=== PATIENT | male | born 1980 | race Caucasian/White ===

== ENCOUNTER 2016-08-08 19:53 | Inpatient (IN) | payer OTHER ==
[2016-08-08] VITALS (7 sets, daily range): BP systolic 113–144; BP diastolic 67–87; PULSE 68–100; RESP 16–18; TEMP 98–98.3; O2SAT 96–99
[~2016-08-08] VITALS: Ht 182.9 cm; Wt 111.1 kg
[~2016-08-08 19:53] MED LIST: ADDE30TA PO; XANA1TAB6 PO
[2016-08-08] MEDS ORDERED: SODIUM CHLOR 0.9% 1000 ML INJ 1,000 ML IV ONE (20:14)
[2016-08-08] MEDS ORDERED: SODIUM CHLORIDE 0.9% FLUSH 10 ML FLUSH IVF PRN (20:15)
[2016-08-08] MEDS ORDERED: LORazepam 2 MG/ML VIAL IVS ONE (20:15)
--- NOTE | 2016-08-08 20:28 | PD ---
HPI Chief Complaint: Seizure Time Seen by Provider: 20:06 Travel History International Travel<30 days: No Contact w/Intl Traveler<30days: No Traveled to known affect area: No History of Present Illness HPI The patient is a 36-year-old male with a history of ADHD and anxiety who apparently had a seizure at approximately 1915 today. This was witnessed by the neighbors. The patient bit his tongue complains of low back pain. He wants something for the pain. He denies any radiation of the pain. He has a history of alcohol abuse but states he does not drink very much alcohol now. His last drink was yesterday. He states he ran out of his Xanax 3 days ago. His Xanax is filled by his primary care physician in [place]. The patient is on Adderall and takes 30 mg once a day. Xanax is 2 mg at bedtime. She denies any head trauma or C-spine or T-spine pain. 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 The patient states he had a seizure 2 years ago. He was never worked up for seizures. He claims a 10 over 10 in pain, sharp pain, in his back. [facility] Past Medical History ADD: Yes Anxiety: Yes (ADD) Past Surgical History Other Surgery: Yes (ORAL SURGERY ANF FINGER SURGERY) Social History Alcohol Use: Yes (2 BEERS 2X/WEEK) Tobacco Use: Yes (1/2 PPD) Substance Use: No Allergies-Medications (Allergen,Severity, Reaction): Coded Allergies: No Known Allergies (Unverified , 11/04/14) Reported Meds & Prescriptions Reported Meds & Active Scripts Active Reported Xanax (Alprazolam) 2 Mg Tab 2 Mg PO HS Adderall (Amphetamine-Dextroamphetamine) 30 Mg Tab 30 Mg PO DAILY Avoid late evening doses. Space doses at least 4 to 6 hours if more than once/day dosing. Review of Systems Except as stated in HPI: all other systems reviewed are Neg Physical Exam Narrative GENERAL: The patient is alert, oriented 3 in moderate apparent distress with his low back pain. The vital signs are normal except for a tachycardia of 110. He has not appeared intoxicated and does not smell of alcohol. SKIN: Focused skin assessment warm/dry. No needle tracks nor wrist slash chavira are present. HEAD: Atraumatic. Normocephalic. Neither raccoon eyes nor matthew sign is present. EYES: Pupils equal and round. No scleral icterus. No injection or drainage. ENT: No nasal bleeding or discharge. Mucous membranes pink and moist. There is no hemotympanum present. The left tongue has recent bite navdeep present. NECK: Trachea midline. No JVD. No cervical spine tenderness or deformity is present. CARDIOVASCULAR: Regular rate and rhythm. No murmur appreciated. RESPIRATORY: No accessory muscle use. Clear to auscultation. Breath sounds equal bilaterally. GASTROINTESTINAL: Abdomen soft, non-tender, nondistended. Hepatic and splenic margins not palpable. No guarding or rebound is present. MUSCULOSKELETAL: No obvious deformities. No clubbing. No cyanosis. No edema. There is tenderness over the low back area NEUROLOGICAL: Awake and alert. No obvious cranial nerve deficits. Motor grossly within normal limits. Normal speech. PSYCHIATRIC: Appropriate mood and affect; insight and judgment normal. Data Data Last Documented VS Vital Signs Date Time Temp Pulse Resp B/P Pulse Ox O2 Delivery O2 Flow Rate FiO2 08/08/16 21:30 16 08/08/16 21:10 85 96 08/08/16 20:50 128/80 Room Air 08/08/16 20:[address] Brain W/O Iv Contrast(Rout) (08/08/16 20:14) Ct Lumb Spine W/O Contrast (08/08/16 20:14) Complete Blood Count With Diff (08/08/16 20:14) Alcohol (Ethanol) (08/08/16 20:14) Drug Screen, Random Urine (08/08/16 20:14) Electrocardiogram (08/08/16 ) Ecg Monitoring (08/08/16 20:14) Iv Access Insert/Monitor (08/08/16 20:14) Oximetry (08/08/16 20:14) Comprehensive Metabolic Panel (08/08/16 20:14) Sodium Chlor 0.9% 1000 Ml Inj (Ns 1000 M (08/08/16 20:14) Sodium Chloride 0.9% Flush (Ns Flush) (08/08/16 20:15) Lorazepam Inj (Ativan Inj) (08/08/16 20:15) Urinalysis - C+S If Indicated (08/08/16 20:14) Morphine Inj (Morphine Inj) (08/08/16 20:30) Ondansetron Inj (Zofran Inj) (08/08/16 20:30) Admit Order (Ed Use Only) (08/08/16 21:43) Creatine Kinase (Cpk) (08/08/16 20:45) Labs Laboratory Tests Test 08/08/16 08/08/16 20:40 20:45 Urine Color YELLOW Urine Turbidity CLEAR Urine pH 6.0 Urine Specific [place] 1.018 Urine Protein 30 mg/dL Urine Glucose (UA) NEG mg/dL Urine Ketones NEG mg/dL Urine Occult Blood MOD Urine Nitrite NEG Urine Bilirubin NEG Urine Leukocyte Esterase NEG Urine RBC 0-3 /hpf Urine WBC 3-5 /hpf Urine Squamous Epithelial > 8 /hpf Cells Urine Bacteria FEW /hpf Microscopic Urinalysis Comment CULT NOT INDICATED Urine Opiates Screen NEG Urine Barbiturates Screen NEG Urine Amphetamines Screen NEG Urine Benzodiazepines Screen NEG Urine Cocaine Screen NEG Urine Cannabinoids Screen NEG White Blood Count 20.1 TH/MM3 Red Blood Count 5.48 MIL/MM3 Hemoglobin 17.2 GM/DL Hematocrit 50.3 % Mean Corpuscular Volume 91.8 FL Mean Corpuscular Hemoglobin 31.4 PG Mean Corpuscular Hemoglobin 34.1 % Concent Red Cell Distribution Width 12.6 % Platelet Count 307 TH/MM3 Mean Platelet Volume 8.0 FL Neutrophils (%) (Auto) 86.3 % Lymphocytes (%) (Auto) 9.4 % Monocytes (%) (Auto) 4.0 % Eosinophils (%) (Auto) 0.2 % Basophils (%) (Auto) 0.1 % Neutrophils # (Auto) 17.4 TH/MM3 Lymphocytes # (Auto) 1.9 TH/MM3 Monocytes # (Auto) 0.8 TH/MM3 Eosinophils # (Auto) 0.0 TH/MM3 Basophils # (Auto) 0.0 TH/MM3 CBC Comment DIFF FINAL Differential Comment Sodium Level 138 MEQ/L Potassium Level 4.0 MEQ/L Chloride Level 106 MEQ/L Carbon Dioxide Level 23.9 MEQ/L Anion Gap 8 MEQ/L Blood Urea Nitrogen 12 MG/DL Creatinine 1.10 MG/DL Estimat Glomerular Filtration 77 ML/MIN Rate Random Glucose 103 MG/DL Calcium Level 8.5 MG/DL Total Bilirubin 0.5 MG/DL Aspartate Amino Transf 21 U/L (AST/SGOT) Alanine Aminotransferase 28 U/L (ALT/SGPT) Alkaline Phosphatase 55 U/L Total Creatine Kinase 161 U/L Total Protein 7.4 GM/DL Albumin 3.6 GM/DL Ethyl Alcohol Level LESS THAN 3 MG/DL MDM Medical Decision Making Medical Screen Exam Complete: Yes Emergency Medical Condition: Yes Medical Record Reviewed: Yes Interpretation(s) There is a compression fracture of T-12. The CT of the brain shows no acute disease. Differential Diagnosis Seizure disordernew onset, alcohol withdrawal, benzodiazepine withdrawal, head trauma, fractured back, acute lumbar strain Narrative Course The patient has a compression fracture T-12. He will be admitted to Dr. Winston at [facility] because he will need a neurosurgery consult. The patient has intractable pain. Diagnosis Primary Impression: Compression fracture of T12 vertebra Additional Impression: Intractable back pain Admitting Information Admitting Physician Requests: Admit Hugh Hudson MD Aug 08, 2016 20:28
[2016-08-08] MEDS ORDERED: ONDANSETRON HCL 4 MG/2 ML VIAL IV ONE (20:30)
[2016-08-08] MEDS ORDERED: MORPHINE SULFATE 4 MG/ML INJ IV PUSH ONE ×2 (20:30→22:00)
[2016-08-08 21:18] LABS: AUTOMATED NEUTROPHIL # 17.4 TH/MM3 (1.8-7.7); BASOPHIL % 0.1 % (0.0-2.0); EOSINOPHIL % 0.2 % (0.0-4.0); HEMATOCRIT 50.3 % (39.0-51.0); LYMPH % 9.4 % (9.0-44.0); LYMPHOCYTE # 1.9 TH/MM3 (1.0-4.8); MEAN CELL VOLUME 91.8 FL (80.0-100.0); MEAN CORPUSCULAR HEMOGLOBIN 31.4 PG (27.0-34.0); MEAN CORPUSCULAR HGB CONC 34.1 % (32.0-36.0); NEUT % 86.3 % (16.0-70.0); PLATELET COUNT 307 TH/MM3 (150-450); RED BLOOD COUNT 5.48 MIL/MM3 (4.50-5.90); RED CELL DISTRIBUTION WIDTH 12.6 % (11.6-17.2); WHITE BLOOD COUNT 20.1 TH/MM3 (4.0-11.0)
[2016-08-08 21:19] LABS: GLUCOSE,URINE NEG (NEG); KETONE, URINE NEG (NEG); NITRITE,URINE NEG (NEG)
[2016-08-08 21:21] LABS: BLOOD, URINE MOD (NEG); URINE COLOR YELLOW (YELLW/STRAW)
[2016-08-08 21:23] LABS: BACTERIA, URINE FEW /hpf; RBC, URINE 0-3 /hpf (0-3); SQUAMOUS EPITHELIAL CELL URINE > 8 /hpf (0-5)
[2016-08-08 21:24] LABS: COMMENT (UR) CULT NOT INDICATED; CULTURE IF INDICATED CULT NOT INDICATED
[2016-08-08] MEDS ORDERED: ADDE30TA PO (21:24)
[2016-08-08] MEDS ORDERED: XANA2TAB2 PO (21:24)
--- NOTE | 2016-08-08 21:24 | RADHPO ---
EXAM DATE/TIME: 08/08/2016 20:56 [facility] COMPARISON: No previous studies available for comparison. INDICATIONS : Seizure with fall. RADIATION DOSE: 63.21 CTDIvol (mGy) MEDICAL HISTORY : None SURGICAL HISTORY : None. ENCOUNTER: Initial ACUITY: 1 day PAIN SCALE: 5/10 LOCATION: cranial TECHNIQUE: Multiple contiguous axial images were obtained of the head. Using automated exposure control and adj ustment of the mA and/or kV according to patient size, radiation dose was kept as low as reasonably a chievable to obtain optimal diagnostic quality images. FINDINGS: CEREBRUM: The ventricles are normal for age. No evidence of midline shift, mass lesion, hemorrhage or acute in farction. No extra-axial fluid collections are seen. POSTERIOR FOSSA: The cerebellum and brainstem are intact. The 4th ventricle is midline. The cerebellopontine angle i s unremarkable. EXTRACRANIAL: The visualized portion of the orbits is intact. SKULL: The calvaria is intact. No evidence of skull fracture. CONCLUSION: No acute disease. Deangelo Workman MD on August 08, 2016 at 21:22 Board Certified Radiologist. This report was verified electronically.
[2016-08-08 21:26] LABS: CHLORIDE 106 MEQ/L (98-107); SODIUM (NA) 138 MEQ/L (136-145)
[2016-08-08 21:28] LABS: AMPHETAMINE, URINE NEG (NEG); BARBITURATES, URINE NEG (NEG)
[2016-08-08 21:29] LABS: ANION GAP 8 MEQ/L (5-15); BICARBONATE 23.9 MEQ/L (21.0-32.0); BLOOD UREA NITROGEN 12 MG/DL (7-18)
[2016-08-08 21:29] LABS: COCAINE, URINE NEG (NEG)
[2016-08-08 21:32] LABS: ALT (GPT) 28 U/L (12-78); AST (GOT) 21 U/L (15-37); GLOMERULAR FILTRATION RATE 77 ML/MIN (>89)
[2016-08-08 21:34] LABS: TOTAL BILIRUBIN ADULT 0.5 MG/DL (0.2-1.0)
[2016-08-08 21:35] LABS: ALKALINE PHOSPHATASE 55 U/L (45-117)
--- NOTE | 2016-08-08 21:36 | RADHPO ---
EXAM DATE/TIME: 08/08/2016 20:59 [facility] COMPARISON: No previous studies available for comparison. INDICATIONS : Trauma, fall. RADIATION DOSE: 33.64 CTDIvol (mGy) MEDICAL HISTORY : None SURGICAL HISTORY : None. ENCOUNTER: Initial ACUITY: 1 day PAIN SCALE: 5/10 LOCATION: Paraspinal TECHNIQUE: Volumetric scanning of the lumbar spine was performed. Multiplanar reconstructions in the sagittal, coronal and oblique axial planes were performed. Using automated exposure control and adjustment of the mA and/or kV according to patient size, radiation dose was kept as low as reasonably achievable t o obtain optimal diagnostic quality images. FINDINGS: There is evidence of a moderate to severe compression fracture involving the superior aspect of the T 12 vertebral body with retropulsion of the posterior-superior aspect of the vertebral body resulting in effacement of the anterior thecal sac. The retropulsed fragment extends approximately 7 mm records supervisor iorly and results in moderate spinal stenosis at this level. There is no acute fracture or spondylol isthesis of the lumbar spine. No spondylolysis is noted. Mild scoliosis of the lumbar spine is note d. CONCLUSION: 1. Moderate to severe compression fracture involving the T12 vertebral body with approximately 7 mm of retropulsion of the posterior-superior aspect of the vertebral body resulting in moderate spinal s tenosis at this level. 2. Mild scoliosis of the lumbar spine. Deangelo Workman MD on August 08, 2016 at 21:27 Board Certified Radiologist. This report was verified electronically.
[2016-08-08 21:41] LABS: HEMO FLAGS DIFF FINAL
[2016-08-08] MEDS ORDERED: NALOXONE HCL 0.4 MG/ML AMP IV PRN (21:45)
[2016-08-08] MEDS ORDERED: SODIUM CHLORIDE 0.9% FLUSH 10 ML FLUSH IV FLUSH PRN (21:45)
[2016-08-08] MEDS ORDERED: BISACODYL 10 MG SUPP RECTAL PRN (21:45)
[2016-08-08] MEDS ORDERED: MAGNESIUM HYDROXIDE SUSP 30 ML CUP PO PRN (21:45)
[2016-08-08] MEDS ORDERED: levETIRAcetam 1000 MG INJ 100 ML IV ONE (22:00)
[2016-08-08] MEDS ORDERED: ACETAMINOPHEN 325 MG TAB PO PRN (22:00)
[2016-08-08] MEDS ORDERED: ACETAMINOPHEN/HYDROcodone 325 MG/5 MG TAB PO PRN (22:00)
[2016-08-08] MEDS ORDERED: ACETAMINOPHEN/HYDROcodone 325 MG/10 MG TAB PO PRN (22:00)
[2016-08-08 22:22] LABS: CREATINE KINASE 161 U/L (39-308)
[2016-08-08] MEDS: DOCUSATE SODIUM 100 MG CAP PO SCH (22:37)
[2016-08-08] MEDS: SODIUM CHLOR 0.9% 1000 ML INJ 1,000 ML IV SCH (22:38)
[2016-08-09] VITALS (7 sets, daily range): BP systolic 115–147; BP diastolic 64–87; PULSE 68–100; RESP 16–21; TEMP 96.8–98.4; O2SAT 94–98
[2016-08-09] MEDS ORDERED: ORPHENADRINE INJ 60 MG/2 ML AMP IM ONE
[2016-08-09] MEDS: DEXAMETHASONE SOD PHOS 4 MG/ML VIAL IV PUSH SCH ×3 (01:52→20:22)
[2016-08-09] MEDS: MORPHINE SULFATE 4 MG/ML INJ IV PRN ×2 (02:43→08:16)
--- NOTE | 2016-08-09 03:21 | HHI.HP ---
[facility] Service [facility] Primary Care Physician Hafsa Kraft Admission Diagnosis compression fracture L1 Diagnoses: Chief Complaint: syncopal episode Travel History International Travel<30 Days: No Contact w/Intl Traveler <30 Da: No Traveled to Known Affected Are: No History of Present Illness 36 y/o male with a medical history of ADHD and anxiety was brought in by EMS after suffering a syncopal episode, questionable seizure. Patient states he went to the store for groceries and on the way back he was smoking a cigarette and became lightheaded. He went to the door, had double vision and passed out. According to the neighbors he had a seizure, and when he woke up he had bite chavira on his tough. He states he has been out of his medications for 3 days, and today he took a Benadryl to get some anxiety relief. He also states he has not been eating for 2 days, and has only consumed a slim fast in 2 days. He complains of pain from the fall and describes it as a constant stabbing pain in his mid lower back, 8/10, and increases with movement. He denies any numbness or tingling in lower extremities, chest pain, sob, fever or chills. He did state he has had a syncopal episode 2 years ago but does not believe it was a seizure. He does not have a diagnosed history of a seizure. He has had a total of 4 passing out episodes in his lifetime, and states it has been due to not eating. Review of Systems Constitutional: DENIES: Fever, Chills Respiratory: DENIES: Cough, Sputum production, Shortness of breath Cardiovascular: DENIES: Chest pain, Lower Extremity Edema Gastrointestinal: DENIES: Constipation, Diarrhea, Nausea, Vomiting Genitourinary: DENIES: Hematuria, Dysuria Musculoskeletal: COMPLAINS OF: Back pain, DENIES: Neck pain Integumentary: DENIES: Rash Hematologic/lymphatic: DENIES: Lymphadenopathy Immunologic/allergic: DENIES: Urticaria Neurologic: COMPLAINS OF: Headache Past Family Social History Past Medical History ADHD Anxiety Past Surgical History oral surgery finger surgery Reported Medications Reported Meds & Active Scripts Active Reported Xanax (Alprazolam) 2 Mg Tab 2 Mg PO HS Adderall (Amphetamine-Dextroamphetamine) 30 Mg Tab 30 Mg PO DAILY Avoid late evening doses. Space doses at least 4 to 6 hours if more than once/day dosing. Allergies: Coded Allergies: No Known Allergies (Unverified , 11/04/14) Active Ordered Medications Current Medications Medications (Trade) Dose Ordered Sig/Bruna Route Start Time Stop Time Status Last Admin Sodium Chloride 2 ml 2 ml UNSCH PRN IVF 08/08/16 20:15 08/08/16 21:21 (NS 1000 ml Inj) 1,000 ml @ 100 mls/hr Q10H IV 08/08/16 21:45 08/08/16 22:38 (NS Flush) 2 ml UNSCH PRN IV FLUSH 08/08/16 21:45 (NS Flush) 2 ml BID IV FLUSH 08/09/16 09:00 (Zofran Inj) 4 mg Q6H PRN IVP 08/08/16 21:45 (Dulcolax Supp) 10 mg DAILY PRN RECTAL 08/08/16 21:45 (Colace) 100 mg Q12H PO 08/08/16 21:45 08/08/16 22:37 (Milk Of Magnesia Liq) 30 ml Q12H PRN PO 08/08/16 21:45 (Senokot) 17.2 mg Q12H PRN PO 08/08/16 21:45 (Narcan Inj) 0.4 mg UNSCH PRN IV 08/08/16 21:45 (Xanax) 2 mg HS PO 08/09/16 21:00 (Keppra) 500 mg Q12HR PO 08/09/16 09:00 (Tylenol) 650 mg Q6H PRN PO 08/08/16 22:00 ([place] 5-325 Mg) 1 tab Q4H PRN PO 08/08/16 22:00 ([place] 10-325 Mg) 1 tab Q4H PRN PO 08/08/16 22:00 (Morphine Inj) 4 mg Q3H PRN IV 08/08/16 22:00 08/09/16 02:43 (Decadron Inj) 4 mg Q6HR IV PUSH 08/09/16 01:45 08/09/16 01:52 Family History Dad: heart disease Mom: li Social History Tobacco use: 1 1-1/2 PPD since age 20 Alcohol use: 1-2 beers a day during the week, weekends are more Illicit drug use: Denies Physical Exam Vital Signs Vital Signs Date Time Temp Pulse Resp B/P Pulse Ox O2 Delivery O2 Flow Rate FiO2 08/09/16 01:20 88 16 116/64 96 Room Air 08/09/16 01:00 84 16 97 08/09/16 00:50 84 16 115/68 95 Room Air 08/08/16 23:50 90 16 113/67 96 Room Air 08/08/16 23:00 16 08/08/16 22:50 98.3 80 16 132/68 98 Room Air 08/08/16 21:50 84 16 125/72 96 Room Air 08/08/16 21:30 16 08/08/16 21:10 85 16 96 08/08/16 20:50 86 16 128/80 99 Room Air 08/08/16 20:29 98.0 90 16 118/87 97 08/08/16 19:55 16 96 Room Air 08/08/16 19:55 100 18 118/87 98 Room Air Physical Exam GENERAL: This is a well-nourished, well-developed patient, in no apparent distress. SKIN: Mid back laceration. HEAD: Atraumatic. Normocephalic. No temporal or scalp tenderness. EYES: Pupils equal round and reactive. Extraocular motions intact. No scleral icterus. No injection or drainage. ENT: Nose without bleeding, purulent drainage or septal hematoma. Throat without erythema, tonsillar hypertrophy or exudate. Airway patent. NECK: Trachea midline. No JVD or lymphadenopathy. Supple, nontender, no meningeal signs. CARDIOVASCULAR: Regular rate and rhythm without murmurs, gallops, or rubs. RESPIRATORY: Clear to auscultation. Breath sounds equal bilaterally. No wheezes , rales, or rhonchi. GASTROINTESTINAL: Abdomen soft, non-tender, nondistended. No hepato-splenomegaly , or palpable masses. No guarding. MUSCULOSKELETAL: Extremities without clubbing, cyanosis, or edema. No joint tenderness, effusion, or edema noted. No calf tenderness. NEUROLOGICAL: Awake and alert. Motor and sensory grossly within normal limits. Five out of 5 muscle strength in all muscle groups. Normal speech. Laboratory Laboratory Tests Test 08/08/16 08/08/16 20:40 20:45 Urine Color YELLOW Urine Turbidity CLEAR Urine pH 6.0 Urine Specific [place] 1.018 Urine Protein 30 Urine Glucose (UA) NEG Urine Ketones NEG Urine Occult Blood MOD Urine Nitrite NEG Urine Bilirubin NEG Urine Leukocyte Esterase NEG Urine RBC 0-3 Urine WBC 3-5 Urine Squamous Epithelial > 8 Cells Urine Bacteria FEW Microscopic Urinalysis Comment CULT NOT INDICATED Urine Opiates Screen NEG Urine Barbiturates Screen NEG Urine Amphetamines Screen NEG Urine Benzodiazepines Screen NEG Urine Cocaine Screen NEG Urine Cannabinoids Screen NEG White Blood Count 20.1 Red Blood Count 5.48 Hemoglobin 17.2 Hematocrit 50.3 Mean Corpuscular Volume 91.8 Mean Corpuscular Hemoglobin 31.4 Mean Corpuscular Hemoglobin 34.1 Concent Red Cell Distribution Width 12.6 Platelet Count 307 Mean Platelet Volume 8.0 Neutrophils (%) (Auto) 86.3 Lymphocytes (%) (Auto) 9.4 Monocytes (%) (Auto) 4.0 Eosinophils (%) (Auto) 0.2 Basophils (%) (Auto) 0.1 Neutrophils # (Auto) 17.4 Lymphocytes # (Auto) 1.9 Monocytes # (Auto) 0.8 Eosinophils # (Auto) 0.0 Basophils # (Auto) 0.0 CBC Comment DIFF FINAL Differential Comment Sodium Level 138 Potassium Level 4.0 Chloride Level 106 Carbon Dioxide Level 23.9 Anion Gap 8 Blood Urea Nitrogen 12 Creatinine 1.10 Estimat Glomerular Filtration 77 Rate Random Glucose 103 Calcium Level 8.5 Total Bilirubin 0.5 Aspartate Amino Transf 21 (AST/SGOT) Alanine Aminotransferase 28 (ALT/SGPT) Alkaline Phosphatase 55 Total Creatine Kinase 161 Total Protein 7.4 Albumin 3.6 Ethyl Alcohol Level LESS THAN 3 Result Diagram: 08/08/16204408/08/162044 Imaging Last Impressions Lumbar Spine CT 08/08/162013 Signed Impressions: Service Date/Time: Monday, August 08, 2016 20:59 - CONCLUSION: 1. Moderate to severe compression fracture involving the T12 vertebral body with approximately 7 mm of retropulsion of the posterior-superior aspect of the vertebral body resulting in moderate spinal stenosis at this level. 2. Mild scoliosis of the lumbar spine. Deangelo Workman MD Head CT 08/08/162013 Signed Impressions: Service Date/Time: Monday, August 08, 2016 20:56 - CONCLUSION: No acute disease. Deangelo Workman MD Assessment and Plan Problem List: (1) Compression fracture of L1 lumbar vertebra ICD Code: S32.010A Status: Acute (2) Compression fracture of T12 vertebra ICD Code: M48.54XA Status: Acute (3) Tobacco abuse ICD Code: Z72.0 Status: Acute Assessment and Plan 36 y/o male with a medical history of ADHD and anxiety was brought in by EMS after suffering a syncopal episode, questionable seizure. Syncopal/ Questionable Seizure Images reviewed: Head CT unremarkable -Consult neurology for recommendations -EEG ordered -seizure precautions -Keppra PO -Neuro checks -Monitory TELE Compression fracture T12 and L1 Images reviewed: Lumbar Spine CT shows Moderate to severe compression fracture involving the T12 vertebral body with approximately 7 mm of retropulsion of the posterior-superior aspect of the vertebral body resulting in moderate spinal stenosis at this level. Mild scoliosis of the lumbar spine. -Consult neurosurgery for recommendations -Bed rest -Pain management with IV morphine and norco -Dexamethasone IV Leukocytosis, likely stress related WBS 20.1, neutrophils 86%, UA negative -Trend CBC Tobacco abuse -Counselled DVT prophylaxis: SCDs Written by GERMÁN Duque acting as scribe for Dr. Winston on 08/09/16 at 0328 All or portions of this note were transcribed by scribe [GERMÁN Duque,]. I, Dr. John Winston personally performed the history, physical exam, and medical decision making; and confirmed the accuracy of the information in the transcribed note. Authenticated by Dr. John Winston on 08/10/16 at 12:38. Discussed Condition With Patient, RN and ED physician Physician Certification 2 Midnight Certification Type: Admission for Inpatient Services Order for Inpatient Services The services are ordered in accordance with Medicare regulations or non- Medicare payer requirements, as applicable. In the case of services not specified as inpatient-only, they are appropriately provided as inpatient services in accordance with the 2-midnight benchmark. Estimated LOS (days): 2 days is the estimated time the patient will need to remain in the hospital, assuming treatment plan goals are met and no additional complications. Post-Hospital Plan: [place] Cande Harding Aug 09, 2016 03:20 John Winston MD Aug 10, 2016 12:38
[2016-08-09 04:19] LABS: AUTOMATED NEUTROPHIL # 12.5 TH/MM3 (1.8-7.7); BASOPHIL % 0.1 % (0.0-2.0); EOSINOPHIL % 0.1 % (0.0-4.0); HEMATOCRIT 42.7 % (39.0-51.0); HEMO FLAGS DIFF FINAL; LYMPH % 6.3 % (9.0-44.0); LYMPHOCYTE # 0.9 TH/MM3 (1.0-4.8); MEAN CELL VOLUME 91.6 FL (80.0-100.0); MEAN CORPUSCULAR HEMOGLOBIN 31.8 PG (27.0-34.0); MEAN CORPUSCULAR HGB CONC 34.8 % (32.0-36.0); MONO % 2.8 % (0.0-8.0); NEUT % 90.7 % (16.0-70.0); PLATELET COUNT 246 TH/MM3 (150-450); RED BLOOD COUNT 4.66 MIL/MM3 (4.50-5.90); RED CELL DISTRIBUTION WIDTH 13.6 % (11.6-17.2); WHITE BLOOD COUNT 13.8 TH/MM3 (4.0-11.0)
[2016-08-09 04:41] LABS: BICARBONATE 25.3 MEQ/L (21.0-32.0)
[2016-08-09] MEDS: ONDANSETRON HCL 4 MG/2 ML VIAL IVP PRN (04:46)
[2016-08-09] MEDS: SODIUM CHLOR 0.9% 1000 ML INJ 1,000 ML IV SCH ×3 (07:45→20:54)
[2016-08-09] MEDS: DOCUSATE SODIUM 100 MG CAP PO SCH ×2 (08:33→20:23)
[2016-08-09] MEDS ORDERED: levETIRAcetam 500 MG TAB PO SCH (09:00)
[2016-08-09] MEDS: SODIUM CHLORIDE 0.9% FLUSH 10 ML FLUSH IV FLUSH SCH ×2 (09:00→20:22)
--- NOTE | 2016-08-09 10:10 | RADRPT ---
EXAM DATE/TIME: 08/09/2016 09:24 This report includes an Addendum and supersedes previous reports for this exam. [facility] COMPARISON: CT LUMBAR SPINE W/O CONTRAST, August 08, 2016, 20:59. INDICATIONS : Fracture. Patient fell 08/08/2016. MEDICAL HISTORY : None. SURGICAL HISTORY : Finger surgery. ENCOUNTER: Initial ACUITY: 1 day PAIN SCORE: 7/10 LOCATION: Back. TECHNIQUE: Multiplanar multisequence MRI of the thoracic spine was performed. FINDINGS: VERTEBRA: There is an acute compression deformity involving the superior endplate of T12. There is 60% loss of height. 7 mm of retropulsion of the posterior cortical margin which abuts the ventral aspect of the c onus. The remaining vertebral body heights are maintained. No hematoma appreciated. No splaying of th e spinous processes. ALIGNMENT: Focal kyphosis centered at T12. CORD: Normal position and configuration. T1-T2: Normal. T2-T3: The thecal sac has a normal diameter. No evidence of disc bulge or protrusion. T3-T4: The thecal sac has a normal diameter. No evidence of disc bulge or protrusion. T4-T5: The thecal sac has a normal diameter. No evidence of disc bulge or protrusion. T5-T6: The thecal sac has a normal diameter. No evidence of disc bulge or protrusion. T6-T7: The thecal sac has a normal diameter. No evidence of disc bulge or protrusion. T7-T8: The thecal sac has a normal diameter. No evidence of disc bulge or protrusion. T8-T9: The thecal sac has a normal diameter. No evidence of disc bulge or protrusion. T9-T10: The thecal sac has a normal diameter. No evidence of disc bulge or protrusion. T10-T11: The thecal sac has a normal diameter. No evidence of disc bulge or protrusion. T11-T12: The thecal sac has a normal diameter. No evidence of disc bulge or protrusion. T12-L1: The thecal sac has a normal diameter. No evidence of disc bulge or protrusion. See above discussion. CONCLUSION: 1. Acute T12 compression fracture with 60% loss of height and 7 mm of retropulsion. There is abutment of the conus but no flattening or signal change within the conus. No hematoma observed. Brannon Corral Jr., MD on August 09, 2016 at 9:59 Board Certified Radiologist. This report was verified electronically. ADDENDUM: Examination was discussed with Dr. Mohamud. The sagittal T2-weighted images indicate mild mass effect o n the anterior margin of the spinal cord. Yash Lares MD on August 09, 2016 at 10:50 Board Certified Radiologist. This report was verified electronically.
[2016-08-09] MEDS ORDERED: VANCOMYCIN INJ 1,000 MG in SODIUM CHLOR 0.9% 250 ML INJ 250 ML IV ONE (11:00)
[2016-08-09] MEDS ORDERED: ceFAZolin 2 GM PREMIX 50 ML IV ONE (11:00)
[2016-08-09] MEDS: LORazepam 0.5 MG TAB PO PRN (11:10)
[2016-08-09] MEDS ORDERED: VANCOMYCIN HCL 1000 MG VIAL ONE (11:13)
[2016-08-09] MEDS ORDERED: BUPIVACAINE/EPINEPHRINE 0.5% PF 30 ML VIAL ONE (11:14)
[2016-08-09] MEDS ORDERED: THROMBIN (TOPICAL) 5,000 UNIT VIAL ONE (11:14)
[2016-08-09] MEDS ORDERED: GELFOAM SIZE 100 ONE (11:14)
[2016-08-09] MEDS ORDERED: GENTAMICIN SULFATE 80 MG/2 ML VIAL ONE (11:14)
[2016-08-09] MEDS ORDERED: HEPARIN SODIUM - SQ 10,000 UNITS/ML VIAL ONE (11:30)
[2016-08-09] MEDS ORDERED: levETIRAcetam 500 MG/5 ML VIAL IV ONE (11:38)
[2016-08-09] MEDS ORDERED: PROPOFOL 200 MG/20 ML AMP IV ONE (12:00)
[2016-08-09] MEDS ORDERED: SODIUM CHLORID 0.9% 500 ML INJ 500 ML IV ONE (12:00)
[2016-08-09] MEDS ORDERED: LACTATED RINGER'S 1000 ML INJ 3,000 ML IV ONE (12:00)
[2016-08-09] MEDS ORDERED: ONDANSETRON HCL 4 MG/2 ML VIAL IV PUSH ONE (12:00)
[2016-08-09 12:26] LABS: APTT (PATIENT) 27.6 SEC (24.3-30.1); PROTHROMBIN TIME - PATIENT 10.7 SEC (9.8-11.6)
[2016-08-09] MEDS ORDERED: ACETAMINOPHEN 1000 MG/100 ML VIAL IV ONE (12:36)
[2016-08-09] MEDS ORDERED: fentaNYL CITRATE 250 MCG/5 ML AMP ONE ×2 (12:36→15:50)
[2016-08-09] MEDS ORDERED: ARTIFICIAL TEARS OPTH OINT 3.5 APPLIC/3.5 GM TUBO ONE (12:36)
[2016-08-09] MEDS ORDERED: HYDROmorphone HCL PF 2 MG/ML VIAL ONE ×2 (12:36→15:50)
[2016-08-09] MEDS ORDERED: MIDAZOLAM HCL 5 MG/5 ML VIAL ONE (12:37)
--- NOTE | 2016-08-09 13:23 | EKG ---
Date Performed: 08/08/2016 Time Performed: 20:26:52 PTAGE: 36 years EKG: Sinus rhythm Normal ECG PREVIOUS TRACING : 02/07/2015 03.29 Compared to prior tracing no significant change DOCTOR: Jason Funez Interpretating Date/Time 08/09/2016 13:21:29
[2016-08-09] MEDS ORDERED: VANCOMYCIN HCL 1000 MG VIAL OTHER ONE (13:49)
[2016-08-09] MEDS ORDERED: ceFAZolin INJ 1,000 MG VIAL IV ONE (17:48)
[2016-08-09] MEDS: NS + KCL 20 MEQ INJ 1,000 ML IV SCH (18:56)
[2016-08-09] MEDS ORDERED: ACETAMINOPHEN 325 MG TAB PO PRN (19:00)
[2016-08-09] MEDS ORDERED: SODIUM CHLORIDE 0.9% FLUSH 5 ML FLUSH IVF PRN (19:00)
[2016-08-09] MEDS ORDERED: NALOXONE HCL 0.4 MG/ML AMP IV PRN (19:00)
[2016-08-09] MEDS ORDERED: diphenhydrAMINE HCL 50 MG/ML VIAL IV PRN (19:00)
[2016-08-09] MEDS ORDERED: DO NOT ADM ANY ANTICOAGULANT DRUGS PRN (19:01)
[2016-08-09] MEDS ORDERED: *MEPERIDINE 25 MG INJ VIAL PERIprocedural Use ONLY ONE (19:02)
--- NOTE | 2016-08-09 19:23 | PD.OP ---
Operative Report Date of Surgery: Aug 09, 2016 Preoperative Diagnosis: Tt12 BURST FRACTURE Postoperative Diagnosis: Tt12 BURST FRACTURE Procedure: Open reduction and internal fixation of T12 fracture, t10 to L2 segmental instrumental fixation using transpedicular screws and rods, T10 to L2 posterolateral fusion using autologous illiac crest bone graft, microsurgical dissection, harvesting of illiac crest bone graft Anesthesia: general Surgeon: Carlos Mohamud Principal Process Engineer(s): Valentina Marquez Operation and Findings: INDICATIONS FOR THE SURGICAL PROCEDURE Mr Yusuf is a 36 year-old male who presented to [place] emergency room after a severe mechanical fall with an unstable burst fracture distraction at T12. A surgical decompression with reduction of the fracture and arthrodhesis were indicated as the most appropriate treatment. The [id number] details of the procedure, indications, alternatives, risks and potential complications were fully discussed with the patient and his . The patient fully understood. All questions were answered. No guarantees were given. The patient voiced requesting the procedure and provided informed consents. The patient had been offered the alternative of delaying the procedure and continuing with nonsurgical management. DETAILS OF THE SURGICAL PROCEDURE Prior to the procedure,the surgical incision was marked in the preoperative surgical holding room, and the procedure, risks, and potential complications revisited with the patient. Placement of electrodes for intraoperative neurophysiological monitoring was completed. The patient was taken to the operative room, and following induction of general anesthesia, endotracheal intubation was performed. A Saini catheter bilateral Soham and sequential compression devices were placed and kept throughout the procedure. The patient was carefully rolled into the prone position over a Mj table with a gell rolls. All pressure points were carefully padded with eggcrate mattress. The eyes were tapped shut after ointment was applied by the anesthesiologist to prevent corneal abrasion. A Peace hugger was placed over the expossed lower body to maintain control of the core body temperature. The electrophysiological team placed the needles and electrodes in their proper location and baseline SSEP's and motor evoked potentials were registered. The thoracic lumbar region was prepped and draped in the usual sterile fashion. A localizing X-ray was performed with the C-arm and the fracture was localized. Two paramedian skin incisions were outlined from T10 to L2 Surgical Approach The skin incisions were made with a #10 blade. Dissection was carried out through the thoracolumbar fascia with a Bovie. The facets of T10 down to L2 were exposed and a subperiosteal dissection was performed decorticating the facets and lateral gutters of the spine. Instrumental fixation At this point in the procedure, placement of bilateral transpedicular screws was necessary for stabilization of the spine. The levels were carefully marked with a TPS and bilateral transpedicular screws were placed using a standard fashion. Initially, the entry point for the screw was selected anatomically at the junction of the facet, with the transverse process, and the pars interarticularis using symultaneous AP and lateral xrays. This was started with a Giamshetti needle followed by the use of a dodson wire. A tap was used to create the threads for the screws. Finally bilateral transpedicular screws were carefully placed bilaterally at T10, T11, T12, L1, and L2. The position of each screw was assessed anatomically with an AP, lateral, oblique Xrays. An intraoperative scan view of the spine was then performed using the iso-centric c -arm. Open reduction of the fracture Once all screws were in position, the operative microscope was draped in the usual sterile fashion and brought to the field. The rest of the surgical procedure was performed using microdissection technique with the exception of the closure. Under the operative microscope, a laminectomy was performed at T12. It was necessary to drill the facet entrance to the pedicle in order to allow access to the anterior surface of the thecal sac without retraction on the spinal cord. Epidural veins were coagulated with the bipolar and incised with the microscissors. The retropulsed bones were assessed with an nerve hook. They were causing significant compression of the dural sac. A shoe impactor was placed on the anterior epidural space and the bone fragments were impacted back into the vertebral body under fluoroscopic guidance. An excellent decompression was achieved using this technique. HARVESTING OF ILLIAC CREST BONE An incision was then made over the patient's right posterior iliac crest. The fascia was carefully opened with a Bovie and the posterior iliac crest was exposed. A small cortical window was created with an osteotome. Cancellous bone was then harvested, to be used during the interbody arthrodesis and the posterolateral fusion. Once an appropriate amount of bone was obtained, the incision was irrigated with antibiotic solution and hemostasis secured by packing the iliac crest with Surgicel. The cortical window was then repositioned and secured using 0 Vicryl sutures. The incision was irrigated and the fascia was closed with interrupted 0 Vicryl sutures. The subcutaneous tissue was approximated with 3-0 Vicryl sutures. Posterolateral fusion Then, the lateral gutters of the spine, facets and transverse processes were carefully decorticated with a TPS drill in preparation for the posterior lateral fusion. The incision was thoroughly irrigated with antibiotic solution. The posterolateral fusion was performed by carefully packing the gutters of the spine at T10 down to L2 with a autologous iliac crest bone graft combined with demineralized bone matrix. Completion of the Procedure The rods were brought to the field. Sequential application of the cap was achieved which allowed for further correction of the kyphosis. Final tightening of all screws was achieved with a torque wrench. The incision was thoroughly irrigated with several liters of antibiotic solution. The decompression was reassessed with an nerve hook and found to be appropriate. Seven mm Mj- Seo drain was left on the epidural space and was then externalized through a separate stab incision. The incision was then closed in layers. 0 Vicryl with interrupted sutures were used to close the thoracolumbar fascia. The superficial fascia was closed with 0 Vicryl sutures. Three-0 Vicryl was used to close the subcutaneous tissue. The skin was closed with negra. At the end of the procedure the sponges, needles, and instrument counts were all correct. Estimated blood loss was 300 cc's. No complications occurred. The patient received prophylactic antibiotics. The patient was then extubated and transferred to the recovery room in stable condition. The entire procedure was performed using electrophysiological monitor of the electromyogram, evoked potential and sphincters. No intraoperative abnormalities were detected. Carlos Mohamud MD Aug 09, 2016 19:23
--- NOTE | 2016-08-09 19:34 | RADRPT ---
EXAM DATE/TIME: 08/09/2016 19:19 [facility] COMPARISON: MRI THORACIC SPINE W/O CONTRAST, August 09, 2016, 9:24. INDICATIONS : Evaluate for central line placement MEDICAL HISTORY : None. SURGICAL HISTORY : None. ENCOUNTER: Initial ACUITY: 1 day PAIN SCORE: Non-responsive. LOCATION: Chest FINDINGS: A right internal jugular central line has its tip at the junction of the superior vena cava and right atrium. There is no pneumothorax. The heart is normal. Right basilar atelectasis is noted. Hardwar e is noted within the thoracolumbar spine. CONCLUSION: 1. No pneumothorax status post placement of right internal jugular central line which has its tip at the junction of the superior vena cava and right atrium. 2. Right basilar atelectasis. Deangelo Workman MD on August 09, 2016 at 19:28 Board Certified Radiologist. This report was verified electronically.
[2016-08-09] MEDS: HYDROmorphone HCL PCA 6 MG/30 ML IV SCH (19:36)
--- NOTE | 2016-08-09 19:51 | RADRPT ---
EXAM DATE/TIME: 08/09/2016 14:37 [facility] COMPARISON: No previous studies available for comparison. INDICATIONS : T10-L2 fusion. MEDICAL HISTORY : Unobtainable. SURGICAL HISTORY : Unobtainable. ENCOUNTER: Initial ACUITY: 2 days PAIN SCORE: Non-responsive. LOCATION: Thoracic/ Lumbar spine. FINDINGS: Fusion hardware is noted extending from T10 through L2 and appears to be adequate in position. Compr ession deformity involving T12 is again noted. CONCLUSION: Status post posterior fusion from T10 through L2 as described above. Deangelo Workman MD on August 09, 2016 at 19:41 Board Certified Radiologist. This report was verified electronically.
[2016-08-09] MEDS ORDERED: LORazepam 2 MG/ML VIAL IV PUSH PRN (20:00)
[2016-08-09] MEDS: ALPRAZolam 1 MG TAB PO SCH (20:22)
[2016-08-09] MEDS ORDERED: SODIUM CHLORIDE 0.9% FLUSH 5 ML FLUSH IVF SCH (21:00)
[2016-08-09] MEDS ORDERED: CHLORHEXIDINE GLUCONATE 4% SOLN 120 ML BTL TOP SCH (21:00)
[2016-08-09] MEDS: PCA - TOTAL MG DILAUDID DELIVERED PER SHIFT SCH (22:00)
[2016-08-09] MEDS: levETIRAcetam INJ 500 MG in SODIUM CHLORIDE 0.9% INJ 100 ML IV SCH (22:32)
--- NOTE | 2016-08-09 22:39 | MB ---
cc: MARGARITA PETIT M.D. DATE OF CONSULTATION 08/09/16 REASON FOR CONSULTATION Possible seizure. HISTORY OF PRESENT ILLNESS Mr. Yusuf is a 36-year-old man who has attention deficit hyperactivity disorder. He takes Xanax and Adderall. He states he ran out of Xanax about four or five days ago. Yesterday, he went to the store and was going back to his apartment, suddenly felt lightheaded and fell. Apparently, he passed out. His neighbors felt that he had a seizure. He did have signs of biting his tongue as well. He has no prior history of seizures. The episode resulted in a T12 compression fracture with cord involvement. He is status post surgery for that. PAST MEDICAL HISTORY 1. Remarkable for attention deficit hyperactivity disorder, 2. anxiety. MEDICATIONS 1. Xanax 2 mg q.h.s. 2. Adderall 30 mg daily. ALLERGIES None known. NEUROLOGIC EXAMINATION Presently he is alert, oriented x3. Speech is normal. Cranial is intact. Motor exam - he has normal strength in both upper and lower extremities. Reflexes are symmetric. Incision and drainage CT scan of the head is normal. LABORATORY DATA White count 13,800, hemoglobin 14.9, hematocrit 42.7% platelet count 246,000. Sodium is 138, potassium four, chloride five, CO2 25, BUN 10, creatinine 1.01, GFR is 85, glucose 99, PT 10.7, INR one, APTT 27.6. IMPRESSION A seizure probably from benzodiazepine withdrawal possibly contributed to by Adderall. RECOMMENDATIONS Because of his recent thoracic spine fracture and surgery, I recommend putting him on seizure prophylaxis with Keppra. We will also obtain an EEG for further evaluation. Also resume his Xanax 2 mg at bedtime, place him under seizure precautions. MD VENKATA Gauthier/ /7:53 PM /10:22 PM
--- NOTE | 2016-08-09 23:03 | MG ---
cc: FLOR MOLINA MD Lab No: [id number] Date: 08/09/16 Age: Sex: M Race: At 8 Hz 60 microvolt symmetric posterior rhythm seen. Hyperventilation not performed. Fracture, seizure, tongue biting, syncope, alcohol, tobacco. Keppra Ativan Decadron Recording overall is synchronous and symmetric. Photic stimulation is performed without significant posterior driving. Some diffuse beta rhythms are seen which could be medication effect. The patient falls asleep and reaches stage II sleep with a vertex sharp wave. Some sleep spindles are noted. IMPRESSION Normal awake and stage II sleep EEG. No evidence for a focal or diffuse abnormality. MD MARSHA Gonzales/ /10:02 PM /10:50 PM
[2016-08-10] VITALS (11 sets, daily range): BP systolic 75–142; BP diastolic 53–95; PULSE 72–174; RESP 18–20; TEMP 96.2–97.4; O2SAT 94–97
[2016-08-10] MEDS: DEXAMETHASONE SOD PHOS 4 MG/ML VIAL IV PUSH SCH ×4 (00:03→17:01)
[2016-08-10] MEDS: ONDANSETRON HCL 4 MG/2 ML VIAL IVP PRN ×2 (00:16→07:43)
[2016-08-10] MEDS: ceFAZolin 2 GM PREMIX 50 ML IV SCH ×3 (02:11→17:01)
[2016-08-10] MEDS: levETIRAcetam INJ 500 MG in SODIUM CHLORIDE 0.9% INJ 100 ML IV SCH ×4 (04:00→15:38)
[2016-08-10] MEDS: NS + KCL 20 MEQ INJ 1,000 ML IV SCH ×2 (04:24→14:56)
[2016-08-10] MEDS: HYDROmorphone HCL PCA 6 MG/30 ML IV SCH ×2 (04:30→21:08)
[2016-08-10] MEDS: LORazepam 0.5 MG TAB PO PRN (04:59)
[2016-08-10 05:16] LABS: BICARBONATE 25.4 MEQ/L (21.0-32.0); POTASSIUM 4.3 MEQ/L (3.5-5.1)
[2016-08-10 05:23] LABS: BASOPHIL # 0.1 TH/MM3 (0-0.2); BASOPHIL % 0.7 % (0.0-2.0); HEMATOCRIT 37.4 % (39.0-51.0); HEMO FLAGS DIFF FINAL; LYMPH % 4.4 % (9.0-44.0); LYMPHOCYTE # 0.7 TH/MM3 (1.0-4.8); MEAN CELL VOLUME 91.7 FL (80.0-100.0); MEAN CORPUSCULAR HEMOGLOBIN 32.1 PG (27.0-34.0); MONO % 5.5 % (0.0-8.0); NEUT % 89.4 % (16.0-70.0); PLATELET COUNT 246 TH/MM3 (150-450); RED BLOOD COUNT 4.08 MIL/MM3 (4.50-5.90); RED CELL DISTRIBUTION WIDTH 13.4 % (11.6-17.2); WHITE BLOOD COUNT 15.6 TH/MM3 (4.0-11.0)
[2016-08-10] MEDS: PCA - TOTAL MG DILAUDID DELIVERED PER SHIFT SCH ×3 (06:00→21:46)
[2016-08-10] MEDS ORDERED: LORazepam 1 MG TAB PO PRN (06:15)
[2016-08-10] MEDS ORDERED: LORazepam 2 MG/ML VIAL IV PUSH PRN ×4 (06:15)
[2016-08-10] MEDS ORDERED: SODIUM CHLORIDE 0.9% FLUSH 10 ML FLUSH IV FLUSH PRN (06:15)
[2016-08-10] MEDS ORDERED: LORazepam 2 MG TAB PO PRN (06:15)
[2016-08-10] MEDS ORDERED: FLUMAZENIL 0.5 MG/5 ML VIAL IV PUSH PRN (06:15)
[2016-08-10] MEDS: SODIUM CHLOR 0.9% 1000 ML INJ 1,000 ML IV SCH ×2 (06:54→16:22)
[2016-08-10] MEDS: CALCIUM CARBONATE 500 MG CHEWABLE TAB CHEW PRN ×2 (07:56→21:41)
[2016-08-10] MEDS: SODIUM CHLORIDE 0.9% FLUSH 10 ML FLUSH IV FLUSH SCH (09:00)
[2016-08-10] MEDS: PANTOPRAZOLE SODIUM 40 MG VIAL IVP SCH (09:00)
[2016-08-10] MEDS: DOCUSATE SODIUM 100 MG CAP PO SCH ×2 (09:25→20:42)
--- NOTE | 2016-08-10 12:04 | HHI.NSPN ---
History Chief Complaint: Incisional back pain. Interval History 08/10/16: Pt underwent open reduction and internal fixation of T12 fracture, T10 to L2 segmental instrumental fixation using transpedicular screws and rods, T10 to L2 posterolateral fusion using autologous illiac crest bone graft, microsurgical dissection, harvesting of illiac crest bone graft on 08/09/16. Pt awake and alert. Complains of incisional pain controlled. No radiculopathy. He states the paresthesias in his extremities is improved today. Denies weakness in LEs. Review of Systems General: Negative for: fever, chills, insomnia Respiratory: Negative for: shortness of breath, cough, sputum Cardiovascular: Negative for: chest pain Gastrointestinal: Negative for: nausea, vomitting, diarrhea, constipation Exam Results Vital Signs Date Time Temp Pulse Resp B/P Pulse Ox O2 Delivery O2 Flow Rate FiO2 08/10/16 08:34 96.9 72 20 123/62 96 08/10/16 08:19 21 08/09/16 19:45 Nasal Cannula 3 Intake and Output 08/09/16 08/09/16 08/10/16 08:00 16:00 00:00 Intake Total 2300 ml 2100 ml Output Total 1400 ml 1040 ml Balance 2300 ml -1400 ml 1060 ml Physical Examination Resp: CTA bilaterally Heart: NSR. No murmurs Abd: Soft positive bs Skin: Incision clean and dry. No signs of infection. NELSON drain in place draining well. Muscle: Moves LEs with good strength. Neuro: Pt states sensation in LEs improving. He is awake and alert. Follows commands well. Speech clear and appropriate. Lab, Micro, Other Results Last Impressions Thoracolumbar Spine 08/09/16 0000 Signed Impressions: Service Date/Time: July 14:37 - CONCLUSION: Status post posterior fusion from T10 through L2 as described above. Deangelo Workman MD Thoracic Spine MRI 08/09/16 0000 Signed Impressions: Service Date/Time: July 09:24 - CONCLUSION: 1. Acute T12 compression fracture with 60%% loss of height and 7 mm of retropulsion. There is abutment of the conus but no flattening or signal change within the conus. No hematoma observed. Brannon Corral Jr., MD ADDENDUM: Examination was discussed with Dr. Mohamud. The sagittal T2-weighted images indicate mild mass effect on the anterior margin of the spinal cord. Yash Lares MD Chest X-Ray 08/09/16 Signed Impressions: Service Date/Time: July 19:19 - CONCLUSION: 1. No pneumothorax status post placement of right internal jugular central line which has its tip at the junction of the superior vena cava and right atrium. 2. Right basilar atelectasis. Deangelo Workman MD Lumbar Spine CT 08/08/162013 Signed Impressions: Service Date/Time: Monday, August 08, 2016 20:59 - CONCLUSION: 1. Moderate to severe compression fracture involving the T12 vertebral body with approximately 7 mm of retropulsion of the posterior-superior aspect of the vertebral body resulting in moderate spinal stenosis at this level. 2. Mild scoliosis of the lumbar spine. Deangelo Workman MD Head CT 08/08/162013 Signed Impressions: Service Date/Time: Monday, August 08, 2016 20:56 - CONCLUSION: No acute disease. Deangelo Workman MD Laboratory Tests Test 08/09/16 08/10/16 13:00 04:36 Blood Type A POSITIVE White Blood Count 15.6 TH/MM3 Red Blood Count 4.08 MIL/MM3 Hemoglobin 13.1 GM/DL Hematocrit 37.4 % Mean Corpuscular Volume 91.7 FL Mean Corpuscular Hemoglobin 32.1 PG Mean Corpuscular Hemoglobin 35.0 % Concent Red Cell Distribution Width 13.4 % Platelet Count 246 TH/MM3 Mean Platelet Volume 8.1 FL Neutrophils (%) (Auto) 89.4 % Lymphocytes (%) (Auto) 4.4 % Monocytes (%) (Auto) 5.5 % Eosinophils (%) (Auto) 0.0 % Basophils (%) (Auto) 0.7 % Neutrophils # (Auto) 14.0 TH/MM3 Lymphocytes # (Auto) 0.7 TH/MM3 Monocytes # (Auto) 0.9 TH/MM3 Eosinophils # (Auto) 0.0 TH/MM3 Basophils # (Auto) 0.1 TH/MM3 CBC Comment DIFF FINAL Differential Comment Sodium Level 137 MEQ/L Potassium Level 4.3 MEQ/L Chloride Level 104 MEQ/L Carbon Dioxide Level 25.4 MEQ/L Anion Gap 8 MEQ/L Blood Urea Nitrogen 9 MG/DL Creatinine 0.99 MG/DL Estimat Glomerular Filtration 87 ML/MIN Rate Random Glucose 121 MG/DL Calcium Level 7.7 MG/DL 08/09/16 08/09/16 08/10/16 15:00 23:00 07:00 Intake Total 2100 ml Output Total 1400 ml 990 ml 1050 ml Balance -1400 ml 1110 ml -1050 ml Other 2100 ml Output Urine Total 1400 ml 700 ml 1000 ml Drainage Total 50 ml Estimated Blood Loss 290 ml Medical Decision Making Impression and Plan A: 36 y/o M s/p open reduction and internal fixation of T12 fracture, T10 to L2 segmental instrumental fixation using transpedicular screws and rods, T10 to L2 posterolateral fusion using autologous illiac crest bone graft, microsurgical dissection, harvesting of illiac crest bone graft P: Continue to monitor D/C Saini PT brace on prior to sitting, standing or walking continue with NELSON drain for now. Elia Green Aug 10, 2016 12:03
--- NOTE | 2016-08-10 13:40 | HHI.PR ---
Subjective Remarks Feels anxious. Was nauseated. 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 He is complaining of pain however he is refusing taking any pain meds. per father at bedside last time he used INLAYER SILVER pump was 2 hrs ago. The patient is anxious. Did not eat much because he had nausea. Denies diarrhea. Denies chest pain, sob. Objective Vitals Vital Signs Date Time Temp Pulse Resp B/P Pulse Ox O2 Delivery O2 Flow Rate FiO2 08/10/16 13:01 96.6 118 20 112/71 96 08/10/16 08:34 96.9 72 20 123/62 96 08/10/16 08:19 94 21 08/10/16 06:00 132 08/10/16 06:00 18 08/10/16 04:30 18 08/10/16 04:00 96.2 113 20 122/79 95 08/10/16 00:00 96.3 90 18 130/82 96 08/09/16 22:00 18 08/09/16 20:00 96.8 86 18 139/87 98 08/09/16 20:00 90 08/09/16 19:45 85 12 165/94 98 Nasal Cannula 3 08/09/16 19:36 14 08/09/16 19:30 84 12 149/99 97 Nasal Cannula 3 08/09/16 19:15 92 13 174/91 96 Nasal Cannula 3 08/09/16 19:00 97.6 87 12 148/91 98 Nasal Cannula 3 I/O 08/09/16 08/09/16 08/09/16 08/10/16 08/10/16 08/10/16 07:00 15:00 23:00 07:00 15:00 23:00 Intake Total 2300 ml 2100 ml Output Total 1400 ml 990 ml 1050 ml Balance 2300 ml -1400 ml 1110 ml -1050 ml Intake IV Total 2300 ml Other 2100 ml Output Urine Total 1400 ml 700 ml 1000 ml Drainage Total 50 ml Estimated Blood Loss 290 ml Result Diagram: 08/10/16 0436 08/10/16 0436 Imaging Last Impressions Thoracolumbar Spine 08/09/16 0000 Signed Impressions: Service Date/Time: July 14:37 - CONCLUSION: Status post posterior fusion from T10 through L2 as described above. Deangelo Workman MD Thoracic Spine MRI 3/30/17 0000 Signed Impressions: Service Date/Time: July 09:24 - CONCLUSION: 1. Acute T12 compression fracture with 60%% loss of height and 7 mm of retropulsion. There is abutment of the conus but no flattening or signal change within the conus. No hematoma observed. Brannon Corral Jr., MD ADDENDUM: Examination was discussed with Dr. Mohamud. The sagittal T2-weighted images indicate mild mass effect on the anterior margin of the spinal cord. Yash Lares MD Chest X-Ray 08/09/16 Signed Impressions: Service Date/Time: July 19:19 - CONCLUSION: 1. No pneumothorax status post placement of right internal jugular central line which has its tip at the junction of the superior vena cava and right atrium. 2. Right basilar atelectasis. Deangelo Workman MD Lumbar Spine CT 08/08/162013 Signed Impressions: Service Date/Time: Monday, August 08, 2016 20:59 - CONCLUSION: 1. Moderate to severe compression fracture involving the T12 vertebral body with approximately 7 mm of retropulsion of the posterior-superior aspect of the vertebral body resulting in moderate spinal stenosis at this level. 2. Mild scoliosis of the lumbar spine. Deangelo Workman MD Head CT 08/08/162013 Signed Impressions: Service Date/Time: Monday, August 08, 2016 20:56 - CONCLUSION: No acute disease. Deangelo Workman MD Objective Remarks GENERAL: This is a young, 36 yo male, well-nourished, well-developed patient, appears anxious. SKIN: Mid back surgical woun c/d/di HEAD: Atraumatic. Normocephalic. No temporal or scalp tenderness. EYES: Pupils equal round and reactive. Extraocular motions intact. No scleral icterus. No injection or drainage. ENT: Nose without bleeding, purulent drainage or septal hematoma. Throat without erythema, tonsillar hypertrophy or exudate. Airway patent. NECK: Trachea midline. No JVD or lymphadenopathy. Supple, nontender, no meningeal signs. CARDIOVASCULAR: Regular rate and rhythm without murmurs, gallops, or rubs. RESPIRATORY: Clear to auscultation. Breath sounds equal bilaterally. No wheezes , rales, or rhonchi. GASTROINTESTINAL: Abdomen soft, non-tender, nondistended. No hepato-splenomegaly , or palpable masses. No guarding. MUSCULOSKELETAL: Extremities without clubbing, cyanosis, or edema. No joint tenderness, effusion, or edema noted. No calf tenderness. NEUROLOGICAL: Awake and alert. Motor and sensory grossly within normal limits. Five out of 5 muscle strength in all muscle groups. Normal speech. Procedures 08/10/16 s/p open reduction and internal fixation of T12 fracture, T10 to L2 segmental instrumental fixation using transpedicular screws and rods, T10 to L2 posterolateral fusion using autologous illiac crest bone graft, microsurgical dissection, harvesting of illiac crest bone graft on 08/09/16. A/P Problem List: (1) Compression fracture of L1 lumbar vertebra ICD Code: S32.010A Status: Acute (2) Compression fracture of T12 vertebra ICD Code: M48.54XA Status: Acute (3) Tobacco abuse ICD Code: Z72.0 Status: Acute Assessment and Plan 36 y/o male with a medical history of ADHD and anxiety was brought in by EMS after suffering a syncopal episode, questionable seizure. Syncopal/ Questionable Seizure Images reviewed: Head CT unremarkable Consult neurology for recommendations EEG ordered Seizure precautions Keppra PO Neuro checks Monitor on TELE Compression fracture T12 and L1 Images reviewed: Lumbar Spine CT shows Moderate to severe compression fracture involving the T12 vertebral body with approximately 7 mm of retropulsion of the posterior-superior aspect of the vertebral body resulting in moderate spinal stenosis at this level. Mild scoliosis of the lumbar spine. Consult neurosurgery , appreciate recommendations 08/10/16 s/p open reduction and internal fixation of T12 fracture, T10 to L2 segmental instrumental fixation using transpedicular screws and rods, T10 to L2 posterolateral fusion using autologous illiac crest bone graft, microsurgical dissection, harvesting of illiac crest bone graft on 08/09/16. Bed rest Pain management with IV morphine and norco Received Dexamethasone IV Leukocytosis, likely stress related WBS 20.1, neutrophils 86% on admission UA negative rend CBC Tobacco abuse. Counselled. DVT prophylaxis: SCDs Discussed with the patient, nurse, family at bedside. DC plan: DC when improved and cleared by consultants. Cecilia Valencia MD Aug 10, 2016 13:40
--- NOTE | 2016-08-10 18:46 | HHI.PR ---
Review/Management Diagnosis probable sz---related to etoh. xanax withdrawal Thoracic spine fx--s/p surgery nurse reported afib on telemetry today Plan stop keppra as he is not tolerating it and start trileptal 600 mg bid cardiology consult for abnormal telemetry Diagnosis/Plan: Subjective Subjective Comments No acute events reported no seizures Active Medications Current Medications Medications (Trade) Dose Ordered Sig/Bruna Route Start Time Stop Time Status Last Admin (Zofran Inj) 4 mg Q6H PRN IVP 08/08/16 21:45 08/10/16 07:43 (Dulcolax Supp) 10 mg DAILY PRN RECTAL 08/08/16 21:45 (Colace) 100 mg Q12H PO 08/08/16 21:45 08/08/16 22:37 (Milk Of Magnesia Liq) 30 ml Q12H PRN PO 08/08/16 21:45 (Senokot) 17.2 mg Q12H PRN PO 08/08/16 21:45 (Xanax) 2 mg HS PO 08/09/16 21:00 08/09/16 20:22 (Tylenol) 650 mg Q6H PRN PO 08/08/16 22:00 08/10/16 07:56 ([place] 5-325 Mg) 1 tab Q4H PRN PO 08/08/16 22:00 ([place] 10-325 Mg) 1 tab Q4H PRN PO 08/08/16 22:00 (Decadron Inj) 4 mg Q6HR IV PUSH 08/09/16 01:45 08/10/16 04:59 (Tums Chew) 500 mg Q2H PRN CHEW 08/09/16 09:00 08/10/16 07:56 Lorazepam 0.5 mg 0.5 mg Q8H PRN PO 08/09/16 10:45 08/10/16 04:59 (NS 1000 ml Inj) 1,000 ml @ 100 mls/hr Q10H IV 08/09/16 10:54 Chlorhexidine Gluconate 1 applic 1 applic HS TOP 08/09/16 21:00 08/10/16 21:01 (NS + KCl 20 Meq Inj) 1,000 ml @ 100 mls/hr Q10H IV 08/09/16 18:56 08/10/16 14:56 (Protonix Inj) 40 mg DAILY IVP 08/10/16 09:00 (Morphine Inj) 2 mg Q2H PRN IV PUSH 08/09/16 19:00 (Morphine Inj) 4 mg Q2H PRN IV PUSH 08/09/16 19:00 (Tylenol) 650 mg Q4H PRN PO 08/09/16 19:00 (Narcan Inj) 0.4 mg UNSCH PRN IV 08/09/16 19:00 (Benadryl Inj) 25 mg Q6H PRN IV 08/09/16 19:00 (Dilaudid POSTDOCTOR[employer] SCIENTIST Inj) 6 mg UNSCH IV 08/09/16 19:00 08/10/16 04:30 POSTDOCTORAL SCIENTIST Dosage Infused (Pha) 1 Q8HR .XX 08/09/16 22:00 08/10/16 14:00 Miscellaneous Information ALL NURSING DEPARTME... UNSCH PRN .XX 08/09/16 19:01 08/10/16 19:00 (Keppra Inj/NS Inj) 105 ml @ 420 mls/hr QID@04,10,16,22 IV 08/09/16 22:00 08/09/16 22:32 (Ativan Inj) 1 mg Q4H PRN IV PUSH 08/09/16 20:00 (NS Flush) 2 ml UNSCH PRN IV FLUSH 08/10/16 06:15 (NS Flush) 2 ml BID IV FLUSH 08/10/16 09:00 08/10/16 09:00 (Romazicon Inj) 0.2 mg Q1M PRN IV PUSH 08/10/16 06:15 (Ativan) 1 mg Q4H PRN PO 08/10/16 06:15 (Ativan Inj) 1 mg Q4H PRN IV PUSH 08/10/16 06:15 08/10/16 17:35 (Ativan) 2 mg Q2H PRN PO 08/10/16 06:15 (Ativan Inj) 2 mg Q2H PRN IV PUSH 08/10/16 06:15 (Ativan Inj) 2 mg Q1H PRN IV PUSH 08/10/16 06:15 (Ativan Inj) 2 mg Q15M PRN IV PUSH 08/10/16 06:15 Allergies Allergies Coded Allergies No Known Allergies (Unverified11/04/14) Exam I&O / VS 08/09/16 08/09/16 08/10/16 15:00 23:00 07:00 Intake Total 2100 ml Output Total 1400 ml 990 ml 1050 ml Balance -1400 ml 1110 ml -1050 ml Other 2100 ml Output Urine Total 1400 ml 700 ml 1000 ml Drainage Total 50 ml Estimated Blood Loss 290 ml Vital Signs Date Time Temp Pulse Resp B/P Pulse Ox O2 Delivery O2 Flow Rate FiO2 08/10/16 17:21 96 21 08/10/16 16:10 97.1 113 20 142/95 96 08/10/16 14:00 19 08/10/16 13:01 96.6 118 20 112/71 96 08/10/16 08:34 96.9 72 20 123/62 96 08/10/16 08:19 94 21 08/10/16 06:00 132 08/10/16 06:00 18 08/10/16 04:30 18 08/10/16 04:00 96.2 113 20 122/79 95 08/10/16 00:00 96.3 90 18 130/82 96 08/09/16 22:00 18 08/09/16 20:00 96.8 86 18 139/87 98 08/09/16 20:00 90 08/09/16 19:45 85 12 165/94 98 Nasal Cannula 3 08/09/16 19:36 14 08/09/16 19:30 84 12 149/99 97 Nasal Cannula 3 08/09/16 19:15 92 13 174/91 96 Nasal Cannula 3 08/09/16 19:00 97.6 87 12 148/91 98 Nasal Cannula 3 Exam Comments alert, oriented, speech normal CN 2-12 normal MOTOR--5/5 BUE and BLE Objective Micro and Labs Laboratory Tests Test 08/10/16 04:36 White Blood Count 15.6 Red Blood Count 4.08 Hemoglobin 13.1 Hematocrit 37.4 Mean Corpuscular Volume 91.7 Mean Corpuscular Hemoglobin 32.1 Mean Corpuscular Hemoglobin 35.0 Concent Red Cell Distribution Width 13.4 Platelet Count 246 Mean Platelet Volume 8.1 Neutrophils (%) (Auto) 89.4 Lymphocytes (%) (Auto) 4.4 Monocytes (%) (Auto) 5.5 Eosinophils (%) (Auto) 0.0 Basophils (%) (Auto) 0.7 Neutrophils # (Auto) 14.0 Lymphocytes # (Auto) 0.7 Monocytes # (Auto) 0.9 Eosinophils # (Auto) 0.0 Basophils # (Auto) 0.1 CBC Comment DIFF FINAL Differential Comment Sodium Level 137 Potassium Level 4.3 Chloride Level 104 Carbon Dioxide Level 25.4 Anion Gap 8 Blood Urea Nitrogen 9 Creatinine 0.99 Estimat Glomerular Filtration 87 Rate Random Glucose 121 Calcium Level 7.7 Fawad French PhD Aug 10, 2016 18:46
[2016-08-10] MEDS: ALPRAZolam 1 MG TAB PO SCH (20:42)
[2016-08-10] MEDS ORDERED: DILTIAZEM HCL 30 MG TAB PO ONE (22:00)
[2016-08-10] MEDS: OXcarbazepine 600 MG TAB PO SCH (22:12)
[2016-08-11] VITALS (12 sets, daily range): BP systolic 100–139; BP diastolic 52–80; PULSE 93–174; RESP 14–24; TEMP 97.6–99.5; O2SAT 90–97
[2016-08-11] MEDS ORDERED: DILTIAZEM INJ 125 MG in SODIUM CHLORIDE 0.9% INJ 100 ML IV SCH ×2
[2016-08-11] MEDS ORDERED: SODIUM CHLORID 0.9% 500 ML INJ 500 ML IV ONE (01:00)
[2016-08-11] MEDS: ONDANSETRON HCL 4 MG/2 ML VIAL IVP PRN ×4 (02:10→21:27)
[2016-08-11] MEDS: HYDROmorphone HCL PCA 6 MG/30 ML IV SCH ×2 (02:30→14:15)
[2016-08-11] MEDS: SODIUM CHLOR 0.9% 1000 ML INJ 1,000 ML IV SCH ×3 (02:54→22:54)
[2016-08-11] MEDS: CALCIUM CARBONATE 500 MG CHEWABLE TAB CHEW PRN (03:04)
[2016-08-11] MEDS: DEXAMETHASONE SOD PHOS 4 MG/ML VIAL IV PUSH SCH ×3 (03:05→11:36)
[2016-08-11] MEDS: NS + KCL 20 MEQ INJ 1,000 ML IV SCH ×2 (03:09→10:56)
[2016-08-11] MEDS: PCA - TOTAL MG DILAUDID DELIVERED PER SHIFT SCH ×3 (06:35→22:00)
--- NOTE | 2016-08-11 08:37 | HHI.PR ---
Subjective Remarks Says pain is better controlled by meds. Feels agitated at times. He did refuse meds yesterday and was noted tachycardic. HR better controlled today. No seizures. No n/v/d/c. Denies chest pain , sob. Objective Vitals Vital Signs Date Time Temp Pulse Resp B/P Pulse Ox O2 Delivery O2 Flow Rate FiO2 08/11/16 06:35 18 08/11/16 04:00 99.4 105 22 128/66 90 08/11/16 02:30 16 08/11/16 01:30 99.5 119 24 104/60 91 08/11/16 01:25 174 08/11/16 00:00 97.6 132 20 100/52 97 08/10/16 21:46 17 08/10/16 21:41 17 08/10/16 21:08 17 08/10/16 19:55 174 08/10/16 19:35 100/56 Automatic Cuff 08/10/16 17:21 96 21 08/10/16 16:10 97.1 113 20 142/95 96 08/10/16 14:00 19 08/10/16 13:01 96.6 118 20 112/71 96 I/O 08/10/16 08/10/16 08/10/16 08/11/16 08/11/16 08/11/16 07:00 15:00 23:00 07:00 15:00 23:00 Intake Total 3822 ml Output Total 1050 ml 290 ml 20 ml Balance -1050 ml -290 ml 3802 ml Intake Oral 0 ml IV Total 3822 ml Output Urine Total 1000 ml 250 ml Drainage Total 50 ml 40 ml 20 ml # Voids 1 # Bowel Movements 0 Result Diagram: 08/10/16 0436 08/10/16 0436 Imaging Last Impressions Thoracolumbar Spine 08/09/16 0000 Signed Impressions: Service Date/Time: July 14:37 - CONCLUSION: Status post posterior fusion from T10 through L2 as described above. Deangelo Workman MD Thoracic Spine MRI 08/09/16 0000 Signed Impressions: Service Date/Time: July 09:24 - CONCLUSION: 1. Acute T12 compression fracture with 60%% loss of height and 7 mm of retropulsion. There is abutment of the conus but no flattening or signal change within the conus. No hematoma observed. Brannon Corral Jr., MD ADDENDUM: Examination was discussed with Dr. Mohamud. The sagittal T2-weighted images indicate mild mass effect on the anterior margin of the spinal cord. Yash Lares MD Chest X-Ray 08/09/16 Signed Impressions: Service Date/Time: July 19:19 - CONCLUSION: 1. No pneumothorax status post placement of right internal jugular central line which has its tip at the junction of the superior vena cava and right atrium. 2. Right basilar atelectasis. Deangelo Workman MD Lumbar Spine CT 08/08/162013 Signed Impressions: Service Date/Time: Monday, August 08, 2016 20:59 - CONCLUSION: 1. Moderate to severe compression fracture involving the T12 vertebral body with approximately 7 mm of retropulsion of the posterior-superior aspect of the vertebral body resulting in moderate spinal stenosis at this level. 2. Mild scoliosis of the lumbar spine. Deangelo Workman MD Head CT 08/08/162013 Signed Impressions: Service Date/Time: Monday, August 08, 2016 20:56 - CONCLUSION: No acute disease. Deangelo Workman MD Objective Remarks GENERAL: This is a young, 36 yo male, well-nourished, well-developed patient, appears anxious. SKIN: Mid back surgical woun c/d/di HEAD: Atraumatic. Normocephalic. No temporal or scalp tenderness. EYES: Pupils equal round and reactive. Extraocular motions intact. No scleral icterus. No injection or drainage. ENT: Nose without bleeding, purulent drainage or septal hematoma. Throat without erythema, tonsillar hypertrophy or exudate. Airway patent. NECK: Trachea midline. No JVD or lymphadenopathy. Supple, nontender, no meningeal signs. CARDIOVASCULAR: Regular rate and rhythm without murmurs, gallops, or rubs. RESPIRATORY: Clear to auscultation. Breath sounds equal bilaterally. No wheezes , rales, or rhonchi. GASTROINTESTINAL: Abdomen soft, non-tender, nondistended. No hepato-splenomegaly , or palpable masses. No guarding. MUSCULOSKELETAL: Extremities without clubbing, cyanosis, or edema. No joint tenderness, effusion, or edema noted. No calf tenderness. NEUROLOGICAL: Awake and alert. Motor and sensory grossly within normal limits. Five out of 5 muscle strength in all muscle groups. Normal speech. Procedures 08/10/16 s/p open reduction and internal fixation of T12 fracture, T10 to L2 segmental instrumental fixation using transpedicular screws and rods, T10 to L2 posterolateral fusion using autologous illiac crest bone graft, microsurgical dissection, harvesting of illiac crest bone graft on 08/09/16. A/P Problem List: (1) Compression fracture of L1 lumbar vertebra ICD Code: S32.010A Status: Acute (2) Compression fracture of T12 vertebra ICD Code: M48.54XA Status: Acute (3) Tobacco abuse ICD Code: Z72.0 Status: Acute Assessment and Plan 36 y/o male with a medical history of ADHD and anxiety was brought in by EMS after suffering a syncopal episode, questionable seizure. Syncopal/ Questionable Seizure Images reviewed: Head CT unremarkable Consult neurology for recommendations EEG reviewed Seizure precautions Stop Keppra PO per neuro as he is not tolerating. Start Trileptal per neuro. Neurology following appreciate recommendations. Neuro checks Monitor on TELE Compression fracture T12 and L1 Images reviewed: Lumbar Spine CT shows Moderate to severe compression fracture involving the T12 vertebral body with approximately 7 mm of retropulsion of the posterior-superior aspect of the vertebral body resulting in moderate spinal stenosis at this level. Mild scoliosis of the lumbar spine. Consult neurosurgery , appreciate recommendations 08/10/16 s/p open reduction and internal fixation of T12 fracture, T10 to L2 segmental instrumental fixation using transpedicular screws and rods, T10 to L2 posterolateral fusion using autologous illiac crest bone graft, microsurgical dissection, harvesting of illiac crest bone graft on 08/09/16. Bed rest Pain management with IV morphine and norco Received Dexamethasone IV Leukocytosis, likely stress related WBS 20.1, neutrophils 86% on admission UA negative rend CBC Tobacco abuse. Counselled. DVT prophylaxis: SCDs Discussed with the patient, nurse, family at bedside. DC plan: DC when improved and cleared by consultants. Cecilia Vaelncia MD Aug 11, 2016 08:37
[2016-08-11] MEDS: PANTOPRAZOLE SODIUM 40 MG VIAL IVP SCH (09:00)
[2016-08-11] MEDS: OXcarbazepine 600 MG TAB PO SCH ×2 (09:00→21:00)
[2016-08-11] MEDS: DOCUSATE SODIUM 100 MG CAP PO SCH ×2 (09:45→21:45)
--- NOTE | 2016-08-11 12:36 | HHI.NSPN ---
History Chief Complaint: Incisional back pain. Interval History 08/10/16: Pt underwent open reduction and internal fixation of T12 fracture, T10 to L2 segmental instrumental fixation using transpedicular screws and rods, T10 to L2 posterolateral fusion using autologous illiac crest bone graft, microsurgical dissection, harvesting of illiac crest bone graft on 08/09/16. Pt awake and alert. Complains of incisional pain controlled. No radiculopathy. He states the paresthesias in his extremities is improved today. Denies weakness in LEs. 08/11/16: Pt transferred to cardiac telemetry yesterday for tachycardia HR went to 170s Complains of nausea and GI distress with steroids despite Zofran, tums and Protonix. Sensation in anterior thighs improving. Back pain controlled with current medication. Review of Systems General: Negative for: fever, chills, insomnia Respiratory: Negative for: shortness of breath, cough, sputum Cardiovascular: Negative for: chest pain Gastrointestinal: Negative for: nausea, vomitting, diarrhea, constipation Exam Results Vital Signs Date Time Temp Pulse Resp B/P Pulse Ox O2 Delivery O2 Flow Rate FiO2 08/11/16 09:32 96 21 08/11/16 08:00 99.0 102 18 129/79 08/09/16 19:45 Nasal Cannula 3 Intake and Output 08/10/16 08/10/16 08/11/16 08:00 16:00 00:00 Output Total 1000 ml 290 ml Balance -1000 ml -290 ml Physical Examination Resp: CTA bilaterally Heart: NSR. No murmurs Abd: Soft positive bs Skin: Incision clean and dry. No signs of infection. NELSON drain in place drainage slowed. Muscle: Moves LEs with good strength. Neuro: Pt states sensation in LEs improving mild decreased in anterior thighs. He is awake and alert. Follows commands well. Speech clear and appropriate. Lab, Micro, Other Results Last Impressions Thoracolumbar Spine 08/09/16 0000 Signed Impressions: Service Date/Time: July 14:37 - CONCLUSION: Status post posterior fusion from T10 through L2 as described above. Deangelo Workman MD Thoracic Spine MRI 08/09/16 0000 Signed Impressions: Service Date/Time: July 09:24 - CONCLUSION: 1. Acute T12 compression fracture with 60%% loss of height and 7 mm of retropulsion. There is abutment of the conus but no flattening or signal change within the conus. No hematoma observed. Brannon Corral Jr., MD ADDENDUM: Examination was discussed with Dr. Mohamud. The sagittal T2-weighted images indicate mild mass effect on the anterior margin of the spinal cord. Yash Lares MD Chest X-Ray 08/09/16 0000 Signed Impressions: Service Date/Time: July 19:19 - CONCLUSION: 1. No pneumothorax status post placement of right internal jugular central line which has its tip at the junction of the superior vena cava and right atrium. 2. Right basilar atelectasis. Deangelo Workman MD Lumbar Spine CT 08/08/162013 Signed Impressions: Service Date/Time: Monday, August 08, 2016 20:59 - CONCLUSION: 1. Moderate to severe compression fracture involving the T12 vertebral body with approximately 7 mm of retropulsion of the posterior-superior aspect of the vertebral body resulting in moderate spinal stenosis at this level. 2. Mild scoliosis of the lumbar spine. Deangelo Workman MD Head CT 08/08/162013 Signed Impressions: Service Date/Time: Monday, August 08, 2016 20:56 - CONCLUSION: No acute disease. Deangelo Workman MD 08/10/16 08/10/16 08/11/16 15:00 23:00 07:00 Intake Total 3822 ml Output Total 290 ml 20 ml Balance -290 ml 3802 ml Intake Oral 0 ml IV Total 3822 ml Output Urine Total 250 ml Drainage Total 40 ml 20 ml # Voids 1 # Bowel Movements 0 Medical Decision Making Impression and Plan A: 36 y/o M s/p open reduction and internal fixation of T12 fracture, T10 to L2 segmental instrumental fixation using transpedicular screws and rods, T10 to L2 posterolateral fusion using autologous illiac crest bone graft, microsurgical dissection, harvesting of illiac crest bone graft P: Continue to monitor D/C Decadron PT brace on prior to sitting, standing or walking D/C J/P drain. Piazza,Elia S. PA Aug 11, 2016 12:36
[2016-08-11] MEDS ORDERED: LACTULOSE SYRUP 20 GM/30 ML CUP PO PRN (15:00)
[2016-08-11] MEDS ORDERED: PROMETHAZINE HCL 12.5 MG SUPP RECTAL PRN (15:00)
[2016-08-11] MEDS ORDERED: BISACODYL 10 MG SUPP PR PRN (15:00)
[2016-08-11] MEDS ORDERED: MAGNESIUM HYDROXIDE SUSP 30 ML CUP PO PRN (15:00)
[2016-08-11] MEDS ORDERED: DOCUSATE SODIUM 50 MG/SENNA 8.6 MG TAB PO PRN (15:00)
--- NOTE | 2016-08-11 16:48 | RADRPT ---
EXAM DATE/TIME: 08/11/2016 15:08 [facility] COMPARISON: No previous studies available for comparison. INDICATIONS : Abdominal pain and vomiting. MEDICAL HISTORY : None. SURGICAL HISTORY : Thoracolumbar fusion (T10-L2) ENCOUNTER: Initial ACUITY: 2 days PAIN SCORE: 9/10 LOCATION: Bilateral abdomen. FINDINGS: Abdominal bowel gas pattern is abnormal demonstrating multiple dilated loops of small bowel measuring up to 4.4 cm. There is also gas seen throughout the lumen of the right and transverse colon. No ga s in the rectum and only minimal scattered gas seen in the region of the descending colon. Osseous s tructures are grossly intact. Transpedicular screws are present spanning 5 levels in the thoracolumb ar region. The visualized lower lungs are clear. CONCLUSION: Abnormal bowel gas pattern with multiple dilated loops of small bowel and gas seen in the lumen of th e proximal colon. Differential considerations would include ileus and obstruction. Brannon Solano MD on August 11, 2016 at 16:44 Board Certified Radiologist. This report was verified electronically.
[2016-08-11] MEDS: SODIUM CHLORIDE 0.9% FLUSH 10 ML FLUSH IV FLUSH SCH (21:00)
[2016-08-11] MEDS: ALPRAZolam 1 MG TAB PO SCH (21:27)
[2016-08-12] VITALS (7 sets, daily range): BP systolic 124–168; BP diastolic 68–85; PULSE 93–114; RESP 12–18; TEMP 98.2–99.1; O2SAT 94–98
[2016-08-12] MEDS: HYDROmorphone HCL PCA 6 MG/30 ML IV SCH ×2 (04:00→09:08)
[2016-08-12] MEDS: PCA - TOTAL MG DILAUDID DELIVERED PER SHIFT SCH (06:00)
[2016-08-12 06:46] LABS: AUTOMATED NEUTROPHIL # 9.1 TH/MM3 (1.8-7.7); BASOPHIL % 0.1 % (0.0-2.0); EOSINOPHIL % 0.2 % (0.0-4.0); HEMATOCRIT 37.1 % (39.0-51.0); HEMO FLAGS DIFF FINAL; LYMPH % 20.1 % (9.0-44.0); LYMPHOCYTE # 2.6 TH/MM3 (1.0-4.8); MEAN CORPUSCULAR HEMOGLOBIN 31.2 PG (27.0-34.0); MONO % 8.6 % (0.0-8.0); PLATELET COUNT 217 TH/MM3 (150-450); RED BLOOD COUNT 4.03 MIL/MM3 (4.50-5.90); RED CELL DISTRIBUTION WIDTH 13.1 % (11.6-17.2); WHITE BLOOD COUNT 12.8 TH/MM3 (4.0-11.0)
--- NOTE | 2016-08-12 07:20 | MB ---
cc: OFELIA CABRERA M.D. DATE OF CONSULTATION: 08/12/2016 REASON FOR CONSULTATION: Evaluate for possible bowel obstruction. HISTORY OF PRESENT ILLNESS Huang is a pleasant 36-year-old gentleman who apparently had a syncopal episode and fell down. He also apparently had some kind of seizure. He was brought to [facility] for formal evaluation. During this evaluation he was found to have a T12 burst fracture. The patient went to the operating room with Dr. Mohamud 08/09/2016 for ORIF of a T12 burst fracture. Postoperatively the patient developed abdominal distension, nausea and vomiting. Abdominal x-ray demonstrated ileus and surgical consultation was requested for bowel obstruction. The patient denies any previous abdominal surgeries. He states he has a right inguinal hernia but is reducible. He also states he has a chronically incarcerated umbilical hernia which does not really bother him. Therefore, he has passed a little bit of gas but no bowel movement since his admission. According to his mother, he had a large volume emesis last night. An NG tube was placed. According to the nursing staff they retrieved approximately one liter from the NG tube. The patient denies any previous episodes of bowel obstruction. He states that he is using his Dilaudid [employer] WARDEN. He has mostly been bed bound with minimal activity. PAST MEDICAL HISTORY 1. Seizure disorder 2. Syncope 3. ADHD 4. Anxiety disorder. 5. Chronic constipation. PAST SURGICAL HISTORY: 1. Some oral surgery 2. Some finger surgery. He denies any abdominal surgeries. MEDICATIONS AT HOME: 1. Adderall. 2. Xanax. ALLERGIES: None known. SOCIAL HISTORY: He admits to daily alcohol and cigarette use. He mostly drinks beer. 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 FAMILY HISTORY Noncontributory. PHYSICAL EXAMINATION VITAL SIGNS: Temperature 98, pulse is 90, blood pressure is 140/80, respiratory 20. GENERAL: This is a healthy-appearing white male examined with his mother present. He is lying in the bed. No distress. NG tube is present. HEENT: Pupils equal, round and reactive to light. Extraocular movements intact. Oropharynx is clear and moist. NG tube is present in the nares. NECK: Supple. No masses. LUNGS: Clear to auscultation bilaterally. HEART: S1-S2 no murmur. ABDOMEN: Soft, nontender, nondistended. Mother states the abdomen was distended prior to the NG tube placement but now it is much softer according to her. Few bowel sounds are noted. He has a chronically incarcerated umbilical hernia with fat. He has no evidence of right inguinal hernia on exam right now but the patient states that the hernia goes in and out. He does have hypoactive bowel sounds. EXTREMITIES: No gross deformity x4. NEUROLOGIC: Awake, alert, oriented x3. LABORATORY DATA: White blood cell count 15, hemoglobin 13, platelet count 246. Electrolytes all within normal limits. IMAGING STUDIES: The patient has an abdominal x-ray from 08/11/16 which is consistent with ileus pattern, specifically I see gas in the colon. There is sanz-dilatation of the small bowel all of which is consistent with ileus. IMPRESSION: Ileus likely post-operative and post-traumatic. PLAN: At this point I had a discussion with the patient and his mother. Based on his clinical history of recently having spinal surgery and being in bed with a morphine [employer] W[employer]DL[employer] WARDEN, an ileus would be much more likely than a mechanical bowel obstruction. Mechanical bowel obstruction would be highly unlikely due to the fact that the patient has never had any previous abdominal surgery. He does have umbilical and right inguinal hernia but neither of which are causing any problem at this time. I would strongly recommend aggressive medical management of his ileus. I agree with the NG tube decompression of his stomach until his bowel function returns. Spinal injury patients are at high-risk for Hilario's syndrome as well. I have also recommend the patient start on a daily laxative course as he does have chronic constipation he reports several episodes of anal bleeding secondary to large hard bowel movements. I am going to order a follow up abdominal x-ray this morning, as I believe his NG tube needs to be advanced several centimeters as there is a long distance of it coming out of his nares. Again I would recommend medical management as I do not see the necessity of surgical intervention at this time. Will gladly follow up on the patient in a few days to see if there are any issues, but at this point all signs point directly to ileus. MD YORDAN Lackey/WHITLEY /6:30 AM /7:01 AM
[2016-08-12 07:24] LABS: BICARBONATE 30.9 MEQ/L (21.0-32.0); POTASSIUM 3.5 MEQ/L (3.5-5.1)
--- NOTE | 2016-08-12 08:15 | RADRPT ---
EXAM DATE/TIME: 08/12/2016 06:41 [facility] COMPARISON: ABDOMEN KUB ONLY, August 11, 2016, 15:08. SPINE THORACOLUMBAR (AP&LAT), August 09, 2016, 14:37. MRI T HORACIC SPINE W/O CONTRAST, August 09, 2016, 9:24. INDICATIONS : NG tube placement. MEDICAL HISTORY : None. SURGICAL HISTORY : T10-L2 fusion. ENCOUNTER: Initial ACUITY: 1 day PAIN SCORE: 0/10 LOCATION: Abdomen, upper quadrants. FINDINGS: Nasogastric tube is across the GE junction with decompression of the stomach. There is persistent sm all bowel dilatation, less in the interval. Small bowel loops are dilated to 3 cm. There is no free air. CONCLUSION: 1. Nasogastric tube across the GE junction. 2. Interval improvement. Small bowel dilatation persists. Srikanth Hill MD FACR on August 12, 2016 at 7:40 Board Certified Radiologist. This report was verified electronically.
[2016-08-12] MEDS: SODIUM CHLOR 0.9% 1000 ML INJ 1,000 ML IV SCH ×2 (08:54→17:40)
[2016-08-12] MEDS: PANTOPRAZOLE SODIUM 40 MG VIAL IVP SCH (09:00)
[2016-08-12] MEDS: OXcarbazepine 600 MG TAB PO SCH (09:00)
[2016-08-12] MEDS: SODIUM CHLORIDE 0.9% FLUSH 10 ML FLUSH IV FLUSH SCH ×2 (09:00→21:07)
[2016-08-12] MEDS: DOCUSATE SODIUM 100 MG CAP PO SCH ×2 (09:45→21:07)
--- NOTE | 2016-08-12 10:42 | HHI.NSPN ---
History Chief Complaint: Incisional back pain. Interval History 08/10/16: Pt underwent open reduction and internal fixation of T12 fracture, T10 to L2 segmental instrumental fixation using transpedicular screws and rods, T10 to L2 posterolateral fusion using autologous illiac crest bone graft, microsurgical dissection, harvesting of illiac crest bone graft on 08/09/16. Pt awake and alert. Complains of incisional pain controlled. No radiculopathy. He states the paresthesias in his extremities is improved today. Denies weakness in LEs. 08/11/16: Pt transferred to cardiac telemetry yesterday for tachycardia HR went to 170s Complains of nausea and GI distress with steroids despite Zofran, tums and Protonix. Sensation in anterior thighs improving. Back pain controlled with current medication. 08/12/16: Pt states his nausea got worse yesterday afternoon and had emesis. He was found to have an ileus on x-ray. NG tube placed. He has incisional pain improving but doesn't think he can come off TELEPATHIST yet. No radiculopathy in LEs. Review of Systems General: Negative for: fever, chills, insomnia Respiratory: Negative for: shortness of breath, cough, sputum Cardiovascular: Negative for: chest pain Gastrointestinal: Positive for: constipation, Negative for: nausea, vomitting , diarrhea Exam Results Vital Signs Date Time Temp Pulse Resp B/P Pulse Ox O2 Delivery O2 Flow Rate FiO2 08/12/16 09:08 16 08/12/16 08:00 98.5 107 124/70 94 08/11/16 09:32 21 08/09/16 19:45 Nasal Cannula 3 Intake and Output 08/11/16 08/11/16 08/12/16 08:00 16:00 00:00 Intake Total 3822 ml 960 ml 1908 ml Output Total 20 ml 2800 ml 600 ml Balance 3802 ml -1840 ml 1308 ml Physical Examination Resp: CTA bilaterally Heart: NSR. No murmurs Abd: Mild distention, diminished bs. NG tube in place. Skin: Incision clean and dry. No signs of infection. He had some drainage from NELSON exit site despite steristip. This was cleaned with gauze and a new steri strip placed with new bandage. Muscle: Moves LEs with good strength. Neuro: Pt states sensation in LEs improving mild decreased in anterior thighs. He is awake and alert. Follows commands well. Speech clear and appropriate. Lab, Micro, Other Results Last Impressions Abdomen X-Ray 08/11/16 Signed Impressions: Service Date/Time: Thursday, August 11, 2016 15:08 - CONCLUSION: Abnormal bowel gas pattern with multiple dilated loops of small bowel and gas seen in the lumen of the proximal colon. Differential considerations would include ileus and obstruction. Brannon Solano MD Thoracolumbar Spine 08/09/16 Signed Impressions: Service Date/Time: July 14:37 - CONCLUSION: Status post posterior fusion from T10 through L2 as described above. Deangelo Workman MD Thoracic Spine MRI 08/09/16 Signed Impressions: Service Date/Time: July 09:24 - CONCLUSION: 1. Acute T12 compression fracture with 60%% loss of height and 7 mm of retropulsion. There is abutment of the conus but no flattening or signal change within the conus. No hematoma observed. Brannon Corral Jr., MD ADDENDUM: Examination was discussed with Dr. Mohamud. The sagittal T2-weighted images indicate mild mass effect on the anterior margin of the spinal cord. Yash Lares MD Chest X-Ray 08/09/16 Signed Impressions: Service Date/Time: July 19:19 - CONCLUSION: 1. No pneumothorax status post placement of right internal jugular central line which has its tip at the junction of the superior vena cava and right atrium. 2. Right basilar atelectasis. Deangelo Workman MD Lumbar Spine CT 08/08/162013 Signed Impressions: Service Date/Time: Monday, August 08, 2016 20:59 - CONCLUSION: 1. Moderate to severe compression fracture involving the T12 vertebral body with approximately 7 mm of retropulsion of the posterior-superior aspect of the vertebral body resulting in moderate spinal stenosis at this level. 2. Mild scoliosis of the lumbar spine. Deangelo Workman MD Head CT 08/08/162013 Signed Impressions: Service Date/Time: Monday, August 08, 2016 20:56 - CONCLUSION: No acute disease. Deangelo Workman MD Laboratory Tests Test 08/12/16 06:05 White Blood Count 12.8 TH/MM3 Red Blood Count 4.03 MIL/MM3 Hemoglobin 12.6 GM/DL Hematocrit 37.1 % Mean Corpuscular Volume 92.0 FL Mean Corpuscular Hemoglobin 31.2 PG Mean Corpuscular Hemoglobin 34.0 % Concent Red Cell Distribution Width 13.1 % Platelet Count 217 TH/MM3 Mean Platelet Volume 7.8 FL Neutrophils (%) (Auto) 71.0 % Lymphocytes (%) (Auto) 20.1 % Monocytes (%) (Auto) 8.6 % Eosinophils (%) (Auto) 0.2 % Basophils (%) (Auto) 0.1 % Neutrophils # (Auto) 9.1 TH/MM3 Lymphocytes # (Auto) 2.6 TH/MM3 Monocytes # (Auto) 1.1 TH/MM3 Eosinophils # (Auto) 0.0 TH/MM3 Basophils # (Auto) 0.0 TH/MM3 CBC Comment DIFF FINAL Differential Comment Sodium Level 135 MEQ/L Potassium Level 3.5 MEQ/L Chloride Level 97 MEQ/L Carbon Dioxide Level 30.9 MEQ/L Anion Gap 7 MEQ/L Blood Urea Nitrogen 9 MG/DL Creatinine 0.81 MG/DL Estimat Glomerular Filtration 109 ML/MIN Rate Random Glucose 93 MG/DL Calcium Level 8.1 MG/DL 08/11/16 08/11/16 08/12/16 15:00 23:00 07:00 Intake Total 960 ml 1428 ml 1410 ml Output Total 2800 ml 600 ml 500 ml Balance -1840 ml 828 ml 910 ml Intake Oral 960 ml 600 ml IV Total 1428 ml 810 ml Output Urine Total 2800 ml Gastric Drainage Total 600 ml 500 ml # Voids 2 # Bowel Movements 0 0 Medical Decision Making Impression and Plan A: 36 y/o M s/p open reduction and internal fixation of T12 fracture, T10 to L2 segmental instrumental fixation using transpedicular screws and rods, T10 to L2 posterolateral fusion using autologous illiac crest bone graft, microsurgical dissection, harvesting of illiac crest bone graft ileus s/p NG tube P: Continue to monitor PT brace on prior to sitting, standing or walking Continue with medical treatment of ileus. Recommend removing TELEPATHIST. Elia Green Aug 12, 2016 10:42
--- NOTE | 2016-08-12 12:31 | PD.CONS ---
HPI History of Present Illness This is a 36 year old male who was brought to [place] by EMS after having syncopal episode and questionable seizure, which was witnessed by neighbors. Patient with past history of ADHD and anxiety. He had been out of his medication for 3 days, so he was taking Benadryl for anxiety relief. Due to fall , patient was found to have T12 burst fracture. On 08/10 had ORIF of T12 by Dr. Mohamud. He is currently on [employer] Dilaudid. He is being seen by GI due to post op abdominal distention, nausea and vomiting. KUB 08/11 showed abnormal bowel gas pattern with multiple dilated loops of small bowel and gas seen in the lumen of the proximal colon. NG placed to [facility] on 08/11. Mother of patient reported that he had a large volume emesis prior to placement. Patient reports that abdomen was very distended prior to NG placement and today it is improving. Today NG in place at [facility] draining dark green bilious. Patient reports he has not had BM and last BM was over a week ago. Denies flatus. Reports chronic constipation and states he usually has BM once per week. Reports he does strain when he has a bowel movement and reports blood on BM, which he attributes to the straining. This has been going on for many months. He reports decreased appetite and poor food intake, as well as poor dietary choices. Reports he usually eats pizza, drinks beer and energy drinks. He states he does drink adequate amounts of water. Reports he has a lot of life stressors, including going through a divorce. Denies history of bowel obstruction or abdominal pain. Does have family history of colon cancer, maternal and paternal relatives. Also, complaining of heartburn today. Denies history of GERD. (Kirstin Kelly) PFSH Past Medical History -ADHD -Anxiety -Chronic incarcerated umbilical hernia -Right inguinal hernia Past Surgical History -Oral surgery -Finger surgery (Kirstin Kelly) Coded Allergies: No Known Allergies (Unverified , 11/04/14) Medications Current Medications Medications (Trade) Dose Ordered Sig/Bruna Route PRN Reason Start Time Stop Time Status Last Admin Dose Admin Ondansetron HCl (Zofran Inj) 4 mg Q6H PRN IVP NAUSEA OR VOMITING 08/08/16 21:45 08/11/16 21:27 Bisacodyl (Dulcolax Supp) 10 mg DAILY PRN RECTAL CONSTIPATION 08/08/16 21:45 Docusate Sodium (Colace) 100 mg Q12H PO 08/08/16 21:45 08/11/16 21:45 Sennosides (Senokot) 17.2 mg Q12H PRN PO CONSTIPATION 08/08/16 21:45 Alprazolam (Xanax) 2 mg HS PO 08/09/16 21:00 08/11/16 21:27 Acetaminophen (Tylenol) 650 mg Q6H PRN PO PAIN SCALE 1 TO 2 08/08/16 22:00 08/10/16 07:56 Acetaminophen/ Hydrocodone Bitart (Rowley 5-325 Mg) 1 tab Q4H PRN PO PAIN SCALE 3 TO 5 08/08/16 22:00 Acetaminophen/ Hydrocodone Bitart (Rowley 10-325 Mg) 1 tab Q4H PRN PO PAIN SCALE 6 TO 10 08/08/16 22:00 Calcium Carbonate (Tums Chew) 500 mg Q2H PRN CHEW DYSPEPSIA 08/09/16 09:00 08/11/16 03:04 Lorazepam 0.5 mg 0.5 mg Q8H PRN PO ANXIETY 08/09/16 10:45 08/10/16 04:59 Sodium Chloride (NS 1000 ml Inj) 1,000 ml @ 100 mls/hr Q10H IV 08/09/16 10:54 08/12/16 08:54 Pantoprazole Sodium (Protonix Inj) 40 mg DAILY IVP 08/10/16 09:00 08/12/16 09:00 Morphine Sulfate (Morphine Inj) 2 mg Q2H PRN IV PUSH PAIN SCALE 1 TO 6 08/09/16 19:00 Morphine Sulfate (Morphine Inj) 4 mg Q2H PRN IV PUSH PAIN SCALE 7 TO 10 08/09/16 19:00 Acetaminophen (Tylenol) 650 mg Q4H PRN PO TEMPERATURE > 101.5 F 08/09/16 19:00 Naloxone HCl (Narcan Inj) 0.4 mg UNSCH PRN IV RESPIRATORY RATE LESS THAN 10 08/09/16 19:00 Diphenhydramine HCl (Benadryl Inj) 25 mg Q6H PRN IV ITCHING 08/09/16 19:00 Lorazepam (Ativan Inj) 1 mg Q4H PRN IV PUSH SEIZURES 08/09/16 20:00 08/12/16 08:56 Sodium Chloride (NS Flush) 2 ml UNSCH PRN IV FLUSH FLUSH AFTER USING IV ACCESS 08/10/16 06:15 Sodium Chloride (NS Flush) 2 ml BID IV FLUSH 08/10/16 09:00 08/12/16 09:00 Flumazenil (Romazicon Inj) 0.2 mg Q1M PRN IV PUSH SEE LABEL COMMENTS 08/10/16 06:15 Lorazepam (Ativan) 1 mg Q4H PRN PO CIWA 8 - 10 08/10/16 06:15 Lorazepam (Ativan Inj) 1 mg Q4H PRN IV PUSH CIWA 8 - 10 08/10/16 06:15 08/10/16 17:35 Lorazepam (Ativan) 2 mg Q2H PRN PO CIWA 11-14 08/10/16 06:15 Lorazepam (Ativan Inj) 2 mg Q2H PRN IV PUSH CIWA 11-14 08/10/16 06:15 Lorazepam (Ativan Inj) 2 mg Q1H PRN IV PUSH CIWA 15-20 08/10/16 06:15 Lorazepam (Ativan Inj) 2 mg Q15M PRN IV PUSH CIWA > 20 08/10/16 06:15 Oxcarbazepine 600 mg 600 mg BID PO 08/10/16 21:00 08/11/16 21:00 Diltiazem HCl/ Sodium Chloride (Cardizem Inj/NS Inj) 125 ml @ 0 mls/hr TITRATE IV 08/11/16 00:00 Senna/Docusate Sodium (Helga-Colace) 2 tab BID PRN PO CONSTIPATION 08/11/16 15:00 Lactulose (Lactulose Liq) 30 ml TID PRN PO CONSTIPATION 08/11/16 15:00 Magnesium Hydroxide (Milk Of Magnesia Liq) 30 ml Q6H PRN PO CONSTIPATION 08/11/16 15:00 Promethazine HCl (Phenergan Supp) 12.5 mg Q4H PRN RECTAL nausea/vomiting 08/11/16 15:00 Family History Family history of colon cancer (maternal and paternal relatives) Social History -Tobacco use: 1 1-1/2 PPD since age 20 -Alcohol use: 1-2 beers a day during the week, weekends are more -Illicit drug use: Denies (Kirstin Kelly) Review of Systems Constitutional: COMPLAINS OF: Change in appetite, DENIES: Diaphoretic episodes , Fatigue, Fever, Weight gain, Weight loss, Chills, Dizziness, Night Sweats Endocrine: DENIES: Polydipsia, Polyuria Eyes: DENIES: Blurred vision, Photosensitivity, Double Vision Ears, nose, mouth, throat: DENIES: Hearing loss, Vertigo, Oral lesions, Throat pain, Hoarseness Respiratory: DENIES: Cough, Wheezing, Hemoptysis, Sputum production, Shortness of breath Cardiovascular: DENIES: Chest pain, Palpitations, Syncope, Lower Extremity Edema, Orthopnea, Claudication Gastrointestinal: COMPLAINS OF: Abdominal pain, Constipation, Swelling of Abdomen, Heartburn, DENIES: Black stools, Bloody stools, Diarrhea, Nausea, Vomiting, Difficulty Swallowing, Anorexia, Odynophagia, Hematemesis Genitourinary: DENIES: Urinary frequency, Urinary incontinence, Urgency, Hematuria, Dysuria, Nocturia Musculoskeletal: COMPLAINS OF: Back pain, DENIES: Joint pain, Muscle aches, Stiffness, Joint Swelling, Neck pain Integumentary: DENIES: Abnormal pigmentation, Nail changes, Pruritus, Rash, Jaundice Hematologic/lymphatic: DENIES: Bruising, Lymphadenopathy Immunologic/allergic: DENIES: Eczema, Urticaria Neurologic: DENIES: Headache Psychiatric: COMPLAINS OF: Anxiety, DENIES: Confusion, Mood changes, Agitation , Suicidal Ideation (Kirstin Kelly) GI Exam Vitals I&O Vital Signs Date Time Temp Pulse Resp B/P Pulse Ox O2 Delivery O2 Flow Rate FiO2 08/12/16 09:08 16 08/12/16 08:00 98.5 107 12 124/70 94 08/12/16 06:00 20 08/12/16 05:21 99.1 93 18 147/85 98 08/12/16 04:00 20 08/12/16 01:56 98.8 93 18 168/81 95 08/11/16 22:00 20 08/11/16 21:55 98.8 103 21 139/80 95 08/11/16 20:00 101 08/11/16 16:44 14 08/11/16 16:00 98.5 93 18 127/79 97 08/11/16 14:15 14 08/11/16 14:00 14 08/11/16 12:00 98.5 100 18 120/70 96 I/O 08/11/16 08/11/16 08/11/16 08/12/16 08/12/16 08/12/16 07:00 15:00 23:00 07:00 15:00 23:00 Intake Total 3822 ml 960 ml 1428 ml 1410 ml Output Total 20 ml 2800 ml 600 ml 500 ml Balance 3802 ml -1840 ml 828 ml 910 ml Intake Oral 0 ml 960 ml 600 ml IV Total 3822 ml 1428 ml 810 ml Output Urine Total 2800 ml Gastric Drainage Total 600 ml 500 ml Drainage Total 20 ml # Voids 1 2 # Bowel Movements 0 0 0 Imaging Last Impressions Abdomen X-Ray 08/11/16 0000 Signed Impressions: Service Date/Time: Thursday, August 11, 2016 15:08 - CONCLUSION: Abnormal bowel gas pattern with multiple dilated loops of small bowel and gas seen in the lumen of the proximal colon. Differential considerations would include ileus and obstruction. Brannon Solano MD Thoracolumbar Spine 08/09/16 0000 Signed Impressions: Service Date/Time: July 14:37 - CONCLUSION: Status post posterior fusion from T10 through L2 as described above. Deangelo Workman MD Thoracic Spine MRI 08/09/16 0000 Signed Impressions: Service Date/Time: July 09:24 - CONCLUSION: 1. Acute T12 compression fracture with 60%% loss of height and 7 mm of retropulsion. There is abutment of the conus but no flattening or signal change within the conus. No hematoma observed. Brannon Corral Jr., MD ADDENDUM: Examination was discussed with Dr. Mohamud. The sagittal T2-weighted images indicate mild mass effect on the anterior margin of the spinal cord. Yash Lares MD Chest X-Ray 08/09/16 0000 Signed Impressions: Service Date/Time: July 19:19 - CONCLUSION: 1. No pneumothorax status post placement of right internal jugular central line which has its tip at the junction of the superior vena cava and right atrium. 2. Right basilar atelectasis. Deangelo Workman MD Lumbar Spine CT 08/08/162013 Signed Impressions: Service Date/Time: Monday, August 08, 2016 20:59 - CONCLUSION: 1. Moderate to severe compression fracture involving the T12 vertebral body with approximately 7 mm of retropulsion of the posterior-superior aspect of the vertebral body resulting in moderate spinal stenosis at this level. 2. Mild scoliosis of the lumbar spine. Deangelo Workman MD Head CT 08/08/162013 Signed Impressions: Service Date/Time: Monday, August 08, 2016 20:56 - CONCLUSION: No acute disease. Deangelo Workman MD Laboratory Test 08/12/16 06:05 White Blood Count 12.8 TH/MM3 Red Blood Count 4.03 MIL/MM3 Hemoglobin 12.6 GM/DL Hematocrit 37.1 % Mean Corpuscular Volume 92.0 FL Mean Corpuscular Hemoglobin 31.2 PG Mean Corpuscular Hemoglobin 34.0 % Concent Red Cell Distribution Width 13.1 % Platelet Count 217 TH/MM3 Mean Platelet Volume 7.8 FL Neutrophils (%) (Auto) 71.0 % Lymphocytes (%) (Auto) 20.1 % Monocytes (%) (Auto) 8.6 % Eosinophils (%) (Auto) 0.2 % Basophils (%) (Auto) 0.1 % Neutrophils # (Auto) 9.1 TH/MM3 Lymphocytes # (Auto) 2.6 TH/MM3 Monocytes # (Auto) 1.1 TH/MM3 Eosinophils # (Auto) 0.0 TH/MM3 Basophils # (Auto) 0.0 TH/MM3 CBC Comment DIFF FINAL Differential Comment Sodium Level 135 MEQ/L Potassium Level 3.5 MEQ/L Chloride Level 97 MEQ/L Carbon Dioxide Level 30.9 MEQ/L Anion Gap 7 MEQ/L Blood Urea Nitrogen 9 MG/DL Creatinine 0.81 MG/DL Estimat Glomerular Filtration 109 ML/MIN Rate Random Glucose 93 MG/DL Calcium Level 8.1 MG/DL Physical Examination HEENT: PERRLA; normocephalic; atraumatic; no jaundice. NG tube in place at [facility] NECK: Neck is supple, no JVD, no lymphadenopathy. CHEST: CTA CARDIAC: RRR with no murmur gallop or rubs. ABDOMEN: Mild distention and mild diffuse tenderness. Hypoactive bowel sounds. Umbilical hernia EXTREMITIES: No clubbing, cyanosis, or edema. SKIN: Normal; no rash; no jaundice. PEER TUTOR: A&Ox3. (Kirstin Kelly) Assessment and Plan Plan ASSESSMENT: -Ileus, NG [facility] draining dark green bilious. Mild abdominal distention and tenderness with hypoactive bowel sounds. Last BM over a week ago. Abdomen X-Ray Abnormal bowel gas pattern with multiple dilated loops of small bowel and gas seen in the lumen of the proximal colon. Differential considerations would include ileus and obstruction. Consider discontinuing [employer] Dilaudid. -Chronic constipation, discussed with patient the need to change dietary habits when he discharges home, which included increased fiber intake, Metamucil, etc. -Syncopal/Questional Seizure, per primary. Neurology consulted. Head CT 08/08/16 No acute disease -Compression fracture of T12 and L1 lumbar vertebra, status post ORIF of T12 burst fracture (Dr. Mohamud) PLAN: -Continue NG LIWS -Consider discontinuing [employer] Dilaudid -Protonix IV -Enemas, SSE x 2 -NPO -Okay to swish water in mouth and spit out -Please offer patient mouth swabs -Further recommendation to follow based on results of above Patient examined by Dr. Landers and myself and this note is written on his behalf. (Kirstin Kelly) Physician Comments Seen and examined with [employer]CH[employer]IC, constipation /illeus related to narcotics. X rays reviewed. Relistor 12 mg sq today. DC BI[employer] ASSOCIATE. NG to [facility]. Discussed with Pt. and family in the room. Thank you (Maria Guadalupe Landers MD) Kirstin Kelly Aug 12, 2016 12:31 Maria Guadalupe Landers MD Aug 12, 2016 13:57
--- NOTE | 2016-08-12 13:08 | HHI.PR ---
Subjective Remarks No acute events overnight. Afebrile, vital signs stable. Patient states his abdominal pain is improving, had flatus. NG tube in place. Back pain improving. Objective Vitals Vital Signs Date Time Temp Pulse Resp B/P Pulse Ox O2 Delivery O2 Flow Rate FiO2 08/12/16 12:00 98.2 107 12 133/70 95 08/12/16 09:08 16 08/12/16 08:00 98.5 107 12 124/70 94 08/12/16 06:00 20 08/12/16 05:21 99.1 93 18 147/85 98 08/12/16 04:00 20 08/12/16 01:56 98.8 93 18 168/81 95 08/11/16 22:00 20 08/11/16 21:55 98.8 103 21 139/80 95 08/11/16 20:00 101 08/11/16 16:44 14 08/11/16 16:00 98.5 93 18 127/79 97 08/11/16 14:15 14 08/11/16 14:00 14 I/O 08/11/16 08/11/16 08/11/16 08/12/16 08/12/16 08/12/16 07:00 15:00 23:00 07:00 15:00 23:00 Intake Total 3822 ml 960 ml 1428 ml 1410 ml Output Total 20 ml 2800 ml 600 ml 500 ml Balance 3802 ml -1840 ml 828 ml 910 ml Intake Oral 0 ml 960 ml 600 ml IV Total 3822 ml 1428 ml 810 ml Output Urine Total 2800 ml Gastric Drainage Total 600 ml 500 ml Drainage Total 20 ml # Voids 1 2 # Bowel Movements 0 0 0 Result Diagram: 08/12/16 0608/12/16604 Objective Remarks Gen.: No acute distress Head: Normocephalic. Atraumatic. EENT: Pupils equal round and reactive to light. Nose without drainage. Airway intact. Throat without injection. Cardiovascular: Regular rate and rhythm. No murmurs, rubs or gallops. Respiratory: Lungs clear to auscultation bilaterally. No wheezes or rhonchi. Abdomen: Soft, nontender, mildly distended. No peritoneal signs. Absent bowel sounds. Musculoskeletal: No gross deformities. No edema. Skin: No obvious rashes or erythema. Neuro: Sensory and motor grossly intact. Cranial nerves II through XII grossly intact. Psych: Appropriate mood and affect Procedures 08/10/16 s/p open reduction and internal fixation of T12 fracture, T10 to L2 segmental instrumental fixation using transpedicular screws and rods, T10 to L2 posterolateral fusion using autologous illiac crest bone graft, microsurgical dissection, harvesting of illiac crest bone graft on 08/09/16. A/P Problem List: (1) Compression fracture of L1 lumbar vertebra ICD Code: S32.010A Status: Acute (2) Compression fracture of T12 vertebra ICD Code: M48.54XA Status: Acute (3) Tobacco abuse ICD Code: Z72.0 Status: Acute Assessment and Plan 36 y/o male with a medical history of ADHD and anxiety was brought in by EMS after suffering a syncopal episode, questionable seizure. Syncopal/ Questionable Seizure Images reviewed: Head CT unremarkable Consult neurology for recommendations EEG reviewed, within normal limits Seizure precautions Stop Keppra PO per neuro as he is not tolerating. Start Trileptal per neuro. Neurology following appreciate recommendations. Neuro checks Monitor on TELE Compression fracture T12 and L1 Images reviewed: Lumbar Spine CT shows Moderate to severe compression fracture involving the T12 vertebral body with approximately 7 mm of retropulsion of the posterior-superior aspect of the vertebral body resulting in moderate spinal stenosis at this level. Mild scoliosis of the lumbar spine. Consult neurosurgery , appreciate recommendations 08/10/16 s/p open reduction and internal fixation of T12 fracture, T10 to L2 segmental instrumental fixation using transpedicular screws and rods, T10 to L2 posterolateral fusion using autologous illiac crest bone graft, microsurgical dissection, harvesting of illiac crest bone graft on 08/09/16. Pain management with IV morphine and norco Received Dexamethasone IV Leukocytosis, likely stress related Downtrending, 12.8 today, UA negative Trend CBC Ileus General surgery consulted, recommended medical management at this time Advance NG tube 3 cm Continue nothing by mouth Tobacco abuse. Counselled. DVT prophylaxis: SCDs Discussed with the patient, nurse, family at bedside. DC plan: DC when improved and cleared by consultants. Shira Dooley MD R3 Aug 12, 2016 13:08
[2016-08-12] MEDS ORDERED: METHYLNALTREXONE BROMIDE 12 MG/0.6 ML VIAL SQ ONE (14:00)
[2016-08-12] MEDS: MORPHINE SULFATE 4 MG/ML INJ IV PUSH PRN ×4 (16:00→23:55)
[2016-08-12] MEDS: ONDANSETRON HCL 4 MG/2 ML VIAL IVP PRN (21:06)
[2016-08-12] MEDS: ALPRAZolam 1 MG TAB PO SCH (21:06)
[2016-08-12] MEDS: SENNOSIDES 8.6 MG TAB PO PRN (21:07)
--- NOTE | 2016-08-12 21:21 | EKG ---
Date Performed: 08/10/2016 Time Performed: 23:30:46 PTAGE: 36 years EKG: Atrial fibrillation with uncontrolled ventricular response. Lateral T wave changes are nons pecific Abnormal ECG PREVIOUS TRACING : 08/08/2016 20.26 DOCTOR: Wilian Pierre Interpretating Date/Time 08/12/2016 21:19:41
[2016-08-13] VITALS (7 sets, daily range): BP systolic 117–136; BP diastolic 60–80; PULSE 81–115; RESP 12–18; TEMP 98.5–100.2; O2SAT 93–96
[2016-08-13] MEDS: LORazepam 0.5 MG TAB PO PRN ×3 (00:08→18:27)
[2016-08-13] MEDS: OXcarbazepine 600 MG TAB PO SCH ×2 (00:08→08:20)
[2016-08-13] MEDS: MORPHINE SULFATE 4 MG/ML INJ IV PUSH PRN ×8 (03:39→21:51)
[2016-08-13] MEDS: SODIUM CHLOR 0.9% 1000 ML INJ 1,000 ML IV SCH ×2 (04:54→13:37)
[2016-08-13 05:48] LABS: AUTOMATED NEUTROPHIL # 7.1 TH/MM3 (1.8-7.7); BASOPHIL % 0.3 % (0.0-2.0); EOSINOPHIL # 0.1 TH/MM3 (0-0.4); EOSINOPHIL % 1.2 % (0.0-4.0); HEMATOCRIT 35.3 % (39.0-51.0); HEMO FLAGS DIFF FINAL; LYMPH % 20.3 % (9.0-44.0); LYMPHOCYTE # 2.1 TH/MM3 (1.0-4.8); MEAN CELL VOLUME 90.6 FL (80.0-100.0); MEAN CORPUSCULAR HEMOGLOBIN 31.8 PG (27.0-34.0); MEAN CORPUSCULAR HGB CONC 35.1 % (32.0-36.0); MONO % 10.4 % (0.0-8.0); NEUT % 67.8 % (16.0-70.0); PLATELET COUNT 284 TH/MM3 (150-450); RED CELL DISTRIBUTION WIDTH 13.3 % (11.6-17.2); WHITE BLOOD COUNT 10.5 TH/MM3 (4.0-11.0)
[2016-08-13 06:12] LABS: BICARBONATE 31.6 MEQ/L (21.0-32.0); POTASSIUM 3.2 MEQ/L (3.5-5.1)
--- NOTE | 2016-08-13 06:59 | PD.CARD.PN ---
Subjective Subjective Remarks C/O throat and abdominal pain. Objective Medications Current Medications Medications (Trade) Dose Ordered Sig/Bruna Route Start Time Stop Time Status Last Admin (Zofran Inj) 4 mg Q6H PRN IVP 08/08/16 21:45 08/12/16 21:06 (Dulcolax Supp) 10 mg DAILY PRN RECTAL 08/08/16 21:45 (Colace) 100 mg Q12H PO 08/08/16 21:45 08/12/16 21:07 (Senokot) 17.2 mg Q12H PRN PO 08/08/16 21:45 08/12/16 21:07 (Xanax) 2 mg HS PO 08/09/16 21:00 08/12/16 21:06 (Tylenol) 650 mg Q6H PRN PO 08/08/16 22:00 08/10/16 07:56 (Olive 5-325 Mg) 1 tab Q4H PRN PO 08/08/16 22:00 (Olive 10-325 Mg) 1 tab Q4H PRN PO 08/08/16 22:00 (Tums Chew) 500 mg Q2H PRN CHEW 08/09/16 09:00 08/11/16 03:04 Lorazepam 0.5 mg 0.5 mg Q8H PRN PO 08/09/16 10:45 08/13/16 00:08 (NS 1000 ml Inj) 1,000 ml @ 100 mls/hr Q10H IV 08/09/16 10:54 08/13/16 04:54 (Protonix Inj) 40 mg DAILY IVP 08/10/16 09:00 08/12/16 09:00 (Morphine Inj) 2 mg Q2H PRN IV PUSH 08/09/16 19:00 (Morphine Inj) 4 mg Q2H PRN IV PUSH 08/09/16 19:00 08/13/16 06:31 (Tylenol) 650 mg Q4H PRN PO 08/09/16 19:00 (Narcan Inj) 0.4 mg UNSCH PRN IV 08/09/16 19:00 (Benadryl Inj) 25 mg Q6H PRN IV 08/09/16 19:00 (Ativan Inj) 1 mg Q4H PRN IV PUSH 08/09/16 20:00 08/12/16 08:56 (NS Flush) 2 ml UNSCH PRN IV FLUSH 08/10/16 06:15 (NS Flush) 2 ml BID IV FLUSH 08/10/16 09:00 08/12/16 21:07 (Romazicon Inj) 0.2 mg Q1M PRN IV PUSH 08/10/16 06:15 (Ativan) 1 mg Q4H PRN PO 08/10/16 06:15 (Ativan Inj) 1 mg Q4H PRN IV PUSH 08/10/16 06:15 08/10/16 17:35 (Ativan) 2 mg Q2H PRN PO 08/10/16 06:15 (Ativan Inj) 2 mg Q2H PRN IV PUSH 08/10/16 06:15 08/12/16 18:56 (Ativan Inj) 2 mg Q1H PRN IV PUSH 08/10/16 06:15 (Ativan Inj) 2 mg Q15M PRN IV PUSH 08/10/16 06:15 Oxcarbazepine 600 mg 600 mg BID PO 08/10/16 21:00 08/13/16 00:08 (Cardizem Inj/NS Inj) 125 ml @ 0 mls/hr TITRATE IV 08/11/16 00:00 (Helga-Colace) 2 tab BID PRN PO 08/11/16 15:00 (Lactulose Liq) 30 ml TID PRN PO 08/11/16 15:00 (Milk Of Magnesia Liq) 30 ml Q6H PRN PO 08/11/16 15:00 (Phenergan Supp) 12.5 mg Q4H PRN RECTAL 08/11/16 15:00 Vital Signs / I&O Vital Signs Date Time Temp Pulse Resp B/P Pulse Ox O2 Delivery O2 Flow Rate FiO2 08/13/16 04:00 100.2 101 18 117/69 93 08/13/16 00:00 99.0 115 17 120/70 95 08/12/16 20:00 98.8 114 17 136/68 94 08/12/16 20:00 102 08/12/16 16:00 98.6 104 12 127/77 95 08/12/16 12:00 98.2 107 12 133/70 95 08/12/16 09:08 16 08/12/16 09:00 14 08/12/16 08:00 98.5 107 12 124/70 94 I/O 08/12/16 08/12/16 08/12/16 08/13/16 08/13/16 08/13/16 07:00 15:00 23:00 07:00 15:00 23:00 Intake Total 1410 ml 0 ml 1807 ml Output Total 500 ml 600 ml Balance 910 ml 0 ml 1207 ml Intake Oral 600 ml 0 ml 360 ml IV Total 810 ml 1447 ml Output Urine Total 200 ml Gastric Drainage Total 500 ml 400 ml # Voids 2 # Bowel Movements 0 0 Physical Exam GENERAL: Well-nourished, well-developed patient. SKIN: Warm and dry. Incisions clean, dry. HEAD: Normocephalic. EYES: No scleral icterus. No injection or drainage. NECK: Supple, trachea midline. No JVD or lymphadenopathy. CARDIOVASCULAR: Regular rhythm, mild tachycardia up to 110 bpm without murmurs, gallops, or rubs. RESPIRATORY: Breath sounds equal bilaterally. No accessory muscle use. GASTROINTESTINAL: Abdomen soft, tender to palpation, NGT to L nare, clamped, nondistended. EXTREMITIES: No cyanosis, or edema. NEUROLOGICAL: Awake, alert, and oriented x 3. Non-focal. Laboratory Laboratory Tests Test 08/13/16 05:31 White Blood Count 10.5 TH/MM3 Red Blood Count 3.90 MIL/MM3 Hemoglobin 12.4 GM/DL Hematocrit 35.3 % Mean Corpuscular Volume 90.6 FL Mean Corpuscular Hemoglobin 31.8 PG Mean Corpuscular Hemoglobin 35.1 % Concent Red Cell Distribution Width 13.3 % Platelet Count 284 TH/MM3 Mean Platelet Volume 7.4 FL Neutrophils (%) (Auto) 67.8 % Lymphocytes (%) (Auto) 20.3 % Monocytes (%) (Auto) 10.4 % Eosinophils (%) (Auto) 1.2 % Basophils (%) (Auto) 0.3 % Neutrophils # (Auto) 7.1 TH/MM3 Lymphocytes # (Auto) 2.1 TH/MM3 Monocytes # (Auto) 1.1 TH/MM3 Eosinophils # (Auto) 0.1 TH/MM3 Basophils # (Auto) 0.0 TH/MM3 CBC Comment DIFF FINAL Differential Comment Sodium Level 137 MEQ/L Potassium Level 3.2 MEQ/L Chloride Level 96 MEQ/L Carbon Dioxide Level 31.6 MEQ/L Anion Gap 9 MEQ/L Blood Urea Nitrogen 8 MG/DL Creatinine 0.77 MG/DL Estimat Glomerular Filtration 116 ML/MIN Rate Random Glucose 87 MG/DL Calcium Level 8.2 MG/DL Imaging Last Impressions Abdomen X-Ray 08/12/16 0000 Signed Impressions: Service Date/Time: Friday, August 12, 2016 06:41 - CONCLUSION: 1. Nasogastric tube across the GE junction. 2. Interval improvement. Small bowel dilatation persists. Srikanth Hill MD FACR Thoracolumbar Spine 08/09/16 0000 Signed Impressions: Service Date/Time: July 14:37 - CONCLUSION: Status post posterior fusion from T10 through L2 as described above. Deangelo Workman MD Thoracic Spine MRI 08/09/16 0000 Signed Impressions: Service Date/Time: July 09:24 - CONCLUSION: 1. Acute T12 compression fracture with 60%% loss of height and 7 mm of retropulsion. There is abutment of the conus but no flattening or signal change within the conus. No hematoma observed. Brannon Corral Jr., MD ADDENDUM: Examination was discussed with Dr. Mohamud. The sagittal T2-weighted images indicate mild mass effect on the anterior margin of the spinal cord. Yash Lares MD Chest X-Ray 08/09/16 0000 Signed Impressions: Service Date/Time: July 19:19 - CONCLUSION: 1. No pneumothorax status post placement of right internal jugular central line which has its tip at the junction of the superior vena cava and right atrium. 2. Right basilar atelectasis. Deangelo Workman MD Lumbar Spine CT 08/08/162013 Signed Impressions: Service Date/Time: Monday, August 08, 2016 20:59 - CONCLUSION: 1. Moderate to severe compression fracture involving the T12 vertebral body with approximately 7 mm of retropulsion of the posterior-superior aspect of the vertebral body resulting in moderate spinal stenosis at this level. 2. Mild scoliosis of the lumbar spine. Deangelo Workman MD Head CT 08/08/162013 Signed Impressions: Service Date/Time: Monday, August 08, 2016 20:56 - CONCLUSION: No acute disease. Deangelo Workman MD Assessment and Plan Problem List: (1) Atrial fibrillation Assessment and Plan: Post surgical, now NSR/ST up to 110 bpm on tele. S/P spinal surgery for compression fractures, now with ileus. Continue current management, stable on meds. Assessment and Plan D/W pt., family, RN, Dr. Pierre. Problem Qualifiers (1) Atrial fibrillation: Qualified Code: I48.0 - Paroxysmal atrial fibrillation Karly Fiore [facility] Aug 13, 2016 06:59
[2016-08-13] MEDS: SODIUM CHLORIDE 0.9% FLUSH 10 ML FLUSH IV FLUSH SCH (08:20)
[2016-08-13] MEDS: DOCUSATE SODIUM 100 MG CAP PO SCH ×2 (08:38→21:48)
--- NOTE | 2016-08-13 10:00 | MB ---
cc: RENETTA URENA M.D. DATE OF CONSULTATION: 08/12/2016 REASON FOR CONSULTATION Tachyarrhythmia. Possible atrial fibrillation. HISTORY OF PRESENT ILLNESS Mr. Yusuf is a 36-year-old gentleman with history of ADHD, history of chronic smoker and drinks at least a couple of beers a day, was smoking a cigarette on August 08, 2016. He realized he was fainting out. He ended up on the floor. He had syncopal episode. He has a L1 fracture. He was admitted. He refers previous syncopal episode 2 years ago. During hospitalization also he was observed to have intestinal occlusion. NG tube was placed. The patient developed tachyarrhythmia. Atrial fibrillation was suspected. I was consulted for further evaluation and management. The chart was reviewed. The patient was evaluated. ALLERGIES None. SOCIAL HISTORY As mentioned before smokes a pack to a pack and a half of cigarettes a day. Drinks 1-2 beers a day. FAMILY HISTORY Noncontributory to his current medical condition. CURRENT MEDICATIONS The gentleman is on: 1. Cardizem IV p.r.n. 2. He is on acetaminophen. 3. He is on lorazepam. 4. Methylnaltrexone p.r.n. 5. Magnesium. 6. Morphine p.r.n. 7. Reglan. REVIEW OF SYSTEMS He refers nauseated and back pain but no chest pain or discomfort. No fever. PHYSICAL EXAMINATION GENERAL: Alert, fully oriented. VITAL SIGNS: Blood pressure 127/77, pulse 104-110, regular, respiratory rate 18. LUNGS: Ventilated. CARDIOVASCULAR: S1-S2, regular, tachycardic. ABDOMEN: Soft. No mass. EXTREMITIES: No edema. There is no gross sensor or motor deficit. LABORATORY DATA Hemoglobin is 12.6, white blood cell 12.8, potassium 3.5, creatinine 0.81. ASSESSMENT AND RECOMMENDATIONS Mr. Yusuf is currently stable. Electrocardiogram on August 10, 2016 indicates what appears to be atrial fibrillation. This may be due to ___ stress of the disease. The gentleman is back in sinus rhythm. Currently he is in sinus tach. The nurse referred the heart rate increased because the patient is in pain. She is going to give the patient right now morphine. At this point my recommendation is to continue with current management. There is no need for vonda blocking agent. Cardizem can increase the constipation and intestinal occlusion. I will request a 2-D echo to evaluate wall motion and valvular function. I will monitor the gentleman during hospitalization. Continue with current management. MD DOT Ledesma/TLTina /6:05 PM /9:41 AM
[2016-08-13] MEDS ORDERED: POTASSIUM CHLORIDE 10 MEQ CONTROLLED RELEASE TAB PO ONE (10:15)
[2016-08-13] MEDS ORDERED: POLYETHYLENE GLYCOL 17 GM PKG PO ONE (11:15)
--- NOTE | 2016-08-13 11:15 | HHI.PR ---
Subjective Remarks f/u for compression fracture, ileus and uncontrol pain. patient stated morphine is working and that he is trying not to ask for it. NG tube in place and he denied any nausea. no BM yet. denied any N/V. + abdominal discomfort as if he has gas. + flatus. Denied any fever or chills. Patient declined PT today twice. Objective Vitals Vital Signs Date Time Temp Pulse Resp B/P Pulse Ox O2 Delivery O2 Flow Rate FiO2 08/13/16 09:00 110 08/13/16 08:00 98.7 112 12 131/60 93 08/13/16 04:00 100.2 101 18 117/69 93 08/13/16 00:00 99.0 115 17 120/70 95 08/12/16 20:00 98.8 114 17 136/68 94 08/12/16 20:00 102 08/12/16 16:00 98.6 104 12 127/77 95 08/12/16 12:00 98.2 107 12 133/70 95 I/O 08/12/16 08/12/16 08/12/16 08/13/16 08/13/16 08/13/16 07:00 15:00 23:00 07:00 15:00 23:00 Intake Total 1410 ml 0 ml 1807 ml 1316 ml Output Total 500 ml 600 ml 900 ml Balance 910 ml 0 ml 1207 ml 416 ml Intake Oral 600 ml 0 ml 360 ml 570 ml IV Total 810 ml 1447 ml 746 ml Output Urine Total 200 ml Gastric Drainage Total 500 ml 400 ml 900 ml # Voids 2 2 # Bowel Movements 0 0 Result Diagram: 08/13/16 0531 08/13/16 0531 Objective Remarks GENERAL: in NAD CARDIOVASCULAR: Regular rate and rhythm without murmurs, gallops, or rubs. RESPIRATORY: Breath sounds equal bilaterally. No accessory muscle use. GASTROINTESTINAL: Abdomen soft, mild distended. + diffuse TTP to deep palpation. no peritoneal signs. decrease BS> MUSCULOSKELETAL: No cyanosis, or edema. BACK: Nontender without obvious deformity. No CVA tenderness. Procedures 08/10/16 s/p open reduction and internal fixation of T12 fracture, T10 to L2 segmental instrumental fixation using transpedicular screws and rods, T10 to L2 posterolateral fusion using autologous illiac crest bone graft, microsurgical dissection, harvesting of illiac crest bone graft on 08/09/16. Medications and IVs Current Medications Sodium Chloride (NS 1000 ml Inj) 1,000 ml @ 1,000 mls/hr Q1H ONCE IV Last administered on 08/08/16 20:54; Start 08/08/16 at 20:14; Stop 08/08/16 at 21:13 ; Status DC Sodium Chloride (NS Flush) 2 ml UNSCH PRN IVF FLUSH AFTER USING IV ACCESS Last administered on 08/08/16 21:21; Start 08/08/16 at 20:15; Stop 08/09/16 at 19:18 ; Status DC Lorazepam (Ativan Inj) 2 mg ONCE ONCE IVS Last administered on 08/08/16 21:16 ; Start 08/08/16 at 20:15; Stop 08/08/16 at 20:17; Status DC Morphine Sulfate (Morphine Inj) 4 mg ONCE ONCE IV PUSH Last administered on 21:18; Start 08/08/16 at 20:30; Stop 08/08/16 at 20:31; Status DC Ondansetron HCl 4 mg 4 mg ONCE ONCE IV Last administered on 08/08/16 21:14; Start 08/08/16 at 20:30; Stop 08/08/16 at 20:31; Status DC Sodium Chloride (NS 1000 ml Inj) 1,000 ml @ 100 mls/hr Q10H IV Last administered on 08/08/16 22:38; Start 08/08/16 at 21:45; Stop 08/09/16 at 11:19 ; Status DC Sodium Chloride (NS Flush) 2 ml UNSCH PRN IV FLUSH FLUSH AFTER USING IV ACCESS ; Start 08/08/16 at 21:45; Stop 08/10/16 at 06:25; Status DC Sodium Chloride (NS Flush) 2 ml BID IV FLUSH Last administered on 08/09/16 09: 00; Start 08/09/16 at 09:00; Stop 08/10/16 at 06:25; Status DC Ondansetron HCl (Zofran Inj) 4 mg Q6H PRN IVP NAUSEA OR VOMITING Last administered on 08/12/16 21:06; Start 08/08/16 at 21:45 Bisacodyl (Dulcolax Supp) 10 mg DAILY PRN RECTAL CONSTIPATION; Start 08/08/16 at 21:45 Docusate Sodium (Colace) 100 mg Q12H PO Last administered on 08/13/16 08:38; Start 08/08/16 at 21:45 Magnesium Hydroxide (Milk Of Magnesia Liq) 30 ml Q12H PRN PO CONSTIPATION; Start 08/08/16 at 21:45; Stop 08/11/16 at 14:59; Status DC Sennosides (Senokot) 17.2 mg Q12H PRN PO CONSTIPATION Last administered on 21:07; Start 08/08/16 at 21:45 Naloxone HCl (Narcan Inj) 0.4 mg UNSCH PRN IV SEE LABEL COMMENTS; Start at 21:45; Stop 08/09/16 at 19:20; Status DC Alprazolam (Xanax) 2 mg HS PO Last administered on 08/12/16 21:06; Start at 21:00 Morphine Sulfate 4 mg 4 mg ONCE ONCE IV PUSH Last administered on 08/08/16 22 :46; Start 08/08/16 at 22:00; Stop 08/08/16 at 22:01; Status DC Levetriacetam (Keppra 1000 Mg Inj) 100 ml @ 400 mls/hr BOLUS ONCE IV Last administered on 08/08/16 22:46; Start 08/08/16 at 22:00; Stop 08/08/16 at 22:14 ; Status DC Levetriacetam (Keppra) 500 mg Q12HR PO ; Start 08/09/16 at 09:00; Stop 08/09/16 at 20:05; Status DC Acetaminophen (Tylenol) 650 mg Q6H PRN PO PAIN SCALE 1 TO 2 Last administered on 08/10/16 07:56; Start 08/08/16 at 22:00 Acetaminophen/ Hydrocodone Bitart ([place] 5-325 Mg) 1 tab Q4H PRN PO PAIN SCALE 3 TO 5; Start 08/08/16 at 22:00 Acetaminophen/ Hydrocodone Bitart ([place] 10-325 Mg) 1 tab Q4H PRN PO PAIN SCALE 6 TO 10; Start 08/08/16 at 22:00 Morphine Sulfate (Morphine Inj) 4 mg Q3H PRN IV BREAKTHROUGH PAIN Last administered on 08/09/16 08:16; Start 08/08/16 at 22:00; Stop 08/09/16 at 19:18 ; Status DC Orphenadrine Citrate (Norflex Inj) 60 mg ONCE ONCE IM Last administered on 01:56; Start 08/09/16 at 00:00; Stop 08/09/16 at 00:01; Status DC Dexamethasone Sodium Phosphate (Decadron Inj) 4 mg Q6HR IV PUSH Last administered on 08/11/16 11:36; Start 08/09/16 at 01:45; Stop 08/11/16 at 12:25; Status DC Calcium Carbonate (Tums Chew) 500 mg Q2H PRN CHEW DYSPEPSIA Last administered on 08/11/16 03:04; Start 08/09/16 at 09:00 Lorazepam 0.5 mg 0.5 mg Q8H PRN PO ANXIETY Last administered on 08/13/16 08:38 ; Start 08/09/16 at 10:45 Sodium Chloride 1,000 ml @ 100 mls/hr Q10H IV Last administered on 08/13/16 04 :54; Start 08/09/16 at 10:54 Cefazolin Sodium/ Dextrose 50 ml @ 150 mls/hr ONCE ONCE IV Last administered on 08/09/16 13:54; Start 08/09/16 at 11:00; Stop 08/09/16 at 11:20; Status DC Vancomycin HCl/ Sodium Chloride (Vancomycin Inj/ NS 250 ml Inj) 250 ml @ 250 mls/hr ONCE ONCE IV ; Start 08/09/16 at 11:00; Stop 08/09/16 at 11:59; Status DC Chlorhexidine Gluconate (Hibiclens 4% Top Soln) 1 applic HS TOP ; Start at 21:00; Stop 08/10/16 at 21:01; Status DC Vancomycin HCl (Vancomycin Inj) 1,000 mg STK-MED ONCE .ROUTE ; Start 08/09/16 at 11:13; Stop 08/09/16 at 11:14; Status DC Bupivacaine HCl/ Epinephrine Bitart (Sensorcaine-Epinephrine Pf 0.5% Inj) 30 ml STK-MED ONCE .ROUTE Last administered on 08/09/16 14:37; Start 08/09/16 at 11: 14; Stop 08/09/16 at 11:15; Status DC Gelatin (Gelfoam 100 Top) 1 foam STK-MED ONCE .ROUTE Last administered on 14:37; Start 08/09/16 at 11:14; Stop 08/09/16 at 11:15; Status DC Gentamicin Sulfate (Gentamicin Inj) 240 mg STK-MED ONCE .ROUTE Last administered on 08/09/16 14:37; Start 08/09/16 at 11:14; Stop 08/09/16 at 11:15 ; Status DC Thrombin (Thrombin Top Soln) 10,000 units STK-MED ONCE .ROUTE Last administered on 08/09/16 15:47; Start 08/09/16 at 11:14; Stop 08/09/16 at 11:15 ; Status DC Heparin Sodium (Porcine) (Heparin Inj) 30,000 units STK-MED ONCE .ROUTE Last administered on 08/09/16 14:37; Start 08/09/16 at 11:30; Stop 08/09/16 at 11:31 ; Status DC Levetriacetam (Keppra Inj) 1,000 mg STK-MED ONCE IV ; Start 08/09/16 at 11:38; Stop 08/09/16 at 11:39; Status DC Fentanyl Citrate (fentaNYL INJ) 500 mcg STK-MED ONCE .ROUTE ; Start 08/09/16 at 12:36; Stop 08/09/16 at 12:37; Status DC Hydromorphone HCl (Dilaudid Pf Inj) 2 mg STK-MED ONCE .ROUTE ; Start 08/09/16 at 12:36; Stop 08/09/16 at 12:37; Status DC Acetaminophen (Ofirmev Inj) 1,000 mg STK-MED ONCE IV ; Start 08/09/16 at 12:36; Stop 08/09/16 at 12:37; Status DC Artificial Tears (Lacrilube Opht Oint) 3.5 applic STK-MED ONCE .ROUTE ; Start at 12:36; Stop 08/09/16 at 12:37; Status DC Midazolam HCl (Versed Inj) 5 mg STK-MED ONCE .ROUTE ; Start 08/09/16 at 12:37; Stop 08/09/16 at 12:38; Status DC Vancomycin HCl (Vancomycin Inj) 1,000 mg STK-MED ONCE OTHER Last administered on 08/09/16 13:49; Start 08/09/16 at 13:49; Stop 08/09/16 at 15:10; Status DC Fentanyl Citrate (fentaNYL INJ) 250 mcg STK-MED ONCE .ROUTE ; Start 08/09/16 at 15:50; Stop 08/09/16 at 15:51; Status DC Hydromorphone HCl (Dilaudid Pf Inj) 2 mg STK-MED ONCE .ROUTE ; Start 08/09/16 at 15:50; Stop 08/09/16 at 15:51; Status DC Cefazolin Sodium 2000 mg 2,000 mg STK-MED ONCE IV Last administered on 17:48; Start 08/09/16 at 17:48; Stop 08/09/16 at 17:51; Status DC Potassium Chloride/Sodium Chloride (NS + KCl 20 Meq Inj) 1,000 ml @ 100 mls/hr Q10H IV Last administered on 08/11/16 10:56; Start 08/09/16 at 18:56; Stop 08/11 at 15:22; Status DC IV Flush (NS Flush) 2 ml UNSCH PRN IVF FLUSH AFTER USING IV ACCESS; Start 08/09 at 19:00; Stop 08/10/16 at 06:25; Status DC IV Flush 2 ml 2 ml BID IVF ; Start 08/09/16 at 21:00; Stop 08/10/16 at 06:25; Status DC Cefazolin Sodium/ Dextrose (Ancef 2 Gm Premix) 50 ml @ 100 mls/hr Q8H IV Last administered on 08/10/16 17:01; Start 08/10/16 at 02:00; Stop 08/10/16 at 18:29 ; Status DC Pantoprazole Sodium (Protonix Inj) 40 mg DAILY IVP Last administered on 09:00; Start 08/10/16 at 09:00 Morphine Sulfate (Morphine Inj) 2 mg Q2H PRN IV PUSH PAIN SCALE 1 TO 6; Start 08/09/16 at 19:00 Morphine Sulfate (Morphine Inj) 4 mg Q2H PRN IV PUSH PAIN SCALE 7 TO 10 Last administered on 08/13/16 08:20; Start 08/09/16 at 19:00 Acetaminophen (Tylenol) 650 mg Q4H PRN PO TEMPERATURE > 101.5 F; Start at 19:00 Naloxone HCl (Narcan Inj) 0.4 mg UNSCH PRN IV RESPIRATORY RATE LESS THAN 10; Start 08/09/16 at 19:00 Diphenhydramine HCl (Benadryl Inj) 25 mg Q6H PRN IV ITCHING; Start 08/09/16 at 19:00 Hydromorphone HCl (Dilaudid CORPORATE CONCIERGE Inj) 6 mg UNSCH IV Last administered on 09:08; Start 08/09/16 at 19:00; Stop 08/12/16 at 10:44; Status DC CORPORATE CONCIERGE Dosage Infused (Pha) 1 Q8HR .XX Last administered on 08/12/16 06:00; Start 08/09/16 at 22:00; Stop 08/12/16 at 10:44; Status DC Meperidine HCl (*DEMEROL INJ PERIprocedural ONLY) 25 mg STK-MED ONCE .ROUTE Last administered on 08/09/16 19:02; Start 08/09/16 at 19:02; Stop 08/09/16 at 19:03; Status DC Miscellaneous Information ALL NURSING DEPARTME... UNSCH PRN .XX SEE LABEL COMMENTS; Start 08/09/16 at 19:01; Stop 08/10/16 at 19:00; Status DC Levetriacetam/ Sodium Chloride (Keppra Inj/NS Inj) 105 ml @ 420 mls/hr QID@04, 10,16,22 IV Last administered on 08/09/16 22:32; Start 08/09/16 at 22:00; Stop 08/10/16 at 18:45; Status DC Lorazepam (Ativan Inj) 1 mg Q4H PRN IV PUSH SEIZURES Last administered on 08:56; Start 08/09/16 at 20:00 Sodium Chloride (NS Flush) 2 ml UNSCH PRN IV FLUSH FLUSH AFTER USING IV ACCESS ; Start 08/10/16 at 06:15 Sodium Chloride (NS Flush) 2 ml BID IV FLUSH Last administered on 08/13/16 08: 20; Start 08/10/16 at 09:00 Flumazenil (Romazicon Inj) 0.2 mg Q1M PRN IV PUSH SEE LABEL COMMENTS; Start at 06:15 Lorazepam (Ativan) 1 mg Q4H PRN PO CIWA 8 - 10; Start 08/10/16 at 06:15 Lorazepam (Ativan Inj) 1 mg Q4H PRN IV PUSH CIWA 8 - 10 Last administered on 17:35; Start 08/10/16 at 06:15 Lorazepam (Ativan) 2 mg Q2H PRN PO CIWA 11-14; Start 08/10/16 at 06:15 Lorazepam (Ativan Inj) 2 mg Q2H PRN IV PUSH CIWA 11-14 Last administered on 08/12 18:56; Start 08/10/16 at 06:15 Lorazepam (Ativan Inj) 2 mg Q1H PRN IV PUSH CIWA 15-20; Start 08/10/16 at 06:15 Lorazepam (Ativan Inj) 2 mg Q15M PRN IV PUSH CIWA > 20; Start 08/10/16 at 06:15 Oxcarbazepine (Trileptal) 600 mg BID PO Last administered on 08/13/16 08:20; Start 08/10/16 at 21:00 Diltiazem HCl 30 mg 30 mg ONCE ONCE PO Last administered on 08/10/16 22:12; Start 08/10/16 at 22:00; Stop 08/10/16 at 22:01; Status DC Diltiazem HCl 125 mg/Sodium Chloride 125 ml @ 0 mls/hr TITRATE IV ; Start at 00:00 Sodium Chloride (NS 500 ml Inj) 500 ml @ 500 mls/hr BOLUS ONCE IV Last administered on 08/11/16 02:18; Start 08/11/16 at 01:00; Stop 08/11/16 at 01:59; Status DC Senna/Docusate Sodium (Helga-Colace) 2 tab BID PRN PO CONSTIPATION; Start at 15:00 Lactulose (Lactulose Liq) 30 ml TID PRN PO CONSTIPATION Last administered on 08:19; Start 08/11/16 at 15:00 Bisacodyl (Dulcolax Supp) 10 mg DAILY PRN NC CONSTIPATION; Start 08/11/16 at 15: 00; Status UNV Magnesium Hydroxide (Milk Of Magnesia Liq) 30 ml Q6H PRN PO CONSTIPATION; Start 08/11/16 at 15:00 Promethazine HCl (Phenergan Supp) 12.5 mg Q4H PRN RECTAL nausea/vomiting ; Start 08/11/16 at 15:00 Methylnaltrexone [place] (Relistor Inj) 12 mg ONCE ONCE SQ Last administered on 08/12/16t 14:00; Start 08/12/16 at 14:00; Stop 08/12/16 at 14:01; Status DC Potassium Chloride (KCl) 30 meq ONCE ONCE PO ; Start 08/13/16 at 10:15; Stop 08/13/16 at 10:16; Status DC A/P Problem List: (1) Compression fracture of L1 lumbar vertebra ICD Code: S32.010A Status: Acute (2) Compression fracture of T12 vertebra ICD Code: M48.54XA Status: Acute (3) Tobacco abuse ICD Code: Z72.0 Status: Acute Assessment and Plan 36 y/o male with a medical history of ADHD and anxiety was brought in by EMS after suffering a syncopal episode, questionable seizure. Syncopal/ Questionable Seizure Images reviewed: Head CT unremarkable Neurology consulted. EEG reviewed, within normal limits Seizure precautions Stop Keppra PO per neuro as he is not tolerating. Start Trileptal per neuro. Neurology following appreciate recommendations. Neuro checks Monitor on TELE Compression fracture T12 and L1 Images reviewed: Lumbar Spine CT shows Moderate to severe compression fracture involving the T12 vertebral body with approximately 7 mm of retropulsion of the posterior-superior aspect of the vertebral body resulting in moderate spinal stenosis at this level. Mild scoliosis of the lumbar spine. Consult neurosurgery , appreciate recommendations 08/10/16 s/p open reduction and internal fixation of T12 fracture, T10 to L2 segmental instrumental fixation using transpedicular screws and rods, T10 to L2 posterolateral fusion using autologous illiac crest bone graft, microsurgical dissection, harvesting of illiac crest bone graft on 08/09/16. Pain management with IV morphine and norco Received Dexamethasone IV Leukocytosis, likely stress related RESOLVED. most likely inflammatory response. Trend CBC Ileus General surgery consulted, recommended medical management at this time NG tube in placed. tolerating clear liquids. advance per GS. decrease narcotics use as tolerated. d/w patient and stated should try to ambulate. he declined PT today. He stated will work with PT tomorrow. Tobacco abuse. Counselled. DVT prophylaxis: SCDs Discharge Planning d/w patient and his father who is at the bedside. Further hospitalization due to ileus and uncontrolled pain. Clare Moralez MD Aug 13, 2016 11:14
[2016-08-13] MEDS: SENNOSIDES 8.6 MG TAB PO PRN (11:19)
--- NOTE | 2016-08-13 11:22 | HHI.NSPN ---
(Jane Doan) Note Status Status: Progress Note (Jane Doan) Interval History Interval History 08/10/16: Pt underwent open reduction and internal fixation of T12 fracture, T10 to L2 segmental instrumental fixation using transpedicular screws and rods, T10 to L2 posterolateral fusion using autologous illiac crest bone graft, microsurgical dissection, harvesting of illiac crest bone graft on 08/09/16. Pt awake and alert. Complains of incisional pain controlled. No radiculopathy. He states the paresthesias in his extremities is improved today. Denies weakness in LEs. 08/11/16: Pt transferred to cardiac telemetry yesterday for tachycardia HR went to 170s Complains of nausea and GI distress with steroids despite Zofran, tums and Protonix. Sensation in anterior thighs improving. Back pain controlled with current medication. 08/12/16: Pt states his nausea got worse yesterday afternoon and had emesis. He was found to have an ileus on x-ray. NG tube placed. He has incisional pain improving but doesn't think he can come off [employer]ER yet. No radiculopathy in LEs 08/13/16: still no BM but is passing gas. denies changes to LE sensorimotor function. (Jane Doan) Labs, Micro, & Vital Signs Results Date Time Temp Pulse Resp B/P Pulse Ox O2 Delivery O2 Flow Rate FiO2 08/13/16 09:00 110 08/13/16 08:00 98.7 112 12 131/60 93 08/13/16 04:00 100.2 101 18 117/69 93 08/13/16 00:00 99.0 115 17 120/70 95 08/12/16 20:00 98.8 114 17 136/68 94 08/12/16 20:00 102 08/12/16 16:00 98.6 104 12 127/77 95 08/12/16 12:00 98.2 107 12 133/70 95 08/13/16 07:00 Intake Total 3123 ml Output Total 1500 ml Balance 1623 ml Constitutional Vital Signs Date Time Temp Pulse Resp B/P Pulse Ox O2 Delivery O2 Flow Rate FiO2 08/13/16 09:00 110 08/13/16 08:00 98.7 112 12 131/60 93 08/13/16 04:00 100.2 101 18 117/69 93 08/13/16 00:00 99.0 115 17 120/70 95 08/12/16 20:00 98.8 114 17 136/68 94 08/12/16 20:00 102 08/12/16 16:00 98.6 104 12 127/77 95 08/12/16 12:00 98.2 107 12 133/70 95 08/13/16 07:00 Intake Total 3123 ml Output Total 1500 ml Balance 1623 ml (Jane Doan) Review of Systems/Exam Exam Alert, resting in bed comfortably. Speech is fluent. Surgical wound healing well with prineo dressing intact. Primapore dressing over drain site noted to be wet, steri strip in place. Removed primapore and placed dry gauze dressing over drain site. No active drainage seen. Motor: moves all major muscle groups of LE well NG tube in place (Jane Doan) Medications Current Medications Current Medications Medications (Trade) Dose Ordered Sig/Bruna Route PRN Reason Start Time Stop Time Status Last Admin Dose Admin Ondansetron HCl (Zofran Inj) 4 mg Q6H PRN IVP NAUSEA OR VOMITING 08/08/16 21:45 08/12/16 21:06 Bisacodyl (Dulcolax Supp) 10 mg DAILY PRN RECTAL CONSTIPATION 08/08/16 21:45 Docusate Sodium (Colace) 100 mg Q12H PO 08/08/16 21:45 08/13/16 08:38 Sennosides (Senokot) 17.2 mg Q12H PRN PO CONSTIPATION 08/08/16 21:45 08/12/16 21:07 Alprazolam (Xanax) 2 mg HS PO 08/09/16 21:00 08/12/16 21:06 Acetaminophen (Tylenol) 650 mg Q6H PRN PO PAIN SCALE 1 TO 2 08/08/16 22:00 08/10/16 07:56 Acetaminophen/ Hydrocodone Bitart ([place] 5-325 Mg) 1 tab Q4H PRN PO PAIN SCALE 3 TO 5 08/08/16 22:00 Acetaminophen/ Hydrocodone Bitart ([place] 10-325 Mg) 1 tab Q4H PRN PO PAIN SCALE 6 TO 10 08/08/16 22:00 Calcium Carbonate (Tums Chew) 500 mg Q2H PRN CHEW DYSPEPSIA 08/09/16 09:00 08/11/16 03:04 Lorazepam 0.5 mg 0.5 mg Q8H PRN PO ANXIETY 08/09/16 10:45 08/13/16 08:38 Sodium Chloride (NS 1000 ml Inj) 1,000 ml @ 100 mls/hr Q10H IV 08/09/16 10:54 08/13/16 04:54 Pantoprazole Sodium (Protonix Inj) 40 mg DAILY IVP 08/10/16 09:00 08/12/16 09:00 Morphine Sulfate (Morphine Inj) 2 mg Q2H PRN IV PUSH PAIN SCALE 1 TO 6 08/09/16 19:00 Morphine Sulfate (Morphine Inj) 4 mg Q2H PRN IV PUSH PAIN SCALE 7 TO 10 08/09/16 19:00 08/13/16 08:20 Acetaminophen (Tylenol) 650 mg Q4H PRN PO TEMPERATURE > 101.5 F 08/09/16 19:00 Naloxone HCl (Narcan Inj) 0.4 mg UNSCH PRN IV RESPIRATORY RATE LESS THAN 10 08/09/16 19:00 Diphenhydramine HCl (Benadryl Inj) 25 mg Q6H PRN IV ITCHING 08/09/16 19:00 Lorazepam (Ativan Inj) 1 mg Q4H PRN IV PUSH SEIZURES 08/09/16 20:00 08/12/16 08:56 Sodium Chloride (NS Flush) 2 ml UNSCH PRN IV FLUSH FLUSH AFTER USING IV ACCESS 08/10/16 06:15 Sodium Chloride (NS Flush) 2 ml BID IV FLUSH 08/10/16 09:00 08/13/16 08:20 Flumazenil (Romazicon Inj) 0.2 mg Q1M PRN IV PUSH SEE LABEL COMMENTS 08/10/16 06:15 Lorazepam (Ativan) 1 mg Q4H PRN PO CIWA 8 - 10 08/10/16 06:15 Lorazepam (Ativan Inj) 1 mg Q4H PRN IV PUSH CIWA 8 - 10 08/10/16 06:15 08/10/16 17:35 Lorazepam (Ativan) 2 mg Q2H PRN PO CIWA 11-14 08/10/16 06:15 Lorazepam (Ativan Inj) 2 mg Q2H PRN IV PUSH CIWA 11-14 08/10/16 06:15 08/12/16 18:56 Lorazepam (Ativan Inj) 2 mg Q1H PRN IV PUSH CIWA 15-20 08/10/16 06:15 Lorazepam (Ativan Inj) 2 mg Q15M PRN IV PUSH CIWA > 20 08/10/16 06:15 Oxcarbazepine 600 mg 600 mg BID PO 08/10/16 21:00 08/13/16 08:20 Diltiazem HCl/ Sodium Chloride (Cardizem Inj/NS Inj) 125 ml @ 0 mls/hr TITRATE IV 08/11/16 00:00 Senna/Docusate Sodium (Helga-Colace) 2 tab BID PRN PO CONSTIPATION 08/11/16 15:00 Lactulose (Lactulose Liq) 30 ml TID PRN PO CONSTIPATION 08/11/16 15:00 08/13/16 08:19 Magnesium Hydroxide (Milk Of Magnesia Liq) 30 ml Q6H PRN PO CONSTIPATION 08/11/16 15:00 Promethazine HCl (Phenergan Supp) 12.5 mg Q4H PRN RECTAL nausea/vomiting 08/11/16 15:00 (Jane Doan) Medical Decision Making MDM Remarks 36 y/o male s/p ORIF T12 fracture with T10 to L2 posterolateral fixation on 09/09, surgical pain improving, stable neurological exam (Jane Doan) Plan Plan Remarks cont current pain regimen, he is now off [employer] GI following for ileus, cont therapy, TLSO when out of bed monitor drain site, gauze dressing changes daily (Jane Doan) Attending Statement He is requesting to continue conservative treatment The exam, history, and the medical decision-making described in the above note were completed with the assistance of the mid-level provider. I reviewed and agree with the findings presented. I attest that I had a [id number] encounter with the patient on the same day, and personally performed and documented my assessment and findings in the medical record. (Carlos Mohamud MD) Jane Doan Aug 13, 2016 11:22 Carlos Mohamud MD Aug 13, 2016 21:17
--- NOTE | 2016-08-13 15:52 | HHI.PR ---
Subjective Subjective Notes Patient seen about 0800 In bed Mother and father at bedside Objective Vitals/I&O Vital Signs Date Time Temp Pulse Resp B/P Pulse Ox O2 Delivery O2 Flow Rate FiO2 08/13/16 12:00 98.5 95 12 120/66 96 08/11/16 09:32 21 08/09/16 19:45 Nasal Cannula 3 Labs Laboratory Tests Test 08/13/16 05:31 White Blood Count 10.5 Red Blood Count 3.90 Hemoglobin 12.4 Hematocrit 35.3 Mean Corpuscular Volume 90.6 Mean Corpuscular Hemoglobin 31.8 Mean Corpuscular Hemoglobin 35.1 Concent Red Cell Distribution Width 13.3 Platelet Count 284 Mean Platelet Volume 7.4 Neutrophils (%) (Auto) 67.8 Lymphocytes (%) (Auto) 20.3 Monocytes (%) (Auto) 10.4 Eosinophils (%) (Auto) 1.2 Basophils (%) (Auto) 0.3 Neutrophils # (Auto) 7.1 Lymphocytes # (Auto) 2.1 Monocytes # (Auto) 1.1 Eosinophils # (Auto) 0.1 Basophils # (Auto) 0.0 CBC Comment DIFF FINAL Differential Comment Sodium Level 137 Potassium Level 3.2 Chloride Level 96 Carbon Dioxide Level 31.6 Anion Gap 9 Blood Urea Nitrogen 8 Creatinine 0.77 Estimat Glomerular Filtration 116 Rate Random Glucose 87 Calcium Level 8.2 Cardiovascular: Regular Lungs: Clear Abdomen: Other (soft; mildly distended ) Extremities: No edema A/P Assessment and Plan 36 year old male s/p syncopal episode; T12 burst fracture s/p ORIF by Dr. Mohamud ; now with ileus -Continue bowel rest -NGT to suction -Clamp with output decreased -Minimize narcotic use -GS will sign off I CERTIFY AND ATTEST THAT I PHYSICALLY SAW THE PATIENT IN THEIR ROOM. MS GREY DOCUMENTED OUR VISIT AND ENTERED ORDERS IN THE EMR UNDER MY DIRECT SUPERVISION. I DISCUSSED THE CARE PLAN WITH THE PATIENT AND THE STAFF AT THE BEDSIDE. OFELIA CABRERA MD [facility] Vicky Grey [facility] Aug 13, 2016 15:52 Ofelia Cabrera MD Aug 15, 2016 10:22
--- NOTE | 2016-08-13 16:05 | HHI.GIFU ---
Subjective Remarks Pt is resting comfortably in bed. He still has not had a BM. He says he is nauseous and is nauseous all the time. No vomiting since 2 days ago. He has not eaten in a week. He says he is noticing more stomach rumbling today and he is passing gas. He says his abdomen is not as distended as it was, but still distended. (Kim Mckeon) Objective Vitals I&O Vital Signs Date Time Temp Pulse Resp B/P Pulse Ox O2 Delivery O2 Flow Rate FiO2 08/13/16 12:00 98.5 95 12 120/66 96 08/13/16 09:00 110 08/13/16 08:00 98.7 112 12 131/60 93 08/13/16 04:00 100.2 101 18 117/69 93 08/13/16 00:00 99.0 115 17 120/70 95 08/12/16 20:00 98.8 114 17 136/68 94 08/12/16 20:00 102 08/12/16 16:00 98.6 104 12 127/77 95 I/O 08/12/16 08/12/16 08/12/16 08/13/16 08/13/16 08/13/16 07:00 15:00 23:00 07:00 15:00 23:00 Intake Total 1410 ml 0 ml 1807 ml 1316 ml Output Total 500 ml 600 ml 900 ml Balance 910 ml 0 ml 1207 ml 416 ml Intake Oral 600 ml 0 ml 360 ml 570 ml IV Total 810 ml 1447 ml 746 ml Output Urine Total 200 ml Gastric Drainage Total 500 ml 400 ml 900 ml # Voids 2 2 # Bowel Movements 0 0 Laboratory Laboratory Tests Test 08/13/16 05:31 White Blood Count 10.5 Red Blood Count 3.90 Hemoglobin 12.4 Hematocrit 35.3 Mean Corpuscular Volume 90.6 Mean Corpuscular Hemoglobin 31.8 Mean Corpuscular Hemoglobin 35.1 Concent Red Cell Distribution Width 13.3 Platelet Count 284 Mean Platelet Volume 7.4 Neutrophils (%) (Auto) 67.8 Lymphocytes (%) (Auto) 20.3 Monocytes (%) (Auto) 10.4 Eosinophils (%) (Auto) 1.2 Basophils (%) (Auto) 0.3 Neutrophils # (Auto) 7.1 Lymphocytes # (Auto) 2.1 Monocytes # (Auto) 1.1 Eosinophils # (Auto) 0.1 Basophils # (Auto) 0.0 CBC Comment DIFF FINAL Differential Comment Sodium Level 137 Potassium Level 3.2 Chloride Level 96 Carbon Dioxide Level 31.6 Anion Gap 9 Blood Urea Nitrogen 8 Creatinine 0.77 Estimat Glomerular Filtration 116 Rate Random Glucose 87 Calcium Level 8.2 Imaging Last Impressions Abdomen X-Ray 08/12/16 0000 Signed Impressions: Service Date/Time: Friday, August 12, 2016 06:41 - CONCLUSION: 1. Nasogastric tube across the GE junction. 2. Interval improvement. Small bowel dilatation persists. Srikanth Hill MD FACR Thoracolumbar Spine 08/09/16 0000 Signed Impressions: Service Date/Time: July 14:37 - CONCLUSION: Status post posterior fusion from T10 through L2 as described above. Deangelo Workman MD Thoracic Spine MRI 08/09/16 0000 Signed Impressions: Service Date/Time: July 09:24 - CONCLUSION: 1. Acute T12 compression fracture with 60%% loss of height and 7 mm of retropulsion. There is abutment of the conus but no flattening or signal change within the conus. No hematoma observed. Brannon Corral Jr., MD ADDENDUM: Examination was discussed with Dr. Mohamud. The sagittal T2-weighted images indicate mild mass effect on the anterior margin of the spinal cord. Yash Lares MD Chest X-Ray 08/09/16 0000 Signed Impressions: Service Date/Time: July 19:19 - CONCLUSION: 1. No pneumothorax status post placement of right internal jugular central line which has its tip at the junction of the superior vena cava and right atrium. 2. Right basilar atelectasis. Deangelo Workman MD Lumbar Spine CT 08/08/162013 Signed Impressions: Service Date/Time: Monday, August 08, 2016 20:59 - CONCLUSION: 1. Moderate to severe compression fracture involving the T12 vertebral body with approximately 7 mm of retropulsion of the posterior-superior aspect of the vertebral body resulting in moderate spinal stenosis at this level. 2. Mild scoliosis of the lumbar spine. Deangelo Workman MD Head CT 08/08/162013 Signed Impressions: Service Date/Time: Monday, August 08, 2016 20:56 - CONCLUSION: No acute disease. Deangelo Workman MD Physical Exam HEENT: EOMI; normocephalic; atraumatic; no jaundice. NECK: Neck is supple, no JVD CHEST: Chest is clear to auscultation and percussion. CARDIAC: Regular rate and rhythm with no murmur gallop or rubs. ABDOMEN: Soft, nondistended, lower abd TTP; no hepatosplenomegaly; hyperactive bowel sounds are present in all four quadrants. EXTREMITIES: No clubbing, cyanosis, or edema. SKIN: Normal; no rash; no jaundice. FUMIGATOR AND STERILIZER: No focal deficits; alert and oriented times three. (Kim Mckeon) Assessment and Plan Plan ASSESSMENT: -Ileus, NG LIWS draining dark green bilious. Mild abdominal tenderness, abd soft , bowel sounds hyperactive. Last BM over a week ago. 08/12/16 Abdominal xray ---- > interval improvement, small bowel dilatation persists. The ORGANIZATIONAL PSYCHOLOGIST has been d/c. -Chronic constipation, discussed with patient increased fiber intake. -Syncopal/Questional Seizure, per primary. Neurology consulted. Head CT 08/08/16 No acute disease -Compression fracture of T12 and L1 lumbar vertebra, status post ORIF of T12 burst fracture (Dr. Mohamud) PLAN: - 1 bottle Mg Citrate - Clamp NG tube - clear liquids, if no n/v for 4h ok to d/c ng -Protonix IV -Further recommendation to follow based on results of above Patient examined by Dr. Landers and myself and this note is written on his behalf. (Kim Mckeon) Physician Comments Still no results with Laxatives. Mag citrate today, if no response consider Gastro grafin enema. (Maria Guadalupe Landers MD) Kim Mckeon Aug 13, 2016 16:05 Maria Guadalupe Landers MD Aug 13, 2016 17:57
[2016-08-13] MEDS ORDERED: MAGNESIUM CITRATE SOLN 300 ML BTL PO ONE (16:15)
--- NOTE | 2016-08-13 17:01 | EC ---
Study Study Date:08/13/2016 STUDY CONCLUSIONS SUMMARY - Left ventricle: The cavity size was normal. Wall thickness was at the upper limits of normal. Systolic function was normal. The estimated ejection fraction was in the range of 60% to 65%. Wall motion was normal; there were no regional wall motion abnormalities. - Aortic valve: Valve area: 4.35cm^2(VTI). Valve area: 4.19cm^2 (Vmax). If LV function is below 40, please consider prescribing an ACEI or ARB or document rationale for non-use. PROCEDURE DATA STUDY STATUS: Elective. Procedure: Transthoracic echocardiography. Image quality was good. Scanning was performed from the parasternal, apical, and subcostal acoustic windows. Study completion: The patient tolerated the procedure well. Transthoracic echocardiography. M-mode, complete 2D, complete spectral Doppler, and color Doppler. Height: Height: 72in. Weight: Weight: 194.6lb. Body mass index: BMI: 26.4kg/m^2. Body surface area: BSA: 2.11m^2. Patient status: Inpatient. CARDIAC ANATOMY LEFT VENTRICLE: The cavity size was normal. Wall thickness was at the upper limits of normal. Systolic function was normal. The estimated ejection fraction was in the range of 60% to 65%. Wall motion was normal; there were no regional wall motion abnormalities. AORTIC VALVE: Trileaflet; normal thickness leaflets. Doppler: Transvalvular velocity was within the normal range. There was no stenosis. No regurgitation. Valve area: 4.35cm^2(VTI). Indexed valve area: 2.06cm^2/m^2 (VTI). Valve area: 4.19cm^2 (Vmax). Indexed valve area: 1.99cm^2/m^2 (Vmax). Mean gradient: 2mm Hg (S). AORTA: Aortic root: The aortic root was normal in size. MITRAL VALVE: Structurally normal valve. Doppler: Transvalvular velocity was within the normal range. There was no evidence for stenosis. No regurgitation. LEFT ATRIUM: The atrium was normal in size. RIGHT VENTRICLE: The cavity size was normal. Wall thickness was normal. PULMONIC VALVE: Doppler: Transvalvular velocity was within the normal range. There was no evidence for stenosis. No regurgitation. TRICUSPID VALVE: Structurally normal valve. Doppler: Transvalvular velocity was within the normal range. Trace regurgitation. PULMONARY ARTERY: The main pulmonary artery was normal-sized. Systolic pressure was within the normal range. RIGHT ATRIUM: The atrium was normal in size. PERICARDIUM: There was no pericardial effusion. SYSTEMIC VEINS: Inferior vena cava: The vessel was normal in size. Patient weight: 194.6lb _Ejection fraction:_ 65-75% _Fractional shortening:_ 32% up to 5Kg 5-11.5Kg 11.6-22.9Kg 23-45Kg 45-57Kg Aortic Root 7-13 <17 13-22 17-27 17-27 LA diam 6-13 <23 24-38 33-47 37-40 RVID 10-17 7-15 7-15 7-18 8-17 LVIDd 12-22 <32 24-38 33-47 37-40 LVPW 2-4 3-6 5-7 6-8 7-8 IVS 2-4 3-6 5-7 6-8 7-8 BASIC MEASUREMENTS ADULT NORMAL Left ventricle LV internal dimension, ED, chordal *42.1 mm 43-52 level, PLAX LV internal dimension, ES, chordal 30.4 mm 23-38 level, PLAX Fractional shortening, chordal level, *28 % >29 PLAX LV posterior wall thickness, ED 8.09 mm IVS/LVPW ratio, ED 1 <1.3 Ventricular septum Septal thickness, ED 8.12 mm Aortic valve Leaflet separation *27 mm 15-26 Aorta Root diameter, ED 39 mm Left atrium Anterior-posterior dimension 30 mm Anterior-posterior dimension index 1.42 cm/m^2 <2.2 BASIC MEASUREMENTS ADULT NORMAL Aortic valve Leaflet separation *27 mm 15-26 DOPPLER MEASUREMENTS ADULT NORMAL Aortic valve Peak velocity, S 105 cm/s Mean velocity, S 70.4 cm/s VTI, S 15.8 cm Mean gradient, S 2 mm Hg Valve area, VTI 4.35 cm^2 Valve area index, VTI 2.06 cm^2/m^2 Valve area, Vmax 4.19 cm^2 Valve area index, Vmax 1.99 cm^2/m^2 Mitral valve Peak E-wave velocity 60.7 cm/s Peak A-wave velocity 56.8 cm/s Deceleration time 173 ms 150-230 Peak E/A ratio 1.1 Pulmonic valve Peak velocity, S 77.5 cm/s LEGEND: Mean values are shown as u=mean value. Asterisk (*) chavira values outside specified normal range. Prepared and signed by Lalit Eller [id number]
--- NOTE | 2016-08-13 18:11 | HHI.PR ---
Review/Management Diagnosis episode of LOC. will d/c trileptal due to side effect and possibly contributing factor to ileus. And his eeg was normal Diagnosis/Plan: Subjective Subjective Comments pt has developed ileus. He does not want to take sz meds--states episode was not a seizure. States he felt dizzy then passed out and when he awoke c/o severe back pain but was not confused or disoriented. He states he is having side effects of trileptal. Active Medications Current Medications Medications (Trade) Dose Ordered Sig/Bruna Route Start Time Stop Time Status Last Admin (Zofran Inj) 4 mg Q6H PRN IVP 08/08/16 21:45 08/12/16 21:06 (Dulcolax Supp) 10 mg DAILY PRN RECTAL 08/08/16 21:45 (Colace) 100 mg Q12H PO 08/08/16 21:45 08/13/16 08:38 (Senokot) 17.2 mg Q12H PRN PO 08/08/16 21:45 08/13/16 11:19 (Xanax) 2 mg HS PO 08/09/16 21:00 08/12/16 21:06 (Tylenol) 650 mg Q6H PRN PO 08/08/16 22:00 08/10/16 07:56 ([place] 5-325 Mg) 1 tab Q4H PRN PO 08/08/16 22:00 ([place] 10-325 Mg) 1 tab Q4H PRN PO 08/08/16 22:00 (Tums Chew) 500 mg Q2H PRN CHEW 08/09/16 09:00 08/11/16 03:04 Lorazepam 0.5 mg 0.5 mg Q8H PRN PO 08/09/16 10:45 08/13/16 08:38 (NS 1000 ml Inj) 1,000 ml @ 100 mls/hr Q10H IV 08/09/16 10:54 08/13/16 13:37 (Protonix Inj) 40 mg DAILY IVP 08/10/16 09:00 08/12/16 09:00 (Morphine Inj) 2 mg Q2H PRN IV PUSH 08/09/16 19:00 (Morphine Inj) 4 mg Q2H PRN IV PUSH 08/09/16 19:00 08/13/16 16:26 (Tylenol) 650 mg Q4H PRN PO 08/09/16 19:00 (Narcan Inj) 0.4 mg UNSCH PRN IV 08/09/16 19:00 (Benadryl Inj) 25 mg Q6H PRN IV 08/09/16 19:00 (Ativan Inj) 1 mg Q4H PRN IV PUSH 08/09/16 20:00 08/12/16 08:56 Oxcarbazepine 600 mg 600 mg BID PO 08/10/16 21:00 08/13/16 08:20 (Cardizem Inj/NS Inj) 125 ml @ 0 mls/hr TITRATE IV 08/11/16 00:00 (Helga-Colace) 2 tab BID PRN PO 08/11/16 15:00 (Lactulose Liq) 30 ml TID PRN PO 08/11/16 15:00 08/13/16 08:19 (Milk Of Magnesia Liq) 30 ml Q6H PRN PO 08/11/16 15:00 (Phenergan Supp) 12.5 mg Q4H PRN RECTAL 08/11/16 15:00 Allergies Allergies Coded Allergies No Known Allergies (Unverified11/04/14) Exam I&O / VS 08/12/16 08/12/16 08/13/16 15:00 23:00 07:00 Intake Total 0 ml 1807 ml 1316 ml Output Total 600 ml 900 ml Balance 0 ml 1207 ml 416 ml Intake Oral 0 ml 360 ml 570 ml IV Total 1447 ml 746 ml Output Urine Total 200 ml Gastric Drainage Total 400 ml 900 ml # Voids 2 # Bowel Movements 0 Vital Signs Date Time Temp Pulse Resp B/P Pulse Ox O2 Delivery O2 Flow Rate FiO2 08/13/16 12:00 98.5 95 12 120/66 96 08/13/16 09:00 110 08/13/16 08:00 98.7 112 12 131/60 93 08/13/16 04:00 100.2 101 18 117/69 93 08/13/16 00:00 99.0 115 17 120/70 95 08/12/16 20:00 98.8 114 17 136/68 94 08/12/16 20:00 102 Exam Comments alert, oriented, speech normal CN 2-12 normal MOTOR--5/5 BUE and BLE Objective Micro and Labs Laboratory Tests Test 08/13/16 05:31 White Blood Count 10.5 Red Blood Count 3.90 Hemoglobin 12.4 Hematocrit 35.3 Mean Corpuscular Volume 90.6 Mean Corpuscular Hemoglobin 31.8 Mean Corpuscular Hemoglobin 35.1 Concent Red Cell Distribution Width 13.3 Platelet Count 284 Mean Platelet Volume 7.4 Neutrophils (%) (Auto) 67.8 Lymphocytes (%) (Auto) 20.3 Monocytes (%) (Auto) 10.4 Eosinophils (%) (Auto) 1.2 Basophils (%) (Auto) 0.3 Neutrophils # (Auto) 7.1 Lymphocytes # (Auto) 2.1 Monocytes # (Auto) 1.1 Eosinophils # (Auto) 0.1 Basophils # (Auto) 0.0 CBC Comment DIFF FINAL Differential Comment Sodium Level 137 Potassium Level 3.2 Chloride Level 96 Carbon Dioxide Level 31.6 Anion Gap 9 Blood Urea Nitrogen 8 Creatinine 0.77 Estimat Glomerular Filtration 116 Rate Random Glucose 87 Calcium Level 8.2 Fawad French PhD Aug 13, 2016 18:11
[2016-08-13] MEDS: ALPRAZolam 1 MG TAB PO SCH (21:48)
[2016-08-14] VITALS (8 sets, daily range): BP systolic 117–131; BP diastolic 66–81; PULSE 90–103; RESP 16–20; TEMP 97.8–99; O2SAT 96–97
[2016-08-14] MEDS: SODIUM CHLOR 0.9% 1000 ML INJ 1,000 ML IV SCH ×3 (02:00→20:54)
[2016-08-14] MEDS: MORPHINE SULFATE 4 MG/ML INJ IV PUSH PRN ×7 (02:27→23:59)
[2016-08-14] MEDS: LORazepam 0.5 MG TAB PO PRN (02:29)
[2016-08-14 07:18] LABS: HEMATOCRIT 35.9 % (39.0-51.0); MEAN CELL VOLUME 90.9 FL (80.0-100.0); MEAN CORPUSCULAR HEMOGLOBIN 31.4 PG (27.0-34.0); MEAN CORPUSCULAR HGB CONC 34.6 % (32.0-36.0); PLATELET COUNT 324 TH/MM3 (150-450); RED BLOOD COUNT 3.94 MIL/MM3 (4.50-5.90); RED CELL DISTRIBUTION WIDTH 12.9 % (11.6-17.2); REVIEW FLAG FINAL; WHITE BLOOD COUNT 10.3 TH/MM3 (4.0-11.0)
[2016-08-14 07:38] LABS: POTASSIUM 3.6 MEQ/L (3.5-5.1)
[2016-08-14] MEDS: PANTOPRAZOLE SODIUM 40 MG VIAL IVP SCH (09:31)
[2016-08-14] MEDS: DOCUSATE SODIUM 100 MG CAP PO SCH ×2 (09:31→21:45)
--- NOTE | 2016-08-14 10:02 | HHI.PR ---
Subjective Remarks In the bed, says pain is better controlled, and he will require less morphine. He is off the pump. He passes gas however did not have a bowel movement he has. He doesn't have the NG tube because was removed last night. Says he is tolerating some clear liquid diets, no nausea or vomiting so far. Says he usually has constipation severe. Objective Vitals Vital Signs Date Time Temp Pulse Resp B/P Pulse Ox O2 Delivery O2 Flow Rate FiO2 08/14/16 09:28 98.8 98 17 124/74 97 08/14/16 04:00 99.0 98 18 120/71 96 08/14/16 00:28 98.8 103 20 131/81 96 08/13/16 20:00 99.1 94 18 136/80 94 08/13/16 20:00 81 08/13/16 16:00 98.5 96 12 123/77 95 08/13/16 12:00 98.5 95 12 120/66 96 I/O 08/13/16 08/13/16 08/13/16 08/14/16 08/14/16 08/14/16 07:00 15:00 23:00 07:00 15:00 23:00 Intake Total 1316 ml 2208 ml Output Total 900 ml 600 ml Balance 416 ml 1608 ml Intake Oral 570 ml IV Total 746 ml 2208 ml Output Urine Total 600 ml Gastric Drainage Total 900 ml # Voids 2 # Bowel Movements 0 Result Diagram: 08/14/16 0700 08/14/16 0700 Imaging Last Impressions Abdomen X-Ray 08/12/16 0000 Signed Impressions: Service Date/Time: Friday, August 12, 2016 06:41 - CONCLUSION: 1. Nasogastric tube across the GE junction. 2. Interval improvement. Small bowel dilatation persists. Srikanth Hill MD FACR Thoracolumbar Spine 08/09/16 0000 Signed Impressions: Service Date/Time: July 14:37 - CONCLUSION: Status post posterior fusion from T10 through L2 as described above. Deangelo Workman MD Thoracic Spine MRI 08/09/16 0000 Signed Impressions: Service Date/Time: July 09:24 - CONCLUSION: 1. Acute T12 compression fracture with 60%% loss of height and 7 mm of retropulsion. There is abutment of the conus but no flattening or signal change within the conus. No hematoma observed. Brannon Corral Jr., MD ADDENDUM: Examination was discussed with Dr. Mohamud. The sagittal T2-weighted images indicate mild mass effect on the anterior margin of the spinal cord. Yash Lares MD Chest X-Ray 08/09/16 Signed Impressions: Service Date/Time: July 19:19 - CONCLUSION: 1. No pneumothorax status post placement of right internal jugular central line which has its tip at the junction of the superior vena cava and right atrium. 2. Right basilar atelectasis. Deangelo Workman MD Lumbar Spine CT 08/08/162013 Signed Impressions: Service Date/Time: Monday, August 08, 2016 20:59 - CONCLUSION: 1. Moderate to severe compression fracture involving the T12 vertebral body with approximately 7 mm of retropulsion of the posterior-superior aspect of the vertebral body resulting in moderate spinal stenosis at this level. 2. Mild scoliosis of the lumbar spine. Deangelo Workman MD Head CT 08/08/162013 Signed Impressions: Service Date/Time: Monday, August 08, 2016 20:56 - CONCLUSION: No acute disease. Deangelo Workman MD Objective Remarks GENERAL: This is a young, 36 yo male, well-nourished, well-developed patient, appears anxious. SKIN: Mid back surgical woun c/d/di HEAD: Atraumatic. Normocephalic. No temporal or scalp tenderness. EYES: Pupils equal round and reactive. Extraocular motions intact. No scleral icterus. No injection or drainage. ENT: Nose without bleeding, purulent drainage or septal hematoma. Throat without erythema, tonsillar hypertrophy or exudate. Airway patent. NECK: Trachea midline. No JVD or lymphadenopathy. Supple, nontender, no meningeal signs. CARDIOVASCULAR: Regular rate and rhythm without murmurs, gallops, or rubs. RESPIRATORY: Clear to auscultation. Breath sounds equal bilaterally. No wheezes , rales, or rhonchi. GASTROINTESTINAL: Abdomen soft, non-tender, nondistended. No hepato-splenomegaly , or palpable masses. No guarding. MUSCULOSKELETAL: Extremities without clubbing, cyanosis, or edema. No joint tenderness, effusion, or edema noted. No calf tenderness. NEUROLOGICAL: Awake and alert. Motor and sensory grossly within normal limits. Five out of 5 muscle strength in all muscle groups. Normal speech. Procedures 08/10/16 s/p open reduction and internal fixation of T12 fracture, T10 to L2 segmental instrumental fixation using transpedicular screws and rods, T10 to L2 posterolateral fusion using autologous illiac crest bone graft, microsurgical dissection, harvesting of illiac crest bone graft on 08/09/16. A/P Problem List: (1) Compression fracture of L1 lumbar vertebra ICD Code: S32.010A Status: Acute (2) Compression fracture of T12 vertebra ICD Code: M48.54XA Status: Acute (3) Tobacco abuse ICD Code: Z72.0 Status: Acute Assessment and Plan 36 y/o male with a medical history of ADHD and anxiety was brought in by EMS after suffering a syncopal episode, questionable seizure. Ileus. S/P NGT removed on 08/13. He removed NGT on 08/13. Patient improving, passed gas no BM yet. Minimize narcotic use. Laxative /stool softener/ antiemetcis. NGT if intractable n/v. Gen surg signed off. GI following. Syncopal/ Questionable Seizure Images reviewed: Head CT unremarkable Consult neurology for recommendations EEG reviewed Seizure precautions Stop Keppra PO per neuro as he is not tolerating. Start Trileptal per neuro. Neurology following appreciate recommendations. Neuro checks Monitor on TELE Compression fracture T12 and L1 Images reviewed: Lumbar Spine CT shows Moderate to severe compression fracture involving the T12 vertebral body with approximately 7 mm of retropulsion of the posterior-superior aspect of the vertebral body resulting in moderate spinal stenosis at this level. Mild scoliosis of the lumbar spine. Consult neurosurgery , appreciate recommendations 08/10/16 s/p open reduction and internal fixation of T12 fracture, T10 to L2 segmental instrumental fixation using transpedicular screws and rods, T10 to L2 posterolateral fusion using autologous illiac crest bone graft, microsurgical dissection, harvesting of illiac crest bone graft on 08/09/16. Bed rest Pain management with IV morphine and norco Received Dexamethasone IV Leukocytosis, likely stress related WBS 20.1, neutrophils 86% on admission UA negative rend CBC Tobacco abuse. Counselled. DVT prophylaxis: SCDs Discussed with the patient, nurse, family at bedside. DC plan: DC when improved and cleared by consultants. Cecilia Valencia MD Aug 14, 2016 10:01
[2016-08-14] MEDS: SIMETHICONE 125 MG CHEWABLE TAB PO PRN ×2 (10:23→18:29)
--- NOTE | 2016-08-14 16:00 | HHI.NSPN ---
(Jane Doan) Note Status Status: Progress Note (Jane Doan) Interval History Interval History 08/10/16: Pt underwent open reduction and internal fixation of T12 fracture, T10 to L2 segmental instrumental fixation using transpedicular screws and rods, T10 to L2 posterolateral fusion using autologous illiac crest bone graft, microsurgical dissection, harvesting of illiac crest bone graft on 08/09/16. Pt awake and alert. Complains of incisional pain controlled. No radiculopathy. He states the paresthesias in his extremities is improved today. Denies weakness in LEs. 08/11/16: Pt transferred to cardiac telemetry yesterday for tachycardia HR went to 170s Complains of nausea and GI distress with steroids despite Zofran, tums and Protonix. Sensation in anterior thighs improving. Back pain controlled with current medication. 08/12/16: Pt states his nausea got worse yesterday afternoon and had emesis. He was found to have an ileus on x-ray. NG tube placed. He has incisional pain improving but doesn't think he can come off PORTFOLIO MGR yet. No radiculopathy in LEs 08/13/16: still no BM but is passing gas. denies changes to LE sensorimotor function. 08/14/16: reports back pain controlled, no active drainage seen from drain site. (Jane Doan) Labs, Micro, & Vital Signs Results Date Time Temp Pulse Resp B/P Pulse Ox O2 Delivery O2 Flow Rate FiO2 08/14/16 12:00 98.9 100 20 121/66 96 08/14/16 09:28 98.8 98 17 124/74 97 08/14/16 09:26 97 08/14/16 08:00 98.8 98 17 124/74 97 08/14/16 04:00 99.0 98 18 120/71 96 08/14/16 00:28 98.8 103 20 131/81 96 08/13/16 20:00 99.1 94 18 136/80 94 08/13/16 20:00 81 08/13/16 16:00 98.5 96 12 123/77 95 08/14/16 07:00 Intake Total 2208 ml Output Total 600 ml Balance 1608 ml Constitutional Vital Signs Date Time Temp Pulse Resp B/P Pulse Ox O2 Delivery O2 Flow Rate FiO2 08/14/16 12:00 98.9 100 20 121/66 96 08/14/16 09:28 98.8 98 17 124/74 97 08/14/16 09:26 97 08/14/16 08:00 98.8 98 17 124/74 97 08/14/16 04:00 99.0 98 18 120/71 96 08/14/16 00:28 98.8 103 20 131/81 96 08/13/16 20:00 99.1 94 18 136/80 94 08/13/16 20:00 81 08/13/16 16:00 98.5 96 12 123/77 95 08/14/16 07:00 Intake Total 2208 ml Output Total 600 ml Balance 1608 ml (Jane Doan) Review of Systems/Exam Exam Alert, resting in bed comfortably. Speech is appropriate. Surgical wound healing well with prineo dressing intact. Gauze dressing removed, slightly wet, no active drainage seen from drain site. Replaced with new dry dressing. Motor: moves all major muscle groups of LE well (Jane Doan) Medications Current Medications Current Medications Medications (Trade) Dose Ordered Sig/Rbuna Route PRN Reason Start Time Stop Time Status Last Admin Dose Admin Ondansetron HCl (Zofran Inj) 4 mg Q6H PRN IVP NAUSEA OR VOMITING 08/08/16 21:45 08/12/16 21:06 Bisacodyl (Dulcolax Supp) 10 mg DAILY PRN RECTAL CONSTIPATION 08/08/16 21:45 08/14/16 09:31 Docusate Sodium (Colace) 100 mg Q12H PO 08/08/16 21:45 08/14/16 09:31 Sennosides (Senokot) 17.2 mg Q12H PRN PO CONSTIPATION 08/08/16 21:45 08/13/16 11:19 Alprazolam (Xanax) 2 mg HS PO 08/09/16 21:00 08/13/16 21:48 Acetaminophen (Tylenol) 650 mg Q6H PRN PO PAIN SCALE 1 TO 2 08/08/16 22:00 08/10/16 07:56 Acetaminophen/ Hydrocodone Bitart ([place] 5-325 Mg) 1 tab Q4H PRN PO PAIN SCALE 3 TO 5 08/08/16 22:00 Acetaminophen/ Hydrocodone Bitart ([place] 10-325 Mg) 1 tab Q4H PRN PO PAIN SCALE 6 TO 10 08/08/16 22:00 Calcium Carbonate (Tums Chew) 500 mg Q2H PRN CHEW DYSPEPSIA 08/09/16 09:00 08/11/16 03:04 Lorazepam 0.5 mg 0.5 mg Q8H PRN PO ANXIETY 08/09/16 10:45 08/14/16 02:29 Sodium Chloride (NS 1000 ml Inj) 1,000 ml @ 100 mls/hr Q10H IV 08/09/16 10:54 08/14/16 09:31 Pantoprazole Sodium (Protonix Inj) 40 mg DAILY IVP 08/10/16 09:00 08/14/16 09:31 Morphine Sulfate (Morphine Inj) 2 mg Q2H PRN IV PUSH PAIN SCALE 1 TO 6 08/09/16 19:00 Morphine Sulfate (Morphine Inj) 4 mg Q2H PRN IV PUSH PAIN SCALE 7 TO 10 08/09/16 19:00 08/14/16 14:18 Acetaminophen (Tylenol) 650 mg Q4H PRN PO TEMPERATURE > 101.5 F 08/09/16 19:00 Naloxone HCl (Narcan Inj) 0.4 mg UNSCH PRN IV RESPIRATORY RATE LESS THAN 10 08/09/16 19:00 Diphenhydramine HCl (Benadryl Inj) 25 mg Q6H PRN IV ITCHING 08/09/16 19:00 Lorazepam 1 mg 1 mg Q4H PRN IV PUSH SEIZURES 08/09/16 20:00 08/12/16 08:56 Diltiazem HCl/ Sodium Chloride (Cardizem Inj/NS Inj) 125 ml @ 0 mls/hr TITRATE IV 08/11/16 00:00 Senna/Docusate Sodium (Helga-Colace) 2 tab BID PRN PO CONSTIPATION 08/11/16 15:00 Lactulose (Lactulose Liq) 30 ml TID PRN PO CONSTIPATION 08/11/16 15:00 08/13/16 08:19 Magnesium Hydroxide (Milk Of Magnwset Liq) 30 ml Q6H PRN PO CONSTIPATION 08/11/16 15:00 Promethazine HCl (Phenergan Supp) 12.5 mg Q4H PRN RECTAL nausea/vomiting 08/11/16 15:00 Simethicone (Phazyme Chew) 125 mg Q8HR PRN PO gas 08/14/16 10:15 08/14/16 10:23 (Jane Dona) Medical Decision Making MDM Remarks 36 y/o male s/p ORIF T12 fracture with T10 to L2 posterolateral fixation on 08/09, surgical pain improving, stable neurological exam (Jane Doan) Plan Plan Remarks cont current care cont therapy, TLSO when out of bed cont monitor drain site, gauze dressing changes daily (Jane Doan) Attending Statement The exam, history, and the medical decision-making described in the above note were completed with the assistance of the mid-level provider. I reviewed and agree with the findings presented. I attest that I had a [id number] encounter with the patient on the same day, and personally performed and documented my assessment and findings in the medical record. (Carlos Mohamud MD) Jane Doan Aug 14, 2016 16:00 Carlos Mohamud MD Aug 16, 2016 11:32
--- NOTE | 2016-08-14 16:20 | HHI.GIFU ---
Subjective Remarks Resting in bed. No n/v. Mild diffuse tenderness. NGT came out earlier today. No bm x 1 week. Feels that he will go real soon. Objective Vitals I&O Vital Signs Date Time Temp Pulse Resp B/P Pulse Ox O2 Delivery O2 Flow Rate FiO2 08/14/16 12:00 98.9 100 20 121/66 96 08/14/16 09:28 98.8 98 17 124/74 97 08/14/16 09:26 97 08/14/16 08:00 98.8 98 17 124/74 97 08/14/16 04:00 99.0 98 18 120/71 96 08/14/16 00:28 98.8 103 20 131/81 96 08/13/16 20:00 99.1 94 18 136/80 94 08/13/16 20:00 81 I/O 08/13/16 08/13/16 08/13/16 08/14/16 08/14/16 08/14/16 07:00 15:00 23:00 07:00 15:00 23:00 Intake Total 1316 ml 2208 ml Output Total 900 ml 600 ml Balance 416 ml 1608 ml Intake Oral 570 ml IV Total 746 ml 2208 ml Output Urine Total 600 ml Gastric Drainage Total 900 ml # Voids 2 # Bowel Movements 0 Laboratory Laboratory Tests Test 08/14/16 07:00 White Blood Count 10.3 Red Blood Count 3.94 Hemoglobin 12.4 Hematocrit 35.9 Mean Corpuscular Volume 90.9 Mean Corpuscular Hemoglobin 31.4 Mean Corpuscular Hemoglobin 34.6 Concent Red Cell Distribution Width 12.9 Platelet Count 324 Mean Platelet Volume 7.4 Sodium Level 136 Potassium Level 3.6 Chloride Level 99 Carbon Dioxide Level 27.0 Anion Gap 10 Blood Urea Nitrogen 8 Creatinine 0.75 Estimat Glomerular Filtration 119 Rate Random Glucose 87 Calcium Level 8.1 Imaging Last Impressions Abdomen X-Ray 08/12/16 0000 Signed Impressions: Service Date/Time: Friday, August 12, 2016 06:41 - CONCLUSION: 1. Nasogastric tube across the GE junction. 2. Interval improvement. Small bowel dilatation persists. Srikanth Hill MD FACR Thoracolumbar Spine 08/09/16 0000 Signed Impressions: Service Date/Time: July 14:37 - CONCLUSION: Status post posterior fusion from T10 through L2 as described above. Deangelo Workman MD Thoracic Spine MRI 08/09/16 0000 Signed Impressions: Service Date/Time: July 09:24 - CONCLUSION: 1. Acute T12 compression fracture with 60%% loss of height and 7 mm of retropulsion. There is abutment of the conus but no flattening or signal change within the conus. No hematoma observed. Brannon Corral Jr., MD ADDENDUM: Examination was discussed with Dr. Mohamud. The sagittal T2-weighted images indicate mild mass effect on the anterior margin of the spinal cord. Yash Lares MD Chest X-Ray 08/09/16 0000 Signed Impressions: Service Date/Time: July 19:19 - CONCLUSION: 1. No pneumothorax status post placement of right internal jugular central line which has its tip at the junction of the superior vena cava and right atrium. 2. Right basilar atelectasis. Deangelo Workman MD Lumbar Spine CT 08/08/162013 Signed Impressions: Service Date/Time: Monday, August 08, 2016 20:59 - CONCLUSION: 1. Moderate to severe compression fracture involving the T12 vertebral body with approximately 7 mm of retropulsion of the posterior-superior aspect of the vertebral body resulting in moderate spinal stenosis at this level. 2. Mild scoliosis of the lumbar spine. Deangelo Workman MD Head CT 08/08/162013 Signed Impressions: Service Date/Time: Monday, August 08, 2016 20:56 - CONCLUSION: No acute disease. Deangelo Workman MD Physical Exam HEENT: Normocephalic; atraumatic; no jaundice. NECK: Neck is supple, no JVD CHEST: CTA CARDIAC: Regular rate and rhythm with no murmur gallop or rubs. ABDOMEN: Soft, nondistended, mild diffuse tenderness; no hepatosplenomegaly; hyperactive bowel sounds are present in all four quadrants. EXTREMITIES: No clubbing, cyanosis, or edema. SKIN: Normal; no rash; no jaundice. HOME IMPROVEMENT ADVISOR: No focal deficits; alert and oriented times three. Assessment and Plan Plan ASSESSMENT: -Ileus/Constipation. No BM x 1 week. Abdomen X-Ray (08/12/16)----> 1. Nasogastric tube across the GE junction. 2. Interval improvement. Small bowel dilatation persists. S/P Pericolace, Lactulose prn, Magnesium citrate (4/3), Relistor (4 /2). NGT out earlier today. No n/v. Abdomen soft, mild diffuse tenderness. Feels like he will be able to have a bowel movement soon. Will repeat Magnesium Citrate and give SSE x 2 today. Trileptal was d/c'd. If no response, then gastrografin enema in am. -Syncopal/Questionable Seizure, per primary. Neurology following, Trileptal d/c' d. Head CT 08/08/16 No acute disease -Compression fracture of T12 and L1 lumbar vertebra, status post ORIF of T12 burst fracture (Dr. Mohamud) PLAN: - Clear liquids - Magnesium Citrate x 1 now - SSE x 2 today - Change Lactulose to 30mL po BID - If no response to SSE/Magnesium citrate, then Gastrografin enema in am - Supportive care - Pt seen and examined by Dr. Perez and myself and this note is written on his behalf Deisy Louise Aug 14, 2016 16:20
[2016-08-14] MEDS ORDERED: MAGNESIUM CITRATE SOLN 300 ML BTL PO ONE (17:00)
[2016-08-14] MEDS: ONDANSETRON HCL 4 MG/2 ML VIAL IVP PRN ×2 (18:28→23:59)
[2016-08-14] MEDS: LACTULOSE SYRUP 20 GM/30 ML CUP PO SCH (21:00)
[2016-08-14] MEDS: ALPRAZolam 1 MG TAB PO SCH (21:00)
[2016-08-15] VITALS (8 sets, daily range): BP systolic 109–126; BP diastolic 59–69; PULSE 80–99; RESP 17–20; TEMP 97.9–99; O2SAT 94–98
[2016-08-15] MEDS: LORazepam 0.5 MG TAB PO PRN ×2 (02:53→17:42)
[2016-08-15] MEDS: MORPHINE SULFATE 4 MG/ML INJ IV PUSH PRN ×7 (02:54→20:05)
[2016-08-15] MEDS: SIMETHICONE 125 MG CHEWABLE TAB PO PRN (03:24)
[2016-08-15] MEDS: ONDANSETRON HCL 4 MG/2 ML VIAL IVP PRN (05:44)
[2016-08-15] MEDS: SODIUM CHLOR 0.9% 1000 ML INJ 1,000 ML IV SCH ×2 (06:03→17:43)
--- NOTE | 2016-08-15 07:00 | RADRPT ---
EXAM DATE/TIME: 08/15/2016 06:13 [facility] COMPARISON: ABDOMEN KUB ONLY, August 11, 2016, 15:08. INDICATIONS : Ileus. Abdominal pain and distention. MEDICAL HISTORY : None. SURGICAL HISTORY : Fusion, lumbar. ENCOUNTER: Initial ACUITY: 4 - 6 days PAIN SCORE: 8/10 LOCATION: Abdomen FINDINGS: A single portable supine view of the abdomen shows a gas-distended colon. Gas is seen to the level of the rectosigmoid junction. No dilated small bowel observed. No gross pneumoperitoneum is supine posi tion patient. Orthopedic hardware at the thoracolumbar junction. No organomegaly observed. CONCLUSION: Dilated gas-distended colon. Brannon Corral Jr., MD on August 15, 2016 at 6:57 Board Certified Radiologist. This report was verified electronically.
--- NOTE | 2016-08-15 07:35 | HHI.PR ---
Subjective Remarks Had a small BM. Patient is thinking for Gastrografin enema as she believes she is not getting the stool out. Has less abdominal pain today, unless distention. No vomiting. Feels associated, relieved with medications. Denies fever or chills, denies cough. Objective Vitals Vital Signs Date Time Temp Pulse Resp B/P Pulse Ox O2 Delivery O2 Flow Rate FiO2 08/15/16 04:00 98.6 89 18 110/60 96 08/15/16 00:00 98.7 99 18 124/69 96 08/14/16 20:00 98.7 95 16 122/72 96 08/14/16 20:00 90 08/14/16 16:00 97.8 94 18 117/69 97 08/14/16 12:00 98.9 100 20 121/66 96 08/14/16 09:28 98.8 98 17 124/74 97 08/14/16 09:26 97 08/14/16 08:00 98.8 98 17 124/74 97 I/O 08/14/16 08/14/16 08/14/16 08/15/16 08/15/16 08/15/16 07:00 15:00 23:00 07:00 15:00 23:00 Intake Total 2208 ml 0 ml 2084 ml Output Total 600 ml 500 ml 600 ml Balance 1608 ml -500 ml 1484 ml Intake Oral 0 ml 0 ml IV Total 2208 ml 2084 ml Output Urine Total 600 ml 500 ml 600 ml # Voids 3 # Bowel Movements 0 1 0 Result Diagram: 08/14/16 0700 08/14/16 0700 Imaging Last Impressions Abdomen X-Ray 08/15/16 0600 Signed Impressions: Service Date/Time: Monday, August 15, 2016 06:13 - CONCLUSION: Dilated gas-distended colon. Brannon Corral Jr., MD Thoracolumbar Spine 08/09/16 0000 Signed Impressions: Service Date/Time: July 14:37 - CONCLUSION: Status post posterior fusion from T10 through L2 as described above. Deangelo Workman MD Thoracic Spine MRI 08/09/16 0000 Signed Impressions: Service Date/Time: July 09:24 - CONCLUSION: 1. Acute T12 compression fracture with 60%% loss of height and 7 mm of retropulsion. There is abutment of the conus but no flattening or signal change within the conus. No hematoma observed. Brannon Corral Jr., MD ADDENDUM: Examination was discussed with Dr. Mohamud. The sagittal T2-weighted images indicate mild mass effect on the anterior margin of the spinal cord. Yash Lares MD Chest X-Ray 08/09/16 Signed Impressions: Service Date/Time: July 19:19 - CONCLUSION: 1. No pneumothorax status post placement of right internal jugular central line which has its tip at the junction of the superior vena cava and right atrium. 2. Right basilar atelectasis. Deangelo Workman MD Lumbar Spine CT 08/08/162013 Signed Impressions: Service Date/Time: Monday, August 08, 2016 20:59 - CONCLUSION: 1. Moderate to severe compression fracture involving the T12 vertebral body with approximately 7 mm of retropulsion of the posterior-superior aspect of the vertebral body resulting in moderate spinal stenosis at this level. 2. Mild scoliosis of the lumbar spine. Deangelo Workman MD Head CT 08/08/162013 Signed Impressions: Service Date/Time: Monday, August 08, 2016 20:56 - CONCLUSION: No acute disease. Deangelo Workman MD Objective Remarks GENERAL: This is a young, 36 yo male, well-nourished, well-developed patient, appears anxious. SKIN: Mid back surgical woun c/d/di HEAD: Atraumatic. Normocephalic. No temporal or scalp tenderness. EYES: Pupils equal round and reactive. Extraocular motions intact. No scleral icterus. No injection or drainage. ENT: Nose without bleeding, purulent drainage or septal hematoma. Throat without erythema, tonsillar hypertrophy or exudate. Airway patent. NECK: Trachea midline. No JVD or lymphadenopathy. Supple, nontender, no meningeal signs. CARDIOVASCULAR: Regular rate and rhythm without murmurs, gallops, or rubs. RESPIRATORY: Clear to auscultation. Breath sounds equal bilaterally. No wheezes , rales, or rhonchi. GASTROINTESTINAL: Abdomen soft, non-tender, nondistended. No hepato-splenomegaly , or palpable masses. No guarding. MUSCULOSKELETAL: Extremities without clubbing, cyanosis, or edema. No joint tenderness, effusion, or edema noted. No calf tenderness. NEUROLOGICAL: Awake and alert. Motor and sensory grossly within normal limits. Five out of 5 muscle strength in all muscle groups. Normal speech. Procedures 08/10/16 s/p open reduction and internal fixation of T12 fracture, T10 to L2 segmental instrumental fixation using transpedicular screws and rods, T10 to L2 posterolateral fusion using autologous illiac crest bone graft, microsurgical dissection, harvesting of illiac crest bone graft on 08/09/16. A/P Problem List: (1) Compression fracture of L1 lumbar vertebra ICD Code: S32.010A Status: Acute (2) Compression fracture of T12 vertebra ICD Code: M48.54XA Status: Acute (3) Tobacco abuse ICD Code: Z72.0 Status: Acute Assessment and Plan 36 y/o male with a medical history of ADHD and anxiety was brought in by EMS after suffering a syncopal episode, questionable seizure. Ileus. S/P NGT removed on 08/13. He removed NGT on 08/13. Patient improving, passed gas no BM yet. Minimize narcotic use. Laxative /stool softener/ antiemetcis. NGT if intractable n/v. Gen surg signed off. GI following. Syncopal/ Questionable Seizure Images reviewed: Head CT unremarkable Consult neurology for recommendations EEG reviewed Seizure precautions Stop Keppra PO per neuro as he is not tolerating. Start Trileptal per neuro. Neurology following appreciate recommendations. Neuro checks Monitor on TELE Plan for Gastrografin enema by IR 4/5 Compression fracture T12 and L1 Images reviewed: Lumbar Spine CT shows Moderate to severe compression fracture involving the T12 vertebral body with approximately 7 mm of retropulsion of the posterior-superior aspect of the vertebral body resulting in moderate spinal stenosis at this level. Mild scoliosis of the lumbar spine. Consult neurosurgery , appreciate recommendations 08/10/16 s/p open reduction and internal fixation of T12 fracture, T10 to L2 segmental instrumental fixation using transpedicular screws and rods, T10 to L2 posterolateral fusion using autologous illiac crest bone graft, microsurgical dissection, harvesting of illiac crest bone graft on 08/09/16. Bed rest Pain management with IV morphine and norco Received Dexamethasone IV Leukocytosis, likely stress related WBS 20.1, neutrophils 86% on admission UA negative rend CBC Tobacco abuse. Counselled. DVT prophylaxis: SCDs Discussed with the patient, nurse, family at bedside. DC plan: DC when improved and cleared by consultants. Cecilia Valencia MD Aug 15, 2016 07:34
[2016-08-15] MEDS: DOCUSATE SODIUM 100 MG CAP PO SCH ×2 (08:22→20:05)
[2016-08-15] MEDS: LACTULOSE SYRUP 20 GM/30 ML CUP PO SCH ×2 (08:22→20:05)
[2016-08-15] MEDS: PANTOPRAZOLE SODIUM 40 MG VIAL IVP SCH (08:22)
--- NOTE | 2016-08-15 11:46 | HHI.NSPN ---
(Jane Doan) Note Status Status: Progress Note (Jane Doan) Interval History Interval History 08/10/16: Pt underwent open reduction and internal fixation of T12 fracture, T10 to L2 segmental instrumental fixation using transpedicular screws and rods, T10 to L2 posterolateral fusion using autologous illiac crest bone graft, microsurgical dissection, harvesting of illiac crest bone graft on 08/09/16. Pt awake and alert. Complains of incisional pain controlled. No radiculopathy. He states the paresthesias in his extremities is improved today. Denies weakness in LEs. 08/11/16: Pt transferred to cardiac telemetry yesterday for tachycardia HR went to 170s Complains of nausea and GI distress with steroids despite Zofran, tums and Protonix. Sensation in anterior thighs improving. Back pain controlled with current medication. 08/12/16: Pt states his nausea got worse yesterday afternoon and had emesis. He was found to have an ileus on x-ray. NG tube placed. 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 No radiculopathy in LEs 08/13/16: still no BM but is passing gas. denies changes to LE sensorimotor function. 08/14/16: reports back pain controlled, no active drainage seen from drain site. 08/15: drain site dry, reports minimal back pain, passing small amount of stool. (Jane Doan) Labs, Micro, & Vital Signs Results Date Time Temp Pulse Resp B/P Pulse Ox O2 Delivery O2 Flow Rate FiO2 08/15/16 04:00 98.6 89 18 110/60 96 08/15/16 00:00 98.7 99 18 124/69 96 08/14/16 20:00 98.7 95 16 122/72 96 08/14/16 20:00 90 08/14/16 16:00 97.8 94 18 117/69 97 08/14/16 12:00 98.9 100 20 121/66 96 08/15/16 07:00 Intake Total 2084 ml Output Total 1100 ml Balance 984 ml Constitutional Vital Signs Date Time Temp Pulse Resp B/P Pulse Ox O2 Delivery O2 Flow Rate FiO2 08/15/16 04:00 98.6 89 18 110/60 96 08/15/16 00:00 98.7 99 18 124/69 96 08/14/16 20:00 98.7 95 16 122/72 96 08/14/16 20:00 90 08/14/16 16:00 97.8 94 18 117/69 97 08/14/16 12:00 98.9 100 20 121/66 96 08/15/16 07:00 Intake Total 2084 ml Output Total 1100 ml Balance 984 ml (Jane Doan) Review of Systems/Exam Exam Alert, resting in bed comfortably. Speech is appropriate. Surgical wound healing well with prineo dressing intact. No signs of infection. drain site dry, steri strip in place. Motor: moves all major muscle groups of LE well Neck: soft, supple (Jane Doan) Medications Current Medications Current Medications Medications (Trade) Dose Ordered Sig/Bruna Route PRN Reason Start Time Stop Time Status Last Admin Dose Admin Ondansetron HCl (Zofran Inj) 4 mg Q6H PRN IVP NAUSEA OR VOMITING 08/08/16 21:45 08/15/16 05:44 Bisacodyl (Dulcolax Supp) 10 mg DAILY PRN RECTAL CONSTIPATION 08/08/16 21:45 08/14/16 09:31 Docusate Sodium (Colace) 100 mg Q12H PO 08/08/16 21:45 08/15/16 08:22 Sennosides (Senokot) 17.2 mg Q12H PRN PO CONSTIPATION 08/08/16 21:45 08/13/16 11:19 Alprazolam (Xanax) 2 mg HS PO 08/09/16 21:00 08/14/16 21:00 Acetaminophen (Tylenol) 650 mg Q6H PRN PO PAIN SCALE 1 TO 2 08/08/16 22:00 08/10/16 07:56 Acetaminophen/ Hydrocodone Bitart ([place] 5-325 Mg) 1 tab Q4H PRN PO PAIN SCALE 3 TO 5 08/08/16 22:00 Acetaminophen/ Hydrocodone Bitart ([place] 10-325 Mg) 1 tab Q4H PRN PO PAIN SCALE 6 TO 10 08/08/16 22:00 Calcium Carbonate (Tums Chew) 500 mg Q2H PRN CHEW DYSPEPSIA 08/09/16 09:00 08/11/16 03:04 Lorazepam 0.5 mg 0.5 mg Q8H PRN PO ANXIETY 08/09/16 10:45 08/15/16 02:53 Sodium Chloride (NS 1000 ml Inj) 1,000 ml @ 100 mls/hr Q10H IV 08/09/16 10:54 08/14/16 20:54 Pantoprazole Sodium (Protonix Inj) 40 mg DAILY IVP 08/10/16 09:00 08/15/16 08:22 Morphine Sulfate (Morphine Inj) 2 mg Q2H PRN IV PUSH PAIN SCALE 1 TO 6 08/09/16 19:00 Morphine Sulfate (Morphine Inj) 4 mg Q2H PRN IV PUSH PAIN SCALE 7 TO 10 08/09/16 19:00 08/15/16 11:20 Acetaminophen (Tylenol) 650 mg Q4H PRN PO TEMPERATURE > 101.5 F 08/09/16 19:00 Naloxone HCl (Narcan Inj) 0.4 mg UNSCH PRN IV RESPIRATORY RATE LESS THAN 10 08/09/16 19:00 Diphenhydramine HCl (Benadryl Inj) 25 mg Q6H PRN IV ITCHING 08/09/16 19:00 Lorazepam 1 mg 1 mg Q4H PRN IV PUSH SEIZURES 08/09/16 20:00 08/12/16 08:56 Diltiazem HCl/ Sodium Chloride (Cardizem Inj/NS Inj) 125 ml @ 0 mls/hr TITRATE IV 08/11/16 00:00 Senna/Docusate Sodium (Helga-Colace) 2 tab BID PRN PO CONSTIPATION 08/11/16 15:00 Magnesium Hydroxide (Milk Of Magnesia Liq) 30 ml Q6H PRN PO CONSTIPATION 08/11/16 15:00 Promethazine HCl (Phenergan Supp) 12.5 mg Q4H PRN RECTAL nausea/vomiting 08/11/16 15:00 Simethicone (Phazyme Chew) 125 mg Q8HR PRN PO gas 08/14/16 10:15 08/15/16 03:24 Lactulose (Lactulose Liq) 30 ml BID PO 08/14/16 21:00 (Jane Doan) Medical Decision Making MDM Remarks 36 y/o male s/p ORIF T12 fracture with T10 to L2 posterolateral fixation on 08/09, surgical pain improving, stable neurological exam (Jane Doan) Plan Plan Remarks cont current care cont therapy, TLSO when out of bed will sign off, call prn (Jane Doan) Attending Statement The exam, history, and the medical decision-making described in the above note were completed with the assistance of the mid-level provider. I reviewed and agree with the findings presented. I attest that I had a [id number] encounter with the patient on the same day, and personally performed and documented my assessment and findings in the medical record. (Carlos Mohamud MD) Jane Doan Aug 15, 2016 11:46 Carlos Mohamud MD Aug 16, 2016 11:32
--- NOTE | 2016-08-15 17:57 | RADRPT ---
EXAM DATE/TIME: 08/15/2016 16:14 [place] COMPARISON: ABDOMEN KUB ONLY, August 15, 2016, 6:13. INDICATIONS : Abdomianl pain and distension, no bowel movement for 1 week FLUORO TIME: 2.0 minutes IMAGE COUNT: 11 CONTRAST: 1. G[facility]view MEDICAL HISTORY : None. SURGICAL HISTORY : None. ENCOUNTER: Initial ACUITY: 1 week PAIN SCORE: 8/10 LOCATION: Bilateral abdomen FINDINGS: Preliminary film is unremarkable. Under fluoroscopic guidance a Gastrografin enema was performed with free flow of contrast to the ceca l tip. Gastrografin was refluxed retrograde throughout the entire colon down to the cecum. There was no stoo l evident within the colon. The mucosal contours are unremarkable. Post evacuation radiographs are unremarkable. CONCLUSION: 1. There was no stool within the colon. Barium was refluxed all the way back to the cecum. The mucosa l contours appear unremarkable. Rigoberto Hill MD on August 15, 2016 at 17:54 Board Certified Radiologist. This report was verified electronically.
[2016-08-15] MEDS ORDERED: DIATRIZOATE MEGLUM/DIATRIZOATE SOD 120 ML BTL (for RAD DIAG) RECTAL ONE (19:48)
[2016-08-15] MEDS: ALPRAZolam 1 MG TAB PO SCH (21:00)
[2016-08-16] VITALS (7 sets, daily range): BP systolic 103–129; BP diastolic 52–72; PULSE 71–91; RESP 16–20; TEMP 97.8–98.3; O2SAT 93–100
[2016-08-16] MEDS: SODIUM CHLOR 0.9% 1000 ML INJ 1,000 ML IV SCH ×3 (00:35→20:31)
[2016-08-16] MEDS: SIMETHICONE 125 MG CHEWABLE TAB PO PRN (00:35)
[2016-08-16] MEDS: MORPHINE SULFATE 4 MG/ML INJ IV PUSH PRN ×9 (03:41→23:31)
[2016-08-16] MEDS: LORazepam 0.5 MG TAB PO PRN ×2 (05:01→14:33)
[2016-08-16] MEDS: LACTULOSE SYRUP 20 GM/30 ML CUP PO SCH ×2 (09:00→20:30)
[2016-08-16] MEDS: SIMETHICONE 125 MG CHEWABLE TAB PO SCH ×3 (09:06→20:30)
[2016-08-16] MEDS: PANTOPRAZOLE SODIUM 40 MG VIAL IVP SCH (09:07)
[2016-08-16] MEDS: DOCUSATE SODIUM 100 MG CAP PO SCH ×2 (09:10→20:31)
--- NOTE | 2016-08-16 09:50 | HHI.PR ---
Subjective Remarks Patient in nad. Says he feels improved and he wants to eat regular food. no nausea or vomiting. He had 3 large bowel movements yesterday. No fever or chills. Pain is controlled by medications. Objective Vitals Vital Signs Date Time Temp Pulse Resp B/P Pulse Ox O2 Delivery O2 Flow Rate FiO2 08/16/16 08:00 97.9 81 18 103/52 93 08/16/16 04:00 98.0 71 16 128/71 97 08/16/16 00:00 98.3 91 18 117/62 98 08/15/16 20:10 80 08/15/16 20:00 98.1 87 17 122/68 98 08/15/16 16:00 97.9 88 20 116/67 97 08/15/16 12:00 97.9 83 20 109/59 94 I/O 08/15/16 08/15/16 08/15/16 08/16/16 08/16/16 08/16/16 07:00 15:00 23:00 07:00 15:00 23:00 Intake Total 2084 ml 3332 ml 1451 ml 862 ml Output Total 600 ml 700 ml 500 ml Balance 1484 ml 3332 ml 751 ml 362 ml Intake Oral 0 ml 600 ml 200 ml IV Total 2084 ml 3332 ml 851 ml 662 ml Output Urine Total 600 ml 700 ml 500 ml # Voids 2 3 # Bowel Movements 0 2 1 Result Diagram: 08/14/16 0700 08/14/16 0700 Imaging Last Impressions Abdomen X-Ray 08/15/16 0600 Signed Impressions: Service Date/Time: Monday, August 15, 2016 06:13 - CONCLUSION: Dilated gas-distended colon. Brannon Corral Jr., MD Enema w/Water Soluble 08/15/16 0000 Signed Impressions: Service Date/Time: Monday, August 15, 2016 16:14 - CONCLUSION: 1. There was no stool within the colon. Barium was refluxed all the way back to the cecum. The mucosal contours appear unremarkable. Rigoberto Hill MD Thoracolumbar Spine 08/09/16 0000 Signed Impressions: Service Date/Time: July 14:37 - CONCLUSION: Status post posterior fusion from T10 through L2 as described above. Deangelo Workman MD Thoracic Spine MRI 08/09/16 0000 Signed Impressions: Service Date/Time: July 09:24 - CONCLUSION: 1. Acute T12 compression fracture with 60%% loss of height and 7 mm of retropulsion. There is abutment of the conus but no flattening or signal change within the conus. No hematoma observed. Brannon Corral Jr., MD ADDENDUM: Examination was discussed with Dr. Mohamud. The sagittal T2-weighted images indicate mild mass effect on the anterior margin of the spinal cord. Yash Lares MD Chest X-Ray 08/09/16 0000 Signed Impressions: Service Date/Time: July 19:19 - CONCLUSION: 1. No pneumothorax status post placement of right internal jugular central line which has its tip at the junction of the superior vena cava and right atrium. 2. Right basilar atelectasis. Deangelo Workman MD Lumbar Spine CT 08/08/162013 Signed Impressions: Service Date/Time: Monday, August 08, 2016 20:59 - CONCLUSION: 1. Moderate to severe compression fracture involving the T12 vertebral body with approximately 7 mm of retropulsion of the posterior-superior aspect of the vertebral body resulting in moderate spinal stenosis at this level. 2. Mild scoliosis of the lumbar spine. Deangelo Workman MD Head CT 08/08/162013 Signed Impressions: Service Date/Time: Monday, August 08, 2016 20:56 - CONCLUSION: No acute disease. Deangelo Workman MD Objective Remarks GENERAL: This is a young, 36 yo male, well-nourished, well-developed patient, appears anxious. SKIN: Mid back surgical woun c/d/di HEAD: Atraumatic. Normocephalic. No temporal or scalp tenderness. EYES: Pupils equal round and reactive. Extraocular motions intact. No scleral icterus. No injection or drainage. ENT: Nose without bleeding, purulent drainage or septal hematoma. Throat without erythema, tonsillar hypertrophy or exudate. Airway patent. NECK: Trachea midline. No JVD or lymphadenopathy. Supple, nontender, no meningeal signs. CARDIOVASCULAR: Regular rate and rhythm without murmurs, gallops, or rubs. RESPIRATORY: Clear to auscultation. Breath sounds equal bilaterally. No wheezes , rales, or rhonchi. GASTROINTESTINAL: Abdomen soft, non-tender, nondistended. No hepato-splenomegaly , or palpable masses. No guarding. MUSCULOSKELETAL: Extremities without clubbing, cyanosis, or edema. No joint tenderness, effusion, or edema noted. No calf tenderness. NEUROLOGICAL: Awake and alert. Motor and sensory grossly within normal limits. Five out of 5 muscle strength in all muscle groups. Normal speech. Procedures 08/10/16 s/p open reduction and internal fixation of T12 fracture, T10 to L2 segmental instrumental fixation using transpedicular screws and rods, T10 to L2 posterolateral fusion using autologous illiac crest bone graft, microsurgical dissection, harvesting of illiac crest bone graft on 08/09/16. A/P Problem List: (1) Compression fracture of L1 lumbar vertebra ICD Code: S32.010A Status: Acute (2) Compression fracture of T12 vertebra ICD Code: M48.54XA Status: Acute (3) Tobacco abuse ICD Code: Z72.0 Status: Acute Assessment and Plan 36 y/o male with a medical history of ADHD and anxiety was brought in by EMS after suffering a syncopal episode, questionable seizure. Ileus. Resolving. S/P NGT removed on 08/13. He removed NGT on 08/13. Patient improving, passed gas no BM yet. Minimize narcotic use. Laxative /stool softener / antiemetcis. NGT if intractable n/v. S/p gastrografin enema 08/15/16. Had BM 08/16. Gen surg signed off. GI following. Syncopal/ Questionable Seizure Images reviewed: Head CT unremarkable Consult neurology for recommendations EEG reviewed Seizure precautions Stop Keppra PO per neuro as he is not tolerating. Start Trileptal per neuro. Neurology following appreciate recommendations. Neuro checks Monitor on TELE Plan for Gastrografin enema by IR 08/15 Compression fracture T12 and L1 Images reviewed: Lumbar Spine CT shows Moderate to severe compression fracture involving the T12 vertebral body with approximately 7 mm of retropulsion of the posterior-superior aspect of the vertebral body resulting in moderate spinal stenosis at this level. Mild scoliosis of the lumbar spine. Consult neurosurgery , appreciate recommendations 08/10/16 s/p open reduction and internal fixation of T12 fracture, T10 to L2 segmental instrumental fixation using transpedicular screws and rods, T10 to L2 posterolateral fusion using autologous illiac crest bone graft, microsurgical dissection, harvesting of illiac crest bone graft on 08/09/16. Bed rest Pain management with IV morphine and norco Received Dexamethasone IV Leukocytosis, likely stress related WBS 20.1, neutrophils 86% on admission UA negative rend CBC Tobacco abuse. Counselled. DVT prophylaxis: SCDs Discussed with the patient, nurse, family at bedside. DC plan: DC when improved and cleared by consultants. Cecilia Valencia MD Aug 16, 2016 09:50
--- NOTE | 2016-08-16 12:50 | HHI.GIFU ---
Subjective Remarks Resting in bed. No n/v. No abdominal pain. + BM. (Deisy Louise GERMÁN) Objective Vitals I&O Vital Signs Date Time Temp Pulse Resp B/P Pulse Ox O2 Delivery O2 Flow Rate FiO2 08/16/16 08:00 97.9 81 18 103/52 93 08/16/16 04:00 98.0 71 16 128/71 97 08/16/16 00:00 98.3 91 18 117/62 98 08/15/16 20:10 80 08/15/16 20:00 98.1 87 17 122/68 98 08/15/16 16:00 97.9 88 20 116/67 97 I/O 08/15/16 08/15/16 08/15/16 08/16/16 08/16/16 08/16/16 07:00 15:00 23:00 07:00 15:00 23:00 Intake Total 2084 ml 3332 ml 1451 ml 862 ml Output Total 600 ml 700 ml 500 ml Balance 1484 ml 3332 ml 751 ml 362 ml Intake Oral 0 ml 600 ml 200 ml IV Total 2084 ml 3332 ml 851 ml 662 ml Output Urine Total 600 ml 700 ml 500 ml # Voids 2 3 # Bowel Movements 0 2 1 Imaging Last Impressions Abdomen X-Ray 08/15/16 0600 Signed Impressions: Service Date/Time: Monday, August 15, 2016 06:13 - CONCLUSION: Dilated gas-distended colon. Brannon Corral Jr., MD Enema w/Water Soluble 08/15/16 0000 Signed Impressions: Service Date/Time: Monday, August 15, 2016 16:14 - CONCLUSION: 1. There was no stool within the colon. Barium was refluxed all the way back to the cecum. The mucosal contours appear unremarkable. Rigoberto Hill MD Thoracolumbar Spine 08/09/16 0000 Signed Impressions: Service Date/Time: July 14:37 - CONCLUSION: Status post posterior fusion from T10 through L2 as described above. Deangelo Workman MD Thoracic Spine MRI 08/09/16 0000 Signed Impressions: Service Date/Time: July 09:24 - CONCLUSION: 1. Acute T12 compression fracture with 60%% loss of height and 7 mm of retropulsion. There is abutment of the conus but no flattening or signal change within the conus. No hematoma observed. Brannon Corral Jr., MD ADDENDUM: Examination was discussed with Dr. Mohamud. The sagittal T2-weighted images indicate mild mass effect on the anterior margin of the spinal cord. Yash Lares MD Chest X-Ray 08/09/16 0000 Signed Impressions: Service Date/Time: July 19:19 - CONCLUSION: 1. No pneumothorax status post placement of right internal jugular central line which has its tip at the junction of the superior vena cava and right atrium. 2. Right basilar atelectasis. Deangelo Workman MD Lumbar Spine CT 08/08/162013 Signed Impressions: Service Date/Time: Monday, August 08, 2016 20:59 - CONCLUSION: 1. Moderate to severe compression fracture involving the T12 vertebral body with approximately 7 mm of retropulsion of the posterior-superior aspect of the vertebral body resulting in moderate spinal stenosis at this level. 2. Mild scoliosis of the lumbar spine. Deangelo Workman MD Head CT 08/08/162013 Signed Impressions: Service Date/Time: Monday, August 08, 2016 20:56 - CONCLUSION: No acute disease. Deangelo Workman MD Physical Exam HEENT: Normocephalic; atraumatic; no jaundice. NECK: Neck is supple, no JVD CHEST: CTA CARDIAC: RRR ABDOMEN: Soft, nondistended, nontender; no hepatosplenomegaly; hyperactive bowel sounds are present in all four quadrants. EXTREMITIES: No clubbing, cyanosis, or edema. SKIN: Normal; no rash; no jaundice. 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 (Deisy Louise) Assessment and Plan Plan ASSESSMENT: -Ileus/Constipation. S/P Pericolace, Lactulose prn, Magnesium citrate (4/3), Relistor (4/2). S/P Magnesium citrate and SSE with good response. Trileptal was d/c'd. + BM. No distention. No n/v. Tolerating diet. -Syncopal/Questionable Seizure, per primary. Neurology following, Trileptal d/c' d. Head CT 08/08/16 No acute disease -Compression fracture of T12 and L1 lumbar vertebra, status post ORIF of T12 burst fracture (Dr. Mohamud) PLAN: - TREVOR - Cont. Lactulose to 30mL po BID - GI will sign off, please reconsult as needed - Pt seen and examined by Dr. Landers and myself and this note is written on his behalf (Deisy Louise) Physician Comments Seen and examined with [facility] [employer]< much beter now, constipation resolved. Continue bowel regimen. Gi will sign off. Thank you (Maria Guadalupe Landers MD) Deisy Louise Aug 16, 2016 12:50 Maria Guadalupe Landers MD Aug 16, 2016 19:11
[2016-08-16] MEDS: CALCIUM CARBONATE 500 MG CHEWABLE TAB CHEW PRN (18:39)
[2016-08-16] MEDS: ALPRAZolam 1 MG TAB PO SCH (22:51)
[2016-08-17] VITALS: BP 108/73; PULSE 78; RESP 18; TEMP 97.9; O2SAT 98
[2016-08-17 04:00] VITALS: BP 114/82; PULSE 80; RESP 17; TEMP 97.9; O2SAT 97
[2016-08-17] MEDS: MORPHINE SULFATE 4 MG/ML INJ IV PUSH PRN ×4 (04:15→11:10)
[2016-08-17] MEDS: CALCIUM CARBONATE 500 MG CHEWABLE TAB CHEW PRN (04:15)
[2016-08-17] MEDS: ONDANSETRON HCL 4 MG/2 ML VIAL IVP PRN (04:15)
[2016-08-17] MEDS: SIMETHICONE 125 MG CHEWABLE TAB PO SCH (04:16)
[2016-08-17] MEDS: DOCUSATE SODIUM 100 MG CAP PO SCH (05:46)
[2016-08-17] MEDS: LORazepam 0.5 MG TAB PO PRN (05:46)
[2016-08-17 08:00] VITALS: BP 119/69; PULSE 85; RESP 18; TEMP 98; O2SAT 98
[2016-08-17] MEDS: SODIUM CHLOR 0.9% 1000 ML INJ 1,000 ML IV SCH (08:44)
[2016-08-17] MEDS: LACTULOSE SYRUP 20 GM/30 ML CUP PO SCH (08:44)
[2016-08-17] MEDS ORDERED: PANTOPRAZOLE SOD 40 MG DELAYED RELEASE TAB PO SCH (09:00)
--- NOTE | 2016-08-17 10:18 | HHI.PR ---
Subjective Remarks Feels better, had multiple BM. tolerates food. Improving. Wants to go home. Family at bedside. Cleared by consultants. To follow up as OP Objective Vitals Vital Signs Date Time Temp Pulse Resp B/P Pulse Ox O2 Delivery O2 Flow Rate FiO2 08/17/16 08:00 98.0 85 18 119/69 98 08/17/16 04:00 97.9 80 17 114/82 97 08/17/16 00:00 97.9 78 18 108/73 98 08/16/16 20:00 97.8 78 16 124/72 97 08/16/16 20:00 79 08/16/16 16:00 97.9 82 20 129/72 100 08/16/16 12:00 98.0 78 18 115/63 96 I/O 08/16/16 08/16/16 08/16/16 08/17/16 08/17/16 08/17/16 07:00 15:00 23:00 07:00 15:00 23:00 Intake Total 862 ml 600 ml 200 ml Output Total 500 ml 700 ml 400 ml Balance 362 ml -100 ml -200 ml Intake Oral 200 ml 600 ml 200 ml IV Total 662 ml Output Urine Total 500 ml 700 ml 400 ml # Voids 4 # Bowel Movements 1 Result Diagram: 08/14/16 0700 08/14/16 0700 Objective Remarks GENERAL: This is a young, 36 yo male, well-nourished, well-developed patient, appears anxious. SKIN: Mid back surgical woun c/d/di HEAD: Atraumatic. Normocephalic. No temporal or scalp tenderness. EYES: Pupils equal round and reactive. Extraocular motions intact. No scleral icterus. No injection or drainage. ENT: Nose without bleeding, purulent drainage or septal hematoma. Throat without erythema, tonsillar hypertrophy or exudate. Airway patent. NECK: Trachea midline. No JVD or lymphadenopathy. Supple, nontender, no meningeal signs. CARDIOVASCULAR: Regular rate and rhythm without murmurs, gallops, or rubs. RESPIRATORY: Clear to auscultation. Breath sounds equal bilaterally. No wheezes , rales, or rhonchi. GASTROINTESTINAL: Abdomen soft, non-tender, nondistended. No hepato-splenomegaly , or palpable masses. No guarding. MUSCULOSKELETAL: Extremities without clubbing, cyanosis, or edema. No joint tenderness, effusion, or edema noted. No calf tenderness. NEUROLOGICAL: Awake and alert. Motor and sensory grossly within normal limits. Five out of 5 muscle strength in all muscle groups. Normal speech. Procedures 08/10/16 s/p open reduction and internal fixation of T12 fracture, T10 to L2 segmental instrumental fixation using transpedicular screws and rods, T10 to L2 posterolateral fusion using autologous illiac crest bone graft, microsurgical dissection, harvesting of illiac crest bone graft on 08/09/16. A/P Problem List: (1) Compression fracture of L1 lumbar vertebra ICD Code: S32.010A Status: Acute (2) Compression fracture of T12 vertebra ICD Code: M48.54XA Status: Acute (3) Tobacco abuse ICD Code: Z72.0 Status: Acute Assessment and Plan 36 y/o male with a medical history of ADHD and anxiety was brought in by EMS after suffering a syncopal episode, questionable seizure. Ileus. Resolving. S/P NGT removed on 08/13. He removed NGT on 08/13. Patient improving, passed gas no BM yet. Minimize narcotic use. Laxative /stool softener / antiemetcis. NGT if intractable n/v. S/p gastrografin enema 08/15/16. Had BM 08/16. Gen surg signed off. GI following. Syncopal/ Questionable Seizure Images reviewed: Head CT unremarkable Consult neurology for recommendations EEG reviewed Seizure precautions Stop Keppra PO per neuro as he is not tolerating. Start Trileptal per neuro. Neurology following appreciate recommendations. Neuro checks Monitor on TELE Plan for Gastrografin enema by IR 08/15 Compression fracture T12 and L1 Images reviewed: Lumbar Spine CT shows Moderate to severe compression fracture involving the T12 vertebral body with approximately 7 mm of retropulsion of the posterior-superior aspect of the vertebral body resulting in moderate spinal stenosis at this level. Mild scoliosis of the lumbar spine. Consult neurosurgery , appreciate recommendations 08/10/16 s/p open reduction and internal fixation of T12 fracture, T10 to L2 segmental instrumental fixation using transpedicular screws and rods, T10 to L2 posterolateral fusion using autologous illiac crest bone graft, microsurgical dissection, harvesting of illiac crest bone graft on 08/09/16. Bed rest Pain management with IV morphine and norco Received Dexamethasone IV Leukocytosis, likely stress related WBS 20.1, neutrophils 86% on admission UA negative rend CBC Tobacco abuse. Counselled. DVT prophylaxis: SCDs Discussed with the patient, nurse, family at bedside. DC plan: Improved, cleared by consultants. To follow up as OP with PCP and consultants. Discussed with Dr Mohamud as well. Patient to wear brace whith ambulation. Cecilia Valencia MD Aug 17, 2016 10:18
[2016-08-17] MEDS ORDERED: SIME1CHW11 PO (10:21)
[2016-08-17] MEDS ORDERED: SENN1TAB PO (10:21)
--- NOTE | 2016-08-17 10:22 | HHI.DS ---
Discharge Summary Admission Date Aug 08, 2016 at 21:46 Discharge Date: Aug 17, 2016 Admitting Diagnosis compression fracture L1 (1) Compression fracture of L1 lumbar vertebra ICD Code: S32.010A Diagnosis: Principal (2) Compression fracture of T12 vertebra ICD Code: M48.54XA Diagnosis: Principal (3) Tobacco abuse ICD Code: Z72.0 Diagnosis: Secondary Procedures 08/10/16 s/p open reduction and internal fixation of T12 fracture, T10 to L2 segmental instrumental fixation using transpedicular screws and rods, T10 to L2 posterolateral fusion using autologous illiac crest bone graft, microsurgical dissection, harvesting of illiac crest bone graft on 08/09/16. Brief History - From Admission 36 y/o male with a medical history of ADHD and anxiety was brought in by EMS after suffering a syncopal episode, questionable seizure. Patient states he went to the store for groceries and on the way back he was smoking a cigarette and became lightheaded. He went to the door, had double vision and passed out. According to the neighbors he had a seizure, and when he woke up he had bite chavira on his tough. He states he has been out of his medications for 3 days, and today he took a Benadryl to get some anxiety relief. He also states he has not been eating for 2 days, and has only consumed a slim fast in 2 days. He complains of pain from the fall and describes it as a constant stabbing pain in his mid lower back, 8/10, and increases with movement. He denies any numbness or tingling in lower extremities, chest pain, sob, fever or chills. He did state he has had a syncopal episode 2 years ago but does not believe it was a seizure. He does not have a diagnosed history of a seizure. He has had a total of 4 passing out episodes in his lifetime, and states it has been due to not eating. CBC/BMP: 08/14/16 0700 08/14/16 0700 Imaging Last Impressions Abdomen X-Ray 08/15/16 0600 Signed Impressions: Service Date/Time: Monday, August 15, 2016 06:13 - CONCLUSION: Dilated gas-distended colon. Brannon Corral Jr., MD Enema w/Water Soluble 08/15/16 0000 Signed Impressions: Service Date/Time: Monday, August 15, 2016 16:14 - CONCLUSION: 1. There was no stool within the colon. Barium was refluxed all the way back to the cecum. The mucosal contours appear unremarkable. Rigoberto Hill MD Thoracolumbar Spine 08/09/16 0000 Signed Impressions: Service Date/Time: July 14:37 - CONCLUSION: Status post posterior fusion from T10 through L2 as described above. Deangelo Workman MD Thoracic Spine MRI 08/09/16 0000 Signed Impressions: Service Date/Time: July 09:24 - CONCLUSION: 1. Acute T12 compression fracture with 60%% loss of height and 7 mm of retropulsion. There is abutment of the conus but no flattening or signal change within the conus. No hematoma observed. Brannon Corral Jr., MD ADDENDUM: Examination was discussed with Dr. Mohamud. The sagittal T2-weighted images indicate mild mass effect on the anterior margin of the spinal cord. Yash Lares MD Chest X-Ray 08/09/16 Signed Impressions: Service Date/Time: July 19:19 - CONCLUSION: 1. No pneumothorax status post placement of right internal jugular central line which has its tip at the junction of the superior vena cava and right atrium. 2. Right basilar atelectasis. Deangelo Workman MD Lumbar Spine CT 08/08/162013 Signed Impressions: Service Date/Time: Monday, August 08, 2016 20:59 - CONCLUSION: 1. Moderate to severe compression fracture involving the T12 vertebral body with approximately 7 mm of retropulsion of the posterior-superior aspect of the vertebral body resulting in moderate spinal stenosis at this level. 2. Mild scoliosis of the lumbar spine. Deangelo Workman MD Head CT 08/08/162013 Signed Impressions: Service Date/Time: Monday, August 08, 2016 20:56 - CONCLUSION: No acute disease. Deangelo Workman MD PE at Discharge GENERAL: in NAD CARDIOVASCULAR: Regular rate and rhythm without murmurs, gallops, or rubs. RESPIRATORY: Breath sounds equal bilaterally. No accessory muscle use. GASTROINTESTINAL: Abdomen soft, mild distended. + diffuse TTP to deep palpation. no peritoneal signs. decrease BS> MUSCULOSKELETAL: No cyanosis, or edema. BACK: Nontender without obvious deformity. No CVA tenderness. Hospital Course 36 y/o male with a medical history of ADHD and anxiety was brought in by EMS after suffering a syncopal episode, questionable seizure. Ileus. Resolved. S/P NGT removed on 08/13. He removed NGT on 08/13. Patient improving, passed gas no BM yet. Minimize narcotic use. Laxative /stool softener / antiemetcis. NGT if intractable n/v. S/p gastrografin enema 08/15/16. Had BM 08/16. Gen surg signed off. GI following. Plan for Gastrografin enema by IR 08/15 Patient improved had multiple BM. no abdominal pain. Syncopal/ Questionable Seizure Images reviewed: Head CT unremarkable Consult neurology for recommendations EEG reviewed Seizure precautions Stop Keppra PO per neuro as he is not tolerating. Start Trileptal per neuro. Neurology following appreciate recommendations. Neuro checks Monitor on TELE Compression fracture T12 and L1 Images reviewed: Lumbar Spine CT shows Moderate to severe compression fracture involving the T12 vertebral body with approximately 7 mm of retropulsion of the posterior-superior aspect of the vertebral body resulting in moderate spinal stenosis at this level. Mild scoliosis of the lumbar spine. Consult neurosurgery , appreciate recommendations 08/10/16 s/p open reduction and internal fixation of T12 fracture, T10 to L2 segmental instrumental fixation using transpedicular screws and rods, T10 to L2 posterolateral fusion using autologous illiac crest bone graft, microsurgical dissection, harvesting of illiac crest bone graft on 08/09/16. Bed rest Pain management with IV morphine and norco Received Dexamethasone IV Leukocytosis, likely stress related WBS 20.1, neutrophils 86% on admission UA negative rend CBC Tobacco abuse. Counselled. DVT prophylaxis: SCDs Discussed with the patient, nurse, family at bedside. DC plan: Improved, cleared by consultants. To follow up as OP with PCP and consultants. Discussed with Dr Mohamud as well. Patient to wear brace whith ambulation. Pt Condition on Discharge: Stable Discharge Disposition: Discharge Home Discharge Time: > 30 minutes Discharge Instructions DIET: Follow Instructions for: As Tolerated, No Restrictions Activities you can perform: Regular-No Restrictions Follow up Referrals: Gastroenterology - 2 Weeks Neurosurgery - 1 Week PCP Follow-up - 3-5 Days New Medications: Hydrocodone-Acetaminophen ([place]) 5-325 mg Tab 1 TAB PO Q4H PRN PAIN #20 Ref 0 TAB Magnesium Hydroxide Liq (Milk of Magnesia Liq) 400 Mg/5 Ml Susp 30 ML PO ONCE Indigestion #30 Ref 0 ML Sennosides-Docusate Sodium (Senna Plus 8.6-50 mg) 1 Tab Tab 2 TAB PO BID PRN CONSTIPATION #60 TAB Simethicone (Gas Relief Maximum Streng) 125 Mg Chw 125 MG PO Q8HR GAS #30 EA Continued Medications: Alprazolam (Xanax) 2 Mg Tab 2 MG PO HS ANXIETY Ref 0 TAB Amphetamine-Dextroamphetamine (Adderall) 30 Mg Tab 30 MG PO DAILY Avoid late evening doses. Space doses at least 4 to 6 hours if more than once/day dosing. Hyperactivity Control #30 Ref 0 TAB Cecilia Valencia MD Aug 17, 2016 10:22
[2016-08-17] MEDS ORDERED: NORC5TAB PO (10:45)
[2016-08-17] MEDS ORDERED: MILKSUS PO (10:47)
--- NOTE | 2016-08-17 16:42 | HM ---
Date Performed: 08/15/2016 Time Performed: 22:05:00 HOOKUP DATE: 08/15/16 10:05:00 PM Wed ANALYSIS START TIME: 08/15/2016 10:10:00 PM ANALYSIS END TIME: 08/16/2016 9:45:59 PM PATIENT AGE: 36 PATIENT HEIGHT: 72 PATIENT WEIGHT: 247 DRUG LIST: Room n# [id number] PATIENT DIAGNOSIS: COMPRESSION FX L1 TEST NARRATIVE: The patient's average heart rate was 81 BPM. No episodes of tachycardia wer e noted. No episodes of bradycardia were noted. No pauses exceeding 2.0 seconds were noted. No ventricular ectopics were noted. No supraventricular ectopics were noted. No episodes of S T depression (defined as -1.0 mm or more) were noted in channel 1. No episodes of ST depression (def ined as -1.0 mm or more) were noted in channel 2. No episodes of ST depression (defined as -1.0 mm o r more) were noted in channel 3. TEST INTERPRETATION: 24 Hour Holter Monitor-Dr. Abdirizak Davies Patient was monitored for 23 rory rs and 36 minutes. Patient had an average heart rate of 81 beats per minute in a Sinus rhythm . Patient had an episode of sinus Bradycardia at 55 beats per minute at 05:25a.m. Patient had a [facility] heart rate of 119 beats per minute. There were no premature atrial or ventricular contractions not ed. Signed by : Abdirizak Davies
== END 2016-08-17 13:19 | disposition home or self-care (01) | DRG 460 ==
LOC: PHED 19:53 → PHEDA 21:46 → NEPGCP 08-09 02:23 → N06B 08-09 12:54 → N05B 08-09 13:43 → N04B 08-11 01:18
PROVIDERS: ADMIT Hospitalist; ATTEND Hospitalist
PROC: 0PS404Z Reposition Thoracic Vertebra with Internal Fixation Device, Open Approach (ICD-10-PCS; 2016-08-09)
PROC: 0QB20ZZ Excision of Right Pelvic Bone, Open Approach (ICD-10-PCS; 2016-08-09)
PROC: 0RGA071 Fusion of Thoracolumbar Vertebral Joint with Autologous Tissue Substitute, Posterior Approach, Posterior Column, Open Approach (ICD-10-PCS; principal; 2016-08-09 12:52)
DX: S22.081A Stable burst fracture of T11-T12 vertebra, initial encounter for closed fracture (principal); K42.0 Umbilical hernia with obstruction, without gangrene; K56.7 Ileus, unspecified; M41.86 Other forms of scoliosis, lumbar region; S32.019A Unspecified fracture of first lumbar vertebra, initial encounter for closed fracture; M48.04 Spinal stenosis, thoracic region; I48.0 Paroxysmal atrial fibrillation; G40.89 Other seizures; F13.239 Sedative, hypnotic or anxiolytic dependence with withdrawal, unspecified; R55 Syncope and collapse; D72.829 Elevated white blood cell count, unspecified; K59.09 Other constipation; M48.06 Spinal stenosis, lumbar region; F10.10 Alcohol abuse, uncomplicated; F41.9 Anxiety disorder, unspecified; F17.210 Nicotine dependence, cigarettes, uncomplicated; F90.9 Attention-deficit hyperactivity disorder, unspecified type; Y90.0 Blood alcohol level of less than 20 mg/100 ml; Z80.0 Family history of malignant neoplasm of digestive organs
CPT/HCPCS: 36430; 70450; 71010; 72070; 72131; 72146; 74000; 74270; 76000; 80048; 80053; 80183; 80307; 81001; 82550; 82948; 85025; 85027; 85610; 85730; 86850; 86900; 86901; 86920; 93005; 93225; 93226; 93306; 94150; 95819; 96361; 96374; 96375; C1713; C9113; J0131; J0690; J1100; J1170; J1580; J1644; J1953; J2060; J2175; J2212; J2250; J2270; J2360; J2405; J3010; J3370; J3480; J7030; J7040; J7120; P9016; Q9963

== ENCOUNTER 2016-08-20 10:22 | Emergency (ER) | payer OTHER ==
[~2016-08-20 10:22] MED LIST changes: +MILKSUS PO; +NORC5TAB PO; +SENN1TAB PO; +SIME1CHW11 PO; -XANA1TAB6 PO; +XANA2TAB2 PO
[2016-08-20 10:25] VITALS: BP 127/92; PULSE 85; RESP 18; TEMP 97.8; O2SAT 100
[2016-08-20] MEDS ORDERED: SODIUM CHLOR 0.9% 1000 ML INJ 1,000 ML IV SCH (11:14)
[2016-08-20] MEDS ORDERED: ONDANSETRON HCL 4 MG/2 ML VIAL IVP ONE (11:15)
[2016-08-20] MEDS ORDERED: SODIUM CHLORIDE 0.9% FLUSH 10 ML FLUSH IV FLUSH PRN (11:15)
[2016-08-20 11:36] VITALS: BP 130/81; PULSE 68; RESP 14; O2SAT 100
[2016-08-20] MEDS ORDERED: MORPHINE SULFATE 4 MG/ML INJ IV PUSH ONE (11:45)
[2016-08-20 12:03] LABS: AUTOMATED NEUTROPHIL # 6.4 TH/MM3 (1.8-7.7); BASOPHIL # 0.1 TH/MM3 (0-0.2); BASOPHIL % 0.8 % (0.0-2.0); EOSINOPHIL # 0.1 TH/MM3 (0-0.4); EOSINOPHIL % 0.9 % (0.0-4.0); HEMATOCRIT 42.2 % (39.0-51.0); HEMO FLAGS DIFF FINAL; LYMPH % 18.8 % (9.0-44.0); LYMPHOCYTE # 1.6 TH/MM3 (1.0-4.8); MEAN CELL VOLUME 90.2 FL (80.0-100.0); MEAN CORPUSCULAR HEMOGLOBIN 31.8 PG (27.0-34.0); MEAN CORPUSCULAR HGB CONC 35.3 % (32.0-36.0); MONO % 5.7 % (0.0-8.0); NEUT % 73.8 % (16.0-70.0); PLATELET COUNT 596 TH/MM3 (150-450); RED BLOOD COUNT 4.68 MIL/MM3 (4.50-5.90); RED CELL DISTRIBUTION WIDTH 13.4 % (11.6-17.2); WHITE BLOOD COUNT 8.7 TH/MM3 (4.0-11.0)
[2016-08-20 12:08] LABS: APTT (PATIENT) 27.1 SEC (24.3-30.1); PROTHROMBIN TIME - PATIENT 11.6 SEC (9.8-11.6)
--- NOTE | 2016-08-20 12:16 | PD ---
HPI Chief Complaint: Abdominal Pain Time Seen by Provider: 11:05 Travel History International Travel<30 days: No Contact w/Intl Traveler<30days: No History of Present Illness HPI Patient is a 36-year-old male presenting to the emergency evaluation of abdominal pain. Patient states that he was recently discharged from the hospital due to a compression fracture in his spine with surgical correction. He has not had any solid stools for almost 2 weeks. He states he had one watery bowel movement this morning. He reports feeling nauseated while in the bathroom attempting to have a bowel movement, then he felt as if he was going to black out and laid on the floor. He got up and began to dry heave, and became diaphoretic. Patient reports passing gas, he has been taking Metamucil and MiraLAX. He reports the pain is 8 out of 10 in his lower abdominal quadrants. He states that he has an umbilical hernia that is sore as well. PFSH Past Medical History ADD: Yes Atrial Fibrillation: Yes (during last hospitalization) Anxiety: Yes Cardiovascular Problems: No Diminished Hearing: No Genitourinary: No Musculoskeletal: No Neurologic: Yes Reproductive: No Respiratory: No Immunizations Current: Yes Seizures: Yes (questionable) Past Surgical History Other Surgery: Yes (ORIF of T12 compression fracture) Social History Alcohol Use: No Tobacco Use: Yes Substance Use: No Allergies-Medications (Allergen,Severity, Reaction): Coded Allergies: No Known Allergies (Unverified , 11/04/14) Reported Meds & Prescriptions Reported Meds & Active Scripts Active Milk of Magnesia Liq (Magnesium Hydroxide) 400 Mg/5 Ml Susp 30 Ml PO ONCE [place] (Hydrocodone-Acetaminophen) 5-325 mg Tab 1 Tab PO Q4H PRN Senna Plus 8.6-50 mg (Sennosides-Docusate Sodium) 1 Tab Tab 2 Tab PO BID PRN Gas Relief Maximum Streng (Simethicone) 125 Mg Chw 125 Mg PO Q8HR Reported Xanax (Alprazolam) 2 Mg Tab 2 Mg PO HS Adderall (Amphetamine-Dextroamphetamine) 30 Mg Tab 30 Mg PO DAILY Avoid late evening doses. Space doses at least 4 to 6 hours if more than once/day dosing. Review of Systems Except as stated in HPI: all other systems reviewed are Neg General / Constitutional: No: Fever, Chills Eyes: No: Blurred Vision HENT: Positive: Lightheadedness, No: Headaches Cardiovascular: No: Chest Pain or Discomfort, Palpitations Respiratory: No: Shortness of Breath Gastrointestinal: Positive: Nausea, Vomiting (dry heaves), Abdominal Pain, Constipation, Loss of Appetite Genitourinary: No: Dysuria Musculoskeletal: Positive: Pain (back pain secondary to compression fracture) Neurologic: Positive: Dizziness, Syncope Physical Exam Narrative GENERAL: Well-developed, well-nourished, alert male. Resting comfortably in no acute distress. Family at bedside. SKIN: Focused skin assessment warm/dry. HEAD: Atraumatic. Normocephalic. EYES: Pupils equal and round. No scleral icterus. No injection or drainage. ENT: No nasal bleeding or discharge. Mucous membranes pink and moist. NECK: Trachea midline. No JVD. CARDIOVASCULAR: Regular rate and rhythm. No murmur appreciated. RESPIRATORY: No accessory muscle use. Clear to auscultation. Breath sounds equal bilaterally. GASTROINTESTINAL: Abdomen soft, tender to palpation in left and right lower quadrants. Positive bowel sounds, positive guarding. Umbilical hernia noted easily reducible. MUSCULOSKELETAL: No obvious deformities. No clubbing. No cyanosis. No edema. NEUROLOGICAL: Awake and alert. No obvious cranial nerve deficits. Motor grossly within normal limits. Normal speech. PSYCHIATRIC: Appropriate mood and affect; insight and judgment normal. Data Data Last Documented VS Vital Signs Date Time Temp Pulse Resp B/P Pulse Ox O2 Delivery O2 Flow Rate FiO2 08/20/16 13:11 70 14 126/84 100 Room Air 08/20/16 10:25 97.8 Orders Complete Blood Count With Diff (08/20/16 11:14) Comprehensive Metabolic Panel (08/20/16 11:14) Lipase (08/20/16 11:14) Lactic Acid (08/20/16 11:14) Prothrombin Time / Inr (Pt) (08/20/16 11:14) Act Partial Throm Time (Ptt) (08/20/16 11:14) Urinalysis - C+S If Indicated (08/20/16 11:14) Ct Abd/Pel W Iv Contrast(Rout) (08/20/16 11:14) Iv Access Insert/Monitor (08/20/16 11:14) Ecg Monitoring (08/20/16 11:14) Oximetry (08/20/16 11:14) NPO (08/20/16 11:14) Ondansetron Inj (Zofran Inj) (08/20/16 11:15) Sodium Chlor 0.9% 1000 Ml Inj (Ns 1000 M (08/20/16 11:14) Sodium Chloride 0.9% Flush (Ns Flush) (08/20/16 11:15) Morphine Inj (Morphine Inj) (08/20/16 11:45) Electrocardiogram (08/20/16 ) Iohexol 350 Inj (Omnipaque 350 Inj) (08/20/16 12:30) Labs Laboratory Tests Test 08/20/16 08/20/16 11:30 12:50 White Blood Count 8.7 TH/MM3 Red Blood Count 4.68 MIL/MM3 Hemoglobin 14.9 GM/DL Hematocrit 42.2 % Mean Corpuscular Volume 90.2 FL Mean Corpuscular Hemoglobin 31.8 PG Mean Corpuscular Hemoglobin 35.3 % Concent Red Cell Distribution Width 13.4 % Platelet Count 596 TH/MM3 Mean Platelet Volume 7.6 FL Neutrophils (%) (Auto) 73.8 % Lymphocytes (%) (Auto) 18.8 % Monocytes (%) (Auto) 5.7 % Eosinophils (%) (Auto) 0.9 % Basophils (%) (Auto) 0.8 % Neutrophils # (Auto) 6.4 TH/MM3 Lymphocytes # (Auto) 1.6 TH/MM3 Monocytes # (Auto) 0.5 TH/MM3 Eosinophils # (Auto) 0.1 TH/MM3 Basophils # (Auto) 0.1 TH/MM3 CBC Comment DIFF FINAL Differential Comment Prothrombin Time 11.6 SEC Prothromb Time International 1.0 RATIO Ratio Activated Partial 27.1 SEC Thromboplast Time Sodium Level 139 MEQ/L Potassium Level 4.1 MEQ/L Chloride Level 101 MEQ/L Carbon Dioxide Level 28.9 MEQ/L Anion Gap 9 MEQ/L Blood Urea Nitrogen 16 MG/DL Creatinine 1.08 MG/DL Estimat Glomerular Filtration 78 ML/MIN Rate Random Glucose 95 MG/DL Lactic Acid Level 1.0 mmol/L Calcium Level 9.6 MG/DL Total Bilirubin 0.5 MG/DL Aspartate Amino Transf 34 U/L (AST/SGOT) Alanine Aminotransferase 71 U/L (ALT/SGPT) Alkaline Phosphatase 90 U/L Total Protein 7.8 GM/DL Albumin 3.6 GM/DL Lipase 490 U/L Urine Color YELLOW Urine Turbidity CLEAR Urine pH 6.0 Urine Specific [place] 1.033 Urine Protein TRACE mg/dL Urine Glucose (UA) NEG mg/dL Urine Ketones 40 mg/dL Urine Occult Blood NEG Urine Nitrite NEG Urine Bilirubin NEG Urine Urobilinogen LESS THAN 2.0 MG/DL Urine Leukocyte Esterase NEG Urine RBC 1 /hpf Urine WBC 2 /hpf Urine Squamous Epithelial <1 /hpf Cells Urine Transitional Epithelial <1 /hpf Cells Urine Hyaline Casts 2 /lpf Urine Mucus FEW /lpf Microscopic Urinalysis Comment CULT NOT INDICATED MDM Medical Decision Making Medical Screen Exam Complete: Yes Emergency Medical Condition: Yes Medical Record Reviewed: Yes Interpretation(s) Last Impressions Abdomen/Pelvis CT 08/20/16 1114 Signed Impressions: Service Date/Time: Saturday, August 20, 2016 12:11 - CONCLUSION: 1. There is soft tissue seen along the medial aspect of the ascending colon as above which can reflect a mass and direct visualization is suggested. 2. No acute findings. Hugo Khalil MD Laboratory Tests Test 08/20/16 08/20/16 11:30 12:50 White Blood Count 8.7 TH/MM3 Red Blood Count 4.68 MIL/MM3 Hemoglobin 14.9 GM/DL Hematocrit 42.2 % Mean Corpuscular Volume 90.2 FL Mean Corpuscular Hemoglobin 31.8 PG Mean Corpuscular Hemoglobin 35.3 % Concent Red Cell Distribution Width 13.4 % Platelet Count 596 TH/MM3 Mean Platelet Volume 7.6 FL Neutrophils (%) (Auto) 73.8 % Lymphocytes (%) (Auto) 18.8 % Monocytes (%) (Auto) 5.7 % Eosinophils (%) (Auto) 0.9 % Basophils (%) (Auto) 0.8 % Neutrophils # (Auto) 6.4 TH/MM3 Lymphocytes # (Auto) 1.6 TH/MM3 Monocytes # (Auto) 0.5 TH/MM3 Eosinophils # (Auto) 0.1 TH/MM3 Basophils # (Auto) 0.1 TH/MM3 CBC Comment DIFF FINAL Differential Comment Prothrombin Time 11.6 SEC Prothromb Time International 1.0 RATIO Ratio Activated Partial 27.1 SEC Thromboplast Time Sodium Level 139 MEQ/L Potassium Level 4.1 MEQ/L Chloride Level 101 MEQ/L Carbon Dioxide Level 28.9 MEQ/L Anion Gap 9 MEQ/L Blood Urea Nitrogen 16 MG/DL Creatinine 1.08 MG/DL Estimat Glomerular Filtration 78 ML/MIN Rate Random Glucose 95 MG/DL Lactic Acid Level 1.0 mmol/L Calcium Level 9.6 MG/DL Total Bilirubin 0.5 MG/DL Aspartate Amino Transf 34 U/L (AST/SGOT) Alanine Aminotransferase 71 U/L (ALT/SGPT) Alkaline Phosphatase 90 U/L Total Protein 7.8 GM/DL Albumin 3.6 GM/DL Lipase 490 U/L Urine Color YELLOW Urine Turbidity CLEAR Urine pH 6.0 Urine Specific [place] 1.033 Urine Protein TRACE mg/dL Urine Glucose (UA) NEG mg/dL Urine Ketones 40 mg/dL Urine Occult Blood NEG Urine Nitrite NEG Urine Bilirubin NEG Urine Urobilinogen LESS THAN 2.0 MG/DL Urine Leukocyte Esterase NEG Urine RBC 1 /hpf Urine WBC 2 /hpf Urine Squamous Epithelial <1 /hpf Cells Urine Transitional Epithelial <1 /hpf Cells Urine Hyaline Casts 2 /lpf Urine Mucus FEW /lpf Microscopic Urinalysis Comment CULT NOT INDICATED Vital Signs Date Time Temp Pulse Resp B/P Pulse Ox O2 Delivery O2 Flow Rate FiO2 08/20/16 11:36 68 14 130/81 100 Room Air 08/20/16 10:40 14 98 Room Air 08/20/16 10:25 97.8 85 18 127/92 100 Room Air Differential Diagnosis Bowel obstruction versus constipation versus appendicitis versus diverticulitis versus vasovagal episode versus cardiac arrhythmia versus other Narrative Course Patient's 36-year-old male presenting to the emergency room for evaluation of a syncopal episode as well as abdominal pain. Patient has been on a bowel regimen since his previous admission. He was admitted on August 08 due to a T12 compression fracture. Patient is status post ORIF. Patient has a questionable seizure history, an EEG performed during his last hospitalization was normal, a 23 hour Holter monitor was also negative. Patient did have a brief course of atrial fibrillation during his last admission. It was thought that it was related to his medical illness and there was no medications or further treatment needed. Patient converted to normal sinus rhythm thereafter. Patient is neurologically intact. Labs and imaging ordered and pending. EKG ordered. IV fluids, Zofran, morphine ordered for pain. Family at bedside. Patient's vital signs are stable. CT scan of the abdomen and pelvis shows soft tissue seen along the medial aspect of the ascending colon which could reflect a mass indirect visualization is suggested otherwise no acute findings. CBC is unremarkable Chemistry is unremarkable, lipase is 490, patient has no upper quadrant abdominal pain. Lactic acid is 1.0 Coags are unremarkable Urinalysis is negative for urinary tract infection EKG shows sinus rhythm with a rate of 65. Discussed the results of labs and imaging as well as patient's presenting complaint with my attending physician also independently evaluated patient. Mother was concerned because she stated that patient was advised to return to emergency department to be readmitted if he had another syncopal episode. Discussed with on-call neurologist Dr. Salinas who recommended patient follow-up as outpatient in the office. Possible syncopal episode this morning appears more consistent with a vasovagal episode due to patient attempted to have a bowel movement at the same time he became diaphoretic and felt as if he was going to pass out. Patient and parents were informed of labs and imaging findings. Patient is to follow-up with GI for outpatient colonoscopy. They verbalized understanding of these instructions. Patient is stable for discharge. Diagnosis Primary Impression: Abdominal pain Qualified Code: R10.30 - Lower abdominal pain Additional Impression: Syncope, vasovagal Referrals: Dallas Salinas MD call for appointment Carlos Mohamud MD call for appointment Maria Guadalupe Landers MD call for appointment Patient Instructions: Abdominal Pain (ED), General Instructions, Narcotic given in the ED, Near Syncope (ED) Additional Instructions: Follow-up with neurosurgeon as scheduled Follow-up with your primary doctor Follow-up with Dr. Salinas neurologist as outpatient for further testing and evaluation Follow-up with Dr. Landers for outpatient colonoscopy Maintain adequate fluid intake Continue bowel regimen with MiraLAX, Colace, Metamucil as previously prescribed Return to emergency department for any new or worsening symptoms Med/Other Pt SpecificInfo: No Change to Meds Disposition: 01 DISCHARGE HOME Condition: Stable Elizabeth Javed Aug 20, 2016 12:16
[2016-08-20 12:22] LABS: ALT (GPT) 71 U/L (12-78); ANION GAP 9 MEQ/L (5-15); AST (GOT) 34 U/L (15-37); BICARBONATE 28.9 MEQ/L (21.0-32.0); BLOOD UREA NITROGEN 16 MG/DL (7-18); CHLORIDE 101 MEQ/L (98-107); GLOMERULAR FILTRATION RATE 78 ML/MIN (>89); POTASSIUM 4.1 MEQ/L (3.5-5.1); SODIUM (NA) 139 MEQ/L (136-145)
[2016-08-20 12:25] LABS: ALKALINE PHOSPHATASE 90 U/L (45-117); TOTAL BILIRUBIN ADULT 0.5 MG/DL (0.2-1.0)
[2016-08-20] MEDS ORDERED: IOHEXOL 350 MG/ML 10 ML VIAL (for RAD DIAG) IV ONE (12:30)
--- NOTE | 2016-08-20 12:45 | RADRPT ---
EXAM DATE/TIME: 08/20/2016 12:11 [place] COMPARISON: No previous studies available for comparison. INDICATIONS : Pain from rectum to upper abdomen. IV CONTRAST: 77 cc Omnipaque 350 (iohexol) IV ORAL CONTRAST: No oral contrast ingested. RADIATION DOSE: 8.52 CTDIvol (mGy) MEDICAL HISTORY : Seizures. Fractured back,a-fib SURGICAL HISTORY : Back surgery ENCOUNTER: Initial ACUITY: 3 weeks PAIN SCALE: 8/10 LOCATION: Abdomen TECHNIQUE: Volumetric scanning of the abdomen and pelvis was performed. Using automated exposure control and ad justment of the mA and/or kV according to patient size, radiation dose was kept as low as reasonably achievable to obtain optimal diagnostic quality images. FINDINGS: Liver, gallbladder, pancreas, right adrenal gland, stomach unremarkable. There is a small calcificati on in the posterior aspect of the spleen. A cortical calcification of the left midpole kidney posteri luis is noted. There is a small cyst at the upper pole of right kidney. The left adrenal gland is nor mal in size. Adrenal calcifications are noted. There is no adenopathy or aneurysm. Urinary bladder is unremarkable. There is no evidence of bowel obstruction there is appendix is normal. On axial image 39 within the ascending colon along the medial wall, a prominent soft tissue focus is identified narendra uring 1.8 x 1.9 cm in transverse and AP dimension colonic mass should be excluded with direct visuali zation. The patient has posterior lucien and transpedicular screw fixation from L2-T10 with a vertebral plana appearance at the T10 of the T12 vertebral body. Lung bases are clear. CONCLUSION: 1. There is soft tissue seen along the medial aspect of the ascending colon as above which can reflec t a mass and direct visualization is suggested. 2. No acute findings. Hugo Khalil MD on August 20, 2016 at 12:39 Board Certified Radiologist. This report was verified electronically.
[2016-08-20 13:11] VITALS: BP 126/84; PULSE 70; RESP 14; O2SAT 100
[2016-08-20 13:15] LABS: BLOOD, URINE NEG (NEG); GLUCOSE,URINE NEG (NEG); HYALINE CAST, URINE 2 /lpf (RARE); KETONE, URINE 40 mg/dL (NEG); MUCUS URINE FEW /lpf (OCC); NITRITE,URINE NEG (NEG); SQUAMOUS EPITHELIAL CELL URINE <1 /hpf (0-5); TRANSITIONAL EPI CELLS, URINE <1 /hpf; URINE COLOR YELLOW (YELLW/STRAW)
--- NOTE | 2016-08-20 13:21 | PD ---
Physical Exam Narrative Patient was seen and examined with my automobile mechanic assistant. Data Data Last Documented VS Vital Signs Date Time Temp Pulse Resp B/P Pulse Ox O2 Delivery O2 Flow Rate FiO2 08/20/16 13:11 70 14 126/84 100 Room Air 08/20/16 10:25 97.8 Orders Complete Blood Count With Diff (08/20/16 11:14) Comprehensive Metabolic Panel (08/20/16 11:14) Lipase (08/20/16 11:14) Lactic Acid (08/20/16 11:14) Prothrombin Time / Inr (Pt) (08/20/16 11:14) Act Partial Throm Time (Ptt) (08/20/16 11:14) Urinalysis - C+S If Indicated (08/20/16 11:14) Ct Abd/Pel W Iv Contrast(Rout) (08/20/16 11:14) Iv Access Insert/Monitor (08/20/16 11:14) Ecg Monitoring (08/20/16 11:14) Oximetry (08/20/16 11:14) NPO (08/20/16 11:14) Ondansetron Inj (Zofran Inj) (08/20/16 11:15) Sodium Chlor 0.9% 1000 Ml Inj (Ns 1000 M (08/20/16 11:14) Sodium Chloride 0.9% Flush (Ns Flush) (08/20/16 11:15) Morphine Inj (Morphine Inj) (08/20/16 11:45) Electrocardiogram (08/20/16 ) Iohexol 350 Inj (Omnipaque 350 Inj) (08/20/16 12:30) Labs Laboratory Tests Test 08/20/16 08/20/16 11:30 12:50 White Blood Count 8.7 TH/MM3 Red Blood Count 4.68 MIL/MM3 Hemoglobin 14.9 GM/DL Hematocrit 42.2 % Mean Corpuscular Volume 90.2 FL Mean Corpuscular Hemoglobin 31.8 PG Mean Corpuscular Hemoglobin 35.3 % Concent Red Cell Distribution Width 13.4 % Platelet Count 596 TH/MM3 Mean Platelet Volume 7.6 FL Neutrophils (%) (Auto) 73.8 % Lymphocytes (%) (Auto) 18.8 % Monocytes (%) (Auto) 5.7 % Eosinophils (%) (Auto) 0.9 % Basophils (%) (Auto) 0.8 % Neutrophils # (Auto) 6.4 TH/MM3 Lymphocytes # (Auto) 1.6 TH/MM3 Monocytes # (Auto) 0.5 TH/MM3 Eosinophils # (Auto) 0.1 TH/MM3 Basophils # (Auto) 0.1 TH/MM3 CBC Comment DIFF FINAL Differential Comment Prothrombin Time 11.6 SEC Prothromb Time International 1.0 RATIO Ratio Activated Partial 27.1 SEC Thromboplast Time Sodium Level 139 MEQ/L Potassium Level 4.1 MEQ/L Chloride Level 101 MEQ/L Carbon Dioxide Level 28.9 MEQ/L Anion Gap 9 MEQ/L Blood Urea Nitrogen 16 MG/DL Creatinine 1.08 MG/DL Estimat Glomerular Filtration 78 ML/MIN Rate Random Glucose 95 MG/DL Lactic Acid Level 1.0 mmol/L Calcium Level 9.6 MG/DL Total Bilirubin 0.5 MG/DL Aspartate Amino Transf 34 U/L (AST/SGOT) Alanine Aminotransferase 71 U/L (ALT/SGPT) Alkaline Phosphatase 90 U/L Total Protein 7.8 GM/DL Albumin 3.6 GM/DL Lipase 490 U/L Urine Color YELLOW Urine Turbidity CLEAR Urine pH 6.0 Urine Specific [place] 1.033 Urine Protein TRACE mg/dL Urine Glucose (UA) NEG mg/dL Urine Ketones 40 mg/dL Urine Occult Blood NEG Urine Nitrite NEG Urine Bilirubin NEG Urine Urobilinogen LESS THAN 2.0 MG/DL Urine Leukocyte Esterase NEG Urine RBC 1 /hpf Urine WBC 2 /hpf Urine Squamous Epithelial <1 /hpf Cells Urine Transitional Epithelial <1 /hpf Cells Urine Hyaline Casts 2 /lpf Urine Mucus FEW /lpf Microscopic Urinalysis Comment CULT NOT INDICATED MDM Supervised Visit with LORENE: Yes Shashi Pedersen MD Aug 20, 2016 13:21
[2016-08-20 13:22] LABS: COMMENT (UR) CULT NOT INDICATED; CULTURE IF INDICATED CULT NOT INDICATED
--- NOTE | 2016-08-21 11:49 | EKG ---
Date Performed: 08/20/2016 Time Performed: 13:05:27 PTAGE: 36 years EKG: Sinus rhythm EARLY REPOLARIZATION BORDERLINE ECG PREVIOUS TRACING : 08/10/2016 23.30 DOCTOR: Tre Munguia Interpretating Date/Time 08/21/2016 11:44:35
== END 2016-08-20 14:28 | disposition home or self-care (01) ==
LOC: NEPC 10:22
DX: R10.30 Lower abdominal pain, unspecified (principal); R55 Syncope and collapse; R61 Generalized hyperhidrosis; R94.31 Abnormal electrocardiogram [ECG] [EKG]; K42.9 Umbilical hernia without obstruction or gangrene; I48.91 Unspecified atrial fibrillation; Z72.0 Tobacco use
CPT/HCPCS: 74177; 80053; 81001; 83605; 83690; 85025; 85610; 85730; 93005; 96361; 96374; 96375; 99284; J2270; J2405; J7030; Q9967

== ENCOUNTER 2017-01-29 10:15 | Emergency (ER) | payer OTHER ==
[~2017-01-29] VITALS: Ht 182.9 cm; Wt 87.0 kg
[~2017-01-29 10:15] MED LIST changes: -MILKSUS PO; -NORC5TAB PO; -SENN1TAB PO; -SIME1CHW11 PO
[2017-01-29] MEDS ORDERED: IOHEXOL 350 MG/ML 10 ML VIAL (for RAD DIAG) IVCONTRAST ONE (10:16)
[2017-01-29] MEDS ORDERED: HYDR-3533 PO (10:21)
[2017-01-29 10:22] VITALS: BP 134/83; PULSE 89; RESP 16; TEMP 98; O2SAT 99
[2017-01-29 10:50] VITALS: RESP 17; O2SAT 97
[2017-01-29] MEDS ORDERED: HYDROmorphone HCL PF 1 MG/ML VIAL IV PUSH ONE (11:00)
[2017-01-29] MEDS ORDERED: SODIUM CHLOR 0.9% 1000 ML INJ 1,000 ML IV ONE (11:00)
[2017-01-29] MEDS ORDERED: SODIUM CHLORIDE 0.9% FLUSH 10 ML FLUSH IVF PRN (11:00)
[2017-01-29 11:19] LABS: BASOPHIL % 0.2 % (0.0-2.0); HEMATOCRIT 51.8 % (39.0-51.0); HEMO FLAGS DIFF FINAL; LYMPH % 11.8 % (9.0-44.0); LYMPHOCYTE # 1.7 TH/MM3 (1.0-4.8); MEAN CELL VOLUME 88.2 FL (80.0-100.0); MEAN CORPUSCULAR HEMOGLOBIN 29.7 PG (27.0-34.0); MEAN CORPUSCULAR HGB CONC 33.6 % (32.0-36.0); MONO % 5.9 % (0.0-8.0); NEUT % 82.1 % (16.0-70.0); PLATELET COUNT 316 TH/MM3 (150-450); RED BLOOD COUNT 5.87 MIL/MM3 (4.50-5.90); RED CELL DISTRIBUTION WIDTH 13.9 % (11.6-17.2); WHITE BLOOD COUNT 14.6 TH/MM3 (4.0-11.0)
[2017-01-29 11:29] VITALS: RESP 17
[2017-01-29 11:42] LABS: ANION GAP 8 MEQ/L (5-15); AST (GOT) 23 U/L (15-37); BICARBONATE 22.4 MEQ/L (21.0-32.0); BLOOD UREA NITROGEN 16 MG/DL (7-18); CHLORIDE 104 MEQ/L (98-107); GLOMERULAR FILTRATION RATE 63 ML/MIN (>89); POTASSIUM 4.4 MEQ/L (3.5-5.1); SODIUM (NA) 134 MEQ/L (136-145)
[2017-01-29 11:44] LABS: ALKALINE PHOSPHATASE 58 U/L (45-117); ALT (GPT) 43 U/L (12-78); TOTAL BILIRUBIN ADULT 0.9 MG/DL (0.2-1.0)
--- NOTE | 2017-01-29 11:57 | RADRPT ---
EXAM DATE/TIME: 01/29/2017 11:29 [place] COMPARISON: No previous studies available for comparison. INDICATIONS : Short of breath. Back pain. IV CONTRAST: 75 cc Omnipaque 350 (iohexol) IV RADIATION DOSE: 19.22 CTDIvol (mGy) MEDICAL HISTORY : T12 compression fracture. SURGICAL HISTORY : Back surgery. ENCOUNTER: Initial ACUITY: 1 day PAIN SCALE: 9/10 LOCATION: Back pain. TECHNIQUE: Volumetric scanning of the chest was performed using a pulmonary embolism protocol MIP images were re constructed. Using automated exposure control and adjustment of the mA and/or kV according to patien t size, radiation dose was kept as low as reasonably achievable to obtain optimal diagnostic quality images. DICOM format image data is available electronically for review and comparison. Follow-up recommendations for detected pulmonary nodules are based at a minimum on nodule size and pa tient risk factors according to Fleischner Society Guidelines. FINDINGS: PULMONARY ARTERIES: No filling defects are seen in the pulmonary arteries through the segmental level. LUNGS: There is no consolidation or pneumothorax . A 4-5 mm nodule in the lateral right middle lobe. Minimal bibasilar atelectasis. PLEURAE: There is no pleural thickening or pleural effusion. MEDIASTINUM: There is good visualization of the great vessels of the middle mediastinum. No evidence of mediastin al or hilar adenopathy/mass. MUSCULOSKELETAL: Fusion at the thoracolumbar junction. Compression deformity of what appears to be T12 partially image d. MISCELLANEOUS: The visualized upper abdominal organs demonstrate no acute abnormality. Small hiatal hernia. CONCLUSION: 1. No evidence for pulmonary embolism. 2. Minimal bibasilar atelectasis. 3. A 4-5 mm nodule in the right middle lobe, likely benign. 4. Small hiatal hernia. Elia Madsen MD on January 29, 2017 at 11:50 Board Certified Radiologist. This report was verified electronically.
--- NOTE | 2017-01-29 12:20 | PD ---
HPI Chief Complaint: Back/ Neck Pain or Injury Time Seen by Provider: 10:21 Travel History International Travel<30 days: No Contact w/Intl Traveler<30days: No History of Present Illness HPI 36-year-old male arrives to the ER complaining of back pain, chest pain and abdominal pain all which is described as spasming. He has been taking his usual regimen of Xanax Adderall and Lortab. He reports some insomnia and minimal if any pain relief from Lortab. He has no numbness tingling or weakness. He did experience some lightheadedness earlier today however did not lose consciousness. He reports Motrin has been helpful for his pain. He reports side effects from Lortab for concerning for him. No fecal or urinary incontinence. No saddle anesthesia. PFSH Past Medical History ADD: Yes Atrial Fibrillation: Yes (during last hospitalization) Anxiety: Yes Cardiovascular Problems: No Diminished Hearing: No Genitourinary: No Musculoskeletal: Yes Neurologic: Yes Psychiatric: Yes Reproductive: No Respiratory: No Immunizations Current: Yes Seizures: Yes (questionable) Tetanus Vaccination: < 5 Years Influenza Vaccination: No Past Surgical History Other Surgery: Yes (ORIF of T12 compression fracture) Social History Alcohol Use: No (PT DENIES) Tobacco Use: Yes Substance Use: No (PT DENIES) Allergies-Medications (Allergen,Severity, Reaction): Coded Allergies: No Known Allergies (Unverified , 01/29/17) Reported Meds & Prescriptions Reported Meds & Active Scripts Active Zanaflex (Tizanidine HCl) 4 Mg Tab 8 Mg PO TID Percocet (Oxycodone-Acetaminophen) 5-325 mg Tab 2 Tab PO Q6H PRN Reported Lortab (Hydrocodone-Acetaminophen) 5-325 Mg Tab 1 Tab PO Q6H PRN Xanax (Alprazolam) 2 Mg Tab 2 Mg PO HS Adderall (Amphetamine-Dextroamphetamine) 30 Mg Tab 30 Mg PO DAILY Avoid late evening doses. Space doses at least 4 to 6 hours if more than once/day dosing. Review of Systems General / Constitutional: No: Fever Musculoskeletal: Positive: Pain Neurologic: No: Dizziness, Syncope, Coordination Problem, Tremor, Ataxia, Headache, Change in Mentation, Slurred Speech, Incontinence, Seizures, Sensory Disturbance Physical Exam Narrative GENERAL: 36-year-old male well-nourished well-developed SKIN: Warm and dry. HEAD: Atraumatic. Normocephalic. EYES: Pupils equal and round. No scleral icterus. No injection or drainage. ENT: No nasal bleeding or discharge. Mucous membranes pink and moist. NECK: Trachea midline. No JVD. CARDIOVASCULAR: Regular rate and rhythm. RESPIRATORY: No accessory muscle use. Clear to auscultation. Breath sounds equal bilaterally. GASTROINTESTINAL: Abdomen soft, non-tender, nondistended. Hepatic and splenic margins not palpable. MUSCULOSKELETAL: Extremities without clubbing, cyanosis, or edema. No obvious deformities. Lower thoracic vertebral body hardware is palpable on exam. No signs infection. NEUROLOGICAL: AOx3. CNII-XII normal. Normal DTR patella tendons bilaterally. No ankle clonus. Normal flexion/extension bilateral knees. Pt is ambulatory. PSYCHIATRIC: Appropriate mood and affect; insight and judgment normal. Data Data Last Documented VS Vital Signs Date Time Temp Pulse Resp B/P (MAP) Pulse Ox O2 Delivery O2 Flow Rate FiO2 01/29/17 11:29 17 01/29/17 10:50 97 Room Air 01/29/17 10:26 89 01/29/17 10:22 98.0 134/83 (100) VS reviewed Orders Orders Complete Blood Count With Diff (01/29/17 10:47) Ecg Monitoring (01/29/17 10:47) Iv Access Insert/Monitor (01/29/17 10:47) Oximetry (01/29/17 10:47) Oxygen Administration (01/29/17 10:47) Sodium Chloride 0.9% Flush (Ns Flush) (01/29/17 11:00) Ct Pulmonary Angiogram (01/29/17 10:47) Hydromorphone Pf Inj (Dilaudid Pf Inj) (01/29/17 11:00) Sodium Chlor 0.9% 1000 Ml Inj (Ns 1000 M (01/29/17 11:00) Comprehensive Metabolic Panel (01/29/17 10:47) Iohexol 350 Inj (Omnipaque 350 Inj) (01/29/17 10:16) Labs Laboratory Tests Test 01/29/17 10:52 White Blood Count 14.6 TH/MM3 Red Blood Count 5.87 MIL/MM3 Hemoglobin 17.4 GM/DL Hematocrit 51.8 % Mean Corpuscular Volume 88.2 FL Mean Corpuscular Hemoglobin 29.7 PG Mean Corpuscular Hemoglobin Concent 33.6 % Red Cell Distribution Width 13.9 % Platelet Count 316 TH/MM3 Mean Platelet Volume 7.4 FL Neutrophils (%) (Auto) 82.1 % Lymphocytes (%) (Auto) 11.8 % Monocytes (%) (Auto) 5.9 % Eosinophils (%) (Auto) 0.0 % Basophils (%) (Auto) 0.2 % Neutrophils # (Auto) 12.0 TH/MM3 Lymphocytes # (Auto) 1.7 TH/MM3 Monocytes # (Auto) 0.9 TH/MM3 Eosinophils # (Auto) 0.0 TH/MM3 Basophils # (Auto) 0.0 TH/MM3 CBC Comment DIFF FINAL Differential Comment Blood Urea Nitrogen 16 MG/DL Creatinine 1.31 MG/DL Random Glucose 101 MG/DL Total Protein 8.5 GM/DL Albumin 4.4 GM/DL Calcium Level 9.3 MG/DL Alkaline Phosphatase 58 U/L Aspartate Amino Transf (AST/SGOT) 23 U/L Alanine Aminotransferase (ALT/SGPT) 43 U/L Total Bilirubin 0.9 MG/DL Sodium Level 134 MEQ/L Potassium Level 4.4 MEQ/L Chloride Level 104 MEQ/L Carbon Dioxide Level 22.4 MEQ/L Anion Gap 8 MEQ/L Estimat Glomerular Filtration Rate 63 ML/MIN [facility] Medical Decision Making Medical Screen Exam Complete: Yes Emergency Medical Condition: Yes Medical Record Reviewed: Yes Differential Diagnosis muscle spasm, PE, medication side effect, electrolyte imbalance, infected hardware Narrative Course CBC & BMP Diagram 01/29/17 10:52 Total Protein 8.5 H, Albumin 4.4, Calcium Level 9.3, Alkaline Phosphatase 58, Aspartate Amino Transf (AST/SGOT) 23, Alanine Aminotransferase (ALT/SGPT) 43, Total Bilirubin 0.9 Last [address] Angiography 01/29/17 1047 Signed Impressions: Service Date/Time: Sunday, January 29, 2017 11:29 - CONCLUSION: 1. No evidence for pulmonary embolism. 2. Minimal bibasilar atelectasis. 3. A 4-5 mm nodule in the right middle lobe, likely benign. 4. Small hiatal hernia. Elia Madsen MD The patient is resting comfortably and feels better, is alert and in no distress. The patients results and examination findings were discussed. The repeat examination is unremarkable and benign. The history, exam, diagnostic testing, and current condition do not suggest any significant pathology to warrant further testing, continued ED treatment, admission, or surgical evaluation at this point. The vital signs have been stable. The patient does not have uncontrollable pain, intractable vomiting, or other significant symptoms. The patient's condition is stable and appropriate for discharge. The patient will pursue further outpatient evaluation with a primary care physician or other designated or consulting physician as indicated in the discharge instructions. The patient expressed understanding and was agreeable with this plan. Diagnosis Primary Impression: Compression fracture of T12 vertebra Additional Impressions: Abdominal pain Qualified Codes: R10.9 - Unspecified abdominal pain Syncope, near Muscle spasm Pulmonary nodule Referrals: Carlos Mohamud MD 2 days Additional Instructions: You have a choice when it comes to health care, and we are glad that you chose [facility]. Hopefully, we have met your expectations on today's visit. You are welcome to return to [facility] at any time, as we are committed to meeting the health care needs of our community. Med/Other Pt SpecificInfo: Prescription(s) given, No Change to Meds Scripts Tizanidine (Zanaflex) 4 Mg Tab 8 MG PO TID for Muscle Spasm, #30 TAB 0 Refills Prov: Rigoberto Del Castillo MD 01/29/17 Oxycodone-Acetaminophen (Percocet) 5-325 mg Tab 2 TAB PO Q6H Y for PAIN SCALE 6 TO 10, #20 TAB 0 Refills Prov: Rigoberto Del Castillo MD 01/29/17 Disposition: 01 DISCHARGE HOME Condition: Stable Rigoberto Del Castillo MD Jan 29, 2017 12:20
[2017-01-29] MEDS ORDERED: PERC5TAB12 PO (12:26)
[2017-01-29 12:45] VITALS: BP 124/81; TEMP 97.9
[2017-01-29] MEDS ORDERED: TIZA4 PO (12:47)
== END 2017-01-29 12:45 | disposition home or self-care (01) ==
LOC: NEPE 10:15
DX: M48.54XA Collapsed vertebra, not elsewhere classified, thoracic region, initial encounter for fracture (principal); R10.9 Unspecified abdominal pain; R55 Syncope and collapse; M62.838 Other muscle spasm; R91.1 Solitary pulmonary nodule; I48.91 Unspecified atrial fibrillation; Z72.0 Tobacco use
CPT/HCPCS: 71275; 80053; 85025; 96361; 96374; 99285; J1170; J7030; Q9967

== ENCOUNTER 2018-03-14 10:00 | Inpatient (IN) ==
[2018-03-14] MEDS ORDERED: Vancomycin Inj 1,000 MG in Sodium Chlor 0.9% Inj 250 ML IV.SIG SCH (10:29)
[2018-03-14] MEDS ORDERED: Metoprolol Tartrate 25 MG Tablet PO ONE (10:34)
[2018-03-14] MEDS ORDERED: Chlorhexidine Gluconate 2% 1 Pack (2 Cloths) TOPICAL ONE (10:34)
[2018-03-14] MEDS ORDERED: Heparin - SQ 10,000 UNITS/ML Vial ONE (10:44)
[2018-03-14] MEDS ORDERED: Thrombin Topical Soln 5,000 UNIT Vial TOPICAL ONE (10:44)
[2018-03-14] MEDS ORDERED: ceFAZolin 2 GM Premix Inj 2 GM/50 ML PIGGYBACK IV.SIG ONE ×2 (10:44→17:40)
[2018-03-14] MEDS ORDERED: Bupivacaine/Epinephrine PF Inj 0.5% 30 ML Vial ONE (10:44)
[2018-03-14] MEDS ORDERED: Chlorhexidine Gluconate 2% 1 Pack (2 Cloths) TOPICAL SCH (10:45)
[2018-03-14] MEDS ORDERED: Gelatin Size 100 Topical Foam ONE (10:45)
[2018-03-14] MEDS ORDERED: Sodium Chlor 0.9% Inj 500 ML IV.SIG SCH (11:00)
--- NOTE | 2018-03-14 11:22 | XR ---
EXAM DATE: 03/14/2018 11:11 AM EDT AGE/SEX: 37 years / Male INDICATIONS: Evaluate for pneumonia, pneumothorax, and communicable disease. Pre-op for thoracic sp ine surgery. CLINICAL DATA: This is the patient's initial encounter. Patient reports that signs and symptoms have been present for 1 day and indicates a pain score of 0/10. MEDICAL/SURGICAL HISTORY: None. None. [place] [facility] [place]. . FINDINGS: A single AP view of the chest demonstrates the lungs to be symmetrically aerated without evidence of mass or effusion. There is mild increased haziness in the left lung compared to the right which may be artifactual. The cardiomediastinal contours are unremarkable. Osseous structures are intact with postoperative changes with spinal fixation rods in the lower thoracic and upper lumbar spine. There a re 2 calcified granulomas in the left lung. CONCLUSION: Mild increased density in the left lung compared to the right which may be artifactual. There is no f ocal consolidation. Electronically signed by: Angel San MD 03/14/2018 11:20 AM EDT
[2018-03-14 11:27] LABS: Baso % (Auto) 0.4 % (0.0-2.0); Eos # (Auto) 0.1 th/mm3 (0.0-0.4); Eos % (Auto) 0.9 % (0.0-4.0); Hematocrit 46.6 % (39.0-51.0); Hemoglobin 17.2 gm/dL (13.0-17.0); Lymph # (Auto) 2.2 th/mm3 (1.0-4.8); Lymph % (Auto) 27.5 % (9.0-44.0); Mean Corpuscular Hemoglobin 33.6 pg (27.0-34.0); Mean Corpuscular Volume 90.8 fL (80.0-100.0); Mean Platelet Volume 7.8 fL (7.0-11.0); Mono # (Auto) 0.5 th/mm3 (0.0-0.9); Mono % (Auto) 5.8 % (0.0-8.0); Neut # (Auto) 5.2 th/mm3 (1.8-7.7); Neut % (Auto) 65.4 % (16.0-70.0); Platelet Count 279 th/mm3 (150-450); Red Blood Count 5.13 mil/mm3 (4.50-5.90); Red Cell Distribution Width 13.3 % (11.6-17.2)
[2018-03-14 11:28] LABS: Activated Partial Thrombo Time 29.7 sec (23.4-31.7); Prothrombin Time 10.4 sec (9.8-11.6)
[2018-03-14 11:30] LABS: Mean Corpuscular HGB Conc 36.9 % (32.0-36.0)
[2018-03-14 11:52] LABS: Alanine Aminotransferase 24 U/L (12-78); Anion Gap 8 meq/L (5-15); Aspartate Aminotransferase 23 U/L (15-37); Blood Urea Nitrogen 12 mg/dL (7-18); Calcium 9.5 mg/dL (8.5-10.1); Carbon Dioxide 25.9 meq/L (21.0-32.0); Chloride 105 meq/L (98-107); Glomerular Filtration Rate 79 mL/min (>89); Glucose,Random 78 mg/dL (74-106); Potassium 3.9 meq/L (3.5-5.1); Sodium 139 meq/L (136-145)
[2018-03-14 11:54] LABS: Alkaline Phosphatase 58 U/L (45-117)
[2018-03-14 11:55] LABS: Bilirubin,Urine Negative (Negative); Clarity,Urine Hazy (Clear); Color,Urine Amber (Yellw/Straw); Glucose,Urine (UA) Negative (Negative); Leukocyte Esterase,Urine Negative (Negative); Mucus,Urine Moderate /lpf (Occasional); Nitrite,Urine Negative (Negative); Specific Gravity,Urine 1.027 (1.002-1.035); Squamous Epithelial Cell,Urine <1 /hpf (0-5); Urobilinogen,Urine 4 or Greater mg/dL (Less than 2)
[2018-03-14] MEDS ORDERED: Artificial Tears Opth Oint 3.5 GM Tube ONE (12:55)
[2018-03-14] MEDS ORDERED: fentaNYL Citrate Inj 250 MCG/5 ML Ampul ONE ×2 (12:55→14:50)
[2018-03-14] MEDS ORDERED: Dexmedetomidine Inj 200 MCG/2 ML Vial ONE (12:55)
[2018-03-14] MEDS ORDERED: Propofol Inj 500 MG/50 ML Vial ONE (12:55)
[2018-03-14] MEDS ORDERED: Bisacodyl 10 MG Supp RECTAL PRN (14:22)
[2018-03-14] MEDS ORDERED: Naloxone Inj 0.4 MG/ML Vial IV.PUSH PRN (14:26)
[2018-03-14] MEDS ORDERED: CARISOPRODOL 250 MG PO PRN (14:27)
[2018-03-14] MEDS ORDERED: Ketamine Inj 50 MG/5 ML Syringe IV.PUSH ONE (14:49)
[2018-03-14] MEDS ORDERED: HYDROmorphone PF Inj 2 MG/ML Vial ONE ×2 (14:49→14:50)
[2018-03-14] MEDS ORDERED: fentaNYL Citrate Inj 100 MCG/2 ML Ampul ONE (14:50)
--- NOTE | 2018-03-14 17:34 | P.PNADD ---
Addendum to Inpatient Note Additional information: Attempted to see patient. Patient is in surgery. Discussed with Pharmacy regarding soma. No need to continue Soma for now.
[2018-03-14 18:22] LABS: ABG Base Excess -1.8 mmol/L (-2-2); ABG PCO2 39 mmHg (38-42); ABG PO2 224 mmHG (61-120)
--- NOTE | 2018-03-14 19:09 | P.OP ---
Preoperative Diagnosis: TThoracic fracture with severe progressive thoracic khyphosis and instability Postoperative Diagnosis: Thoracic fracture with severe progressive thoracic khyphosis and instability Date of procedure: 03/14/18 Procedure: Open reduction internal fixation of thoracic fracture, T7 to L2 posterolateral fusion using autologous iliac crest bone graft with demineralized bone matric, T7 to L2 segmental instrumental fixation using transpedicular screws and rods, harvesting of autologous iliac crest bone graft Anesthesia: GETA Surgeon: Carlos Mohamud MD Outdoor Education Teacher: Valentina Lobo Pathology: none sent Operation and Findings: INDICATIONS FOR THE SURGICAL PROCEDURE Mr Yusuf is a 37 year-old male with history of a T12 burst fracture and prior reduction with arthrodhesis. He continues to smoke and was very active physcally. His fracture failked to heal properly and he developed progressive khyphosis pulling of the superior screws with failure of the instrumentation. AN open reduction and internal fixation was indicated. The [id number] details of the procedure, indications, alternatives, risks and potential complications were fully discussed with the patient and his . The patient fully understood. All questions were answered. No guarantees were given. The patient voiced requesting the procedure and provided informed consents. The patient had been offered the alternative of delaying the procedure and continuing with nonsurgical management or to referal to a [facility] for a combined anterior-posterior approach. DETAILS OF THE SURGICAL PROCEDURE Prior to the procedure,the surgical incision was marked in the preoperative surgical holding room, and the procedure, risks, and potential complications revisited with the patient. Placement of electrodes for intraoperative neurophysiological monitoring was completed. The patient was taken to the operative room, and following induction of general anesthesia, endotracheal intubation was performed. A Saini catheter bilateral Soham and sequential compression devices were placed and kept throughout the procedure. The patient was carefully rolled into the prone position over a Mj table with a gell rolls. All pressure points were carefully padded with eggcrate mattress. The eyes were tapped shut after ointment was applied by the anesthesiologist to prevent corneal abrasion. A Peace hugger was placed over the expossed lower body to maintain control of the core body temperature. The electrophysiological team placed the needles and electrodes in their proper location and baseline SSEP's and motor evoked potentials were registered. The thoracic lumbar region was prepped and draped in the usual sterile fashion. A localizing X-ray was performed with the C-arm and the fracture was localized. Two paramedian skin incisions were outlined from T7 to L2 Surgical Approach The skin incisions were made with a #10 blade. Dissection was carried out through the thoracolumbar fascia with a Bovie. The facets of T10 down to L2 were exposed and a subperiosteal dissection was performed decorticating the facets and lateral gutters of the spine. Instrumental fixation At this point in the procedure, placement of bilateral transpedicular screws was necessary for stabilization of the spine at T7, T8, and T9. The levels were carefully marked with a TPS and bilateral transpedicular screws were placed using a standard fashion. Initially, the entry point for the screw was selected anatomically at the junction of the facet, with the transverse process, and the pars interarticularis using symultaneous AP and lateral xrays. This was started with a Giamshetti needle followed by the use of a dodson wire. A tap was used to create the threads for the screws. Finally bilateral transpedicular screws were carefully placed bilaterally at T7, T8, and T9. The position of each screw was assessed anatomically with an AP, lateral, oblique Xrays. An intraoperative scan view of the spine was then performed using the iso-centric c-arm. At this point of the procedure, the cross link of the prior instrumentation was carefully exposed free of scar tissue. Then, the caps of the previously placed screws were sequentially removed allowing removal of the rods. The screws at T10 and T11 had pulled out. There was extensive scar tissue around the screws which was carefully dissected on resected. No evidence of infection was found. The screws from T10 and T11 were carefully removed. At this point in the procedure, placement of bilateral transpedicular screws was carrioed out at T10 and T11 using a standard fashion. Initially, the entry point for the screw was selected anatomically Using symultaneous AP and lateral xrays. the screw trajectorys was started with a Giamshetti needle, followed by the use of a dodson wire. A tap was used to create the threads for the screws. Bilateral transpedicular screws were then placed at T10 and T11. The position of each screw was assessed anatomically with an AP, lateral, oblique Xrays. An intraoperative scan view of the spine was then performed using the iso-centric c-arm. HARVESTING OF ILLIAC CREST BONE An incision was then made over the patient's right posterior iliac crest. The fascia was carefully opened with a Bovie and the posterior iliac crest was exposed. A small cortical window was created with an osteotome. Cancellous bone was then harvested, to be used during the interbody arthrodesis and the posterolateral fusion. Once an appropriate amount of bone was obtained, the incision was irrigated with antibiotic solution and hemostasis secured by packing the iliac crest with Surgicel. The cortical window was then repositioned and secured using 0 Vicryl sutures. The incision was irrigated and the fascia was closed with interrupted 0 Vicryl sutures. The subcutaneous tissue was approximated with Stratafix sutures. Posterolateral fusion Then, the lateral gutters of the spine at T7-8, T8-9, T9-10, T10-T11, T11-T12, T12-L1, and L1-L2 were carefully decorticated with a TPS drill in preparation for the posterior lateral fusion. The incision was thoroughly irrigated with antibiotic solution. The posterolateral fusion was performed by carefully packing the gutters of the spine at TT7 down to L2 with a autologous iliac crest bone graft combined with demineralized bone matrix. Completion of the Procedure The rods were brought to the field. Sequential application of the cap was achieved which allowed for further correction of the kyphosis. Final tightening of all screws was achieved with a torque wrench. The incision was thoroughly irrigated with several liters of antibiotic solution. The decompression was reassessed with an nerve hook and found to be appropriate. Seven mm Mj- Seo drain was left on the epidural space and was then externalized through a separate stab incision. The incision was then closed in layers. 0 Vicryl with interrupted sutures were used to close the thoracolumbar fascia. The superficial fascia was closed with 0 Vicryl sutures. Three-0 Vicryl was used to close the subcutaneous tissue. The skin was closed with negra. At the end of the procedure the sponges, needles, and instrument counts were all correct. Estimated blood loss was 350 cc's. No complications occurred. The patient received prophylactic antibiotics. The patient was then extubated and transferred to the recovery room in stable condition. The entire procedure was performed using electrophysiological monitor of the electromyogram, evoked potential and sphincters. No intraoperative abnormalities were detected.
--- NOTE | 2018-03-14 19:37 | ECG ---
Date Performed: 03/14/2018 Time Performed: 10:34:23 PTAGE: 37 years EKG: Sinus rhythm NORMAL ECG PREVIOUS TRACING : 08/20/2016 13.05 Compared to previous tracing, early repolarization much les s prominent DOCTOR: Lalit Eller Interpretating Date/Time 03/14/2018 19:35:45
--- NOTE | 2018-03-14 19:45 | XR ---
EXAM DATE: 03/14/2018 7:38 PM EDT AGE/SEX: 37 years / Male INDICATIONS: Revision of T12 fracture and replacement of T11 and T10 screw and placement of screw fr om T6 to T9 and lucien placement. CLINICAL DATA: This is the patient's initial encounter. Patient reports that signs and symptoms have been present for 1 day and indicates a pain score of Nonresponsive. MEDICAL/SURGICAL HISTORY: . T12 compression fracture Fusion, thoracic. COMPARISON: [facility], CT THORACIC SPINE W/O CONTRAST, 03/03/2018. . FINDINGS: Transpedicular screws and vertical connecting rods are seen extending from T8 through L2. The patient has a very prominent anterior wedge compression deformity at T12. A single left transpedicular screw is seen at the T12 level. The hardware appears well placed. 2 rows of skin negra are seen over the vertical rods. CONCLUSION: Good placement of surgical hardware. Electronically signed by: Fareed Doyle MD 03/14/2018 7:43 PM EDT
[2018-03-14] MEDS: HYDROmorphone PCA Inj 6 MG/30 ML PCA.VIAL PCA PRN (19:50)
[2018-03-14] MEDS: Sod Chloride 0.9% Inj 1,000 ML IV.CONT SCH (19:57)
[2018-03-14] MEDS: Morphine Sulfate Inj 2 MG/ML Vial IV.PUSH PRN (22:28)
[2018-03-14] MEDS: Senna/Docusate Sodium 8.6/50 MG Tablet PO SCH (23:18)
[2018-03-15] MEDS ORDERED: ceFAZolin 2 GM Premix Inj 2 GM/50 ML PIGGYBACK IV.SIG SCH
[2018-03-15] MEDS: Sod Chloride 0.9% Inj 1,000 ML IV.CONT SCH ×2 (01:07→16:04)
[2018-03-15] MEDS: Morphine Sulfate Inj 2 MG/ML Vial IV.PUSH PRN ×4 (01:08→08:49)
[2018-03-15] MEDS: ceFAZolin 2 GM Premix Inj 2 GM/50 ML PIGGYBACK IV.SIG SCH ×3 (02:13→17:33)
[2018-03-15 05:10] LABS: Baso % (Auto) 0.1 % (0.0-2.0); Hematocrit 45.4 % (39.0-51.0); Hemoglobin 15.8 gm/dL (13.0-17.0); Lymph # (Auto) 1.1 th/mm3 (1.0-4.8); Lymph % (Auto) 6.1 % (9.0-44.0); Mean Corpuscular HGB Conc 34.8 % (32.0-36.0); Mean Corpuscular Hemoglobin 32.3 pg (27.0-34.0); Mean Platelet Volume 8.2 fL (7.0-11.0); Mono # (Auto) 0.9 th/mm3 (0.0-0.9); Neut # (Auto) 15.7 th/mm3 (1.8-7.7); Neut % (Auto) 88.8 % (16.0-70.0); Platelet Count 265 th/mm3 (150-450); Red Blood Count 4.88 mil/mm3 (4.50-5.90); Red Cell Distribution Width 13.4 % (11.6-17.2); White Blood Count 17.7 th/mm3 (4.0-11.0)
[2018-03-15 05:20] LABS: Activated Partial Thrombo Time 26.8 sec (23.4-31.7)
[2018-03-15 05:44] LABS: Calcium 8.2 mg/dL (8.5-10.1); Carbon Dioxide 25.5 meq/L (21.0-32.0); Magnesium 2.3 mg/dL (1.5-2.5); Potassium 4.4 meq/L (3.5-5.1)
[2018-03-15] MEDS: Senna/Docusate Sodium 8.6/50 MG Tablet PO SCH ×2 (08:49→20:02)
[2018-03-15] MEDS: Amphetamine/Dextroamphetamine XR 30 MG Capsule PO SCH (08:49)
--- NOTE | 2018-03-15 09:00 | P.PNNS ---
Subjective Interval history: Patient reports severe pain all night, says he did not sleep at all. Also endorses body wide muscle spasms/tension. Complains of lower lip numbness, likely from ET tube. Also complains of some new left upper extremity numbness, says it is stable, not worsening. No new weakness in his arms or legs. Physical Exam Vital signs: Vital Signs 03/14/18 10:45 03/14/18 19:12 03/14/18 19:15 Temperature 98.7 F 97.9 F Pulse Rate 92 H 77 73 Respiratory Rate 16 12 12 Blood Pressure 142/93 H 100/68 104/70 Pulse Oximetry 100 94 L 99 03/14/18 19:30 03/14/18 19:45 03/14/18 20:00 Temperature Pulse Rate 77 75 76 Respiratory Rate 18 10 L 12 Blood Pressure 104/71 112/67 123/79 Pulse Oximetry 99 100 99 03/14/18 20:15 03/14/18 20:30 03/14/18 20:45 Temperature 97.7 F Pulse Rate 79 80 83 Respiratory Rate 17 16 16 Blood Pressure 125/78 124/82 111/56 L Pulse Oximetry 100 100 100 03/14/18 21:00 03/15/18 00:00 03/15/18 01:19 Temperature 97.8 F Pulse Rate 59 L Respiratory Rate 12 19 Blood Pressure 130/86 Pulse Oximetry 100 97 03/15/18 04:00 03/15/18 04:51 03/15/18 08:51 Temperature 98.2 F Pulse Rate 88 Respiratory Rate 13 18 16 Blood Pressure 121/85 Pulse Oximetry 97 03/15/18 08:53 Temperature Pulse Rate Respiratory Rate 16 Blood Pressure Pulse Oximetry Intake & Output 03/14/18 03/15/18 03/15/18 18:59 06:59 18:59 Intake Total 3600 / 3600 1010 / 1010 1000 / 1000 Output Total 550 / 550 1880 / 1880 Balance 3050 / 3050 -870 / -870 1000 / 1000 Weight 79.9 kg Intake: IV 100 / 100 50 / 50 1000 / 1000 NS Inj 1,000 ML @ 100 mls/hr IV 1000 / 1000 .CONT .Q10H [facility] Rx#:[id number] Ancef 2 GM Premix Inj 2 gm In 100 / 100 50 / 50 50 ml @ 100 mls/hr IV.SIG Q8H [facility] Rx#:[id number] Oral 960 / 960 Anesthesia Amount 3500 / 3500 Output: Estimated Blood Loss 350 / 350 Urine Amount (Catheter) 200 / 200 1500 / 1500 Indwelling Urethral Catheter 200 / 200 1500 / 1500 Wound Drainage 380 / 380 # 1 Left Upper Back NELSON Drain 260 / 260 # 2 Right Lower Back NELSON Drain 110 / 110 # 2 Right Upper Back 10 / 10 Other: Weight On Admission 79.9 kg - Routine Neurological Exam Alert and conversant. Answers questions appropriately. Good strength in all 4 extremities. NELSON drains x2, had to be emptied multiple times overnight. Bloody output. Dressing in place. - Urinary Catheter Management Indwelling Urethral Catheter Cath placed during this visit: yes Reason for continuing: Hourly intake/output Insertion date: 03/14/18 Insertion time: 13:30 Assessment and Plan - Plan Patient status post redo ORIF T7-L2 for T12 burst fracture, with nonunion and proximal junctional kyphosis. Now postop day 1, has fairly common amount of postoperative pain. Suspect that his lower lip numbness is from the ET tube and likely to improve. Left arm sensory change may be from positioning, no evidence of new weakness in that arm, so no plan for emergent imaging etc. Neuro: Keep NELSON drains in place. I increased his SCENIC DESIGNER dose and encouraged him to use p.o. medication for longer lasting relief. Provided Zofran for some mild nausea he experienced. Would not favor adding muscle relaxants as they can be synergistic with his narcotics and cause excessive sedation. Suspect that his muscle spasms are due to pain, and hopefully they will improve with increased analgesia. Needs PT/OT. CV/pulmonary: Stable on room air GI: P.o. ad comfort. Zofran as needed for nausea. Heme: No current issues Renal: Monitor urine output Dispo: We will see what PT OT think, patient not yet mobilizing due to pain control issues.
[2018-03-15] MEDS: HYDROmorphone PCA Inj 6 MG/30 ML PCA.VIAL PCA PRN ×2 (13:02→20:46)
--- NOTE | 2018-03-15 14:32 | P.CON ---
History of Present Illness Service: [facility] service Consult date: 03/15/18 Requesting Physician: Carlos Mohamud Reason for Consult: med management Primary Care Provider: Hafsa Kraft DO Chief Complaint: Postop screws getting loose History of Present Illness: Patient is a 37-year-old right-handed male who about 1-1/2 years ago status post fall and sustained a T12 burst fracture had surgery done then with screws. Patient was doing well independently. On follow-up last May 2017 felt that the bolts in his back were getting loose. Patient still was able to walk independently occasional constipation pain well controlled with p.o. meds. Screws and bolts were so loose that it has been affecting his back posture and was noted to be spine to be coming quite kyphotic. Patient was finally admitted yesterday March 14 and underwent open reduction internal fixation by Dr. Mohamud. [facility] consulted form medical management. Patient denies any history of hypertension CAD diabetes. Patient with history of ADD. Review of home meds patient is on Xanax 3 mg at bedtime, Soma 250 mg 4 times daily, Adderall 30 mg XL every morning, oxycodone 50 mg every 4-6 hours as needed for pain Currently in-house patient is on [place] 10, Adderall, cefazolin, WATCH ENGINEER Dilaudid, Helga-Colace and vancomycin. Patient seen currently at bedside with parents denies any incontinence positive constipation very well motivated with doing more physical therapy. Social history admits to occasional beer denies any recreational drug use history of smoking but quit about a week ago -advised by Dr. Mohamud Review of Systems No fever no chills no headaches Denies any chest pain or shortness of breath no chronic cough no weight loss no nausea no vomiting denies any urinary or fecal incontinence positive constipation no leg swelling PMFSH - History History Provided By: Patient - Medical History Medical History: Medical History (Last Updated 03/14/18 @ 10:52 by Leatha Shen) Forehead laceration Attention deficit disorder (ADD) in adult Metal bone fixation hardware in place - Surgical History Surgical History: Surgical History (Last Reviewed 03/14/18 @ 10:51 by Leatha Shen) History of incision and drainage History of open reduction and internal fixation (ORIF) procedure - Tobacco History Second Hand Smoke Exposure: Yes Tobacco Use In Past 30 Days: Yes Smoking Status: Former smoker Tobacco Type: Cigarettes - Alcohol History How Often Do You Have a Drink Containing Alcohol: 4 or more times a week - Substance Use History Substance History: No History of Abuse - Travel History Recent Travel in the [place] Within the Last 8 Weeks: No Recent Travel Out of the Country Within the Last 8 Weeks: No Medications and Allergies Active Medications: Active Medications Hydrocodone Bitart/Acetaminophen ([place] 10/325) 2 tab PO Q4H PRN PRN Reason: PAIN SCALE 6 TO 10 Al Hydroxide/Mg Hydroxide (Milk Of Magnesia Liq) 30 ml PO Q12H PRN PRN Reason: Mild Constipation Alprazolam (Xanax) 3 mg PO HS PRN PRN Reason: Sleep Last Admin: 03/15/18 01:07 Dose: 3 mg Amphetamine/Dextroamphetamine (Adderall Xr) 30 mg PO DAILY [facility] Last Admin: 03/15/18 08:49 Dose: 30 mg Bisacodyl (Dulcolax Supp) 10 mg RECTAL DAILY PRN PRN Reason: SEVERE CONSITIPATION Chlorhexidine Gluconate (Chlorhexidine 2% Cloth) 0 pack TOPICAL UNSCH [facility] Stop: 03/19/18 10:44 Vancomycin HCl 1,000 mg/ (Sodium Chloride) 250 mls @ 250 mls/hr IV.SIG STORE OPERATIONS ASSOCIATE [facility] Stop: 03/17/18 10:29 Sodium Chloride (Ns Inj) 1,000 mls @ 100 mls/hr IV.CONT .Q10H [facility] Last Infusion: 03/15/18 08:52 Dose: Infused Hydromorphone/Sodium Chloride (Dilaudid Textile Technologist Inj) 6 mg in 30 mls @ 0 mls/hr WATCH ENGINEER UNSCH PRN PRN Reason: per WATCH ENGINEER parameters Last Admin: 03/15/18 13:02 Dose: 0 mls/hr Cefazolin Sodium/Dextrose (Ancef 2 Gm Premix Inj) 2 gm in 50 mls @ 100 mls/hr IV.SIG Q8H [facility] Stop: 03/15/18 18:29 Last Infusion: 03/15/18 11:20 Dose: Infused Lactulose (Lactulose Liq) 30 ml PO DAILY PRN PRN Reason: SEVERE CONSITIPATION Miscellaneous Information (Misc Nursing Information) 0 each OTHER UNSCH PRN PRN Reason: SEE LABEL COMMENTS Stop: 03/15/18 19:11 Morphine Sulfate (Morphine Inj) 2 mg IV.PUSH Q2H PRN PRN Reason: Pain Scale 1 to 6 Last Admin: 03/15/18 08:49 Dose: 2 mg Naloxone HCl (Narcan Inj) 0.4 mg IV.PUSH UNSCH PRN PRN Reason: SEE LABEL COMMENTS Ondansetron HCl (Zofran Inj) 4 mg IV.PUSH Q6H PRN PRN Reason: NAUSEA OR VOMITING Senna/Docusate Sodium (Helga-Colace) 1 tab PO BID [facility] Last Admin: 03/15/18 08:49 Dose: 1 tab Sennosides (Senokot) 17.2 mg PO Q12H PRN PRN Reason: Moderate Constipation Allergies Allergy/AdvReac Type Severity Reaction Status Date / Time No Known Allergies Allergy Verified 03/14/18 10:44 Home Medications Medication Instructions Recorded Confirmed Type carisoprodol [Soma] 250 mg PO QID PRN 03/13/18 03/14/18 History dextroamphetamine-amphetamine 30 mg PO QAM 03/13/18 03/14/18 History [Adderall XR] alprazolam [Xanax] 3 mg PO HS PRN 03/14/18 03/14/18 History oxycodone 15 mg PO Q4-6H PRN 03/14/18 03/14/18 History Physical Exam Vital signs: Vital Signs 03/14/18 19:12 03/14/18 19:15 03/14/18 19:30 Temperature 97.9 F Pulse Rate 77 73 77 Respiratory Rate 12 12 18 Blood Pressure 100/68 104/70 104/71 Pulse Oximetry 94 L 99 99 03/14/18 19:45 03/14/18 20:00 03/14/18 20:15 Temperature Pulse Rate 75 76 79 Respiratory Rate 10 L 12 17 Blood Pressure 112/67 123/79 125/78 Pulse Oximetry 100 99 100 03/14/18 20:30 03/14/18 20:45 03/14/18 21:00 Temperature 97.7 F Pulse Rate 80 83 Respiratory Rate 16 16 Blood Pressure 124/82 111/56 L Pulse Oximetry 100 100 100 03/15/18 00:00 03/15/18 01:19 03/15/18 04:00 Temperature 97.8 F 98.2 F Pulse Rate 59 L 88 Respiratory Rate 12 19 13 Blood Pressure 130/86 121/85 Pulse Oximetry 97 97 03/15/18 04:51 03/15/18 08:00 03/15/18 08:51 Temperature 98.2 F Pulse Rate 84 Respiratory Rate 18 16 Blood Pressure 124/78 Pulse Oximetry 99 03/15/18 08:53 Temperature Pulse Rate Respiratory Rate 16 Blood Pressure Pulse Oximetry Intake & Output 03/14/18 03/15/18 03/15/18 18:59 06:59 18:59 Intake Total 3600 / 3600 1010 / 1010 1050 / 1050 Output Total 550 / 550 1880 / 1880 250 / 250 Balance 3050 / 3050 -870 / -870 800 / 800 Weight 79.9 kg Intake: IV 100 / 100 50 / 50 1050 / 1050 NS Inj 1,000 ML @ 100 mls/hr IV 1000 / 1000 .CONT .Q10H [facility] Rx#:[id number] Ancef 2 GM Premix Inj 2 gm In 100 / 100 50 / 50 50 / 50 50 ml @ 100 mls/hr IV.SIG Q8H [facility] Rx#:[id number] Oral 960 / 960 Anesthesia Amount 3500 / 3500 Output: Estimated Blood Loss 350 / 350 Urine Amount (Catheter) 200 / 200 1500 / 1500 250 / 250 Indwelling Urethral Catheter 200 / 200 1500 / 1500 250 / 250 Wound Drainage 380 / 380 # 1 Left Upper Back NELSON Drain 260 / 260 # 2 Right Lower Back NELSON Drain 110 / 110 # 2 Right Upper Back 10 / 10 Other: Weight On Admission 79.9 kg Narrative: Awake alert oriented x3 not in distress speech clear Anicteric sclera Neck supple Chest lungs bilateral breath sounds equal no rales no wheezes Regular rhythm Abdomen is soft nontender with good bowel sounds Examination of the back with longitudinal postop dressing in place in the spines with NELSON bulb x2 in place with some light serosanguineous fluid Good peripheral pulses Motor moves all extremities spontaneously gait testing deferred grossly no sensory deficit - Urinary Catheter Management Indwelling Urethral Catheter Cath placed during this visit: yes, but has since been removed by the nurse Reason for continuing: Decision to DC catheter Insertion date: 03/14/18 Insertion time: 13:30 Removal date: 03/15/18 Removal time: 09:00 Assessment and Plan - Plan 37-year-old male admitted under neurosurgical services s/p Open reduction internal fixation of thoracic fracture, T7 to L2 posterolateral fusion- 03/14 -Dr. Mohamud following PT OT daily Continue on pain management per Dr. Mohamud Helga-Colace for bowel regimen. History of ADD. Continue on Adderall XR 30 mg every morning. Xanax 3 mg at bedtime Discharge planning. Case management consulted for home health care/health clinic patient therapy or home physical therapy We will order for incentive spirometry hourly 7 AM to 9 PM Thank you for this consult will follow patient in-house with you Discussed Condition With: Patient and parents at bedside
[2018-03-16] MEDS: Sod Chloride 0.9% Inj 1,000 ML IV.CONT SCH ×3 (01:49→21:40)
[2018-03-16] MEDS: HYDROmorphone PCA Inj 6 MG/30 ML PCA.VIAL PCA PRN ×3 (02:40→10:21)
[2018-03-16] MEDS: Senna/Docusate Sodium 8.6/50 MG Tablet PO SCH ×2 (09:54→21:48)
[2018-03-16] MEDS: Amphetamine/Dextroamphetamine XR 30 MG Capsule PO SCH (10:02)
[2018-03-16] MEDS: Morphine Sulfate Inj 2 MG/ML Vial IV.PUSH PRN ×2 (10:20→15:12)
[2018-03-16] MEDS ORDERED: oxyCODONE/Acetaminophen 10/325 Tablet PO PRN (10:35)
--- NOTE | 2018-03-16 10:39 | P.PNNS ---
Subjective Interval history: Transfer to floor yesterday. Family reports that there was some kind of issue with his bed that caused his blood pressure to get low, but unclear meaning of that and no significant change in his medical status otherwise. The oral pain medications have been making him nauseous and he has been refusing them, even with Zofran, so he has not achieved much better pain control as he is not getting oral meds for baseline. Physical Exam Vital signs: Vital Signs 03/15/18 12:00 03/15/18 15:23 03/15/18 16:00 Temperature 98 F 98.1 F Pulse Rate 91 H 102 H Respiratory Rate 16 Blood Pressure 140/85 130/75 Pulse Oximetry 99 99 03/15/18 17:34 03/15/18 19:38 03/15/18 21:16 Temperature 97.7 F Pulse Rate 101 H Respiratory Rate 17 18 16 Blood Pressure 134/76 Pulse Oximetry 99 03/15/18 23:38 03/16/18 01:16 EST 03/16/18 03:00 Temperature 97.9 F 98.7 F Pulse Rate 104 H 116 H Respiratory Rate 18 17 18 Blood Pressure 116/69 109/70 Pulse Oximetry 98 98 03/16/18 03:10 03/16/18 06:05 03/16/18 07:59 Temperature 99.3 F Pulse Rate 110 H Respiratory Rate 18 18 18 Blood Pressure 118/72 Pulse Oximetry 94 L Intake & Output 03/15/18 03/16/18 03/16/18 19:59 06:59 18:59 Intake Total Output Total Balance Weight Intake: IV NS Inj 1,000 ML @ 100 mls/hr IV .CONT .Q10H [facility] Rx#:[id number] Ancef 2 GM Premix Inj 2 gm In 50 ml @ 100 mls/hr IV.SIG Q8H [facility] Rx#:[id number] Oral Output: Urine Amount (Catheter) Indwelling Urethral Catheter Wound Drainage # 1 Left Upper Back NELSON Drain # 2 Right Lower Back NELSON Drain # 2 Right Upper Back Other: # Voids # Bowel Movements - Routine Neurological Exam Alert and conversant. Normal strength throughout. NELSON drains 60, 90, and 150 mL overnight. Dressing in place. - Urinary Catheter Management Indwelling Urethral Catheter Cath placed during this visit: yes, but has since been removed by the nurse Reason for continuing: Decision to DC catheter Insertion date: 03/14/18 Insertion time: 13:30 Removal date: 03/15/18 Removal time: 09:00 Assessment and Plan - Plan Patient status post redo ORIF T7-L2 for T12 burst fracture, with nonunion and proximal junctional kyphosis. Now postop day 1, has fairly common amount of postoperative pain. Suspect that his lower lip numbness is from the ET tube and likely to improve. Left arm sensory change may be from positioning, no evidence of new weakness in that arm, so no plan for emergent imaging etc. Neuro: Keep NELSON drains in place. We were not able to increase his CPA TAX dose yesterday, as the pump lockout dose is set systemwide and we could not increase it any further. We encouraged him to use Tensed, but it nauseates him, so we will switch to Percocet today to see if that helps. Any patients tolerate Percocet better than oral hydrocodone. He can continue to use Zofran ahead of oral medication as needed. Needs PT/OT. CV/pulmonary: Stable on room air GI: P.o. ad comfort. Zofran as needed for nausea. Heme: No current issues Renal: Monitor urine output Dispo: We will see what PT OT think, patient not yet mobilizing due to pain control issues.
--- NOTE | 2018-03-16 12:50 | P.PNIM ---
Subjective Interval history: Chief Complaint: Postop screws getting loose History of Present Illness: Patient is a 37-year-old right-handed male who about 1-1/2 years ago status post fall and sustained a T12 burst fracture had surgery done then with screws. Patient was doing well independently. On follow-up last May 2017 felt that the bolts in his back were getting loose. Patient still was able to walk independently occasional constipation pain well controlled with p.o. meds. Screws and bolts were so loose that it has been affecting his back posture and was noted to be spine to be coming quite kyphotic. Patient was finally admitted yesterday March 14 and underwent open reduction internal fixation by Dr. Mohamud. [facility]. Patient denies any history of hypertension CAD diabetes. Patient with history of ADD. 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 Patient seen currently at bedside with parents denies any incontinence positive constipation very well motivated with doing more physical therapy. Social history admits to occasional beer denies any recreational drug use history of smoking but quit about a week ago -advised by Dr. 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 AND FAMILY AND CM AM LABS Physical Exam Vital signs: Vital Signs 03/15/18 15:23 03/15/18 16:00 03/15/18 17:34 Temperature 98.1 F Pulse Rate 102 H Respiratory Rate 16 17 Blood Pressure 130/75 Pulse Oximetry 99 03/15/18 19:38 03/15/18 21:16 03/15/18 23:38 Temperature 97.7 F 97.9 F Pulse Rate 101 H 104 H Respiratory Rate 18 16 18 Blood Pressure 134/76 116/69 Pulse Oximetry 99 98 03/16/18 01:16 EST 03/16/18 03:00 03/16/18 03:10 Temperature 98.7 F Pulse Rate 116 H Respiratory Rate 17 18 18 Blood Pressure 109/70 Pulse Oximetry 98 03/16/18 06:05 03/16/18 07:59 Temperature 99.3 F Pulse Rate 110 H Respiratory Rate 18 18 Blood Pressure 118/72 Pulse Oximetry 94 L Intake & Output 03/15/18 03/16/18 03/16/18 19:59 06:59 18:59 Intake Total Output Total Balance Weight Intake: IV NS Inj 1,000 ML @ 100 mls/hr IV .CONT .Q10H CAROLYN Rx#:[id number] Ancef 2 GM Premix Inj 2 gm In 50 ml @ 100 mls/hr IV.SIG Q8H CAROLYN Rx#:[id number] Oral Output: Urine Amount (Catheter) Indwelling Urethral Catheter Wound Drainage # 1 Left Upper Back NELSON Drain # 2 Right Lower Back NELSON Drain # 2 Right Upper Back Other: # Voids # Bowel Movements Narrative: Awake alert oriented x3 appears quite uncomfortable at this time Head is normocephalic atraumatic Anicteric sclera PERRLA EOMI Oral mucosa is moist tongue is midline Neck supple no obvious JVD Chest lungs bilateral breath sounds equal no rales no wheezes Regular rhythm S1-S2 no S3 or S4 Abdomen is soft nontender with good bowel sounds Examination of the back with longitudinal postop dressing in place in the spines with NELSON bulb x2 in place with some light serosanguineous fluid No clubbing cyanosis or edema good pedal pulses bilaterally Good peripheral pulses Motor moves all extremities spontaneously gait testing deferred grossly no sensory deficit Appears quite uncomfortable Insight and judgment is good Mood and behavior is appropriate - Urinary Catheter Management Indwelling Urethral Catheter Cath placed during this visit: yes, but has since been removed by the nurse Reason for continuing: Decision to DC catheter Insertion date: 03/14/18 Insertion time: 13:30 Removal date: 03/15/18 Removal time: 09:00 Results - Labs CBC & Chem 7: 03/15/18 04:21 03/15/18 04:21 Laboratory Tests 03/14/18 03/14/18 03/14/18 10:23 10:35 10:35 WBC 8.0 RBC 5.13 Hgb 17.2 H Hct 46.6 MCV 90.8 MCH 33.6 MCHC 36.9 H RDW 13.3 Plt Count 279 MPV 7.8 Prelim Diff (Auto) Slide review pending Neut % (Auto) 65.4 Lymph % (Auto) 27.5 [place] % (Auto) 5.8 Eos % (Auto) 0.9 Baso % (Auto) 0.4 Neut # (Auto) 5.2 Lymph # (Auto) 2.2 [place] # (Auto) 0.5 Eos # (Auto) 0.1 Baso # (Auto) 0.0 WBC Differential . Diff Scan Auto diff confirmed Differential Comment . PT INR APTT Puncture Site Patient Temperature O2 Saturation ABG pH ABG pCO2 ABG pO2 ABG HCO3 ABG O2 Content ABG Base Excess ABG Methemoglobin Hemoglobin Carboxyhemoglobin O2 Delivery Device Inspired O2 Critical Value Sodium Potassium Chloride Carbon Dioxide Anion Gap BUN Creatinine Estimated GFR Random Glucose Calcium Magnesium Total Bilirubin AST ALT Alkaline Phosphatase Total Protein Albumin Urine Color Hue Urine Clarity Hazy H Urine pH 5.0 Ur Specific [place] 1.027 Urine Protein 30 H Urine Glucose (UA) Negative Urine Ketones Trace H Urine Occult Blood Negative Urine Nitrate Negative Urine Bilirubin Negative Urine Urobilinogen 4 or greater Ur Leukocyte Esterase Negative Urine RBC Less than 1 Urine WBC 2 Ur Squamous Epith Cells <1 Urine Mucus Moderate H Micro UA Comment Culture not ind Ur Microscopic Review Not Reportable Urine Culture Comments Culture not ind Nasal Screen MRSA (PCR) Not detected Blood Type Antibody Screen MTS Gel Crossmatch 03/14/18 03/14/18 03/14/18 10:50 10:50 10:50 WBC RBC Hgb Hct MCV MCH MCHC RDW Plt Count MPV Prelim Diff (Auto) Neut % (Auto) Lymph % (Auto) [place] % (Auto) Eos % (Auto) Baso % (Auto) Neut # (Auto) Lymph # (Auto) [place] # (Auto) Eos # (Auto) Baso # (Auto) WBC Differential Diff Scan Differential Comment PT 10.4 INR 1.0 APTT 29.7 Puncture Site Patient Temperature O2 Saturation ABG pH ABG pCO2 ABG pO2 ABG HCO3 ABG O2 Content ABG Base Excess ABG Methemoglobin Hemoglobin Carboxyhemoglobin O2 Delivery Device Inspired O2 Critical Value Sodium 139 Potassium 3.9 Chloride 105 Carbon Dioxide 25.9 Anion Gap 8 BUN 12 Creatinine 1.07 Estimated GFR 79 L Random Glucose 78 Calcium 9.5 Magnesium Total Bilirubin 0.9 AST 23 ALT 24 Alkaline Phosphatase 58 Total Protein 8.0 Albumin 4.0 Urine Color Urine Clarity Urine pH Ur Specific [place] Urine Protein Urine Glucose (UA) Urine Ketones Urine Occult Blood Urine Nitrate Urine Bilirubin Urine Urobilinogen Ur Leukocyte Esterase Urine RBC Urine WBC Ur Squamous Epith Cells Urine Mucus Micro UA Comment Ur Microscopic Review Urine Culture Comments Nasal Screen MRSA (PCR) Blood Type A Positive Antibody Screen Negative MTS Gel Crossmatch See Detail 03/14/18 03/15/18 03/15/18 18:14 04:21 04:21 WBC 17.7 H D RBC 4.88 Hgb 15.8 Hct 45.4 MCV 93.0 MCH 32.3 MCHC 34.8 RDW 13.4 Plt Count 265 MPV 8.2 Prelim Diff (Auto) Neut % (Auto) 88.8 H Lymph % (Auto) 6.1 L [place] % (Auto) 5.0 Eos % (Auto) 0.0 Baso % (Auto) 0.1 Neut # (Auto) 15.7 H Lymph # (Auto) 1.1 [place] # (Auto) 0.9 Eos # (Auto) 0.0 Baso # (Auto) 0.0 WBC Differential . Diff Scan Differential Comment Auto diff final PT 10.0 INR 1.0 APTT 26.8 Puncture Site Art line Patient Temperature 98.6 O2 Saturation 96 ABG pH 7.38 ABG pCO2 39 ABG pO2 224 H ABG HCO3 23 ABG O2 Content 18.8 ABG Base Excess -1.8 ABG Methemoglobin 1.6 Hemoglobin 13.6 Carboxyhemoglobin 1.9 O2 Delivery Device Ventilator Inspired O2 50 Critical Value No Sodium Potassium Chloride Carbon Dioxide Anion Gap BUN Creatinine Estimated GFR Random Glucose Calcium Magnesium Total Bilirubin AST ALT Alkaline Phosphatase Total Protein Albumin Urine Color Urine Clarity Urine pH Ur Specific [place] Urine Protein Urine Glucose (UA) Urine Ketones Urine Occult Blood Urine Nitrate Urine Bilirubin Urine Urobilinogen Ur Leukocyte Esterase Urine RBC Urine WBC Ur Squamous Epith Cells Urine Mucus Micro UA Comment Ur Microscopic Review Urine Culture Comments Nasal Screen MRSA (PCR) Blood Type Antibody Screen MTS Gel Crossmatch 03/15/18 04:21 WBC RBC Hgb Hct MCV MCH MCHC RDW Plt Count MPV Prelim Diff (Auto) Neut % (Auto) Lymph % (Auto) [place] % (Auto) Eos % (Auto) Baso % (Auto) Neut # (Auto) Lymph # (Auto) [place] # (Auto) Eos # (Auto) Baso # (Auto) WBC Differential Diff Scan Differential Comment PT INR APTT Puncture Site Patient Temperature O2 Saturation ABG pH ABG pCO2 ABG pO2 ABG HCO3 ABG O2 Content ABG Base Excess ABG Methemoglobin Hemoglobin Carboxyhemoglobin O2 Delivery Device Inspired O2 Critical Value Sodium 137 Potassium 4.4 Chloride 103 Carbon Dioxide 25.5 Anion Gap 9 BUN 15 Creatinine 0.97 Estimated GFR 88 L Random Glucose 103 Calcium 8.2 L D Magnesium 2.3 Total Bilirubin AST ALT Alkaline Phosphatase Total Protein Albumin Urine Color Urine Clarity Urine pH Ur Specific [place] Urine Protein Urine Glucose (UA) Urine Ketones Urine Occult Blood Urine Nitrate Urine Bilirubin Urine Urobilinogen Ur Leukocyte Esterase Urine RBC Urine WBC Ur Squamous Epith Cells Urine Mucus Micro UA Comment Ur Microscopic Review Urine Culture Comments Nasal Screen MRSA (PCR) Blood Type Antibody Screen MTS Gel Crossmatch - Imaging ITS Impressions Chest X-Ray 03/14/18 00:00 CONCLUSION: Mild increased density in the left lung compared to the right which may be artifactual. There is no focal consolidation. Thoracic Spine X-Ray 03/14/18 00:00 CONCLUSION: Good placement of surgical hardware. - Procedures Preoperative Diagnosis: TThoracic fracture with severe progressive thoracic khyphosis and instability Postoperative Diagnosis: Thoracic fracture with severe progressive thoracic khyphosis and instability Date of procedure: 03/14/18 Procedure: Open reduction internal fixation of thoracic fracture, T7 to L2 posterolateral fusion using autologous iliac crest bone graft with demineralized bone matric, T7 to L2 segmental instrumental fixation using transpedicular screws and rods, harvesting of autologous iliac crest bone graft Anesthesia: GETA Surgeon: Carlos Mohamud MD Caustic Preparer: Valentina Lobo Pathology: none sent Operation and Findings: INDICATIONS FOR THE SURGICAL PROCEDURE Mr Yusuf is a 37 year-old male with history of a T12 burst fracture and prior reduction with arthrodhesis. He continues to smoke and was very active physcally. His fracture failked to heal properly and he developed progressive khyphosis pulling of the superior screws with failure of the instrumentation. AN open reduction and internal fixation was indicated. The [id number] details of the procedure, indications, alternatives, risks and potential complications were fully discussed with the patient and his . The patient fully understood. All questions were answered. No guarantees were given. The patient voiced requesting the procedure and provided informed consents. The patient had been offered the alternative of delaying the procedure and continuing with nonsurgical management or to referal to a [facility] for a combined anterior-posterior approach. DETAILS OF THE SURGICAL PROCEDURE Prior to the procedure,the surgical incision was marked in the preoperative surgical holding room, and the procedure, risks, and potential complications revisited with the patient. Placement of electrodes for intraoperative neurophysiological monitoring was completed. The patient was taken to the operative room, and following induction of general anesthesia, endotracheal intubation was performed. A Saini catheter bilateral Soham and sequential compression devices were placed and kept throughout the procedure. The patient was carefully rolled into the prone position over a Mj table with a gell rolls. All pressure points were carefully padded with eggcrate mattress. The eyes were tapped shut after ointment was applied by the anesthesiologist to prevent corneal abrasion. A Peace hugger was placed over the expossed lower body to maintain control of the core body temperature. The electrophysiological team placed the needles and electrodes in their proper location and baseline SSEP's and motor evoked potentials were registered. The thoracic lumbar region was prepped and draped in the usual sterile fashion. A localizing X-ray was performed with the C-arm and the fracture was localized. Two paramedian skin incisions were outlined from T7 to L2 Surgical Approach The skin incisions were made with a #10 blade. Dissection was carried out through the thoracolumbar fascia with a Bovie. The facets of T10 down to L2 were exposed and a subperiosteal dissection was performed decorticating the facets and lateral gutters of the spine. Instrumental fixation At this point in the procedure, placement of bilateral transpedicular screws was necessary for stabilization of the spine at T7, T8, and T9. The levels were carefully marked with a TPS and bilateral transpedicular screws were placed using a standard fashion. Initially, the entry point for the screw was selected anatomically at the junction of the facet, with the transverse process, and the pars interarticularis using symultaneous AP and lateral xrays. This was started with a Giamshetti needle followed by the use of a dodson wire. A tap was used to create the threads for the screws. Finally bilateral transpedicular screws were carefully placed bilaterally at T7, T8, and T9. The position of each screw was assessed anatomically with an AP, lateral, oblique Xrays. An intraoperative scan view of the spine was then performed using the iso-centric c-arm. At this point of the procedure, the cross link of the prior instrumentation was carefully exposed free of scar tissue. Then, the caps of the previously placed screws were sequentially removed allowing removal of the rods. The screws at T10 and T11 had pulled out. There was extensive scar tissue around the screws which was carefully dissected on resected. No evidence of infection was found. The screws from T10 and T11 were carefully removed. At this point in the procedure, placement of bilateral transpedicular screws was carrioed out at T10 and T11 using a standard fashion. Initially, the entry point for the screw was selected anatomically Using symultaneous AP and lateral xrays. the screw trajectorys was started with a Giamshetti needle, followed by the use of a dodson wire. A tap was used to create the threads for the screws. Bilateral transpedicular screws were then placed at T10 and T11. The position of each screw was assessed anatomically with an AP, lateral, oblique Xrays. An intraoperative scan view of the spine was then performed using the iso-centric c-arm. HARVESTING OF ILLIAC CREST BONE An incision was then made over the patient's right posterior iliac crest. The fascia was carefully opened with a Bovie and the posterior iliac crest was exposed. A small cortical window was created with an osteotome. Cancellous bone was then harvested, to be used during the interbody arthrodesis and the posterolateral fusion. Once an appropriate amount of bone was obtained, the incision was irrigated with antibiotic solution and hemostasis secured by packing the iliac crest with Surgicel. The cortical window was then repositioned and secured using 0 Vicryl sutures. The incision was irrigated and the fascia was closed with interrupted 0 Vicryl sutures. The subcutaneous tissue was approximated with Stratafix sutures. Posterolateral fusion Then, the lateral gutters of the spine at T7-8, T8-9, T9-10, T10-T11, T11-T12, T12-L1, and L1-L2 were carefully decorticated with a TPS drill in preparation for the posterior lateral fusion. The incision was thoroughly irrigated with antibiotic solution. The posterolateral fusion was performed by carefully packing the gutters of the spine at TT7 down to L2 with a autologous iliac crest bone graft combined with demineralized bone matrix. Completion of the Procedure The rods were brought to the field. Sequential application of the cap was achieved which allowed for further correction of the kyphosis. Final tightening of all screws was achieved with a torque wrench. The incision was thoroughly irrigated with several liters of antibiotic solution. The decompression was reassessed with an nerve hook and found to be appropriate. Seven mm Mj- Seo drain was left on the epidural space and was then externalized through a separate stab incision. The incision was then closed in layers. 0 Vicryl with interrupted sutures were used to close the thoracolumbar fascia. The superficial fascia was closed with 0 Vicryl sutures. Three-0 Vicryl was used to close the subcutaneous tissue. The skin was closed with negra. At the end of the procedure the sponges, needles, and instrument counts were all correct. Estimated blood loss was 350 cc's. No complications occurred. The patient received prophylactic antibiotics. The patient was then extubated and transferred to the recovery room in stable condition. The entire procedure was performed using electrophysiological monitor of the electromyogram, evoked potential and sphincters. No intraoperative abnormalities were detected. Documented By: Carlos Mohamud MD 03/14/18 [id number] Assessment and Plan - Plan 37-year-old male admitted under neurosurgical services s/p Open reduction internal fixation of thoracic fracture, T7 to L2 posterolateral fusion- 03/14 -Dr. Mohamud following PT OT daily Continue on pain management per Dr. Mohamud Helag-Colace for bowel regimen. History of ADD. Continue on Adderall XR 30 mg every morning. Xanax 3 mg at bedtime Discharge planning. 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
--- NOTE | 2018-03-16 19:17 | XR ---
EXAM DATE: 03/16/2018 7:10 PM EST AGE/SEX: 37 years / Male INDICATIONS: Constipation for one week with vomiting and nausea for one day. Pain across middle of a bdomen radiating into epigastric region. CLINICAL DATA: This is the patient's initial encounter. Patient reports that signs and symptoms have been present for 1 week and indicates a pain score of 8/10. MEDICAL/SURGICAL HISTORY: . Spinal fracture. . Thoracolumbar fusion. [place] [facility] [place]. . FINDINGS: Upper limits of normal caliber small and large bowel without a clear abrupt caliber change and most typical of ileus. No free air demonstrated. Apparent recent revision of thoracolumbar fusion. CONCLUSION: Features most typical of a mild, diffuse ileus. Electronically signed by: Fareed Morton MD 03/16/2018 7:15 PM EST
[2018-03-17 05:47] LABS: Baso # (Auto) 0.1 th/mm3 (0.0-0.2); Baso % (Auto) 0.4 % (0.0-2.0); Eos % (Auto) 0.1 % (0.0-4.0); Hematocrit 35.6 % (39.0-51.0); Hemoglobin 12.6 gm/dL (13.0-17.0); Lymph % (Auto) 13.6 % (9.0-44.0); Mean Corpuscular HGB Conc 35.3 % (32.0-36.0); Mean Corpuscular Hemoglobin 32.6 pg (27.0-34.0); Mean Corpuscular Volume 92.3 fL (80.0-100.0); Mono % (Auto) 6.9 % (0.0-8.0); Neut # (Auto) 11.5 th/mm3 (1.8-7.7); Platelet Count 261 th/mm3 (150-450); Red Blood Count 3.86 mil/mm3 (4.50-5.90); Red Cell Distribution Width 13.1 % (11.6-17.2); White Blood Count 14.6 th/mm3 (4.0-11.0)
[2018-03-17 06:27] LABS: Alanine Aminotransferase 27 U/L (12-78); Albumin 2.6 g/dL (3.4-5.0); Alkaline Phosphatase 52 U/L (45-117); Anion Gap 11 meq/L (5-15); Aspartate Aminotransferase 61 U/L (15-37); Blood Urea Nitrogen 6 mg/dL (7-18); Calcium 8.4 mg/dL (8.5-10.1); Carbon Dioxide 25.9 meq/L (21.0-32.0); Chloride 100 meq/L (98-107); Free T4 (Free Thyroxine) 1.16 ng/dL (0.76-1.46); Glomerular Filtration Rate Greater Than 89 mL/min (>89); Glucose,Random 90 mg/dL (74-106); Magnesium 1.9 mg/dL (1.5-2.5); Phosphorus 2.7 mg/dL (2.5-4.9); Potassium 3.7 meq/L (3.5-5.1); Sodium 137 meq/L (136-145); Thyroid Stimulating Hormone 0.622 uIU/mL (0.358-3.740); Total Protein 6.3 g/dL (6.4-8.2)
[2018-03-17] MEDS: Sod Chloride 0.9% Inj 1,000 ML IV.CONT SCH ×2 (09:50→15:17)
--- NOTE | 2018-03-17 11:46 | P.PNIM ---
Subjective Interval history: Chief Complaint: Postop screws getting loose History of Present Illness: Patient is a 37-year-old right-handed male who about 1-1/2 years ago status post fall and sustained a T12 burst fracture had surgery done then with screws. Patient was doing well independently. On follow-up last May 2017 felt that the bolts in his back were getting loose. Patient still was able to walk independently occasional constipation pain well controlled with p.o. meds. Screws and bolts were so loose that it has been affecting his back posture and was noted to be spine to be coming quite kyphotic. Patient was finally admitted yesterday March 14 and underwent open reduction internal fixation by Dr. Mohamud. [facility] consulted form medical management. Patient denies any history of hypertension CAD diabetes. Patient with history of ADD. Review of home meds patient is on Xanax 3 mg at bedtime, Soma 250 mg 4 times daily, Adderall 30 mg XL every morning, oxycodone 50 mg every 4-6 hours as needed for pain Currently in-house patient is on [place] 10, Adderall, cefazolin, TIMBER FALLER Dilaudid, Helga-Colace and vancomycin. Patient seen currently at bedside with parents denies any incontinence positive constipation very well motivated with doing more physical therapy. Social history admits to occasional beer denies any recreational drug use history of smoking but quit about a week ago -advised by Dr. Mohamud 11-4 HAVING PAIN AND NAUSEA USING PAIN TIMBER FALLER DW RN AND PT AND FAMILY AND CM AM LABS 11-5 PATIENT NOT USING TIMBER FALLER ANYMORE HAS NOT HAD BM GIVE DULCOLAX SUPP TODAY DW RN AND PT AND FAMILY ADD ATIVAN FOR ANXIETY MILD ILEUS ON KUB SIMETHICONE FOR GAS SCHEDULE MEDS FOR CONSTIPATION Physical Exam Vital signs: Vital Signs 03/16/18 12:00 03/16/18 13:33 03/16/18 14:51 Temperature 98.9 F Pulse Rate 105 H Respiratory Rate 18 16 Blood Pressure 99/56 L 98/58 L Pulse Oximetry 95 03/16/18 16:00 03/16/18 19:59 03/16/18 20:00 Temperature 98.9 F 98.7 F Pulse Rate 108 H 105 H Respiratory Rate 18 16 17 Blood Pressure 113/58 L 102/66 Pulse Oximetry 92 L 94 L 03/17/18 00:00 03/17/18 04:00 03/17/18 08:00 Temperature 98.9 F 98.6 F 98.3 F Pulse Rate 118 H 112 H 115 H Respiratory Rate 17 16 16 Blood Pressure 105/64 127/62 137/70 Pulse Oximetry 94 L 95 97 Intake & Output 03/16/18 03/17/18 03/17/18 18:59 06:59 18:59 Intake Total 1000 / 1000 1000 / 1000 Output Total 90 / 90 Balance 910 / 910 1000 / 1000 Weight 81 kg Intake: IV 1000 / 1000 1000 / 1000 NS Inj 1,000 ML @ 100 mls/hr IV 1000 / 1000 1000 / 1000 .CONT .Q10H [facility] Rx#:[id number] Output: Wound Drainage 90 / 90 # 1 Left Upper Back NELSON Drain 40 / 40 # 2 Right Upper Back 50 / 50 Other: # Voids 3 2 Date of Last Bowel Movement 03/11/18 03/11/18 03/11/18 Narrative: Awake alert oriented x3 appears quite uncomfortable at this time Head is normocephalic atraumatic Anicteric sclera PERRLA EOMI Oral mucosa is moist tongue is midline Neck supple no obvious JVD Chest lungs bilateral breath sounds equal no rales no wheezes Regular rhythm S1-S2 no S3 or S4 Abdomen is soft nontender with HYPOACTIVE bowel sounds Examination of the back with longitudinal postop dressing in place in the spines with NELSON bulb x2 in place with some light serosanguineous fluid No clubbing cyanosis or edema good pedal pulses bilaterally Good peripheral pulses Motor moves all extremities spontaneously gait testing deferred grossly no sensory deficit Appears quite uncomfortable Insight and judgment is good Mood and behavior is appropriate - Urinary Catheter Management Indwelling Urethral Catheter Cath placed during this visit: yes, but has since been removed by the nurse Reason for continuing: Decision to DC catheter Insertion date: 03/14/18 Insertion time: 13:30 Removal date: 03/15/18 Removal time: 09:00 Results - Labs CBC & Chem 7: 03/17/18 05:16 03/17/18 05:16 Laboratory Results - last 24 hr 03/14/18 03/17/18 03/17/18 10:50 05:16 05:16 WBC 14.6 H RBC 3.86 L Hgb 12.6 L Hct 35.6 L MCV 92.3 MCH 32.6 MCHC 35.3 RDW 13.1 Plt Count 261 MPV 8.0 Neut % (Auto) 79.0 H Lymph % (Auto) 13.6 Placer % (Auto) 6.9 Eos % (Auto) 0.1 Baso % (Auto) 0.4 Neut # (Auto) 11.5 H Lymph # (Auto) 2.0 Placer # (Auto) 1.0 H Eos # (Auto) 0.0 Baso # (Auto) 0.1 WBC Differential . Differential Comment Auto diff final Sodium 137 Potassium 3.7 Chloride 100 Carbon Dioxide 25.9 Anion Gap 11 BUN 6 L Creatinine 0.84 Estimated GFR Greater than 89 Random Glucose 90 Calcium 8.4 L Phosphorus 2.7 Magnesium 1.9 Total Bilirubin 1.0 AST 61 H ALT 27 Alkaline Phosphatase 52 Total Protein 6.3 L D Albumin 2.6 L TSH 0.622 Free T4 1.16 MTS Gel Crossmatch See Detail - Imaging Impressions Abdomen X-Ray 03/16/18 00:00 CONCLUSION: Features most typical of a mild, diffuse ileus. - Procedures Preoperative Diagnosis: TThoracic fracture with severe progressive thoracic khyphosis and instability Postoperative Diagnosis: Thoracic fracture with severe progressive thoracic khyphosis and instability Date of procedure: 03/14/18 Procedure: Open reduction internal fixation of thoracic fracture, T7 to L2 posterolateral fusion using autologous iliac crest bone graft with demineralized bone matric, T7 to L2 segmental instrumental fixation using transpedicular screws and rods, harvesting of autologous iliac crest bone graft Anesthesia: JAZIELA Surgeon: Carlos Mohamud MD Roper Operator: Valentina Lobo Pathology: none sent Operation and Findings: INDICATIONS FOR THE SURGICAL PROCEDURE Mr Yusuf is a 37 year-old male with history of a T12 burst fracture and prior reduction with arthrodhesis. He continues to smoke and was very active physcally. His fracture failked to heal properly and he developed progressive khyphosis pulling of the superior screws with failure of the instrumentation. AN open reduction and internal fixation was indicated. The [id number] details of the procedure, indications, alternatives, risks and potential complications were fully discussed with the patient and his . The patient fully understood. All questions were answered. No guarantees were given. The patient voiced requesting the procedure and provided informed consents. The patient had been offered the alternative of delaying the procedure and continuing with nonsurgical management or to referal to a terciary center for a combined anterior-posterior approach. DETAILS OF THE SURGICAL PROCEDURE Prior to the procedure,the surgical incision was marked in the preoperative surgical holding room, and the procedure, risks, and potential complications revisited with the patient. Placement of electrodes for intraoperative neurophysiological monitoring was completed. The patient was taken to the operative room, and following induction of general anesthesia, endotracheal intubation was performed. A Saini catheter bilateral Soham and sequential compression devices were placed and kept throughout the procedure. The patient was carefully rolled into the prone position over a Mj table with a gell rolls. All pressure points were carefully padded with eggcrate mattress. The eyes were tapped shut after ointment was applied by the anesthesiologist to prevent corneal abrasion. A Peace hugger was placed over the expossed lower body to maintain control of the core body temperature. The electrophysiological team placed the needles and electrodes in their proper location and baseline SSEP's and motor evoked potentials were registered. The thoracic lumbar region was prepped and draped in the usual sterile fashion. A localizing X-ray was performed with the C-arm and the fracture was localized. Two paramedian skin incisions were outlined from T7 to L2 Surgical Approach The skin incisions were made with a #10 blade. Dissection was carried out through the thoracolumbar fascia with a Bovie. The facets of T10 down to L2 were exposed and a subperiosteal dissection was performed decorticating the facets and lateral gutters of the spine. Instrumental fixation At this point in the procedure, placement of bilateral transpedicular screws was necessary for stabilization of the spine at T7, T8, and T9. The levels were carefully marked with a TPS and bilateral transpedicular screws were placed using a standard fashion. Initially, the entry point for the screw was selected anatomically at the junction of the facet, with the transverse process, and the pars interarticularis using symultaneous AP and lateral xrays. This was started with a Giamshetti needle followed by the use of a dodson wire. A tap was used to create the threads for the screws. Finally bilateral transpedicular screws were carefully placed bilaterally at T7, T8, and T9. The position of each screw was assessed anatomically with an AP, lateral, oblique Xrays. An intraoperative scan view of the spine was then performed using the iso-centric c-arm. At this point of the procedure, the cross link of the prior instrumentation was carefully exposed free of scar tissue. Then, the caps of the previously placed screws were sequentially removed allowing removal of the rods. The screws at T10 and T11 had pulled out. There was extensive scar tissue around the screws which was carefully dissected on resected. No evidence of infection was found. The screws from T10 and T11 were carefully removed. At this point in the procedure, placement of bilateral transpedicular screws was carrioed out at T10 and T11 using a standard fashion. Initially, the entry point for the screw was selected anatomically Using symultaneous AP and lateral xrays. the screw trajectorys was started with a Giamshetti needle, followed by the use of a dodson wire. A tap was used to create the threads for the screws. Bilateral transpedicular screws were then placed at T10 and T11. The position of each screw was assessed anatomically with an AP, lateral, oblique Xrays. An intraoperative scan view of the spine was then performed using the iso-centric c-arm. HARVESTING OF ILLIAC CREST BONE An incision was then made over the patient's right posterior iliac crest. The fascia was carefully opened with a Bovie and the posterior iliac crest was exposed. A small cortical window was created with an osteotome. Cancellous bone was then harvested, to be used during the interbody arthrodesis and the posterolateral fusion. Once an appropriate amount of bone was obtained, the incision was irrigated with antibiotic solution and hemostasis secured by packing the iliac crest with Surgicel. The cortical window was then repositioned and secured using 0 Vicryl sutures. The incision was irrigated and the fascia was closed with interrupted 0 Vicryl sutures. The subcutaneous tissue was approximated with Stratafix sutures. Posterolateral fusion Then, the lateral gutters of the spine at T7-8, T8-9, T9-10, T10-T11, T11-T12, T12-L1, and L1-L2 were carefully decorticated with a TPS drill in preparation for the posterior lateral fusion. The incision was thoroughly irrigated with antibiotic solution. The posterolateral fusion was performed by carefully packing the gutters of the spine at TT7 down to L2 with a autologous iliac crest bone graft combined with demineralized bone matrix. Completion of the Procedure The rods were brought to the field. Sequential application of the cap was achieved which allowed for further correction of the kyphosis. Final tightening of all screws was achieved with a torque wrench. The incision was thoroughly irrigated with several liters of antibiotic solution. The decompression was reassessed with an nerve hook and found to be appropriate. Seven mm Mj- Seo drain was left on the epidural space and was then externalized through a separate stab incision. The incision was then closed in layers. 0 Vicryl with interrupted sutures were used to close the thoracolumbar fascia. The superficial fascia was closed with 0 Vicryl sutures. Three-0 Vicryl was used to close the subcutaneous tissue. The skin was closed with negra. At the end of the procedure the sponges, needles, and instrument counts were all correct. Estimated blood loss was 350 cc's. No complications occurred. The patient received prophylactic antibiotics. The patient was then extubated and transferred to the recovery room in stable condition. The entire procedure was performed using electrophysiological monitor of the electromyogram, evoked potential and sphincters. No intraoperative abnormalities were detected. Documented By: Carlos Mohamud MD 03/14/18 1876 Assessment and Plan - Plan 37-year-old male admitted under neurosurgical services s/p Open reduction internal fixation of thoracic fracture, T7 to L2 posterolateral fusion- 03/14 -Dr. Mohamud following PT OT daily Continue on pain management per Dr. Mohamud Helga-Colace for bowel regimen. CONSTIPATION/ILEUS- RECTAL SUPPOSITORY PO MEDS History of ADD. Continue on Adderall XR 30 mg every morning. ATIVAN IV PRN Discharge planning. Case management consulted for home health care/health clinic patient therapy or home physical therapy Nausea continue on antinausea regimen Pain control per neurosurgery-- NOW OFF TIMBER FALLER MEDS FOR CONSTIPATION We will order for incentive spirometry hourly Thank you for this consult will follow patient in-house with you Code Status: FULL CODE Discussed Condition With: RN AND PT AND FAMILY Discharge Planning: Once pain is under control and cleared by neurosurgery
[2018-03-17] MEDS: Bisacodyl 10 MG Supp RECTAL PRN ×2 (12:26→21:49)
[2018-03-17] MEDS: Morphine Sulfate Inj 2 MG/ML Vial IV.PUSH PRN ×2 (12:55→21:55)
[2018-03-17] MEDS: Amphetamine/Dextroamphetamine XR 30 MG Capsule PO SCH (15:16)
[2018-03-17] MEDS: Senna/Docusate Sodium 8.6/50 MG Tablet PO SCH ×2 (15:16→21:49)
[2018-03-17] MEDS: Polyethylene Glycol 3350 17 GM Packet PO SCH (16:23)
--- NOTE | 2018-03-17 17:24 | P.PNNS ---
Subjective Interval history: his mother reports pt vomiting bile, KUB showed mild ileus. Also mother reports when he had portable XR done aggravated his back when xray plate was slid underneath him. Physical Exam Vital signs: Vital Signs 03/16/18 19:59 03/16/18 20:00 03/17/18 00:00 Temperature 98.7 F 98.9 F Pulse Rate 105 H 118 H Respiratory Rate 16 17 17 Blood Pressure 102/66 105/64 Pulse Oximetry 94 L 94 L 03/17/18 04:00 03/17/18 08:00 03/17/18 12:00 Temperature 98.6 F 98.3 F 99.1 F Pulse Rate 112 H 115 H 115 H Respiratory Rate 16 16 16 Blood Pressure 127/62 137/70 119/74 Pulse Oximetry 95 97 99 03/17/18 16:00 Temperature 98.1 F Pulse Rate 104 H Respiratory Rate 16 Blood Pressure 120/75 Pulse Oximetry 97 Intake & Output 03/16/18 03/17/18 03/17/18 18:59 06:59 18:59 Intake Total 1000 / 1000 1000 / 1000 Output Total 90 / 90 Balance 910 / 910 1000 / 1000 Weight 81 kg Intake: IV 1000 / 1000 1000 / 1000 NS Inj 1,000 ML @ 100 mls/hr IV 1000 / 1000 1000 / 1000 .CONT .Q10H [facility] Rx#:[id number] Output: Wound Drainage 90 / 90 # 1 Left Upper Back NELSON Drain 40 / 40 # 2 Right Upper Back 50 / 50 Other: # Voids 3 2 Date of Last Bowel Movement 03/11/18 03/11/18 03/11/18 Narrative: NELSON drain intact wound clean and dry, negra intact awake, appears painful - Urinary Catheter Management Indwelling Urethral Catheter Cath placed during this visit: yes, but has since been removed by the nurse Reason for continuing: Decision to DC catheter Insertion date: 03/14/18 Insertion time: 13:30 Removal date: 03/15/18 Removal time: 09:00 Assessment and Plan - Plan status post redo ORIF T7-L2 for T12 burst fracture, with nonunion and proximal junctional kyphosis. dc [employer] COMPTROLLER pump due to mild ileus. cont bowel regimen. cont percocet for pain control. will place on 24 hour dose of Toradol IM. continue to use Zofran ahead of oral medication as needed. cont therapy, encourage mobilization appreciate medical management assistance replaced dressing
[2018-03-17 17:37] LABS: Hemoglobin A1c 4.7 % (4.3-6.0)
[2018-03-18] MEDS: Morphine Sulfate Inj 2 MG/ML Vial IV.PUSH PRN ×5 (03:13→23:23)
[2018-03-18] MEDS: Sod Chloride 0.9% Inj 1,000 ML IV.CONT SCH ×2 (06:22→12:46)
[2018-03-18 06:46] LABS: Baso % (Auto) 0.3 % (0.0-2.0); Eos # (Auto) 0.1 th/mm3 (0.0-0.4); Eos % (Auto) 1.6 % (0.0-4.0); Hematocrit 30.3 % (39.0-51.0); Hemoglobin 10.5 gm/dL (13.0-17.0); Lymph # (Auto) 2.1 th/mm3 (1.0-4.8); Lymph % (Auto) 22.5 % (9.0-44.0); Mean Corpuscular HGB Conc 34.7 % (32.0-36.0); Mean Corpuscular Hemoglobin 32.3 pg (27.0-34.0); Mean Corpuscular Volume 93.1 fL (80.0-100.0); Mean Platelet Volume 7.6 fL (7.0-11.0); Mono # (Auto) 0.8 th/mm3 (0.0-0.9); Mono % (Auto) 8.8 % (0.0-8.0); Neut # (Auto) 6.1 th/mm3 (1.8-7.7); Neut % (Auto) 66.8 % (16.0-70.0); Platelet Count 251 th/mm3 (150-450); Red Blood Count 3.25 mil/mm3 (4.50-5.90); White Blood Count 9.2 th/mm3 (4.0-11.0)
[2018-03-18 07:16] LABS: Albumin 2.2 g/dL (3.4-5.0); Anion Gap 10 meq/L (5-15); Aspartate Aminotransferase 38 U/L (15-37); Blood Urea Nitrogen 9 mg/dL (7-18); Calcium 8.2 mg/dL (8.5-10.1); Carbon Dioxide 25.3 meq/L (21.0-32.0); Chloride 106 meq/L (98-107); Glomerular Filtration Rate Greater Than 89 mL/min (>89); Glucose,Random 82 mg/dL (74-106); Magnesium 1.9 mg/dL (1.5-2.5); Potassium 3.4 meq/L (3.5-5.1); Sodium 141 meq/L (136-145)
[2018-03-18 07:17] LABS: Phosphorus 2.6 mg/dL (2.5-4.9)
[2018-03-18 07:20] LABS: Alanine Aminotransferase 20 U/L (12-78); Alkaline Phosphatase 42 U/L (45-117); Total Protein 5.5 g/dL (6.4-8.2)
--- NOTE | 2018-03-18 10:25 | P.DCO ---
- Physical Therapy Order: Improve ambulation - Home Health Nursing Order: Medical education, Signs/symptoms of disease process, Medication education-adverse effect, Wound care and dressing changes, Nursing assessment with vital signs - Case Management Consult Yes - Certification I have seen patient Huang Yusuf on 03/18/18. My clinical findings support the need for the requested home health care services because: High risk of falls I certify that my clinical findings support that this patient is homebound because: Post-op weakness, Unsafe to leave home unassisted
--- NOTE | 2018-03-18 11:11 | P.PN ---
Subjective Interval history: Follow up on patient s/p redo ORIF T7 to L2 for T12 burst fracture. Patient seen and examined. Patient reports small soft BM earlier this morning with few hard pieces. He denies any nausea or vomiting. He says he has some abdominal discomfort. He says he was up walking around the unit earlier this morning. He denies any chest pain or dyspnea. He is currently NPO for ileus. Physical Exam Vital signs: Vital Signs 03/17/18 12:00 03/17/18 16:00 03/17/18 20:00 Temperature 99.1 F 98.1 F 98.1 F Pulse Rate 115 H 104 H 90 Respiratory Rate 16 16 17 Blood Pressure 119/74 120/75 118/74 Pulse Oximetry 99 97 98 03/18/18 00:00 03/18/18 01:30 03/18/18 04:00 Temperature 98.4 F 98.8 F Pulse Rate 99 H 101 H Respiratory Rate 18 17 18 Blood Pressure 141/78 H 116/67 Pulse Oximetry 98 99 03/18/18 08:00 Temperature 98.1 F Pulse Rate 102 H Respiratory Rate 15 Blood Pressure 114/78 Pulse Oximetry 97 Intake & Output 03/17/18 03/18/18 03/18/18 18:59 06:59 18:59 Intake Total 1000 / 1000 1000 / 1000 Balance 1000 / 1000 1000 / 1000 Intake: IV 1000 / 1000 1000 / 1000 NS Inj 1,000 ML @ 100 mls/hr IV 1000 / 1000 1000 / 1000 .CONT .Q10H CAROLYN Rx#:[id number] Other: # Voids 4 6 Date of Last Bowel Movement 03/11/18 03/11/18 Narrative: GENERAL: WDWN young male patient, INAD. Awake and alert. Mother is at the bedside. SKIN: Warm and dry. Multiple tattoos including DNR tattooed over upper chest. HEAD: Atraumatic. Normocephalic. EYES: Pupils equal and round. No scleral icterus. No injection or drainage. ENT: No nasal bleeding or discharge. Mucous membranes pink and moist. NECK: Trachea midline. CARDIOVASCULAR: Tachycardic. RESPIRATORY: No accessory muscle use. Clear to auscultation. Breath sounds equal bilaterally. GASTROINTESTINAL: Abdomen soft, nondistended. +mild tenderness to palpation of right upper and lower quadrant. +BS. MUSCULOSKELETAL: Extremities without clubbing, cyanosis, or edema. No obvious deformities. NEUROLOGICAL: Awake and alert. No obvious cranial nerve deficits. Motor grossly within normal limits. Able to move all extremities spontaneously. Normal speech. PSYCHIATRIC: Calm and cooperative. - Urinary Catheter Management Indwelling Urethral Catheter Cath placed during this visit: yes, but has since been removed by the nurse Reason for continuing: Decision to DC catheter Insertion date: 03/14/18 Insertion time: 13:30 Removal date: 03/15/18 Removal time: 09:00 Results - Labs CBC & Chem 7: 03/18/18 06:15 03/18/18 06:15 Laboratory Results - last 24 hr 03/17/18 03/18/18 03/18/18 05:16 06:15 06:15 WBC 9.2 RBC 3.25 L Hgb 10.5 L D Hct 30.3 L MCV 93.1 MCH 32.3 MCHC 34.7 RDW 13.0 Plt Count 251 MPV 7.6 Neut % (Auto) 66.8 Lymph % (Auto) 22.5 [place] % (Auto) 8.8 H Eos % (Auto) 1.6 Baso % (Auto) 0.3 Neut # (Auto) 6.1 Lymph # (Auto) 2.1 [place] # (Auto) 0.8 Eos # (Auto) 0.1 Baso # (Auto) 0.0 WBC Differential . Differential Comment Auto diff final Sodium 141 Potassium 3.4 L Chloride 106 Carbon Dioxide 25.3 Anion Gap 10 BUN 9 Creatinine 0.74 Estimated GFR Greater than 89 Random Glucose 82 Hemoglobin A1c 4.7 Calcium 8.2 L Phosphorus 2.6 Magnesium 1.9 Total Bilirubin 0.6 AST 38 H ALT 20 Alkaline Phosphatase 42 L Total Protein 5.5 L D Albumin 2.2 L - Procedures Preoperative Diagnosis: TThoracic fracture with severe progressive thoracic khyphosis and instability Postoperative Diagnosis: Thoracic fracture with severe progressive thoracic khyphosis and instability Date of procedure: 03/14/18 Procedure: Open reduction internal fixation of thoracic fracture, T7 to L2 posterolateral fusion using autologous iliac crest bone graft with demineralized bone matric, T7 to L2 segmental instrumental fixation using transpedicular screws and rods, harvesting of autologous iliac crest bone graft Anesthesia: GETA Surgeon: Carlos Mohamud MD Airconditioning Plant Operator: Valentina Lobo Pathology: none sent Operation and Findings: INDICATIONS FOR THE SURGICAL PROCEDURE Mr Yusuf is a 37 year-old male with history of a T12 burst fracture and prior reduction with arthrodhesis. He continues to smoke and was very active physcally. His fracture failked to heal properly and he developed progressive khyphosis pulling of the superior screws with failure of the instrumentation. AN open reduction and internal fixation was indicated. The [id number] details of the procedure, indications, alternatives, risks and potential complications were fully discussed with the patient and his . The patient fully understood. All questions were answered. No guarantees were given. The patient voiced requesting the procedure and provided informed consents. The patient had been offered the alternative of delaying the procedure and continuing with nonsurgical management or to referal to a [facility] for a combined anterior-posterior approach. DETAILS OF THE SURGICAL PROCEDURE Prior to the procedure,the surgical incision was marked in the preoperative surgical holding room, and the procedure, risks, and potential complications revisited with the patient. Placement of electrodes for intraoperative neurophysiological monitoring was completed. The patient was taken to the operative room, and following induction of general anesthesia, endotracheal intubation was performed. A Saini catheter bilateral Soham and sequential compression devices were placed and kept throughout the procedure. The patient was carefully rolled into the prone position over a Mj table with a gell rolls. All pressure points were carefully padded with eggcrate mattress. The eyes were tapped shut after ointment was applied by the anesthesiologist to prevent corneal abrasion. A Peace hugger was placed over the expossed lower body to maintain control of the core body temperature. The electrophysiological team placed the needles and electrodes in their proper location and baseline SSEP's and motor evoked potentials were registered. The thoracic lumbar region was prepped and draped in the usual sterile fashion. A localizing X-ray was performed with the C-arm and the fracture was localized. Two paramedian skin incisions were outlined from T7 to L2 Surgical Approach The skin incisions were made with a #10 blade. Dissection was carried out through the thoracolumbar fascia with a Bovie. The facets of T10 down to L2 were exposed and a subperiosteal dissection was performed decorticating the facets and lateral gutters of the spine. Instrumental fixation At this point in the procedure, placement of bilateral transpedicular screws was necessary for stabilization of the spine at T7, T8, and T9. The levels were carefully marked with a TPS and bilateral transpedicular screws were placed using a standard fashion. Initially, the entry point for the screw was selected anatomically at the junction of the facet, with the transverse process, and the pars interarticularis using symultaneous AP and lateral xrays. This was started with a Giamshetti needle followed by the use of a dodson wire. A tap was used to create the threads for the screws. Finally bilateral transpedicular screws were carefully placed bilaterally at T7, T8, and T9. The position of each screw was assessed anatomically with an AP, lateral, oblique Xrays. An intraoperative scan view of the spine was then performed using the iso-centric c-arm. At this point of the procedure, the cross link of the prior instrumentation was carefully exposed free of scar tissue. Then, the caps of the previously placed screws were sequentially removed allowing removal of the rods. The screws at T10 and T11 had pulled out. There was extensive scar tissue around the screws which was carefully dissected on resected. No evidence of infection was found. The screws from T10 and T11 were carefully removed. At this point in the procedure, placement of bilateral transpedicular screws was carrioed out at T10 and T11 using a standard fashion. Initially, the entry point for the screw was selected anatomically Using symultaneous AP and lateral xrays. the screw trajectorys was started with a Giamshetti needle, followed by the use of a dodson wire. A tap was used to create the threads for the screws. Bilateral transpedicular screws were then placed at T10 and T11. The position of each screw was assessed anatomically with an AP, lateral, oblique Xrays. An intraoperative scan view of the spine was then performed using the iso-centric c-arm. HARVESTING OF ILLIAC CREST BONE An incision was then made over the patient's right posterior iliac crest. The fascia was carefully opened with a Bovie and the posterior iliac crest was exposed. A small cortical window was created with an osteotome. Cancellous bone was then harvested, to be used during the interbody arthrodesis and the posterolateral fusion. Once an appropriate amount of bone was obtained, the incision was irrigated with antibiotic solution and hemostasis secured by packing the iliac crest with Surgicel. The cortical window was then repositioned and secured using 0 Vicryl sutures. The incision was irrigated and the fascia was closed with interrupted 0 Vicryl sutures. The subcutaneous tissue was approximated with Stratafix sutures. Posterolateral fusion Then, the lateral gutters of the spine at T7-8, T8-9, T9-10, T10-T11, T11-T12, T12-L1, and L1-L2 were carefully decorticated with a TPS drill in preparation for the posterior lateral fusion. The incision was thoroughly irrigated with antibiotic solution. The posterolateral fusion was performed by carefully packing the gutters of the spine at TT7 down to L2 with a autologous iliac crest bone graft combined with demineralized bone matrix. Completion of the Procedure The rods were brought to the field. Sequential application of the cap was achieved which allowed for further correction of the kyphosis. Final tightening of all screws was achieved with a torque wrench. The incision was thoroughly irrigated with several liters of antibiotic solution. The decompression was reassessed with an nerve hook and found to be appropriate. Seven mm Mj- Seo drain was left on the epidural space and was then externalized through a separate stab incision. The incision was then closed in layers. 0 Vicryl with interrupted sutures were used to close the thoracolumbar fascia. The superficial fascia was closed with 0 Vicryl sutures. Three-0 Vicryl was used to close the subcutaneous tissue. The skin was closed with negra. At the end of the procedure the sponges, needles, and instrument counts were all correct. Estimated blood loss was 350 cc's. No complications occurred. The patient received prophylactic antibiotics. The patient was then extubated and transferred to the recovery room in stable condition. The entire procedure was performed using electrophysiological monitor of the electromyogram, evoked potential and sphincters. No intraoperative abnormalities were detected. Documented By: Carlos Mohamud MD 03/14/18 4201 Assessment and Plan - Plan 37-year-old male admitted under neurosurgical services s/p redo Open reduction internal fixation of thoracic fracture, T7 to L2 posterolateral fusion-03/14 -Dr. Mohamud following -continue with PT/OT daily -Continue on pain management per Dr. Mohamud Mild ileus Constipation, likely opioid induced, resolving now off RN ENDOCRINOLOGY +BM x 2 -change from NPO to full liquid diet -continue to advance diet as tolerated -continue on bowel regimen -follow up on repeat KUB ordered today History of ADD. -Continue on Adderall XR 30 mg every morning. ATIVAN IV PRN Anemia, suspect acute postoperative blood loss anemia Hgb dropped from 17.2 to 10.5 -no e/o active bleeding -monitor H/H, repeat lab in am Hypokalemia K 3.4 -po repletion ordered -repeat BMP in am DVT prophylaxis - Code Status: Full Discussed Condition With: patient, mother at bedside, nursing staff, Dr. Joyce Discharge Planning: Discharge disposition per primary team
[2018-03-18] MEDS: Amphetamine/Dextroamphetamine XR 30 MG Capsule PO SCH (12:46)
[2018-03-18] MEDS: Polyethylene Glycol 3350 17 GM Packet PO SCH (12:47)
[2018-03-18] MEDS: Senna/Docusate Sodium 8.6/50 MG Tablet PO SCH ×2 (12:47→17:02)
--- NOTE | 2018-03-18 14:14 | P.PNNS ---
Subjective Interval history: positive BM this morning. ambulating down the halls, pain better controlled reports the Toradol injections has helped Physical Exam Vital signs: Vital Signs 03/17/18 16:00 03/17/18 20:00 03/18/18 00:00 Temperature 98.1 F 98.1 F 98.4 F Pulse Rate 104 H 90 99 H Respiratory Rate 16 17 18 Blood Pressure 120/75 118/74 141/78 H Pulse Oximetry 97 98 98 03/18/18 01:30 03/18/18 04:00 03/18/18 08:00 Temperature 98.8 F 98.1 F Pulse Rate 101 H 102 H Respiratory Rate 17 18 15 Blood Pressure 116/67 114/78 Pulse Oximetry 99 97 03/18/18 12:00 Temperature 97.7 F Pulse Rate 98 H Respiratory Rate 16 Blood Pressure 140/80 Pulse Oximetry 100 Intake & Output 03/17/18 03/18/18 03/18/18 18:59 06:59 18:59 Intake Total 1000 / 1000 1000 / 1000 Balance 1000 / 1000 1000 / 1000 Intake: IV 1000 / 1000 1000 / 1000 NS Inj 1,000 ML @ 100 mls/hr IV 1000 / 1000 1000 / 1000 .CONT .Q10H CAROLYN Rx#:[id number] Other: # Voids 4 6 Date of Last Bowel Movement 03/11/18 03/11/18 Narrative: Awake, alert ambulating down the halls with rolling walker TLSO brace in place - Urinary Catheter Management Indwelling Urethral Catheter Cath placed during this visit: yes, but has since been removed by the nurse Reason for continuing: Decision to DC catheter Insertion date: 03/14/18 Insertion time: 13:30 Removal date: 03/15/18 Removal time: 09:00 Assessment and Plan - Plan status post redo ORIF T7-L2 for T12 burst fracture, with nonunion and proximal junctional kyphosis mild ileus, +BM 03/18 cont bowel regimen, cont Toradol IM x 24 hours this has helped with pain control, Percocet as needed f/u Abd XR today, cont therapy, encourage mobilization appreciate medical management assistance case mgt for [facility]
--- NOTE | 2018-03-18 14:23 | XR ---
EXAM DATE: 03/18/2018 9:59 AM EST AGE/SEX: 37 years / Male INDICATIONS: Pain, possible obstruction. CLINICAL DATA: This is the patient's initial encounter. Patient reports that signs and symptoms have been present for 1 week and indicates a pain score of 8/10. MEDICAL/SURGICAL HISTORY: . T12 compression fracture. . thoracic COMPARISON: synapse default, ABDOMEN KUB ONLY, 08/11/2016. . FINDINGS: There are multiple distended loops of small bowel with air-fluid level within the maximum diameter of 4.9 cm and there is significant gas throughout the large bowel as well as appears dilated maximum tr ansverse diameter of 7.1 cm. Gas is seen down to the rectum. There are postsurgical changes in the lo wer thoracic upper lumbar spine . CONCLUSION: Probable ileus without definite signs of obstruction and follow-up is recommended. Electronically signed by: Lanre Birmingham MD 03/18/2018 2:22 PM EST
[2018-03-18] MEDS: Simethicone 125 MG Chew Tablet PO PRN (14:53)
--- NOTE | 2018-03-18 19:55 | CT ---
EXAM DATE: 03/18/2018 7:42 PM EST AGE/SEX: 37 years / Male INDICATIONS: Abdominal pain. CLINICAL DATA: This is the patient's initial encounter. Patient reports that signs and symptoms have been present for 1 day and indicates a pain score of 4/10. MEDICAL/SURGICAL HISTORY: None. . Back surgery. ORAL CONTRAST: No oral contrast ingested. RADIATION DOSE: 9.25 CTDI (mGy) COMPARISON: [facility] [place] ABDOM[place] & PELVIS W CONTRAST, 08/20/2016. . TECHNIQUE: Multiple contiguous axial images were obtained through the abdomen and pelvis following b olus infusion of 70 ml Omnipaque 350 (iohexol) nonionic water-soluble contrast as a single exam dos e. No oral contrast ingested. Using automated exposure control and adjustment of the mA and/or kV ac cording to patient size, radiation dose was kept as low as reasonably achievable to obtain optimal di agnostic quality images. DICOM format image data is available electronically for review and comparis on. FINDINGS: Fairly generalized upper limits of normal caliber small and large bowel are typical of ileus. Mild co lonic inflammatory changes or possible in the region of the splenic flexure. No high-grade inflammato ry changes are demonstrated. No perceptible masses. No free fluid, free air or lymphadenopathy. CT ap pearance of the appendix is within normal limits. A small moderate hiatal hernia is present. The liver, spleen, pancreas, right adrenal gland and the kidneys are within normal limits. Patchy joselyn cification of the left adrenal gland typical of previous hemorrhage. Small effusions and streaky atelectasis seen of the visualized lung bases. Long segment thoracolumbar laminectomy and fusion procedure with posterior instrumentation noted. The re is metallic streak artifact. Roughly 2.6 cm back fluid seen in the subcutaneous tissues of the beth k. At the level of the iliac crest is a tiny bubble of gas within the fluid, series 2 image 60. CONCLUSION: 1. Bowel gas pattern most typical of a generalized ileus. Potentially mild, localized colitis in the splenic flexure region, nonspecific. 2. No acute abnormality of the solid organs. 3. There is a small to moderate hiatal hernia. 4. Atelectasis and small effusions of the visualized lung bases. 5. Long segment laminectomy and fusion procedure of the thoracolumbar spine and appears to have been done recently. There is a severe compression deformity of T12 and a mild compression deformity of T1 1, nonacute Electronically signed by: Fareed Morton MD 03/18/2018 7:54 PM EST
[2018-03-19] MEDS: Morphine Sulfate Inj 2 MG/ML Vial IV.PUSH PRN ×6 (01:37→23:23)
[2018-03-19 05:57] LABS: Hematocrit 29.6 % (39.0-51.0); Hemoglobin 10.2 gm/dL (13.0-17.0)
[2018-03-19 06:14] LABS: Anion Gap 11 meq/L (5-15); Blood Urea Nitrogen 7 mg/dL (7-18); Carbon Dioxide 24.2 meq/L (21.0-32.0); Chloride 105 meq/L (98-107); Glomerular Filtration Rate Greater Than 89 mL/min (>89); Glucose,Random 71 mg/dL (74-106); Potassium 3.6 meq/L (3.5-5.1); Sodium 140 meq/L (136-145)
--- NOTE | 2018-03-19 07:37 | P.PN ---
Subjective Interval history: Patient complaining of severe abdominal pain and nausea all night requiring Morphine every 2 hours. He reports 2 BMs yesterday. He has been passing flatus. He says the pain is centered around his umbilicus where his "umbilical hernia is". He reports some relief in a position which helps him to pass gas. He and his mother are concerned he has gallbladder or liver problems due to him vomiting large amounts of bilious emesis 2 days ago and turning yellow yesterday. Patient only drank water yesterday before developing more abdominal pain, distention and nausea. CT scan revealed generalized ileus. Physical Exam Vital signs: Vital Signs 03/18/18 08:00 03/18/18 12:00 03/18/18 16:00 Temperature 98.1 F 97.7 F 97.6 F Pulse Rate 102 H 98 H 98 H Respiratory Rate 15 16 16 Blood Pressure 114/78 140/80 132/82 Pulse Oximetry 97 100 95 03/18/18 20:00 03/19/18 00:00 03/19/18 04:00 Temperature 98.1 F Pulse Rate 102 H 91 H 97 H Respiratory Rate 20 20 20 Blood Pressure 142/88 H 137/72 135/68 Pulse Oximetry 99 96 96 Intake & Output 03/18/18 03/19/18 03/19/18 18:59 06:59 18:59 Weight 75.189 kg Other: # Voids 5 2 Date of Last Bowel Movement 03/18/18 03/18/18 # Bowel Movements 1 Narrative: GENERAL: WDWN male patient, appears to be in mild discomfort lying in position on bed. Awake and alert. Mother is at the bedside. SKIN: Warm and dry. HEENT: Atraumatic. Normocephalic. Pupils equal and round. No scleral icterus. No injection or drainage. No nasal bleeding or discharge. Mucous membranes pink and moist. NECK: Trachea midline. CARDIOVASCULAR: Regular rate and rhythm. RESPIRATORY: No accessory muscle use. Clear to auscultation. Breath sounds equal bilaterally. GASTROINTESTINAL: Abdomen soft, nondistended. +BS. +tenderness to palpation in the right upper quadrant and periumbilical area. MUSCULOSKELETAL: Extremities without clubbing, cyanosis, or edema. NEUROLOGICAL: Awake and alert. No obvious cranial nerve deficits. Motor grossly within normal limits. Able to move all extremities spontaneously. Normal speech. PSYCHIATRIC: Appropriate mood and affect; insight and judgment normal. - Urinary Catheter Management Indwelling Urethral Catheter Cath placed during this visit: yes, but has since been removed by the nurse Reason for continuing: Decision to DC catheter Insertion date: 03/14/18 Insertion time: 13:30 Removal date: 03/15/18 Removal time: 09:00 Results - Labs CBC & Chem 7: 03/19/18 05:05 03/19/18 05:05 Laboratory Results - last 24 hr 03/19/18 03/19/18 05:05 05:05 Hgb 10.2 L Hct 29.6 L Sodium 140 Potassium 3.6 Chloride 105 Carbon Dioxide 24.2 Anion Gap 11 BUN 7 Creatinine 0.69 Estimated GFR Greater than 89 Random Glucose 71 L Calcium 8.0 L - Imaging Impressions Abdomen X-Ray 03/18/18 00:00 CONCLUSION: Probable ileus without definite signs of obstruction and follow-up is recommended. Abdomen/Pelvis CT 03/18/18 00:00 CONCLUSION: 1. Bowel gas pattern most typical of a generalized ileus. Potentially mild, localized colitis in the splenic flexure region, nonspecific. 2. No acute abnormality of the solid organs. 3. There is a small to moderate hiatal hernia. 4. Atelectasis and small effusions of the visualized lung bases. 5. Long segment laminectomy and fusion procedure of the thoracolumbar spine and appears to have been done recently. There is a severe compression deformity of T12 and a mild compression deformity of T11, nonacute - Procedures Preoperative Diagnosis: TThoracic fracture with severe progressive thoracic khyphosis and instability Postoperative Diagnosis: Thoracic fracture with severe progressive thoracic khyphosis and instability Date of procedure: 03/14/18 Procedure: Open reduction internal fixation of thoracic fracture, T7 to L2 posterolateral fusion using autologous iliac crest bone graft with demineralized bone matric, T7 to L2 segmental instrumental fixation using transpedicular screws and rods, harvesting of autologous iliac crest bone graft Anesthesia: GETA Surgeon: Carlos Mohamud MD Warp Drawer: Valentina Lobo Pathology: none sent Operation and Findings: INDICATIONS FOR THE SURGICAL PROCEDURE Mr Yusuf is a 37 year-old male with history of a T12 burst fracture and prior reduction with arthrodhesis. He continues to smoke and was very active physcally. His fracture failked to heal properly and he developed progressive khyphosis pulling of the superior screws with failure of the instrumentation. AN open reduction and internal fixation was indicated. The epex-ss-umab details of the procedure, indications, alternatives, risks and potential complications were fully discussed with the patient and his . The patient fully understood. All questions were answered. No guarantees were given. The patient voiced requesting the procedure and provided informed consents. The patient had been offered the alternative of delaying the procedure and continuing with nonsurgical management or to referal to a [facility] for a combined anterior-posterior approach. DETAILS OF THE SURGICAL PROCEDURE Prior to the procedure,the surgical incision was marked in the preoperative surgical holding room, and the procedure, risks, and potential complications revisited with the patient. Placement of electrodes for intraoperative neurophysiological monitoring was completed. The patient was taken to the operative room, and following induction of general anesthesia, endotracheal intubation was performed. A Saini catheter bilateral Misty and sequential compression devices were placed and kept throughout the procedure. The patient was carefully rolled into the prone position over a Mj table with a gell rolls. All pressure points were carefully padded with eggcrate mattress. The eyes were tapped shut after ointment was applied by the anesthesiologist to prevent corneal abrasion. A Peace hugger was placed over the expossed lower body to maintain control of the core body temperature. The electrophysiological team placed the needles and electrodes in their proper location and baseline SSEP's and motor evoked potentials were registered. The thoracic lumbar region was prepped and draped in the usual sterile fashion. A localizing X-ray was performed with the C-arm and the fracture was localized. Two paramedian skin incisions were outlined from T7 to L2 Surgical Approach The skin incisions were made with a #10 blade. Dissection was carried out through the thoracolumbar fascia with a Bovie. The facets of T10 down to L2 were exposed and a subperiosteal dissection was performed decorticating the facets and lateral gutters of the spine. Instrumental fixation At this point in the procedure, placement of bilateral transpedicular screws was necessary for stabilization of the spine at T7, T8, and T9. The levels were carefully marked with a TPS and bilateral transpedicular screws were placed using a standard fashion. Initially, the entry point for the screw was selected anatomically at the junction of the facet, with the transverse process, and the pars interarticularis using symultaneous AP and lateral xrays. This was started with a Giamshetti needle followed by the use of a dodson wire. A tap was used to create the threads for the screws. Finally bilateral transpedicular screws were carefully placed bilaterally at T7, T8, and T9. The position of each screw was assessed anatomically with an AP, lateral, oblique Xrays. An intraoperative scan view of the spine was then performed using the iso-centric c-arm. At this point of the procedure, the cross link of the prior instrumentation was carefully exposed free of scar tissue. Then, the caps of the previously placed screws were sequentially removed allowing removal of the rods. The screws at T10 and T11 had pulled out. There was extensive scar tissue around the screws which was carefully dissected on resected. No evidence of infection was found. The screws from T10 and T11 were carefully removed. At this point in the procedure, placement of bilateral transpedicular screws was carrioed out at T10 and T11 using a standard fashion. Initially, the entry point for the screw was selected anatomically Using symultaneous AP and lateral xrays. the screw trajectorys was started with a Giamshetti needle, followed by the use of a dodson wire. A tap was used to create the threads for the screws. Bilateral transpedicular screws were then placed at T10 and T11. The position of each screw was assessed anatomically with an AP, lateral, oblique Xrays. An intraoperative scan view of the spine was then performed using the iso-centric c-arm. HARVESTING OF ILLIAC CREST BONE An incision was then made over the patient's right posterior iliac crest. The fascia was carefully opened with a Bovie and the posterior iliac crest was exposed. A small cortical window was created with an osteotome. Cancellous bone was then harvested, to be used during the interbody arthrodesis and the posterolateral fusion. Once an appropriate amount of bone was obtained, the incision was irrigated with antibiotic solution and hemostasis secured by packing the iliac crest with Surgicel. The cortical window was then repositioned and secured using 0 Vicryl sutures. The incision was irrigated and the fascia was closed with interrupted 0 Vicryl sutures. The subcutaneous tissue was approximated with Stratafix sutures. Posterolateral fusion Then, the lateral gutters of the spine at T7-8, T8-9, T9-10, T10-T11, T11-T12, T12-L1, and L1-L2 were carefully decorticated with a TPS drill in preparation for the posterior lateral fusion. The incision was thoroughly irrigated with antibiotic solution. The posterolateral fusion was performed by carefully packing the gutters of the spine at TT7 down to L2 with a autologous iliac crest bone graft combined with demineralized bone matrix. Completion of the Procedure The rods were brought to the field. Sequential application of the cap was achieved which allowed for further correction of the kyphosis. Final tightening of all screws was achieved with a torque wrench. The incision was thoroughly irrigated with several liters of antibiotic solution. The decompression was reassessed with an nerve hook and found to be appropriate. Seven mm Mj- Seo drain was left on the epidural space and was then externalized through a separate stab incision. The incision was then closed in layers. 0 Vicryl with interrupted sutures were used to close the thoracolumbar fascia. The superficial fascia was closed with 0 Vicryl sutures. Three-0 Vicryl was used to close the subcutaneous tissue. The skin was closed with negra. At the end of the procedure the sponges, needles, and instrument counts were all correct. Estimated blood loss was 350 cc's. No complications occurred. The patient received prophylactic antibiotics. The patient was then extubated and transferred to the recovery room in stable condition. The entire procedure was performed using electrophysiological monitor of the electromyogram, evoked potential and sphincters. No intraoperative abnormalities were detected. Documented By: Carlos Mohamud MD 03/14/18 1831 Assessment and Plan - Plan 37-year-old male admitted under neurosurgical services s/p redo Open reduction internal fixation of thoracic fracture, T7 to L2 posterolateral fusion-03/14 -Dr. Mohamud following -continue with PT/OT daily -Continue on pain management per Dr. 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 May benefit from Relistor? -diet per GI -HIDA scan ordered -continue on bowel regimen -urged patient to limit narcotics as much as possible and OOB as much as tolerated History of ADD. -Continue on Adderall XR 30 mg every morning. ATIVAN IV PRN Anemia, suspect acute postoperative blood loss anemia Hgb dropped from 17.2 to 10.3 -no e/o active bleeding -monitor H/H, repeat lab in am Hypokalemia K 3.4 -resolved s/p repletion DVT prophylaxis -bilateral SCD/MISTY hose Code Status: Full Discussed Condition With: patient, mother at bedside, nursing staff, Dr. Joyce Discharge Planning: Discharge disposition per primary team
[2018-03-19 10:12] LABS: Albumin 2.2 g/dL (3.4-5.0)
[2018-03-19 10:14] LABS: Total Protein 5.5 g/dL (6.4-8.2)
[2018-03-19] MEDS: Sod Chloride 0.9% Inj 1,000 ML IV.CONT SCH ×4 (12:27→23:22)
[2018-03-19] MEDS: Senna/Docusate Sodium 8.6/50 MG Tablet PO SCH ×3 (12:28→23:19)
[2018-03-19] MEDS: Amphetamine/Dextroamphetamine XR 30 MG Capsule PO SCH (12:29)
[2018-03-19] MEDS: Polyethylene Glycol 3350 17 GM Packet PO SCH (12:29)
[2018-03-19] MEDS ORDERED: Sincalide Inj 5 MCG Vial IV.PUSH ONE (14:06)
--- NOTE | 2018-03-19 14:47 | NM ---
EXAM DATE: 03/19/2018 2:41 PM EST AGE/SEX: 37 years / Male INDICATIONS: Abdominal pain with nausea and vomiting. CLINICAL DATA: This is the patient's initial encounter. Patient reports that signs and symptoms have been present for 1 day and indicates a pain score of 8/10. MEDICAL/SURGICAL HISTORY: None. . Back surgery. COMPAR[place]: [facility] [place]EL[place] W [place]AST, 03/18/2018. . DOSE: 4.1 mCi Tc-99m mebrofenin i.v. Medication: 1.5 mcg Cholecystokinin IV No symptomatic response Cholecystokinin was administered by slow infusion over 8 minutes beginning at 60 minutes. TECHNIQUE: Following the intravenous administration of radiotracer, dynamic sequential images were pe rformed with continuous acquisition. Time-activity curves were generated. FINDINGS: Hepatic Kinetics: There is prompt uptake of radiotracer in the liver. No focal defects are seen. Ther e is normal rate of washout from the hepatic parenchyma. Biliary Clearance: Activity is first seen in the extrahepatic biliary system at 10 minutes. There is normal excretion into the small bowel. Gallbladder: Activity is first seen in the gallbladder at 15 minutes. Post-CCK: After CCK administration, there is no significant emptying of the gallbladder. Common bile duct kinetics are normal and there is no evidence of biliary obstruction. No symptomatic response af ter cholecystokinin infusion. Biliary-Enteric Reflux: None observed. CONCLUSION: 1. Normal biliary bowel transit time confirming patency of the common bile duct. 2. Visualization of the gallbladder confirms patency of the cystic duct making acute cholecystitis u nlikely. 3. No significant gallbladder emptying despite CCK infusion. Patient is however asymptomatic with CC K. Electronically signed by: Arvind Mcclain MD 03/19/2018 2:45 PM EST
--- NOTE | 2018-03-19 15:08 | P.PNNS ---
Subjective Interval history: c/o of abdominal pain, feels "gassy". small BM last night. reports minimal back pain. CT [place] reports generalized ileus. GI consulted this morning. Physical Exam Vital signs: Vital Signs 03/18/18 16:00 03/18/18 20:00 03/19/18 00:00 Temperature 97.6 F 98.1 F Pulse Rate 98 H 102 H 91 H Respiratory Rate 16 20 20 Blood Pressure 132/82 142/88 H 137/72 Pulse Oximetry 95 99 96 03/19/18 03:00 03/19/18 04:00 03/19/18 08:00 Temperature 98.2 F Pulse Rate 97 H 85 Respiratory Rate 17 20 15 Blood Pressure 135/68 121/75 Pulse Oximetry 96 97 Intake & Output 03/18/18 03/19/18 03/19/18 18:59 06:59 18:59 Intake Total 1000 / 1000 Balance 1000 / 1000 Weight 75.189 kg Intake: IV 1000 / 1000 NS Inj 1,000 ML @ 100 mls/hr IV 1000 / 1000 .CONT .Q10H CAROLYN Rx#:[id number] Other: # Voids 5 2 Date of Last Bowel Movement 03/18/18 03/18/18 03/18/18 # Bowel Movements 1 - Urinary Catheter Management Indwelling Urethral Catheter Cath placed during this visit: yes, but has since been removed by the nurse Reason for continuing: Decision to DC catheter Insertion date: 03/14/18 Insertion time: 13:30 Removal date: 03/15/18 Removal time: 09:00 Assessment and Plan - Plan status post redo ORIF T7-L2 for T12 burst fracture, with nonunion and proximal junctional kyphosis (03/14/18) mild ileus, +BM 03/18, small BM 03/19 Abdominal pain Abdomen X-Ray 03/18/18 00:00 CONCLUSION: Probable ileus without definite signs of obstruction and follow-up is recommended. Abdomen/Pelvis CT 03/18/18 00:00 CONCLUSION: 1. Bowel gas pattern most typical of a generalized ileus. Potentially mild, localized colitis in the splenic flexure region, nonspecific. 2. No acute abnormality of the solid organs. 3. There is a small to moderate hiatal hernia. 4. Atelectasis and small effusions of the visualized lung bases. 5. Long segment laminectomy and fusion procedure of the thoracolumbar spine and appears to have been done recently. There is a severe compression deformity of T12 and a mild compression deformity of T11, nonacute Bile Acid Absorption NM 03/19/18 00:00 CONCLUSION: 1. Normal biliary bowel transit time confirming patency of the common bile duct. 2. Visualization of the gallbladder confirms patency of the cystic duct making acute cholecystitis unlikely. 3. No significant gallbladder emptying despite CCK infusion. Patient is however asymptomatic with CCK. appreciate medical management assistance Dr. Oneida richey mother and patient in room today - agrees in GI evaluation await GI consultation
[2018-03-19] MEDS ORDERED: Methylnaltrexone Inj 12 MG/0.6 ML Vial SQ ONE (16:23)
--- NOTE | 2018-03-19 16:23 | P.CONGI ---
History of Present Illness Consult date: 03/19/18 Consult reason: Abdominal pain/nausea/vomiting Chief complaint: ORIF History of Present Illness: This is a 37-year-old male with past medical history significant for T12 burst fracture status post previous surgery with screws, status post subsequent loosening of the screws. Patient was admitted to Dr. Mohamud' service for open reduction and internal fixation which was done on March 14. Our service has been consulted to evaluate patient for complaints of abdominal pain, nausea, vomiting. Patient reports prior to admission he was having issues with constipation at home. States that he goes multiple days without having a bowel movement. He denies taking anything [id number] prescription for his bowels. Of note, patient is on chronic narcotics for back pain. Patient reports that since Saturday morning he has been having nausea and vomiting multiple episodes of emesis despite being n.p.o. According to patient's mom at bedside she believes the emesis was coffee-ground. She denies any hematemesis. Per patient he had one small bowel movement yesterday, described as very dark in color and mushy. Patient is also complaining of abdominal pain, states in his lower mid abdomen and hides. Abdominal examination reveals him to be diffusely tender. Patient had a CT of his abdomen and pelvis done yesterday which revealed bowel gas pattern most typical of a generalized ileus. Also noted potentially mild, localized colitis in the splenic flexure region, nonspecific. Patient is also undergone a HIDA scan for evaluation of abdominal pain, HIDA scan exam was normal. Patient has never had previous EGD or colonoscopy. Patient does report that he was drinking a few beers a day prior to admission. Also was a smoker until he quit a week ago. Patient reports occasional Aleve use. <Sammi Borja - Last Filed: 03/19/18 15:46> Review of Systems Gastrointestinal: Reports abdominal pain, Reports constipation, Reports nausea, Reports vomiting, Denies bright, red blood in stools <Sammi Borja - Last Filed: 03/19/18 15:46> PMFSH - History History Provided By: Patient - Medical History Medical History: Medical History (Last Reviewed 03/19/18 @ 07:43 by Henrik Mendieta) Forehead laceration Attention deficit disorder (ADD) in adult Metal bone fixation hardware in place - Surgical History Surgical History: Surgical History (Last Reviewed 03/18/18 @ 07:42 by Last Mishra) History of incision and drainage History of open reduction and internal fixation (ORIF) procedure - Tobacco History Second Hand Smoke Exposure: Yes Tobacco Use In Past 30 Days: Yes Smoking Status: Former smoker Tobacco Type: Cigarettes - Alcohol History How Often Do You Have a Drink Containing Alcohol: 4 or more times a week - Substance Use History Substance History: No History of Abuse - Travel History Recent Travel in the [place] Within the Last 8 Weeks: No Recent Travel Out of the Country Within the Last 8 Weeks: No - Immunization History Tetanus Immunization: Unsure Hx Influenza Vaccine This Season: No <Sammi Borja - Last Filed: 03/19/18 15:46> - Medical History Medical History: Medical History (Last Reviewed 03/19/18 @ 07:43 by Henrik Mendieta) Forehead laceration Attention deficit disorder (ADD) in adult Metal bone fixation hardware in place - Surgical History Surgical History: Surgical History (Last Reviewed 03/18/18 @ 07:42 by Last Mishra) History of incision and drainage History of open reduction and internal fixation (ORIF) procedure <Yolanda Bar - Last Filed: 03/19/18 19:39> Medications and Allergies Active Medications: Active Medications Al Hydroxide/Mg Hydroxide (Milk Of Magnesia Liq) 30 ml PO Q12H PRN PRN Reason: Mild Constipation Alprazolam (Xanax) 3 mg PO HS PRN PRN Reason: Sleep Last Admin: 03/18/18 22:46 Dose: 3 mg Amphetamine/Dextroamphetamine (Adderall Xr) 30 mg PO DAILY [facility] Last Admin: 03/19/18 12:29 Dose: Not Given Bisacodyl (Dulcolax Supp) 10 mg RECTAL Q8H PRN PRN Reason: SEVERE CONSITIPATION Last Admin: 03/17/18 21:49 Dose: 10 mg Sodium Chloride (Ns Inj) 1,000 mls @ 100 mls/hr IV.CONT .Q10H [facility] Last Admin: 03/19/18 15:04 Dose: Not Given Lactulose (Lactulose Liq) 30 ml PO DAILY PRN PRN Reason: SEVERE CONSITIPATION Last Admin: 03/18/18 17:01 Dose: 30 ml Lorazepam (Ativan Inj) 0.5 mg IV.PUSH Q4H PRN PRN Reason: SEVERE ANXIETY Last Admin: 03/18/18 21:15 Dose: 0.5 mg Morphine Sulfate (Morphine Inj) 2 mg IV.PUSH Q2H PRN PRN Reason: Pain Scale 1 to 6 Last Admin: 03/19/18 15:02 Dose: 2 mg Naloxone HCl (Narcan Inj) 0.4 mg IV.PUSH UNSCH PRN PRN Reason: SEE LABEL COMMENTS Ondansetron HCl (Zofran Inj) 4 mg IV.PUSH Q4H PRN PRN Reason: NAUSEA OR VOMITING Last Admin: 03/18/18 17:02 Dose: 4 mg Oxycodone/Acetaminophen (Percocet 10/325 Mg) 1 tab PO Q4H PRN PRN Reason: PAIN SCALE 6 TO 10 Polyethylene Glycol (Miralax) 17 gm PO DAILY [facility] Last Admin: 03/19/18 12:29 Dose: Not Given Prochlorperazine Edisylate (Compazine Inj) 5 mg IV.PUSH Q4H PRN PRN Reason: NAUSEA OR VOMITING Last Admin: 03/18/18 23:23 Dose: 5 mg Senna/Docusate Sodium (Helga-Colace) 1 tab PO BID [facility] Last Admin: 03/19/18 12:28 Dose: Not Given Sennosides (Senokot) 17.2 mg PO Q12HR [facility] Last Admin: 03/19/18 12:29 Dose: Not Given Simethicone (Phazyme Chew) 125 mg PO Q6H PRN PRN Reason: GAS RETENTION Last Admin: 03/18/18 14:53 Dose: 125 mg Sodium Biphosphate/Sodium Phosphate (Fleets Enema (Adult)) 118 ml RECTAL UNSCH PRN PRN Reason: CONSTIPATION Tamsulosin HCl (Flomax) 0.4 mg PO DAILY [facility] Last Admin: 03/19/18 12:29 Dose: Not Given <Sammi Borja - Last Filed: 03/19/18 15:46> Active Medications: Active Medications Al Hydroxide/Mg Hydroxide (Milk Of Magnesia Liq) 30 ml PO Q12H PRN PRN Reason: Mild Constipation Alprazolam (Xanax) 3 mg PO HS PRN PRN Reason: Sleep Last Admin: 03/18/18 22:46 Dose: 3 mg Amphetamine/Dextroamphetamine (Adderall Xr) 30 mg PO DAILY [facility] Last Admin: 03/19/18 12:29 Dose: Not Given Bisacodyl (Dulcolax Supp) 10 mg RECTAL Q8H PRN PRN Reason: SEVERE CONSITIPATION Last Admin: 03/17/18 21:49 Dose: 10 mg Sodium Chloride (Ns Inj) 1,000 mls @ 100 mls/hr IV.CONT .Q10H [facility] Last Admin: 03/19/18 15:04 Dose: Not Given Lactulose (Lactulose Liq) 30 ml PO DAILY PRN PRN Reason: SEVERE CONSITIPATION Last Admin: 03/18/18 17:01 Dose: 30 ml Lorazepam (Ativan Inj) 0.5 mg IV.PUSH Q4H PRN PRN Reason: SEVERE ANXIETY Last Admin: 03/19/18 16:34 Dose: 0.5 mg Morphine Sulfate (Morphine Inj) 2 mg IV.PUSH Q2H PRN PRN Reason: Pain Scale 1 to 6 Last Admin: 03/19/18 15:02 Dose: 2 mg Naloxone HCl (Narcan Inj) 0.4 mg IV.PUSH UNSCH PRN PRN Reason: SEE LABEL COMMENTS Ondansetron HCl (Zofran Inj) 4 mg IV.PUSH Q4H PRN PRN Reason: NAUSEA OR VOMITING Last Admin: 03/18/18 17:02 Dose: 4 mg Oxycodone/Acetaminophen (Percocet 10/325 Mg) 1 tab PO Q4H PRN PRN Reason: PAIN SCALE 6 TO 10 Polyethylene Glycol (Miralax) 17 gm PO DAILY [facility] Last Admin: 03/19/18 12:29 Dose: Not Given Prochlorperazine Edisylate (Compazine Inj) 5 mg IV.PUSH Q4H PRN PRN Reason: NAUSEA OR VOMITING Last Admin: 03/18/18 23:23 Dose: 5 mg Senna/Docusate Sodium (Helga-Colace) 1 tab PO BID [facility] Last Admin: 03/19/18 16:36 Dose: Not Given Sennosides (Senokot) 17.2 mg PO Q12HR [facility] Last Admin: 03/19/18 16:36 Dose: Not Given Simethicone (Phazyme Chew) 125 mg PO Q6H PRN PRN Reason: GAS RETENTION Last Admin: 03/18/18 14:53 Dose: 125 mg Sodium Biphosphate/Sodium Phosphate (Fleets Enema (Adult)) 118 ml RECTAL UNSCH PRN PRN Reason: CONSTIPATION Tamsulosin HCl (Flomax) 0.4 mg PO DAILY [facility] Last Admin: 03/19/18 12:29 Dose: Not Given <Yolanda Bar - Last Filed: 03/19/18 19:39> Allergies Allergy/AdvReac Type Severity Reaction Status Date / Time No Known Allergies Allergy Verified 03/14/18 10:44 Home Medications Medication Instructions Recorded Confirmed Type carisoprodol [Soma] 250 mg PO QID PRN 03/13/18 03/14/18 History dextroamphetamine-amphetamine 30 mg PO QAM 03/13/18 03/14/18 History [Adderall XR] alprazolam [Xanax] 3 mg PO HS PRN 03/14/18 03/14/18 History oxycodone 15 mg PO Q4-6H PRN 03/14/18 03/14/18 History Exam Vital signs: Vital Signs 03/18/18 16:00 03/18/18 20:00 03/19/18 00:00 Temperature 97.6 F 98.1 F Pulse Rate 98 H 102 H 91 H Respiratory Rate 16 20 20 Blood Pressure 132/82 142/88 H 137/72 Pulse Oximetry 95 99 96 03/19/18 03:00 03/19/18 04:00 03/19/18 08:00 Temperature 98.2 F Pulse Rate 97 H 85 Respiratory Rate 17 20 15 Blood Pressure 135/68 121/75 Pulse Oximetry 96 97 Intake & Output 03/18/18 03/19/18 03/19/18 18:59 06:59 18:59 Intake Total 1000 / 1000 Balance 1000 / 1000 Weight 75.189 kg Intake: IV 1000 / 1000 NS Inj 1,000 ML @ 100 mls/hr IV 1000 / 1000 .CONT .Q10H [facility] Rx#:[id number] Other: # Voids 5 2 Date of Last Bowel Movement 03/18/18 03/18/18 03/18/18 # Bowel Movements 1 - Constitutional no acute distress - Routine HEENT Exam Head: Present: normocephalic, atraumatic - Routine Respiratory Exam Absent: accessory muscle use - Routine Cardiovascular Exam Present: RRR - Routine Abdominal Exam Present: soft, normoactive bowel sounds, tenderness. Absent: distended - Routine Skin Exam Present: dry, warm - Routine Neurological Exam Present: alert, oriented X3 <Sammi Borja - Last Filed: 03/19/18 15:46> Vital signs: Vital Signs 03/18/18 20:00 03/19/18 00:00 03/19/18 03:00 Temperature 98.1 F Pulse Rate 102 H 91 H Respiratory Rate 20 20 17 Blood Pressure 142/88 H 137/72 Pulse Oximetry 99 96 03/19/18 04:00 03/19/18 08:00 03/19/18 16:00 Temperature 98.2 F 98.4 F Pulse Rate 97 H 85 73 Respiratory Rate 20 15 16 Blood Pressure 135/68 121/75 126/73 Pulse Oximetry 96 97 97 Intake & Output 03/19/18 03/19/18 03/20/18 06:59 18:59 06:59 Weight 75.189 kg Other: # Voids 2 Date of Last Bowel Movement 03/18/18 03/18/18 <Yolanda Bar - Last Filed: 03/19/18 19:39> Results - Labs CBC & Chem 7: 03/19/18 05:05 03/19/18 05:05 Labs: Laboratory Results - last 24 hr 03/19/18 03/19/18 03/19/18 05:05 05:05 05:05 Hgb 10.2 L Hct 29.6 L Sodium 140 Potassium 3.6 Chloride 105 Carbon Dioxide 24.2 Anion Gap 11 BUN 7 Creatinine 0.69 Estimated GFR Greater than 89 Random Glucose 71 L Calcium 8.0 L Total Bilirubin 0.5 Direct Bilirubin 0.1 Indirect Bilirubin 0.4 AST 22 ALT 23 Alkaline Phosphatase 38 L Total Protein 5.5 L Albumin 2.2 L Lipase 51 L - Imaging Impressions Abdomen/Pelvis CT 03/18/18 00:00 CONCLUSION: 1. Bowel gas pattern most typical of a generalized ileus. Potentially mild, localized colitis in the splenic flexure region, nonspecific. 2. No acute abnormality of the solid organs. 3. There is a small to moderate hiatal hernia. 4. Atelectasis and small effusions of the visualized lung bases. 5. Long segment laminectomy and fusion procedure of the thoracolumbar spine and appears to have been done recently. There is a severe compression deformity of T12 and a mild compression deformity of T11, nonacute Bile Acid Absorption NM 03/19/18 00:00 CONCLUSION: 1. Normal biliary bowel transit time confirming patency of the common bile duct. 2. Visualization of the gallbladder confirms patency of the cystic duct making acute cholecystitis unlikely. 3. No significant gallbladder emptying despite CCK infusion. Patient is however asymptomatic with CCK. <Sammi Borja - Last Filed: 03/19/18 15:46> - Labs CBC & Chem 7: 03/19/18 05:05 03/19/18 05:05 Labs: Laboratory Results - last 24 hr 03/19/18 03/19/18 03/19/18 05:05 05:05 05:05 Hgb 10.2 L Hct 29.6 L Sodium 140 Potassium 3.6 Chloride 105 Carbon Dioxide 24.2 Anion Gap 11 BUN 7 Creatinine 0.69 Estimated GFR Greater than 89 Random Glucose 71 L Calcium 8.0 L Total Bilirubin 0.5 Direct Bilirubin 0.1 Indirect Bilirubin 0.4 AST 22 ALT 23 Alkaline Phosphatase 38 L Total Protein 5.5 L Albumin 2.2 L Lipase 51 L - Imaging Impressions Abdomen/Pelvis CT 03/18/18 00:00 CONCLUSION: 1. Bowel gas pattern most typical of a generalized ileus. Potentially mild, localized colitis in the splenic flexure region, nonspecific. 2. No acute abnormality of the solid organs. 3. There is a small to moderate hiatal hernia. 4. Atelectasis and small effusions of the visualized lung bases. 5. Long segment laminectomy and fusion procedure of the thoracolumbar spine and appears to have been done recently. There is a severe compression deformity of T12 and a mild compression deformity of T11, nonacute Abdomen X-Ray 03/19/18 00:00 CONCLUSION: There has been some mild to moderate improvement of the gaseous distention compared to the prior study suggestive of an improving ileus. Bile Acid Absorption NM 03/19/18 00:00 CONCLUSION: 1. Normal biliary bowel transit time confirming patency of the common bile duct. 2. Visualization of the gallbladder confirms patency of the cystic duct making acute cholecystitis unlikely. 3. No significant gallbladder emptying despite CCK infusion. Patient is however asymptomatic with CCK. <Yolanda Bar - Last Filed: 03/19/18 19:39> Assessment and Plan - Plan Assessment: - Constipation- pt with chronic constipation- states he goes multiple days without BMs at home- does not take anything over the counter of prescription for bowels. Of note, he is on chronic narcotics. Pt states BM yesterday, small, states dark. Has never had colonoscopy. CT abdomen/pelvis with IV contrast (03/18) bowel gas pattern most typical of a generalized ileus. Potentially mild, localized colitis in the splenic flexure region, nonspecific. No acute abnormality of the solid organs. There is a small to moderate hiatal hernia. - Abdominal pain/nausea/vomiting- Pt complaining of pain below his umbilicus and to both sides. On exam, he reports generalized tenderness. States nausea and vomiting since Saturday morning. Per mother at bedside she thinks it appears to be coffee ground emesis. Pt has not eaten since admission. Reports he was drinking beer daily prior to admission. Quit smoking a week ago. Reports occasional Aleve intake. Has never had EGD HIDA scan --> nor male biliary bowel transit time confirming patency of the common bile duct. Visualization of the gallbladder confirms patency of the cystic duct making acute cholecystitis unlikely. No significant gallbladder emptying despite CCK infusion. Patient is however asymptomatic with CCK. Plan: EGD tomorrow Obtain consent Clear liquids today Relistor x 1 Bowel regimen If no response, consider Mag Citrate Possible colonoscopy pending course and EGD findings Further recommendations based on course and findings of above Pt has been seen and examined by myself and Dr. Bar and this note is written on her behalf <Sammi Borja - Last Filed: 03/19/18 15:46> - Attending Attestation seen, examined agree with above hida scan noted- abnormal gb-we rick consult surgery if not better and egd negative <Yolanda Bar - Last Filed: 03/19/18 19:39>
--- NOTE | 2018-03-19 17:54 | XR ---
EXAM DATE: 03/19/2018 5:50 PM EST AGE/SEX: 37 years / Male INDICATIONS: Constipation. CLINICAL DATA: This is the patient's initial encounter. Patient reports that signs and symptoms have been present for 1 week and indicates a pain score of 0/10. MEDICAL/SURGICAL HISTORY: None. . Spinal fusion. COMPARISON: [facility] [place], ABDOMEN 2V FLAT & UPRIGHT, 03/18/2018. . FINDINGS: Today's exam is compared to the prior study. There continues to be some gaseous distention of the sm all and large bowel. However, there has been some overall mild to moderate improvement of the gaseous distention compared to the prior study. The lung bases remain clear. There is evidence of recent ileana or thoracic/lumbar spinal surgery. CONCLUSION: There has been some mild to moderate improvement of the gaseous distention compared to the prior stud y suggestive of an improving ileus. Electronically signed by: Victoriano Tenorio MD 03/19/2018 5:53 PM EST
[2018-03-19] MEDS: Sod Phosphate/Sod Biphosphate (Adult) Enema 133 ML Bottle RECTAL PRN (21:43)
[2018-03-20] MEDS: Morphine Sulfate Inj 2 MG/ML Vial IV.PUSH PRN ×4 (03:19→16:20)
[2018-03-20] MEDS: Sod Chloride 0.9% Inj 1,000 ML IV.CONT SCH ×3 (03:20→21:35)
[2018-03-20] MEDS: Simethicone 125 MG Chew Tablet PO PRN (06:20)
[2018-03-20 06:46] LABS: Baso % (Auto) 0.4 % (0.0-2.0); Eos # (Auto) 0.2 th/mm3 (0.0-0.4); Eos % (Auto) 3.4 % (0.0-4.0); Hematocrit 27.7 % (39.0-51.0); Lymph % (Auto) 27.4 % (9.0-44.0); Mean Corpuscular Volume 91.2 fL (80.0-100.0); Mono # (Auto) 0.6 th/mm3 (0.0-0.9); Mono % (Auto) 8.6 % (0.0-8.0); Neut # (Auto) 4.3 th/mm3 (1.8-7.7); Neut % (Auto) 60.2 % (16.0-70.0); Platelet Count 345 th/mm3 (150-450); Red Blood Count 3.04 mil/mm3 (4.50-5.90); Red Cell Distribution Width 12.8 % (11.6-17.2); White Blood Count 7.2 th/mm3 (4.0-11.0)
[2018-03-20 06:59] LABS: Mean Corpuscular HGB Conc 36.2 % (32.0-36.0)
[2018-03-20 08:22] LABS: Platelet Estimate Normal (Normal)
[2018-03-20 08:23] LABS: Platelet Morphology Normal (Normal)
--- NOTE | 2018-03-20 09:48 | GIPROC ---
[facility] [address] [facility]. [facility], [id number] EGD PROCEDURE REPORT EXAM DATE: 03/20/2018 PATIENT NAME: Huang Yusuf MR #: [id number] BIRTHDATE: 1980 ATTENDING: Yolanda Bar MD ORDER #: [id number] TAB CUTTER: Maryjo Antoine and Kiley Mckeon STATUS: inpatient INDICATIONS: The patient is a 37 yr old male here for an EGD due to nausea, vomiting PROCEDURE PERFORMED: EGD w/ biopsy MEDICATIONS: Per Anesthesia and None. TOPICAL ANESTHETIC: none CONSENT: The patient understands the risks and benefits of the procedure and understands that these risks include, but are not limited to: sedation, allergic reaction, infection, perforation and/or bleeding. Alternative means of evaluation and treatment include, among others: physical exam, x-rays, and/or surgical intervention. The patient elects to proceed with this endoscopic procedure. medical equipment was checked for proper function. Hand hygiene and appropriate measures for infection prevention was taken. After the risks, benefits and alternatives of the procedure were thoroughly explained, Informed consent was verified, confirmed and timeout was successfully executed by the treatment team. The patient was anesthetized with topical anesthesia and the Pentax [id number] endoscope was introduced through the mouth and advanced to the second portion of the duodenum. Retroflexed views revealed a hiatal hernia The gastroscope was then slowly withdrawn and removed. Duodenitis second portion-biopsy gastritis antrum-biopsy esophagitis distal esophagus-biopsy. ADVERSE EVENTS: There were no complications. IMPRESSIONS: 1. Duodenitis second portion-biopsy gastritis antrum-biopsy esophagitis distal esophagus-biopsy 2. Retroflexed views revealed a hiatal hernia RECOMMENDATIONS: 1. Await biopsy results. Biopsy results will not be ready for 7-10 days. If you don't hear from us in two weeks, call our office for biopsy results. 2. Anti-reflux regimen 3. Continue PPI 4. Clear liquid diet ppi carafate 1 gm po tid PATIENT CONDITION: stable DISPOSITION: Inpatient REPEAT EXAM: Return 1 year EGD Yolanda Bar MD eSigned: Yolanda Bar MD 03/20/2018 9:48 AM cc: PATIENT NAME: Huang Yusuf MR#: [id number]
[2018-03-20] MEDS: Polyethylene Glycol 3350 17 GM Packet PO SCH (10:12)
[2018-03-20] MEDS: Senna/Docusate Sodium 8.6/50 MG Tablet PO SCH ×2 (10:12→21:41)
[2018-03-20] MEDS: Amphetamine/Dextroamphetamine XR 30 MG Capsule PO SCH (10:12)
--- NOTE | 2018-03-20 12:58 | P.PN ---
Subjective Interval history: Patient improving. Patient encountered ambulating in the unit without any difficulty. Patient had BM last night. s/p EGD earlier this morning. Patient has not tried any clears except for water. He denies any nausea or vomiting. He is having less abdominal pain. He reports occasional night sweats but denies any fevers. Physical Exam Vital signs: Vital Signs 03/19/18 16:00 03/19/18 20:00 03/20/18 00:00 Temperature 98.4 F 98.0 F 98.8 F Pulse Rate 73 83 76 Respiratory Rate 16 16 16 Blood Pressure 126/73 124/73 136/66 Pulse Oximetry 97 98 99 03/20/18 04:00 03/20/18 08:00 03/20/18 09:35 Temperature 97.9 F 97.6 F 97.8 F Pulse Rate 91 H 64 Respiratory Rate 18 16 Blood Pressure 134/84 139/82 Pulse Oximetry 100 98 03/20/18 12:00 Temperature 97.5 F L Pulse Rate 79 Respiratory Rate 18 Blood Pressure 157/85 H Pulse Oximetry 100 Intake & Output 03/19/18 03/20/18 03/20/18 18:59 06:59 18:59 Intake Total 800 / 800 1000 / 1000 Balance 800 / 800 1000 / 1000 Weight 75.1 kg Intake: IV 800 / 800 1000 / 1000 NS Inj 1,000 ML @ 100 mls/hr IV 800 / 800 1000 / 1000 .CONT .Q10H [facility] Rx#:[id number] Other: # Voids 2 Date of Last Bowel Movement 03/18/18 03/19/18 # Bowel Movements 1 Narrative: GENERAL: WDWN male patient, INAD. Awake and alert. Ambulating in hallway. SKIN: Warm and dry. HEENT: Atraumatic. Normocephalic. Pupils equal and round. No scleral icterus. No injection or drainage. No nasal bleeding or discharge. Mucous membranes pink and moist. NECK: Trachea midline. CARDIOVASCULAR: Regular rate and rhythm. RESPIRATORY: No accessory muscle use. Clear to auscultation. Breath sounds equal bilaterally. GASTROINTESTINAL: Abdomen soft, nondistended. +BS. +mild diffuse tenderness to palpation. MUSCULOSKELETAL: Extremities without clubbing, cyanosis, or edema. NEUROLOGICAL: Awake and alert. No obvious cranial nerve deficits. Motor grossly within normal limits. Able to move all extremities spontaneously. Normal speech. PSYCHIATRIC: Appropriate mood and affect; insight and judgment normal. - Urinary Catheter Management Indwelling Urethral Catheter Cath placed during this visit: yes, but has since been removed by the nurse Reason for continuing: Decision to DC catheter Insertion date: 03/14/18 Insertion time: 13:30 Removal date: 03/15/18 Removal time: 09:00 Results - Labs CBC & Chem 7: 03/20/18 06:00 03/19/18 05:05 Laboratory Results - last 24 hr 03/20/18 06:00 WBC 7.2 RBC 3.04 L Hgb 10.0 L Hct 27.7 L MCV 91.2 MCH 33.0 MCHC 36.2 H RDW 12.8 Plt Count 345 D MPV 7.0 Prelim Diff (Auto) Slide review pending Neut % (Auto) 60.2 Lymph % (Auto) 27.4 Nicollet % (Auto) 8.6 H Eos % (Auto) 3.4 Baso % (Auto) 0.4 Neut # (Auto) 4.3 Lymph # (Auto) 2.0 Nicollet # (Auto) 0.6 Eos # (Auto) 0.2 Baso # (Auto) 0.0 WBC Differential . Diff Scan Auto diff confirmed Differential Comment . Platelet Estimate Normal Platelet Morphology Normal - Imaging Impressions Abdomen X-Ray 03/19/18 00:00 CONCLUSION: There has been some mild to moderate improvement of the gaseous distention compared to the prior study suggestive of an improving ileus. Bile Acid Absorption NM 03/19/18 00:00 CONCLUSION: 1. Normal biliary bowel transit time confirming patency of the common bile duct. 2. Visualization of the gallbladder confirms patency of the cystic duct making acute cholecystitis unlikely. 3. No significant gallbladder emptying despite CCK infusion. Patient is however asymptomatic with CCK. - Procedures Preoperative Diagnosis: TThoracic fracture with severe progressive thoracic khyphosis and instability Postoperative Diagnosis: Thoracic fracture with severe progressive thoracic khyphosis and instability Date of procedure: 03/14/18 Procedure: Open reduction internal fixation of thoracic fracture, T7 to L2 posterolateral fusion using autologous iliac crest bone graft with demineralized bone matric, T7 to L2 segmental instrumental fixation using transpedicular screws and rods, harvesting of autologous iliac crest bone graft Anesthesia: GETA Surgeon: Carlos Mohamud MD Chef Kitchen Manager: Valentina Lobo Pathology: none sent Operation and Findings: INDICATIONS FOR THE SURGICAL PROCEDURE Mr Yusuf is a 37 year-old male with history of a T12 burst fracture and prior reduction with arthrodhesis. He continues to smoke and was very active physcally. His fracture failked to heal properly and he developed progressive khyphosis pulling of the superior screws with failure of the instrumentation. AN open reduction and internal fixation was indicated. The [id number] details of the procedure, indications, alternatives, risks and potential complications were fully discussed with the patient and his . The patient fully understood. All questions were answered. No guarantees were given. The patient voiced requesting the procedure and provided informed consents. The patient had been offered the alternative of delaying the procedure and continuing with nonsurgical management or to referal to a [facility] for a combined anterior-posterior approach. DETAILS OF THE SURGICAL PROCEDURE Prior to the procedure,the surgical incision was marked in the preoperative surgical holding room, and the procedure, risks, and potential complications revisited with the patient. Placement of electrodes for intraoperative neurophysiological monitoring was completed. The patient was taken to the operative room, and following induction of general anesthesia, endotracheal intubation was performed. A Saini catheter bilateral Misty and sequential compression devices were placed and kept throughout the procedure. The patient was carefully rolled into the prone position over a Mj table with a gell rolls. All pressure points were carefully padded with eggcrate mattress. The eyes were tapped shut after ointment was applied by the anesthesiologist to prevent corneal abrasion. A Peace hugger was placed over the expossed lower body to maintain control of the core body temperature. The electrophysiological team placed the needles and electrodes in their proper location and baseline SSEP's and motor evoked potentials were registered. The thoracic lumbar region was prepped and draped in the usual sterile fashion. A localizing X-ray was performed with the C-arm and the fracture was localized. Two paramedian skin incisions were outlined from T7 to L2 Surgical Approach The skin incisions were made with a #10 blade. Dissection was carried out through the thoracolumbar fascia with a Bovie. The facets of T10 down to L2 were exposed and a subperiosteal dissection was performed decorticating the facets and lateral gutters of the spine. Instrumental fixation At this point in the procedure, placement of bilateral transpedicular screws was necessary for stabilization of the spine at T7, T8, and T9. The levels were carefully marked with a TPS and bilateral transpedicular screws were placed using a standard fashion. Initially, the entry point for the screw was selected anatomically at the junction of the facet, with the transverse process, and the pars interarticularis using symultaneous AP and lateral xrays. This was started with a Giamshetti needle followed by the use of a dodson wire. A tap was used to create the threads for the screws. Finally bilateral transpedicular screws were carefully placed bilaterally at T7, T8, and T9. The position of each screw was assessed anatomically with an AP, lateral, oblique Xrays. An intraoperative scan view of the spine was then performed using the iso-centric c-arm. At this point of the procedure, the cross link of the prior instrumentation was carefully exposed free of scar tissue. Then, the caps of the previously placed screws were sequentially removed allowing removal of the rods. The screws at T10 and T11 had pulled out. There was extensive scar tissue around the screws which was carefully dissected on resected. No evidence of infection was found. The screws from T10 and T11 were carefully removed. At this point in the procedure, placement of bilateral transpedicular screws was carrioed out at T10 and T11 using a standard fashion. Initially, the entry point for the screw was selected anatomically Using symultaneous AP and lateral xrays. the screw trajectorys was started with a Giamshetti needle, followed by the use of a dodson wire. A tap was used to create the threads for the screws. Bilateral transpedicular screws were then placed at T10 and T11. The position of each screw was assessed anatomically with an AP, lateral, oblique Xrays. An intraoperative scan view of the spine was then performed using the iso-centric c-arm. HARVESTING OF ILLIAC CREST BONE An incision was then made over the patient's right posterior iliac crest. The fascia was carefully opened with a Bovie and the posterior iliac crest was exposed. A small cortical window was created with an osteotome. Cancellous bone was then harvested, to be used during the interbody arthrodesis and the posterolateral fusion. Once an appropriate amount of bone was obtained, the incision was irrigated with antibiotic solution and hemostasis secured by packing the iliac crest with Surgicel. The cortical window was then repositioned and secured using 0 Vicryl sutures. The incision was irrigated and the fascia was closed with interrupted 0 Vicryl sutures. The subcutaneous tissue was approximated with Stratafix sutures. Posterolateral fusion Then, the lateral gutters of the spine at T7-8, T8-9, T9-10, T10-T11, T11-T12, T12-L1, and L1-L2 were carefully decorticated with a TPS drill in preparation for the posterior lateral fusion. The incision was thoroughly irrigated with antibiotic solution. The posterolateral fusion was performed by carefully packing the gutters of the spine at TT7 down to L2 with a autologous iliac crest bone graft combined with demineralized bone matrix. Completion of the Procedure The rods were brought to the field. Sequential application of the cap was achieved which allowed for further correction of the kyphosis. Final tightening of all screws was achieved with a torque wrench. The incision was thoroughly irrigated with several liters of antibiotic solution. The decompression was reassessed with an nerve hook and found to be appropriate. Seven mm Mj- Seo drain was left on the epidural space and was then externalized through a separate stab incision. The incision was then closed in layers. 0 Vicryl with interrupted sutures were used to close the thoracolumbar fascia. The superficial fascia was closed with 0 Vicryl sutures. Three-0 Vicryl was used to close the subcutaneous tissue. The skin was closed with negra. At the end of the procedure the sponges, needles, and instrument counts were all correct. Estimated blood loss was 350 cc's. No complications occurred. The patient received prophylactic antibiotics. The patient was then extubated and transferred to the recovery room in stable condition. The entire procedure was performed using electrophysiological monitor of the electromyogram, evoked potential and sphincters. No intraoperative abnormalities were detected. Documented By: Carlos Mohamud MD 03/14/18 0689 Assessment and Plan - Plan 37-year-old male admitted under neurosurgical services s/p redo Open reduction internal fixation of thoracic fracture, T7 to L2 posterolateral fusion-03/14 -Dr. Mohamud following -continue with PT/OT daily -Continue on pain management per Dr. 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 s/p dose of Relistor. s/p EGD earlier today showing duodenitis, gastritis, esophagitis and hiatal hernia. Continue on clear liquid diet. Continue on PPI. Repeat EGD in 1 year. Considering general surgery consultation given abnormal gallbladder on HIDA scan. -diet per GI, currently on clear liquid diet -continue on bowel regimen -urged patient to limit narcotics as much as possible and OOB as much as tolerated History of ADD. -Continue on Adderall XR 30 mg every morning. ATIVAN IV PRN Anemia, suspect acute postoperative blood loss anemia Hgb trending down from 17.5 to 10.0 -no e/o active bleeding -monitor H/H, repeat lab in am Hypokalemia K 3.4 -resolved s/p repletion DVT prophylaxis -bilateral SCD/MISTY hose Code Status: Full Discussed Condition With: patient, nursing staff, Dr. Joyce, GI service Discharge Planning: Discharge pending clinical improvement and GI clearance
[2018-03-20] MEDS: Sucralfate Liq 1 GM/10 ML UDC PO SCH ×2 (13:10→21:41)
--- NOTE | 2018-03-20 15:31 | P.PNNS ---
Subjective Interval history: ambulating, feels a bit better today, EGD done this morning. he feels he is still not ready for dc home today as he is afraid abdominal pain and gassiness that worsens at night. Physical Exam Vital signs: Vital Signs 03/19/18 16:00 03/19/18 20:00 03/20/18 00:00 Temperature 98.4 F 98.0 F 98.8 F Pulse Rate 73 83 76 Respiratory Rate 16 16 16 Blood Pressure 126/73 124/73 136/66 Pulse Oximetry 97 98 99 03/20/18 04:00 03/20/18 08:00 03/20/18 09:35 Temperature 97.9 F 97.6 F 97.8 F Pulse Rate 91 H 64 Respiratory Rate 18 16 Blood Pressure 134/84 139/82 Pulse Oximetry 100 98 03/20/18 12:00 Temperature 97.5 F L Pulse Rate 79 Respiratory Rate 18 Blood Pressure 157/85 H Pulse Oximetry 100 Intake & Output 03/19/18 03/20/18 03/20/18 18:59 06:59 18:59 Intake Total 800 / 800 1000 / 1000 Balance 800 / 800 1000 / 1000 Weight 75.1 kg Intake: IV 800 / 800 1000 / 1000 NS Inj 1,000 ML @ 100 mls/hr IV 800 / 800 1000 / 1000 .CONT .Q10H [facility] Rx#:[id number] Other: # Voids 2 Date of Last Bowel Movement 03/18/18 03/19/18 03/19/18 # Bowel Movements 1 Narrative: Awake, alert ambulating with steady gait TLSO brace in place wound with dressing, c,d,i - Urinary Catheter Management Indwelling Urethral Catheter Cath placed during this visit: yes, but has since been removed by the nurse Reason for continuing: Decision to DC catheter Insertion date: 03/14/18 Insertion time: 13:30 Removal date: 03/15/18 Removal time: 09:00 Assessment and Plan - Plan status post redo ORIF T7-L2 for T12 burst fracture, with nonunion and proximal junctional kyphosis (03/14/18) mild ileus, +BM /6, small BM /7 Abdominal pain Abdomen X-Ray 03/18/18 00:00 CONCLUSION: Probable ileus without definite signs of obstruction and follow-up is recommended. Abdomen/Pelvis CT 03/18/18 00:00 CONCLUSION: 1. Bowel gas pattern most typical of a generalized ileus. Potentially mild, localized colitis in the splenic flexure region, nonspecific. 2. No acute abnormality of the solid organs. 3. There is a small to moderate hiatal hernia. 4. Atelectasis and small effusions of the visualized lung bases. 5. Long segment laminectomy and fusion procedure of the thoracolumbar spine and appears to have been done recently. There is a severe compression deformity of T12 and a mild compression deformity of T11, nonacute Bile Acid Absorption NM 03/19/18 00:00 CONCLUSION: 1. Normal biliary bowel transit time confirming patency of the common bile duct. 2. Visualization of the gallbladder confirms patency of the cystic duct making acute cholecystitis unlikely. 3. No significant gallbladder emptying despite CCK infusion. Patient is however asymptomatic with CCK. appreciate medical management assistance f/u endoscopy cont TLSO brace when out of bed bone stimulator ordered to be delivered when he is discharged DME ordered case [facility] planning
[2018-03-20] MEDS: Sod Phosphate/Sod Biphosphate (Adult) Enema 133 ML Bottle RECTAL PRN (21:44)
[2018-03-21 04:59] LABS: Hematocrit 30.5 % (39.0-51.0); Hemoglobin 10.8 gm/dL (13.0-17.0)
[2018-03-21] MEDS: Sucralfate Liq 1 GM/10 ML UDC PO SCH (05:18)
[2018-03-21] MEDS: Sod Chloride 0.9% Inj 1,000 ML IV.CONT SCH (08:34)
[2018-03-21] MEDS: Amphetamine/Dextroamphetamine XR 30 MG Capsule PO SCH (08:36)
[2018-03-21] MEDS: Polyethylene Glycol 3350 17 GM Packet PO SCH (08:36)
[2018-03-21] MEDS: Senna/Docusate Sodium 8.6/50 MG Tablet PO SCH (08:36)
[2018-03-21 08:46] VITALS: BP 110/58; PULSE 87; RESP 20; TEMP 98.3; O2SAT 96
--- NOTE | 2018-03-21 10:05 | P.DS ---
Date of admission: 03/14/18 10:00 Primary care physician: Hafsa Kraft DO DS: Summary - Time Spent with Patient Total time spent providing and/or coordinating discharge services: - Quality: VTE Deep Vein Thrombosis/Pulmonary Embolism Present on Admission: No Exam Vital signs: Vital Signs 03/20/18 12:00 03/20/18 16:45 03/20/18 20:00 Temperature 97.5 F L 98.3 F 98.0 F Pulse Rate 79 68 58 L Respiratory Rate 18 18 16 Blood Pressure 157/85 H 150/85 H 137/76 Pulse Oximetry 100 100 100 03/21/18 00:00 03/21/18 08:00 Temperature 98.1 F 98.3 F Pulse Rate 71 87 Respiratory Rate 16 20 Blood Pressure 122/68 110/58 L Pulse Oximetry 98 96 Intake & Output 03/20/18 03/21/18 03/21/18 18:59 06:59 18:59 Intake Total 1880 / 1880 1000 / 1000 1000 / 1000 Balance 1880 / 1880 1000 / 1000 1000 / 1000 Weight 75.2 kg Intake: IV 1000 / 1000 1000 / 1000 1000 / 1000 NS Inj 1,000 ML @ 100 mls/hr IV 1000 / 1000 1000 / 1000 1000 / 1000 .CONT .Q10H CAROLYN Rx#:[id number] Oral 480 / 480 Anesthesia Amount 400 / 400 Other: # Voids 3 4 Date of Last Bowel Movement 03/19/18 03/21/18 03/21/18 # Bowel Movements 2 Results Procedures completed during hospitalization: Preoperative Diagnosis: TThoracic fracture with severe progressive thoracic khyphosis and instability Postoperative Diagnosis: Thoracic fracture with severe progressive thoracic khyphosis and instability Date of procedure: 03/14/18 Procedure: Open reduction internal fixation of thoracic fracture, T7 to L2 posterolateral fusion using autologous iliac crest bone graft with demineralized bone matric, T7 to L2 segmental instrumental fixation using transpedicular screws and rods, harvesting of autologous iliac crest bone graft Anesthesia: GETA Surgeon: Carlos Mohamud MD Spanish Medical Interpreter: Valentina Lobo Pathology: none sent Operation and Findings: INDICATIONS FOR THE SURGICAL PROCEDURE Mr Yusuf is a 37 year-old male with history of a T12 burst fracture and prior reduction with arthrodhesis. He continues to smoke and was very active physcally. His fracture failked to heal properly and he developed progressive khyphosis pulling of the superior screws with failure of the instrumentation. AN open reduction and internal fixation was indicated. The [id number] details of the procedure, indications, alternatives, risks and potential complications were fully discussed with the patient and his . The patient fully understood. All questions were answered. No guarantees were given. The patient voiced requesting the procedure and provided informed consents. The patient had been offered the alternative of delaying the procedure and continuing with nonsurgical management or to referal to a [facility] center for a combined anterior-posterior approach. DETAILS OF THE SURGICAL PROCEDURE Prior to the procedure,the surgical incision was marked in the preoperative surgical holding room, and the procedure, risks, and potential complications revisited with the patient. Placement of electrodes for intraoperative neurophysiological monitoring was completed. The patient was taken to the operative room, and following induction of general anesthesia, endotracheal intubation was performed. A Saini catheter bilateral Soham and sequential compression devices were placed and kept throughout the procedure. The patient was carefully rolled into the prone position over a Mj table with a gell rolls. All pressure points were carefully padded with eggcrate mattress. The eyes were tapped shut after ointment was applied by the anesthesiologist to prevent corneal abrasion. A Peace hugger was placed over the expossed lower body to maintain control of the core body temperature. The electrophysiological team placed the needles and electrodes in their proper location and baseline SSEP's and motor evoked potentials were registered. The thoracic lumbar region was prepped and draped in the usual sterile fashion. A localizing X-ray was performed with the C-arm and the fracture was localized. Two paramedian skin incisions were outlined from T7 to L2 Surgical Approach The skin incisions were made with a #10 blade. Dissection was carried out through the thoracolumbar fascia with a Bovie. The facets of T10 down to L2 were exposed and a subperiosteal dissection was performed decorticating the facets and lateral gutters of the spine. Instrumental fixation At this point in the procedure, placement of bilateral transpedicular screws was necessary for stabilization of the spine at T7, T8, and T9. The levels were carefully marked with a TPS and bilateral transpedicular screws were placed using a standard fashion. Initially, the entry point for the screw was selected anatomically at the junction of the facet, with the transverse process, and the pars interarticularis using symultaneous AP and lateral xrays. This was started with a Giamshetti needle followed by the use of a dodson wire. A tap was used to create the threads for the screws. Finally bilateral transpedicular screws were carefully placed bilaterally at T7, T8, and T9. The position of each screw was assessed anatomically with an AP, lateral, oblique Xrays. An intraoperative scan view of the spine was then performed using the iso-centric c-arm. At this point of the procedure, the cross link of the prior instrumentation was carefully exposed free of scar tissue. Then, the caps of the previously placed screws were sequentially removed allowing removal of the rods. The screws at T10 and T11 had pulled out. There was extensive scar tissue around the screws which was carefully dissected on resected. No evidence of infection was found. The screws from T10 and T11 were carefully removed. At this point in the procedure, placement of bilateral transpedicular screws was carrioed out at T10 and T11 using a standard fashion. Initially, the entry point for the screw was selected anatomically Using symultaneous AP and lateral xrays. the screw trajectorys was started with a Giamshetti needle, followed by the use of a dodson wire. A tap was used to create the threads for the screws. Bilateral transpedicular screws were then placed at T10 and T11. The position of each screw was assessed anatomically with an AP, lateral, oblique Xrays. An intraoperative scan view of the spine was then performed using the iso-centric c-arm. HARVESTING OF ILLIAC CREST BONE An incision was then made over the patient's right posterior iliac crest. The fascia was carefully opened with a Bovie and the posterior iliac crest was exposed. A small cortical window was created with an osteotome. Cancellous bone was then harvested, to be used during the interbody arthrodesis and the posterolateral fusion. Once an appropriate amount of bone was obtained, the incision was irrigated with antibiotic solution and hemostasis secured by packing the iliac crest with Surgicel. The cortical window was then repositioned and secured using 0 Vicryl sutures. The incision was irrigated and the fascia was closed with interrupted 0 Vicryl sutures. The subcutaneous tissue was approximated with Stratafix sutures. Posterolateral fusion Then, the lateral gutters of the spine at T7-8, T8-9, T9-10, T10-T11, T11-T12, T12-L1, and L1-L2 were carefully decorticated with a TPS drill in preparation for the posterior lateral fusion. The incision was thoroughly irrigated with antibiotic solution. The posterolateral fusion was performed by carefully packing the gutters of the spine at TT7 down to L2 with a autologous iliac crest bone graft combined with demineralized bone matrix. Completion of the Procedure The rods were brought to the field. Sequential application of the cap was achieved which allowed for further correction of the kyphosis. Final tightening of all screws was achieved with a torque wrench. The incision was thoroughly irrigated with several liters of antibiotic solution. The decompression was reassessed with an nerve hook and found to be appropriate. Seven mm Mj- Seo drain was left on the epidural space and was then externalized through a separate stab incision. The incision was then closed in layers. 0 Vicryl with interrupted sutures were used to close the thoracolumbar fascia. The superficial fascia was closed with 0 Vicryl sutures. Three-0 Vicryl was used to close the subcutaneous tissue. The skin was closed with negra. At the end of the procedure the sponges, needles, and instrument counts were all correct. Estimated blood loss was 350 cc's. No complications occurred. The patient received prophylactic antibiotics. The patient was then extubated and transferred to the recovery room in stable condition. The entire procedure was performed using electrophysiological monitor of the electromyogram, evoked potential and sphincters. No intraoperative abnormalities were detected. Documented By: Carlos Mohamud MD 03/14/18 [id number] Pending studies at discharge: Pending at discharge 03/20/18 12:05 Surgical [PTH] Routine Labs on day of discharge: Labs from last 24 hours 03/21/18 04:20 Hgb 10.8 L Hct 30.5 L - Impressions ITS Impressions Chest X-Ray 03/14/18 00:00 CONCLUSION: Mild increased density in the left lung compared to the right which may be artifactual. There is no focal consolidation. Thoracic Spine X-Ray 03/14/18 00:00 CONCLUSION: Good placement of surgical hardware. Abdomen/Pelvis CT 03/18/18 00:00 CONCLUSION: 1. Bowel gas pattern most typical of a generalized ileus. Potentially mild, localized colitis in the splenic flexure region, nonspecific. 2. No acute abnormality of the solid organs. 3. There is a small to moderate hiatal hernia. 4. Atelectasis and small effusions of the visualized lung bases. 5. Long segment laminectomy and fusion procedure of the thoracolumbar spine and appears to have been done recently. There is a severe compression deformity of T12 and a mild compression deformity of T11, nonacute Abdomen X-Ray 03/19/18 00:00 CONCLUSION: There has been some mild to moderate improvement of the gaseous distention compared to the prior study suggestive of an improving ileus. Bile Acid Absorption NM 03/19/18 00:00 CONCLUSION: 1. Normal biliary bowel transit time confirming patency of the common bile duct. 2. Visualization of the gallbladder confirms patency of the cystic duct making acute cholecystitis unlikely. 3. No significant gallbladder emptying despite CCK infusion. Patient is however asymptomatic with CCK. Discharge Plan - Discharge Disposition Patient Disposition: 01 Discharge Home - Discharge Condition Condition: Stable - Discharge Order Discharge Orders: Discharge Order (Routine); Ordered 03/21/18 Ordered By: Jane Doan - Physicians Team Primary Care Provider: Hafsa Kraft Attending Provider: Carlos Mohamud Other Providers: Rigoberto Joyce MD ; Yolanda Bar MD - Rxs /Orders / Referrals /Forms Prescriptions: Continue alprazolam [Xanax] 1 mg Tablet 3 mg PO HS PRN (Reason: Sleep) carisoprodol [Soma] 250 mg Tablet 250 mg PO QID PRN (Reason: Pain) dextroamphetamine-amphetamine [Adderall XR] 30 mg Capsule,Extended Release 24hr 30 mg PO QAM oxycodone 15 mg Tablet 15 mg PO Q4-6H PRN (Reason: Pain) Ambulatory Orders / Order Sets / DME: Adjustable Commode 3-in-1 (1 each) (Routine) Location: Determined by Patient Ordered By: [facility] Bed - Electric (1 each) (Routine) Location: Determined by Patient Ordered By: [facility] Walker With Front Wheels (1 each) (Routine) Location: Determined by Patient Ordered By: [facility] Referrals: Hafsa Kraft DO [Primary Care Provider] - See Instructions - Discharge Instructions Patient Printed Instructions: Laminectomy (DC), How to Choose and Use a Walker (GEN), How to Choose and Safely Use a Hospital Bed (GEN), Fall Prevention (DC) Additional Instructions: IT HAS BEEN OUR PLEASURE TAKING CARE OF YOU! GOOD LUCK WITH YOUR RECOVERY! WE HOPE THAT YOU HAVE HAD AN EXCEPTIONAL STAY HERE AT [facility]! - Post Discharge Care Plan Care Plan Goals: Your Health Problems: Goals to Promote Your Health: * To prevent worsening of your condition * To maintain your health at the optimal level Directions to Meet Your Goals: * Take your medications as prescribed * Follow your dietary instruction * Follow activity as directed * Keep your appointments as scheduled * Take your immunizations and boosters as scheduled * If your symptoms worsen call your PCP * If no PCP go to Urgent Care or Emergency Room Smoking is dangerous to your health. Avoid second hand smoke. You may reach the 24-hour crisis hotline for domestic abuse at .
== END 2018-03-21 10:49 | disposition home or self-care (01) ==
LOC: HSDI 10:00 → N03 21:00 → N06 03-15 16:14
PROVIDERS: ADMIT Neurological Surgery; ATTEND Neurological Surgery
PROC: PANENDO (2018-03-20 09:08)